=== PATIENT | female | born 1930 | race Caucasian/White ===

== ENCOUNTER 2016-12-12 19:41 | Inpatient (IN) | payer OTHER ==
[~2016-12-12] VITALS: Ht 160 cm; Wt 62.4 kg
[~2016-12-12 19:41] MED LIST: AMOX875T3 PO; LCTX PO; NYSS/ PO; PANT1TAB48 PO; PRN10125 PO
[2016-12-12 19:53] VITALS: Ht 160 cm; Wt 62.4 kg
[2016-12-12 20:18] LABS: BASO % 0.2 %; BASO ABS # 0.03 K/uL (0-0.2); COMPLETE YES; EOS % 0.5 %; HEMATOCRIT 40.2 % (37-47); IG% 0.5 %; LYMPH ABS # 1.34 K/uL (1.2-3.4); MEAN CELL VOLUME 89.9 fL (80-100); MEAN CORPUSCULAR HEMOGLOBIN 31.1 pg (25-34); MEAN CORPUSCULAR HGB CONC 34.6 g/dl (32-36); MEAN PLATELET VOLUME 9.7 fL (7.4-10.4); MONO % 7.4 %; NEUT % 82.4 %; PLATELET COUNT 336 K/uL (130-400); RED BLOOD COUNT 4.47 M/uL (4.2-5.4); WHITE BLOOD COUNT 14.93 K/uL (4.8-10.8)
--- NOTE | 2016-12-12 20:46 | DIAGNOSTIC IMAGING REPORT ---
CHEST ONE VIEW PORTABLE CLINICAL HISTORY: shortness of breath dyspnea COMPARISON STUDY: 04/16/2013 FINDINGS: Moderate cardiomegaly. Calcification mitral annulus. Small parenchymal infiltrate medial right base. Lungs otherwise are clear. IMPRESSION: 1. Moderate cardiomegaly.. 2. Small parenchymal infiltrate medial right base Electronically signed by: Riley Newell M.D. 12/12/2016 8:45 PM Dictated Date/Time: 12/12/2016 8:44 PM
[2016-12-12 20:50] LABS: ALB/GLOB RATIO 0.7 (0.9-2); ALKALINE PHOSPHATASE 114 U/L (45-117); ALT/SGPT 39 U/L (12-78); BLOOD UREA NITROGEN 18 mg/dl (7-18); CALCIUM 8.8 mg/dl (8.5-10.1); CARBON DIOXIDE 28 mmol/L (21-32); CHLORIDE 107 mmol/L (98-107); CREATININE 0.84 mg/dl (0.60-1.20); GLUCOSE 241 mg/dl (70-99); SODIUM 141 mmol/L (136-145)
[2016-12-12 21:15] LABS: PARTIAL THROMBOPLASTIN RATIO 1.3; PROTHROMBIN TIME (PATIENT) 11.2 SECONDS (9.0-12.0)
[2016-12-12 21:16] LABS: POTASSIUM 3.9 mmol/L (3.5-5.1)
[2016-12-12] MEDS ORDERED: PIPERACILLIN/TAZOBACTAM 4.5 GM/100ML D5W IV STA (21:37)
--- NOTE | 2016-12-12 21:43 | EMERGENCY ROOM VISIT NOTE ---
History Report prepared by Hari: Sarika Cruz Under the Supervision of: Dr. Manuel Irizarry M.D. First contact with patient: 20:22 Chief Complaint: SHORTNESS OF BREATH Stated Complaint: SOB/ Nursing Triage Summary: Pt arrives via ALS litter from home for eval of worsening sob over the past couple days. Medic reports pt has had a "cold/cough" for the past couple weeks. Initially prod, now non prod. Malaise. RA sat on EMS arrival was 87%. Pt denies pain on arrival to ED. Pt has +4 edema to left lower extremity, reports this is chronic. +2 edema to right lower extremity. Wound noted to posterior left lower extremity, weeping. History of Present Illness The patient is an 86 year old female who presents to the Emergency Room via ALS with complaints of worsening shortness of breath with onset several days ago. The patient states that she has had a cough and that she has had cold symptoms for several weeks. The patient has a wound to her left leg; the patient is unsure of how long her wound has been present. She denies chest pain, nausea, vomiting, fevers. Source of History: patient, family Onset: several days ago Position: chest Quality: other (shortness of breath) Timing: worsening Associated Symptoms: + cough, No chest pain, No fevers, No nausea, No vomiting Note: The patient has a wound to her left leg. Review of Systems See HPI for pertinent positives & negatives. A total of 10 systems reviewed and were otherwise negative. Past Medical & Surgical Medical Problems: (1) Cellulitis (2) Shortness of breath (3) UTI (urinary tract infection) Old medical records were reviewed. Nurse's notes were reviewed and I agree with. Family History No pertinent family history Social History Smoking Status: Never Smoker Drug Use: none Housing Status: lives with family Occupation Status: retired Current/Historical Medications Scheduled Lisinopril/Hctz (Prinzide 10-12.5MG *), 1 TAB PO QAM Pantoprazole (Protonix), 40 MG PO QAM Allergies Coded Allergies: No Known Allergies (Verified , 12/12/16) Physical Exam Vital Signs Date Time Temp Pulse Resp B/P Pulse Ox O2 Delivery O2 Flow Rate FiO2 12/13/16 02:19 78 18 170/61 93 12/13/16 01:31 75 18 186/57 95 Nasal Cannula 2.0 3/18/17 00:00 73 18 172/86 95 Room Air 12/12/16 23:26 76 22 185/73 91 Nasal Cannula 2.0 12/12/16 22:45 77 22 200/93 94 Room Air 12/12/16 21:47 95 Nasal Cannula 2.0 12/12/16 21:18 83 18 199/89 91 Room Air 12/12/16 21:18 91 Room Air 12/12/16 20:25 79 12/12/16 19:53 93 Room Air 12/12/16 19:53 93 Room Air 12/12/16 19:53 36.5 81 20 203/77 93 Room Air Physical Exam General: Chronically ill appearing older female in no acute distress, wearing baseline oxygen. HEENT: Normal cephalic atraumatic. Pupils are equal round and reactive to light. Extraocular movements are intact. Oropharynx is pink with moist mucous membranes. No swelling of the mouth lips or tongue. Neck: Supple with a midline trachea. No meningeal signs or stiffness, no JVD or bruits. No Stridor. Chest: Lungs have crackles in the bases bilaterally. No wheezes or rhonchi. No increased work of breathing. Heart: regular rate and rhythm. Abdomen: Soft nontender, nondistended without rebound guarding or rigidity. Extremities: No cyanosis clubbing. Edema in the lower extremities, left greater than right, ulcer in the left posterior calf. No calf tenderness or assymetry Spine/Back. Non tender to palpation. No CVA tenderness Skin: Good turgor without rashes. Neurologic exam: Cranial nerves two through 12 are intact. Motor and sensation are intact and symmetrical throughout. Medical Decision & Procedures ER Provider Diagnostic Interpretation: X-ray results as stated below per interpretation by me and the radiologist: CHEST ONE VIEW PORTABLE CLINICAL HISTORY: shortness of breath dyspnea COMPARISON STUDY: 04/16/2013 FINDINGS: Moderate cardiomegaly. Calcification mitral annulus. Small parenchymal infiltrate medial right base. Lungs otherwise are clear. IMPRESSION: 1. Moderate cardiomegaly.. 2. Small parenchymal infiltrate medial right base Electronically signed by: Riley Newell M.D. 12/12/2016 8:45 PM Dictated Date/Time: 12/12/2016 8:44 PM Laboratory Results 12/12/16 19:10 Red Blood Count 4.47, Mean Corpuscular Volume 89.9, Mean Corpuscular Hemoglobin 31.1, Mean Corpuscular Hemoglobin Concent 34.6, Mean Platelet Volume 9.7, Neutrophils (%) (Auto) 82.4, Lymphocytes (%) (Auto) 9.0, Monocytes (%) (Auto) 7.4, Eosinophils (%) (Auto) 0.5, Basophils (%) (Auto) 0.2, Neutrophils # (Auto) 12.31, Lymphocytes # (Auto) 1.34, Monocytes # (Auto) 1.11, Eosinophils # (Auto) 0.07, Basophils # (Auto) 0.03 12/12/16 19:10 12/12/16 20:40 Test 12/12/16 19:10 12/12/16 20:40 12/13/16 01:04 White Blood Count 14.93 K/uL (4.8-10.8) Red Blood Count 4.47 M/uL (4.2-5.4) Hemoglobin 13.9 g/dL (12.0-16.0) Hematocrit 40.2 % (37-47) Mean Corpuscular Volume 89.9 fL (80-100) Mean Corpuscular Hemoglobin 31.1 pg (25-34) Mean Corpuscular Hemoglobin Concent 34.6 g/dl (32-36) Platelet Count 336 K/uL (130-400) Mean Platelet Volume 9.7 fL (7.4-10.4) Neutrophils (%) (Auto) 82.4 % Lymphocytes (%) (Auto) 9.0 % Monocytes (%) (Auto) 7.4 % Eosinophils (%) (Auto) 0.5 % Basophils (%) (Auto) 0.2 % Neutrophils # (Auto) 12.31 K/uL (1.4-6.5) Lymphocytes # (Auto) 1.34 K/uL (1.2-3.4) Monocytes # (Auto) 1.11 K/uL (0.11-0.59) Eosinophils # (Auto) 0.07 K/uL (0-0.5) Basophils # (Auto) 0.03 K/uL (0-0.2) RDW Standard Deviation 47.5 fL (36.4-46.3) RDW Coefficient of Variation 14.5 % (11.5-14.5) Immature Granulocyte % (Auto) 0.5 % Immature Granulocyte # (Auto) 0.07 K/uL (0.00-0.02) Anion Gap 6.0 mmol/L (3-11) Est Creatinine Clear Calc Drug Dose 43.8 ml/min Estimated GFR () 72.4 Estimated GFR (Non- 62.5 BUN/Creatinine Ratio 21.0 (10-20) Calcium Level 8.8 mg/dl (8.5-10.1) Total Bilirubin 0.4 mg/dl (0.2-1) Alanine Aminotransferase (ALT/SGPT) 39 U/L (12-78) Alkaline Phosphatase 114 U/L (45-117) Total Protein 7.8 gm/dl (6.4-8.2) Albumin 3.1 gm/dl (3.4-5.0) Globulin 4.7 gm/dl (2.5-4.0) Albumin/Globulin Ratio 0.7 (0.9-2) Prothrombin Time 11.2 SECONDS (9.0-12.0) Prothromb Time International Ratio 1.0 (0.9-1.1) Activated Partial Thromboplast Time 33.1 SECONDS (21.0-31.0) Partial Thromboplastin Ratio 1.3 Aspartate Amino Transf (AST/SGOT) 24 U/L (15-37) Total Creatine Kinase 63 U/L (26-192) Creatine Kinase MB 6.8 ng/ml (0.5-3.6) Creatine Kinase MB Ratio 10.8 (0-3.0) Troponin I 0.464 ng/ml (0-0.045) Pro-B-Type Natriuretic Peptide 2199 pg/ml (0-1800) Laboratory studies as stated above per my review. Medications Administered Medications (Trade) Dose Ordered Sig/Alfonso Route Start Time Stop Time Status Last Admin Dose Admin Piperacillin Sod/ Tazobactam Sod (Zosyn Iv) 4.5 gm NOW STAT IV 12/12/16 21:37 12/12/16 21:38 DC 12/12/16 22:45 4.5 GM Levofloxacin (Levaquin / D5W) 750 mg NOW ONCE IV 12/12/16 21:45 12/12/16 21:46 DC 12/12/16 23:22 750 MG ECG Indication: SOB/dyspnea Rate (beats per minute): 76 Rhythm: normal sinus Findings: PAC, RBBB, other (left anterior fasicular block ) Comparison ECG Date: 03/25/2013 Change: no significant change ED Course 2133: Past medical records reviewed. The patient was evaluated in room A10, and a complete history and physical examination were performed. 2136: Zosyn 4.5 gm IV 2144: Levaquin 750 mg IV 2144: I discussed the case with Dr. Gardner ([facility]); he will further evaluate the patient. Upon reevaluation, the patient is resting. I discussed the results and treatment plan with the patient. She verbalized agreement of the treatment plan. The patient will be evaluated for further management. Medical Decision Differentials include, but are not limited to; pneumonia, sepsis, cellulitis, acute coronary syndrome, electrolyte or metabolic abnormality. This patient comes in as described above. She was placed in room A 10. She is having cough and shortness of breath. She also has some lower extremity swelling or redness of those and she says is chronic. she looks cellulitic. she also has skin breakdown. Chest x-ray does suggest pneumonia in the base. She does have an elevated white count. EKG does not appear ischemic however troponin is elevated. She was treated with IV Zosyn and IV Levaquin which will give lung and skin coverage blood cultures were obtained. I do think she needs to be admitted for further treatment and evaluation I have consulted Dr. Jacobo saw her in the ER and will admit her for these measures. Consults Time Called: 2139 Consulting Physician: Dr. Gardner ([facility]) Returned Call: 2144 I discussed the case with Dr. Gardner ([facility]); he will further evaluate the patient. Impression Primary Impression: Pneumonia Additional Impressions: Cellulitis Sepsis Elevated troponin Scribe Attestation The scribe's documentation has been prepared under my direction and personally reviewed by me in its entirety. I confirm that the note above accurately reflects all work, treatment, procedures, and medical decision making performed by me. Departure Information Dispostion Being Evaluated By Hospitalist Referrals Michael Almeida M.D. (PCP) Patient Instructions My [facility] Problem Qualifiers
[2016-12-12] MEDS ORDERED: LEVAQUIN 750MG / 150ML D5W IV ONE (21:45)
[2016-12-13] VITALS (9 sets, daily range): BP systolic 129–188; BP diastolic 52–72; PULSE 69–83; TEMP 36.3–36.6; O2SAT 87–96
[2016-12-13] MEDS ORDERED: ACETAMINOPHEN 325 MG TAB PO PRN (01:15)
[2016-12-13] MEDS ORDERED: ALBUTEROL 0.083% NEBU SOLN 3 ML VIAL INH PRN (01:15)
[2016-12-13] MEDS ORDERED: MAGNESIUM HYDROXIDE SUSP 30 ML UDC PO PRN (01:15)
[2016-12-13] MEDS ORDERED: NITROGLYCERIN 0.4 MG SL PER TAB CHARGE SL PRN (01:15)
[2016-12-13] MEDS ORDERED: ALUMINUM/MAGNESIUM/SIMETH (MAALOX MAX) 30 ML UDC PO PRN (01:15)
[2016-12-13] MEDS ORDERED: ONDANSETRON INJ 2 MG/ML 2 ML VIAL IV PRN (01:15)
[2016-12-13] MEDS ORDERED: POLYETHYLENE (MIRALAX) 17 GM PACK PO PRN (01:15)
[2016-12-13] MEDS ORDERED: MoRPHine SULFATE 2 MG/ML CARP IV PRN (01:15)
[2016-12-13 02:03] LABS: CKMB/CK RATIO 10.8 (0-3.0)
--- NOTE | 2016-12-13 02:28 | History and Physical ---
History & Physical Date & Time of Service: Dec 13, 2016 at 02:19 Chief Complaint: SOB/ Primary Care Physician: Michael Almeida M.D. History of Present Illness Source: patient 86 y/o F w/Hx HTN, DM, GERD, chronic LE lymphedema. Pt became progressively SOB and weak over the last 2 days. She describes a productive cough and possibly a fever. EMS was summoned to her house and noted that the pt was hypoxic into the mid 80s. She denies CP, denies N/V, denies diarrhea or dysuria. Labs on arrival were notable for an elevated glucose and an elevated troponin. The pt denies that she is diabetic however per our records she may have been diagnosed in 2012 and has not complied with treatment. She has chronic lymphedema R > L which she has had for several years and states that it is unchanged. She was not however to have a small ulcerated area on the L calf which appears infected. Initial CXR is consistent with acute PNM. Past Medical/Surgical History Medical Problems: (1) Cellulitis Status: Resolved (2) UTI (urinary tract infection) Status: Resolved Family History No pertinent family history Father in WW1 Mother at age 95 Social History Pt states [place] with her sons and is normally active Smoking Status: Never Smoker Drug Use: none Occupational Status: retired Immunizations History of Influenza Vaccine: No History of Tetanus Vaccine?: No History of Pneumococcal: No History of Hepatitis B Vaccine: No Multi-Drug Resistant Organisms History of MDRO: No Allergies Coded Allergies: No Known Allergies (Verified , 12/12/16) Home Medications Scheduled Lisinopril/Hctz (Prinzide 10-12.5MG *), 1 TAB PO QAM Pantoprazole (Protonix), 40 MG PO QAM Review of Systems Constitutional: + fever, No chills, No sweats Eyes: No eye pain, No worsening of vision ENT: No hearing loss, No nasal symptoms, No unusual epistaxis Respiratory: + cough, + dyspnea at rest, + dyspnea on exertion, + shortness of breath, + sputum, No wheezing Cardiovascular: No PND, No chest pain, No orthopnea Abdomen: No nausea, No pain, No vomiting Musculoskeletal: + problem reported (chronic lymphedema), No joint pain, No muscle pain Genitourinary - Female: No dysuria, No hematuria, No urinary frequency, No urinary incontinence, No urinary retention, No urinary urgency Neurologic: + weakness, No memory loss, No paralysis Psychiatric: No depression symptoms Endocrine: + fatigue Hematologic / Lymphatic: No abnormal bleeding/bruising Integumentary: + problem reported (Chronic LE skin changes - was unaware of calf ulcer) Physical Exam Vital Signs Date Time Temp Pulse Resp B/P Pulse Ox O2 Delivery O2 Flow Rate FiO2 12/13/16 01:31 75 18 186/57 95 Nasal Cannula 2.0 12/13/16 00:00 73 18 172/86 95 Room Air 12/12/16 23:26 76 22 185/73 91 Nasal Cannula 2.0 12/12/16 22:45 77 22 200/93 94 Room Air 12/12/16 21:47 95 Nasal Cannula 2.0 12/12/16 21:18 83 18 199/89 91 Room Air 12/12/16 21:18 91 Room Air 12/12/16 20:25 79 12/12/16 19:53 93 Room Air 12/12/16 19:53 93 Room Air 12/12/16 19:53 36.5 81 20 203/77 93 Room Air General Appearance: WD/WN, no apparent distress, + pertinent finding (Pleasant elderly female in no acute distress - AAO x 3) Head: normocephalic, atraumatic Eyes: normal inspection, PERRL, EOMI ENT: normal ENT inspection, hearing grossly normal, TMs normal, pharynx normal Neck: supple, no JVD Respiratory/Chest: chest non-tender, + decreased breath sounds (No clear crackles or wheezing) Cardiovascular: regular rate, rhythm, no gallop, no JVD, no murmur Abdomen/GI: normal bowel sounds, non tender, soft Back: normal inspection, no CVA tenderness Extremities/Musculoskelatal: + pertinent finding (Massive B/L edema and related skin changes R > L) 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, no motor/sensory deficits, alert, normal mood/affect, normal reflexes, oriented x 3 Skin: + pertinent finding (Massive B/L edema and related skin changes R > L) Diagnostics Laboratory Results Results Past 24 Hours Test 12/12/16 19:10 12/12/16 20:40 12/13/16 01:04 Range/Units White Blood Count 14.93 4.8-10.8 K/uL Red Blood Count 4.47 4.2-5.4 M/uL Hemoglobin 13.9 12.0-16.0 g/dL Hematocrit 40.2 37-47 % Mean Corpuscular Volume 89.9 80-100 fL Mean Corpuscular Hemoglobin 31.1 25-34 pg Mean Corpuscular Hemoglobin Concent 34.6 32-36 g/dl Platelet Count 336 130-400 K/uL Mean Platelet Volume 9.7 7.4-10.4 fL Neutrophils (%) (Auto) 82.4 % Lymphocytes (%) (Auto) 9.0 % Monocytes (%) (Auto) 7.4 % Eosinophils (%) (Auto) 0.5 % Basophils (%) (Auto) 0.2 % Neutrophils # (Auto) 12.31 1.4-6.5 K/uL Lymphocytes # (Auto) 1.34 1.2-3.4 K/uL Monocytes # (Auto) 1.11 0.11-0.59 K/uL Eosinophils # (Auto) 0.07 0-0.5 K/uL Basophils # (Auto) 0.03 0-0.2 K/uL RDW Standard Deviation 47.5 36.4-46.3 fL RDW Coefficient of Variation 14.5 11.5-14.5 % Immature Granulocyte % (Auto) 0.5 % Immature Granulocyte # (Auto) 0.07 0.00-0.02 K/uL Sodium Level 141 136-145 mmol/L Potassium Level 3.9 3.5-5.1 mmol/L Chloride Level 107 98-107 mmol/L Carbon Dioxide Level 28 21-32 mmol/L Anion Gap 6.0 3-11 mmol/L Blood Urea Nitrogen 18 7-18 mg/dl Creatinine 0.84 0.60-1.20 mg/dl Est Creatinine Clear Calc Drug Dose 43.8 ml/min Estimated GFR () 72.4 Estimated GFR (Non- 62.5 BUN/Creatinine Ratio 21.0 10-20 Random Glucose 241 70-99 mg/dl Calcium Level 8.8 8.5-10.1 mg/dl Total Bilirubin 0.4 0.2-1 mg/dl Aspartate Amino Transf (AST/SGOT) 24 15-37 U/L Alanine Aminotransferase (ALT/SGPT) 39 12-78 U/L Alkaline Phosphatase 114 45-117 U/L Troponin I 0.583 0.464 0-0.045 ng/ml Total Protein 7.8 6.4-8.2 gm/dl Albumin 3.1 3.4-5.0 gm/dl Globulin 4.7 2.5-4.0 gm/dl Albumin/Globulin Ratio 0.7 0.9-2 Prothrombin Time 11.2 9.0-12.0 SECONDS Prothromb Time International Ratio 1.0 0.9-1.1 Activated Partial Thromboplast Time 33.1 21.0-31.0 SECONDS Partial Thromboplastin Ratio 1.3 Total Creatine Kinase 63 26-192 U/L Creatine Kinase MB 6.8 0.5-3.6 ng/ml Creatine Kinase MB Ratio 10.8 0-3.0 Pro-B-Type Natriuretic Peptide 2199 0-1800 pg/ml Diagnostic Radiology 1. Moderate cardiomegaly. 2. Small parenchymal infiltrate medial right base. EKG SInus - RBB - LAFB - no acute change Impression Assessment and Plan 86 y/o F w/Hx HTN, DM, GERD, chronic LE lymphedema. Pt became progressively SOB and weak over the last 2 days. She describes a productive cough and possibly a fever. EMS was summoned to her house and noted that the pt was hypoxic into the mid 80s. She denies CP, denies N/V, denies diarrhea or dysuria. Labs on arrival were notable for an elevated glucose and an elevated troponin. The pt denies that she is diabetic however per our records she may have been diagnosed in 2012 and has not complied with treatment. She has chronic lymphedema R > L which she has had for several years and states that it is unchanged. She was not however to have a small ulcerated area on the L calf which appears infected. Initial CXR is consistent with acute PNM. 1) Hypoxia - pneumonia - pt placed on Levaquin, 02 protocol, nebs - stable on admission and maintaining sat w/2L NC 2) Lymphedema - area of ulceration - possibly infected L calf - Levaquin as above - culture and adjust antibiotics if needed - wound care consulted - should likely have some home care or outpt care weekly for her lymphedema. LE doppler ordered as she may be prone to DVTs. 3) DM - has not sought treatment although this was likely diagnosed in 2012 - placed on sliding scale - consider D/C with oral meds based on HbA1C results 4) Elevated trop - possibly demand ischemia due to hypoxia - serial troponins, monitor on telemetry, ASA, AM echo to evaluate for wall motion abnormalities. Full code - Heparin prophylaxis Total time for this admit including review of labs, meds, EKG, CXR - discussion with ER attending and pt - 38 min Level of Care Telemetry Resuscitation Status FULL RESUSCITATION VTE Prophylaxis VTE Risk Assessment Done? Y/N: Yes Risk Level: Moderate Given or contraindicated: Warfarin (Coumadin)
[2016-12-13] MEDS ORDERED: GLUCAGON FOR INJ 1 MG VIAL SQ PRN (02:30)
[2016-12-13] MEDS ORDERED: GLUCOSE 10 TABS/TUBE PO PRN (02:30)
[2016-12-13] MEDS ORDERED: GLUCOSE 40% GEL 15 GM TUBE PO PRN (02:30)
[2016-12-13] MEDS ORDERED: DEXTROSE 50% 50 ML SYR IV PRN (02:30)
[2016-12-13] MEDS: ALBUT/IPRATROP 3MG/0.5MG NEB 3 ML VIAL INH SCH ×4 (03:04→19:17)
[2016-12-13] MEDS ORDERED: LEVOFLOXACIN CONSULT ACTIVE PRN (03:15)
[2016-12-13] MEDS ORDERED: INFLUENZA VIRUS QUAD VACCINE 0.5 ML SYR IM. ONE (06:00)
[2016-12-13] MEDS ORDERED: HEPARIN SOD 5000 UNIT/0.5 ML CARP SQ SCH (06:00)
[2016-12-13] MEDS ORDERED: INFLUENZA ADMINISTRATION CHARGE ONE (06:00)
[2016-12-13] MEDS ORDERED: PNEUMOCOCCAL POLYSACCHARIDES 25 MCG/0.5 ML VIAL/SYR IM. ONE (06:00)
[2016-12-13] MEDS ORDERED: PNEUMOCOCCAL ADMINISTRATION CHARGE ONE (06:00)
[2016-12-13 07:09] LABS: HEMATOCRIT 34.4 % (37-47); MEAN CELL VOLUME 87.3 fL (80-100); MEAN CORPUSCULAR HEMOGLOBIN 29.7 pg (25-34); MEAN PLATELET VOLUME 8.9 fL (7.4-10.4); PLATELET COUNT 226 K/uL (130-400); RED BLOOD COUNT 3.94 M/uL (4.2-5.4); WHITE BLOOD COUNT 11.97 K/uL (4.8-10.8)
[2016-12-13] MEDS: INSULIN ASPART 100 UNITS/ML 3 ML PEN SC SCH ×4 (07:38→20:48)
[2016-12-13 07:39] LABS: BUN/CREATININE RATIO 21.2 (10-20); CALCIUM 8.4 mg/dl (8.5-10.1); CREATININE 0.69 mg/dl (0.60-1.20); MAGNESIUM 2.3 mg/dl (1.8-2.4); POTASSIUM 4.2 mmol/L (3.5-5.1)
[2016-12-13] MEDS: ASPIRIN 81 MG ECTAB PO SCH (08:16)
[2016-12-13] MEDS: PANTOprazole SOD 40 MG TAB PO SCH (08:16)
--- NOTE | 2016-12-13 09:37 | DIAGNOSTIC IMAGING REPORT ---
BILATERAL LOWER EXTREMITY VENOUS DOPPLER HISTORY: Pain. Edema. dv COMPARISON STUDY: 2012 FINDINGS: Study is positive for acute deep venous thrombosis involving the right common femoral vein. All remaining venous structures bilaterally are unremarkable. Augmentation characteristics are unremarkable. IMPRESSION: Focal acute deep venous thrombosis right common femoral vein. Otherwise negative study Electronically signed by: Riley Newell M.D. 12/13/2016 9:36 AM Dictated Date/Time: 12/13/2016 9:34 AM
--- NOTE | 2016-12-13 11:30 | ECHOCARDIOGRAM REPORT ---
*NOTICE TO RECEIVING REPUBLICAN AGENCY This information is strictly Confidential and protected under [place] law. [place] law prohibits you from making any further disclosure of this information unless further disclosure is expressly permitted by the written consent of the person to whom it pertains or is authorized by law. A general authorization for the release of medical or other information is not sufficient for this purpose. Hospital accepts no responsibility if the information is made available to any other person, INCLUDING THE PATIENT. Interpretation Summary * Name: SHUBHAM WEINER Study Date: 12/13/2016 07:18 AM BP: 188/69 mmHg * Patient Location: .[facility]\S\N276\S\2 HR: 75 * : 1930 (M/d/yyyy) Gender: Female Height: 63 in * Age: 86 yrs Ethnicity: [place] Weight: 151 lb * Ordering Physician: Ezio Gardner * Performed By: Sarika Jurado * * Reason For Study: ELEVATED TROP * BSA: 1.7 m2 * -- Conclusions -- * There is mild asymmetric left ventricular hypertrophy. * Left ventricular systolic function is normal. * A full diastolic examination was done with clinical findings of Class I diastolic dysfunction. * Mild valvular aortic stenosis. * There is moderate to severe mitral annular calcification. * There is mild mitral regurgitation. * Right ventricular systolic pressure is normal. Procedure Details * A complete two-dimensional transthoracic echocardiogram was performed (2D, M-mode, Doppler and color flow Doppler). Left Ventricle * The left ventricle is normal in size. * There is mild asymmetric left ventricular hypertrophy. * Ejection Fraction = >70 %. * Left ventricular systolic function is normal. * A full diastolic examination was done with clinical findings of Class I diastolic dysfunction. Right Ventricle * The right ventricle is grossly normal size. * The right ventricular systolic function is normal. Atria * The left atrial size is normal. * Right atrial size is normal. Mitral Valve * There is moderate to severe mitral annular calcification. * There is no mitral valve stenosis. * There is mild mitral regurgitation. Tricuspid Valve * There is mild tricuspid regurgitation. * Right ventricular systolic pressure is normal. Aortic Valve * Moderately calcified with diminished opening * Mild valvular aortic stenosis. * There is no significant aortic regurgitation. Great Vessels * The aortic root and proximal ascending aorta are normal sized. Pericardium/Pleural * There is no pericardial effusion. MMode 2D Measurements and Calculations IVSd 2.0 cm IVSs 2.5 cm LVIDd 3.8 cm LVIDs 2.2 cm LVPWd 1.3 cm LVPWs 2.2 cm IVS/LVPW 1.5 FS 41.4 % EDV(Teich) 60.7 ml ESV(Teich) 16.3 ml EF(Teich) 73.1 % EDV(cubed) 53.4 ml ESV(cubed) 10.7 ml EF(cubed) 79.9 % % IVS thick 25.5 % % LVPW thick 62.4 % LV mass(C)d 256.3 grams LV mass(C)dI 149.4 grams/m\S\2 LV mass(C)s 265.5 grams LV mass(C)sI 154.7 grams/m\S\2 SV(Teich) 44.3 ml SI(Teich) 25.8 ml/m\S\2 SV(cubed) 42.7 ml SI(cubed) 24.9 ml/m\S\2 ACS 0.63 cm LA dimension 3.7 cm asc Aorta Diam 2.9 cm LVOT diam 1.5 cm LVOT area 1.7 cm\S\2 LVAd ap4 15.6 cm\S\2 LVLd ap4 6.0 cm EDV(MOD-sp4) 33.6 ml EDV(sp4-el) 34.5 ml LVAs ap4 7.2 cm\S\2 LVLs ap4 5.2 cm ESV(MOD-sp4) 8.8 ml ESV(sp4-el) 8.6 ml EF(MOD-sp4) 73.9 % EF(sp4-el) 75.1 % LVAd ap2 19.1 cm\S\2 LVLd ap2 7.1 cm EDV(MOD-sp2) 41.4 ml EDV(sp2-el) 44.0 ml LVAs ap2 8.7 cm\S\2 LVLs ap2 5.4 cm ESV(MOD-sp2) 11.5 ml ESV(sp2-el) 11.8 ml EF(MOD-sp2) 72.1 % EF(sp2-el) 73.1 % LVLd %diff 15.4 % EDV(MOD-bp) 41.2 ml LVLs %diff 4.2 % ESV(MOD-bp) 10.4 ml EF(MOD-bp) 74.9 % SV(MOD-sp4) 24.8 ml SI(MOD-sp4) 14.5 ml/m\S\2 SV(MOD-sp2) 29.9 ml SI(MOD-sp2) 17.4 ml/m\S\2 SV(MOD-bp) 30.8 ml SI(MOD-bp) 18.0 ml/m\S\2 SV(sp4-el) 25.9 ml SI(sp4-el) 15.1 ml/m\S\2 SV(sp2-el) 32.2 ml SI(sp2-el) 18.8 ml/m\S\2 Doppler Measurements and Calculations MV E max mary 107.8 cm/sec MV A max mary 131.0 cm/sec MV E/A 0.82 MV V2 max 180.1 cm/sec MV max PG 13.0 mmHg MV V2 mean 91.2 cm/sec MV mean PG 3.9 mmHg MV V2 VTI 48.1 cm MV dec time 0.37 sec Ao V2 max 289.9 cm/sec Ao max PG 33.7 mmHg Ao max PG (full) 26.0 mmHg Ao V2 mean 165.8 cm/sec Ao mean PG 13.9 mmHg Ao V2 VTI 62.9 cm CONNOR(V,A) 0.82 cm\S\2 CONNOR(V,D) 0.82 cm\S\2 LV V1 max PG 7.7 mmHg LV V1 max 138.6 cm/sec PA V2 max 126.7 cm/sec PA max PG 6.4 mmHg TR max mary 202.5 cm/sec
--- NOTE | 2016-12-13 13:03 | Progress Note ---
Progress Note Date of Service Dec 13, 2016. Progress Note H&P Reviewed. Chart and studies reviewed. LE dopplers revealed R common femoral vein DVT. With her SOB with non-productive cough for the past 2 weeks, will check CTA of the chest. Will check FOBT (never had colonoscopy and denies black tarry stools or h/o GIB ) and start her on therapeutic lovenox 60 mg SQ Q12h. Maintain her on abx. Keep BP between 140-160, currently off home regimen of lisinopril/hctz. Will reinstitute in the next 24-48 hrs to maintain sbp goal of 120-140.
[2016-12-13] MEDS ORDERED: OPTIRAY 320 IV PRN (13:15)
--- NOTE | 2016-12-13 13:34 | DIAGNOSTIC IMAGING REPORT ---
CHEST CTA for PULMONARY ARTERIES CT DOSE: 310.49 mGy.cm HISTORY: Dyspnea SOB EVAL FOR PE TECHNIQUE: Multiaxial CT images of the chest were performed following the intravenous administration of contrast to evaluate the pulmonary arteries. Maximal intensity projection images were also obtained. COMPARISON STUDY: None. FINDINGS: Large embolus involving the distal aspect of the right main pulmonary artery with extension to the right upper lobe and to a lesser extent right lower lobe pulmonary arterial distributions. No evidence for a saddle embolus. Left pulmonary vasculature enhances uniformly. Bibasilar parenchymal infiltrative changes are present. There are small bilateral pleural effusions. Heart is moderately enlarged. There are findings of secondary evidence for pulmonary arterial hypertension. IMPRESSION: 1. Study is positive for large embolus involving the right upper lobe and to lesser extent right lower lobe pulmonary arterial distributions. 2. Developing pulmonary arterial hypertension. 3. Basilar parenchymal infiltrative change with a trace amount pleural fluid both lung bases.. Electronically signed by: Riley Newell M.D. 12/13/2016 1:32 PM Dictated Date/Time: 12/13/2016 1:27 PM
[2016-12-13] MEDS: ENOXAPARIN 60 MG/0.6 ML SYR SQ SCH ×2 (14:06→22:44)
[2016-12-14] VITALS (11 sets, daily range): BP systolic 131–175; BP diastolic 56–81; PULSE 67–104; TEMP 36.6–36.8; O2SAT 91–96
[2016-12-14] MEDS: ALBUT/IPRATROP 3MG/0.5MG NEB 3 ML VIAL INH SCH ×4 (02:26→19:28)
[2016-12-14 07:27] LABS: BASO % 0.2 %; BASO ABS # 0.02 K/uL (0-0.2); COMPLETE YES; EOS % 0.8 %; HEMATOCRIT 33.3 % (37-47); LYMPH % 18.7 %; LYMPH ABS # 1.57 K/uL (1.2-3.4); MEAN CELL VOLUME 88.6 fL (80-100); MEAN CORPUSCULAR HEMOGLOBIN 29.5 pg (25-34); MEAN CORPUSCULAR HGB CONC 33.3 g/dl (32-36); MEAN PLATELET VOLUME 9.6 fL (7.4-10.4); NEUT % 71.3 %; PLATELET COUNT 233 K/uL (130-400); RED BLOOD COUNT 3.76 M/uL (4.2-5.4); WHITE BLOOD COUNT 8.38 K/uL (4.8-10.8)
[2016-12-14] MEDS: INSULIN ASPART 100 UNITS/ML 3 ML PEN SC SCH ×4 (07:32→20:59)
[2016-12-14 07:54] LABS: CALCIUM 8.3 mg/dl (8.5-10.1); CREATININE 0.87 mg/dl (0.60-1.20); POTASSIUM 4.3 mmol/L (3.5-5.1)
[2016-12-14] MEDS: ASPIRIN 81 MG ECTAB PO SCH (08:33)
[2016-12-14] MEDS: PANTOprazole SOD 40 MG TAB PO SCH (08:33)
--- NOTE | 2016-12-14 09:23 | Progress Note ---
Subjective Date of Service: Dec 14, 2016. Subjective Pt evaluation today including: conversation w/ patient, physical exam, review of studies, review of inpatient medication list Risks/benefits of being on anticoagulation was discussed with patient. She opts for coumadin and is willing to have her INR checked very closely. She understands risks including but not limited to GIB and ICH especially in setting of some ambulatory dysfunction. She reports she walks with a RW but has not fallen for several years now. She is relatively independent at home but she lives with her son in a farm and he helps her during the day. Problem List Medical Problems: (1) Elevated troponin Status: Acute (2) Pneumonia Status: Acute (3) Sepsis Status: Acute Review of Systems All Other Systems: Reviewed and Negative Medications Acetaminophen (Tylenol Tab) 650 mg Q4H PRN PO; Start 12/13/16 at 01:15; Stop 01/12/17 at 01:14 Al Hydrox/Mg Hydrox/Simethicone (Maalox Max Susp) 15 ml Q4H PRN PO; Start 12/13 at 01:15; Stop 01/12/17 at 01:14 Albuterol Sulfate 2.5 mg 2.5 mg Q4H PRN INH; Start 12/13/16 at 01:15; Stop at 01:14 Albuterol/ Ipratropium (Duoneb) 3 ml Q6R INH Last administered on 12/14/16 07: 05; Admin Dose 3 ML; Start 12/13/16 at 03:00; Stop 01/12/17 at 01:14 Aspirin (Ecotrin Tab) 81 mg QAM PO Last administered on 12/14/16 08:33; Admin Dose 81 MG; Start 12/13/16 at 09:00; Stop 01/12/17 at 08:59 Dextrose (Dextrose 50% 50ML Syringe) 25-50ML OF 50% DW IV FOR... UD PRN IV; Start 12/13/16 at 02:30; Stop 01/12/17 at 02:29 Enoxaparin Sodium (Lovenox Inj) 60 mg Q12@1100,2300 SQ Last administered on 12/13 22:44; Admin Dose 60 MG; Start 12/13/16 at 14:00; Stop 01/12/17 at 13:59 Glucagon (Glucagon Inj) 1 mg UD PRN SQ; Start 12/13/16 at 02:30; Stop 01/12/17 at 02:29 Glucose (Glucose 40% Gel) 15-30 GRAMS 15 GRAMS... UD PRN PO; Start 12/13/16 at 02:30; Stop 01/12/17 at 02:29 Glucose (Glucose Chew Tab) 4-8 Tablets 4 Tabl... UD PRN PO; Start 12/13/16 at 02:30; Stop 01/12/17 at 02:29 Insulin Aspart (novoLOG ASPART) SLIDING SCALE G... ACHS SC Last administered on 12/13/16 20:48; Admin Dose 1 UNITS; Start 12/13/16 at 06:30; Stop 01/12/17 at 06:59 Ioversol (Optiray 320) 125 ml UD PRN IV; Start 12/13/16 at 13:15; Stop at 13:14 Levofloxacin (Consult) 1 ea UD PRN N/A; Start 12/13/16 at 03:15; Stop 01/12/17 at 03:14 Levofloxacin/Prmx (Levaquin / D5W/ Premixed D5W) 150 ml @ 100 mls/hr Q48H IV; Start 12/14/16 at 23:00; Stop 12/19/16 at 23:59 Magnesium Hydroxide (Milk Of Magnesia Susp) 30 ml Q12H PRN PO; Start 12/13/16 at 01:15; Stop 01/12/17 at 01:14 Morphine Sulfate (MoRPHine SULFATE INJ) 2 mg Q30M PRN IV; Start 12/13/16 at 01: 15; Stop 12/27/16 at 01:14 Nitroglycerin (Nitrostat Tab) 0.4 mg UD PRN SL; Start 12/13/16 at 01:15; Stop 01/12/17 at 01:14 Ondansetron HCl (Zofran Inj) 4 mg Q6H PRN IV; Start 12/13/16 at 01:15; Stop at 01:14 Pantoprazole Sodium (Protonix Tab) 40 mg QAM PO Last administered on 12/14/16 08:33; Admin Dose 40 MG; Start 12/13/16 at 09:00; Stop 01/12/17 at 08:59 Polyethylene (Miralax Powder Packet) 17 gm DAILY PRN PO; Start 12/13/16 at 01: 15; Stop 01/12/17 at 01:14 Objective Vital Signs Date Time Temp Pulse Resp B/P Pulse Ox O2 Delivery O2 Flow Rate FiO2 12/14/16 07:17 36.8 69 20 134/74 94 2.0 12/14/16 07:05 67 18 95 Nasal Cannula 2.0 12/14/16 04:00 Nasal Cannula 2.0 12/14/16 02:50 36.8 104 20 131/72 95 Nasal Cannula 2.0 12/14/16 02:26 68 18 94 Nasal Cannula 2.0 12/14/16 00:00 36.8 75 18 146/72 93 Nasal Cannula 2.0 12/14/16 00:00 Nasal Cannula 2.0 12/13/16 20:00 Nasal Cannula 2.0 12/13/16 19:26 36.6 74 18 129/56 92 Room Air 12/13/16 19:18 76 16 87 Room Air 12/13/16 16:30 Nasal Cannula 2.0 12/13/16 14:58 36.4 72 16 161/62 92 Room Air 12/13/16 14:38 71 16 95 Nasal Cannula 1.0 12/13/16 12:30 Nasal Cannula 2.0 12/13/16 11:48 36.4 73 16 145/52 96 Nasal Cannula 2.0 Physical Exam Comments: nad, dry cough noted, aox3 eomi, perrl, anicteric s1 s2 rrr, no murmurs appreciated +bibasilar crackles but with good air exchange throughout, no wheezing abd soft nt/nd +BS LE with chronic venous stasis, +erythema Laboratory Results Last 24 Hours Test 12/13/16 11:20 12/13/16 16:18 12/13/16 19:37 12/13/16 19:40 Bedside Glucose 164 mg/dl 114 mg/dl 162 mg/dl Test 12/14/16 06:45 12/14/16 07:28 White Blood Count 8.38 K/uL Red Blood Count 3.76 M/uL Hemoglobin 11.1 g/dL Hematocrit 33.3 % Mean Corpuscular Volume 88.6 fL Mean Corpuscular Hemoglobin 29.5 pg Mean Corpuscular Hemoglobin Concent 33.3 g/dl Platelet Count 233 K/uL Mean Platelet Volume 9.6 fL Neutrophils (%) (Auto) 71.3 % Lymphocytes (%) (Auto) 18.7 % Monocytes (%) (Auto) 8.0 % Eosinophils (%) (Auto) 0.8 % Basophils (%) (Auto) 0.2 % Neutrophils # (Auto) 5.97 K/uL Lymphocytes # (Auto) 1.57 K/uL Monocytes # (Auto) 0.67 K/uL Eosinophils # (Auto) 0.07 K/uL Basophils # (Auto) 0.02 K/uL RDW Standard Deviation 47.4 fL RDW Coefficient of Variation 14.6 % Immature Granulocyte % (Auto) 1.0 % Immature Granulocyte # (Auto) 0.08 K/uL Sodium Level 142 mmol/L Potassium Level 4.3 mmol/L Chloride Level 108 mmol/L Carbon Dioxide Level 27 mmol/L Anion Gap 7.0 mmol/L Blood Urea Nitrogen 17 mg/dl Creatinine 0.87 mg/dl Est Creatinine Clear Calc Drug Dose 42.3 ml/min Estimated GFR () 69.4 Estimated GFR (Non- 59.9 BUN/Creatinine Ratio 19.0 Random Glucose 118 mg/dl Calcium Level 8.3 mg/dl Troponin I 0.348 ng/ml Bedside Glucose 120 mg/dl Assessment and Plan 1. DVT/PE - in setting of decreased mobility due to chronic LE edema - no RV strain on echo - walks with RW, no recent falls - resume lovenox for at least 5 days, start coumadin tonight and have INR check in AM - risk/benefits dicussed re: Xa inhibitors vs coumadin, she opts for coumadin at this time - hold off PT/OT for now until pulmonary status more stable - will eventually need PT/OT evaluation prior to discharge for her ambulatory dysfunction 2. Chronic LE edema with cellulitis - cont abx for 5-7 days depending on how she progresses - wound care consult 3. Ambulatory dysfunction - hold off on PT/OT at this time until respiratory status improves
[2016-12-14] MEDS: ENOXAPARIN 60 MG/0.6 ML SYR SQ SCH ×2 (11:59→23:24)
[2016-12-14] MEDS ORDERED: LISINOPRIL 10 MG TAB PO ONE (15:11)
[2016-12-14] MEDS: WARFARIN SOD 5 MG TAB PO SCH (15:48)
[2016-12-14] MEDS ORDERED: LEVOFLOXACIN / D5W 750 MG in PREMIXED IN D5W 150 ML IV SCH (23:00)
[2016-12-15] VITALS (14 sets, daily range): BP systolic 144–177; BP diastolic 63–78; PULSE 65–78; TEMP 36.4–37; O2SAT 92–98
[2016-12-15] MEDS: ALBUT/IPRATROP 3MG/0.5MG NEB 3 ML VIAL INH SCH ×4 (02:22→20:22)
[2016-12-15 06:36] LABS: BASO % 0.2 %; BASO ABS # 0.02 K/uL (0-0.2); COMPLETE YES; EOS % 0.6 %; HEMATOCRIT 33.8 % (37-47); IG% 1.2 %; LYMPH ABS # 1.32 K/uL (1.2-3.4); MEAN CELL VOLUME 88.5 fL (80-100); MEAN CORPUSCULAR HEMOGLOBIN 29.3 pg (25-34); MEAN CORPUSCULAR HGB CONC 33.1 g/dl (32-36); MEAN PLATELET VOLUME 9.2 fL (7.4-10.4); MONO % 9.8 %; NEUT % 72.2 %; PLATELET COUNT 214 K/uL (130-400); RED BLOOD COUNT 3.82 M/uL (4.2-5.4); WHITE BLOOD COUNT 8.23 K/uL (4.8-10.8)
[2016-12-15 06:43] LABS: INR 1.1 (0.9-1.1); PROTHROMBIN TIME (PATIENT) 11.5 SECONDS (9.0-12.0)
[2016-12-15 07:17] LABS: BUN/CREATININE RATIO 23.9 (10-20); CALCIUM 8.5 mg/dl (8.5-10.1); CREATININE 0.87 mg/dl (0.60-1.20); POTASSIUM 4.5 mmol/L (3.5-5.1)
[2016-12-15] MEDS: INSULIN ASPART 100 UNITS/ML 3 ML PEN SC SCH ×4 (07:51→21:00)
[2016-12-15] MEDS: LISINOPRIL 10 MG TAB PO SCH (07:58)
[2016-12-15] MEDS: PANTOprazole SOD 40 MG TAB PO SCH (07:58)
[2016-12-15] MEDS: ASPIRIN 81 MG ECTAB PO SCH (07:58)
--- NOTE | 2016-12-15 10:38 | Clinical Documentation Query ---
CLINICAL DOCUMENTATION QUERY 86 year old female who presents to the Emergency Room via ALS with complaints of worsening shortness of breath. Pneumonia has been well documented in daily progress notes until the discovery of PE. The patient remains on IV Levofloxacin and nebs. In your clinical opinion is this patient being managed for: ( ) Pneumonia treated with IV Levofloxacin ( ) Pneumonia ruled out Please clarify and document your clinical opinion in the progress notes and discharge summary. Terms such as "probable", "suspected", "likely", "questionable", "possible", or "still to be ruled out" are acceptable. IF IN AGREEMENT, YOU MUST DOCUMENT ABOVE DIAGNOSTIC STATEMENT IN DAILY PROGRESS NOTES AND DISCHARGE SUMMARY. This document is not part of the patient's record. Thank You, Raffaele Manzo, REAGAN [phone]
[2016-12-15] MEDS: ENOXAPARIN 60 MG/0.6 ML SYR SQ SCH ×2 (12:29→22:22)
[2016-12-15] MEDS: WARFARIN SOD 5 MG TAB PO SCH (16:09)
--- NOTE | 2016-12-15 18:25 | Progress Note ---
Subjective Date of Service: Dec 15, 2016. Subjective this pt is alert and oriented, discussed treatment of dVT, pt does not feel she can carry out lovenox at home, needs 5 day overlap. Son at bedside and updated , shooting for for discharge if not new issues Problem List Medical Problems: (1) Elevated troponin Status: Acute (2) Pneumonia Status: Acute (3) Sepsis Status: Acute Review of Systems Constitutional: No chills, No fever, No weakness Respiratory: No cough, No dyspnea on exertion, No shortness of breath Cardiac: + edema, No chest pain Abdomen: No diarrhea, No nausea, No pain, No vomiting Female : No dysuria, No urinary frequency Skin: + color change, + new/changing skin lesions, + rash Objective Vital Signs Date Time Temp Pulse Resp B/P Pulse Ox O2 Delivery O2 Flow Rate FiO2 12/15/16 08:28 36.4 65 17 169/75 98 Nasal Cannula 2.0 12/15/16 07:07 69 18 93 Nasal Cannula 2.0 12/15/16 04:00 36.9 69 18 156/78 92 Nasal Cannula 2.0 12/15/16 04:00 Nasal Cannula 2.0 12/15/16 02:22 69 18 96 Nasal Cannula 2.0 12/15/16 00:00 Nasal Cannula 2.0 12/15/16 00:00 36.7 74 20 155/68 96 Nasal Cannula 2.0 12/14/16 20:00 Nasal Cannula 2.0 12/14/16 20:00 36.6 68 18 175/64 96 2.0 12/14/16 19:28 73 18 96 Nasal Cannula 2.0 12/14/16 16:45 Nasal Cannula 2.0 12/14/16 15:11 36.8 71 18 151/56 94 Nasal Cannula 2.0 12/14/16 14:34 70 18 93 Nasal Cannula 2.0 12/14/16 12:30 Nasal Cannula 2.0 12/14/16 11:45 36.7 68 20 166/81 94 Physical Exam General Appearance: WD/WN, + mild distress, + obese Neck: supple, no JVD Respiratory/Chest: chest non-tender, lungs clear, normal breath sounds Cardiovascular: regular rate, rhythm, no murmur Abdomen: normal bowel sounds, non tender, soft Extremities: + pedal edema, + swelling, + pertinent finding (chronic venous stasis skin changes) Neurologic/Psychiatric: alert, oriented x 3 Laboratory Results Last 24 Hours Test 12/14/16 11:35 12/14/16 16:32 12/14/16 20:12 12/15/16 06:19 Bedside Glucose 148 mg/dl 178 mg/dl 144 mg/dl White Blood Count 8.23 K/uL Red Blood Count 3.82 M/uL Hemoglobin 11.2 g/dL Hematocrit 33.8 % Mean Corpuscular Volume 88.5 fL Mean Corpuscular Hemoglobin 29.3 pg Mean Corpuscular Hemoglobin Concent 33.1 g/dl Platelet Count 214 K/uL Mean Platelet Volume 9.2 fL Neutrophils (%) (Auto) 72.2 % Lymphocytes (%) (Auto) 16.0 % Monocytes (%) (Auto) 9.8 % Eosinophils (%) (Auto) 0.6 % Basophils (%) (Auto) 0.2 % Neutrophils # (Auto) 5.93 K/uL Lymphocytes # (Auto) 1.32 K/uL Monocytes # (Auto) 0.81 K/uL Eosinophils # (Auto) 0.05 K/uL Basophils # (Auto) 0.02 K/uL RDW Standard Deviation 47.3 fL RDW Coefficient of Variation 14.7 % Immature Granulocyte % (Auto) 1.2 % Immature Granulocyte # (Auto) 0.10 K/uL Prothrombin Time 11.5 SECONDS Prothromb Time International Ratio 1.1 Sodium Level 141 mmol/L Potassium Level 4.5 mmol/L Chloride Level 106 mmol/L Carbon Dioxide Level 27 mmol/L Anion Gap 8.0 mmol/L Blood Urea Nitrogen 21 mg/dl Creatinine 0.87 mg/dl Est Creatinine Clear Calc Drug Dose 41.8 ml/min Estimated GFR () 69.4 Estimated GFR (Non- 59.9 BUN/Creatinine Ratio 23.9 Random Glucose 114 mg/dl Calcium Level 8.5 mg/dl Test 12/15/16 07:41 Bedside Glucose 122 mg/dl Assessment and Plan DVT/PE lovenox for at least 5 days, coumadin overlap - risk/benefits dicussed re: Xa inhibitors vs coumadin by Dr Castellon, reportedly pt opts for coumadin at this time Chronic LE edema with cellulitis - cont abx wound care consult HTn slightly up restart lisinoril Urinary incontinence with jeopardy of skin breakdown, best placed Ambulatory dysfunction will require PT/OT
[2016-12-16] VITALS (14 sets, daily range): BP systolic 143–194; BP diastolic 46–82; PULSE 63–109; TEMP 36.6–37.2; O2SAT 92–97
[2016-12-16] MEDS: ALBUT/IPRATROP 3MG/0.5MG NEB 3 ML VIAL INH SCH ×4 (02:17→19:29)
[2016-12-16 07:23] LABS: HEMATOCRIT 32.9 % (37-47); MEAN CELL VOLUME 90.4 fL (80-100); MEAN CORPUSCULAR HEMOGLOBIN 30.2 pg (25-34); MEAN CORPUSCULAR HGB CONC 33.4 g/dl (32-36); MEAN PLATELET VOLUME 9.8 fL (7.4-10.4); PLATELET COUNT 240 K/uL (130-400); RED BLOOD COUNT 3.64 M/uL (4.2-5.4); WHITE BLOOD COUNT 6.64 K/uL (4.8-10.8)
[2016-12-16 07:30] LABS: INR 1.3 (0.9-1.1); PROTHROMBIN TIME (PATIENT) 13.7 SECONDS (9.0-12.0)
[2016-12-16 07:57] LABS: CREATININE 0.71 mg/dl (0.60-1.20)
[2016-12-16] MEDS: INSULIN ASPART 100 UNITS/ML 3 ML PEN SC SCH ×4 (08:06→21:00)
[2016-12-16] MEDS: LISINOPRIL 10 MG TAB PO SCH (08:07)
[2016-12-16] MEDS: ASPIRIN 81 MG ECTAB PO SCH (08:07)
[2016-12-16] MEDS: PANTOprazole SOD 40 MG TAB PO SCH (08:07)
[2016-12-16] MEDS: ENOXAPARIN 60 MG/0.6 ML SYR SQ SCH ×2 (12:19→22:55)
[2016-12-16] MEDS: WARFARIN SOD 5 MG TAB PO SCH (16:04)
[2016-12-16] MEDS ORDERED: LEVOFLOXACIN 750 MG TAB PO SCH (18:00)
--- NOTE | 2016-12-16 19:09 | Progress Note ---
Subjective Date of Service: Dec 16, 2016. Subjective pt has no concerns or complaints, legs are improved Problem List Medical Problems: (1) Elevated troponin Status: Acute (2) Pneumonia Status: Acute (3) Sepsis Status: Acute Review of Systems Constitutional: No chills, No fever Respiratory: No cough, No shortness of breath Cardiac: + edema, No chest pain Abdomen: No diarrhea, No nausea, No pain, No vomiting Musculoskeletal: + joint pain, + muscle pain, + swelling Female : No dysuria, No urinary frequency Objective Vital Signs Date Time Temp Pulse Resp B/P Pulse Ox O2 Delivery O2 Flow Rate FiO2 12/16/16 16:06 170/72 12/16/16 16:00 92 Nasal Cannula 2.0 12/16/16 15:47 36.8 69 16 194/46 92 Nasal Cannula 3.0 12/16/16 14:23 66 18 97 Nasal Cannula 2.0 12/16/16 12:00 Nasal Cannula 2.0 12/16/16 11:38 36.8 65 18 163/75 95 Nasal Cannula 2.0 12/16/16 07:45 Nasal Cannula 2.0 12/16/16 07:30 36.6 66 18 148/82 93 Room Air 12/16/16 07:20 66 18 97 Nasal Cannula 2.0 12/16/16 04:00 Nasal Cannula 2.0 12/16/16 03:32 37.2 77 20 143/58 93 2.0 12/16/16 02:17 65 18 96 Nasal Cannula 2.0 12/16/16 01:00 63 12/16/16 00:13 36.7 109 20 162/73 92 2.0 12/16/16 00:00 Nasal Cannula 2.0 12/15/16 20:26 67 18 95 Nasal Cannula 2.0 12/15/16 20:00 94 Nasal Cannula 2.0 12/15/16 20:00 94 Nasal Cannula 2.0 12/15/16 19:56 37.0 68 16 144/70 95 Physical Exam General Appearance: WD/WN, + mild distress Neck: supple, no JVD Respiratory/Chest: chest non-tender, lungs clear, normal breath sounds Cardiovascular: regular rate, rhythm, no murmur Abdomen: normal bowel sounds, non tender, soft Extremities: + pedal edema, + swelling Laboratory Results Last 24 Hours Test 12/15/16 20:39 12/16/16 06:56 12/16/16 07:36 12/16/16 11:22 Bedside Glucose 151 mg/dl 121 mg/dl 149 mg/dl White Blood Count 6.64 K/uL Red Blood Count 3.64 M/uL Hemoglobin 11.0 g/dL Hematocrit 32.9 % Mean Corpuscular Volume 90.4 fL Mean Corpuscular Hemoglobin 30.2 pg Mean Corpuscular Hemoglobin Concent 33.4 g/dl RDW Standard Deviation 49.1 fL RDW Coefficient of Variation 14.8 % Platelet Count 240 K/uL Mean Platelet Volume 9.8 fL Prothrombin Time 13.7 SECONDS Prothromb Time International Ratio 1.3 Creatinine 0.71 mg/dl Est Creatinine Clear Calc Drug Dose 50.6 ml/min Estimated GFR () 88.8 Estimated GFR (Non- 76.6 Test 12/16/16 15:57 Bedside Glucose 135 mg/dl Assessment and Plan DVT/PE lovenox for at least 5 days, coumadin overlap, pneumonia has been ruled out - risk/benefits dicussed re: Xa inhibitors vs coumadin by Dr Castellon, reportedly pt opts for coumadin at this time Chronic LE edema with cellulitis - cont abx wound care consult, antibiotics are for possible LE cellulitis HTn slightly up restart lisinoril Urinary incontinence with jeopardy of skin breakdown, best placed Ambulatory dysfunction will require PT/OT
[2016-12-16] MEDS: NYSTATIN POWDER 15GM BTL EXT SCH (20:39)
[2016-12-17] VITALS (11 sets, daily range): BP systolic 138–169; BP diastolic 53–77; PULSE 62–72; TEMP 36.5–37.1; O2SAT 90–98
[2016-12-17] MEDS: ALBUT/IPRATROP 3MG/0.5MG NEB 3 ML VIAL INH SCH ×4 (01:59→19:05)
[2016-12-17 07:55] LABS: INR 1.9 (0.9-1.1); PROTHROMBIN TIME (PATIENT) 20.4 SECONDS (9.0-12.0)
[2016-12-17] MEDS: INSULIN ASPART 100 UNITS/ML 3 ML PEN SC SCH ×4 (08:05→20:35)
[2016-12-17] MEDS: PANTOprazole SOD 40 MG TAB PO SCH (08:08)
[2016-12-17] MEDS: NYSTATIN POWDER 15GM BTL EXT SCH ×2 (08:08→20:37)
[2016-12-17] MEDS: ASPIRIN 81 MG ECTAB PO SCH (08:08)
[2016-12-17] MEDS: LISINOPRIL 10 MG TAB PO SCH (08:13)
[2016-12-17] MEDS ORDERED: LISINOPRIL 5 MG TAB PO SCH (09:00)
[2016-12-17] MEDS: ENOXAPARIN 60 MG/0.6 ML SYR SQ SCH ×2 (12:16→22:26)
[2016-12-17] MEDS ORDERED: WARFARIN SOD 3 MG TAB PO SCH (16:00)
--- NOTE | 2016-12-17 18:08 | Progress Note ---
Subjective Date of Service: Dec 17, 2016. Subjective pt doing well no active complaints, inr almost there Problem List Medical Problems: (1) Elevated troponin Status: Acute (2) Pneumonia Status: Acute (3) Sepsis Status: Acute Review of Systems Constitutional: No chills, No fever Respiratory: No cough, No shortness of breath Cardiac: + edema, No chest pain Abdomen: No diarrhea, No nausea, No pain, No vomiting Female : No dysuria, No urinary frequency Psychiatric: No anhedonism, No depression symptoms Objective Vital Signs Date Time Temp Pulse Resp B/P Pulse Ox O2 Delivery O2 Flow Rate FiO2 12/17/16 16:00 Room Air 12/17/16 15:09 36.5 71 18 166/69 93 Room Air 12/17/16 14:46 70 18 92 Room Air 12/17/16 12:00 Room Air 12/17/16 11:22 36.8 68 18 169/75 91 Room Air 12/17/16 09:43 Room Air 12/17/16 07:45 Room Air 12/17/16 07:10 62 18 98 Nasal Cannula 2.0 12/17/16 07:07 36.6 62 20 148/66 91 Nasal Cannula 3.0 12/17/16 04:00 Nasal Cannula 2.0 12/17/16 03:18 36.6 72 16 145/65 96 Nasal Cannula 2.0 12/17/16 01:59 68 18 97 Nasal Cannula 2.0 12/17/16 00:11 37.1 66 20 149/77 97 Nasal Cannula 3.0 12/17/16 00:00 Nasal Cannula 2.0 12/16/16 20:00 92 Nasal Cannula 2.0 12/16/16 20:00 92 Nasal Cannula 2.0 12/16/16 19:57 37.0 70 16 179/73 92 Nasal Cannula 3.0 12/16/16 19:29 66 18 97 Nasal Cannula 2.0 Physical Exam General Appearance: WD/WN, + mild distress Neck: supple, no JVD Respiratory/Chest: chest non-tender, lungs clear, normal breath sounds Cardiovascular: regular rate, rhythm, no murmur Abdomen: non tender, soft Extremities: + pedal edema, + pertinent finding (changes of chronic venous stasis) Neurologic/Psychiatric: alert, oriented x 3 Laboratory Results Last 24 Hours Test 12/16/16 21:00 12/17/16 07:25 12/17/16 07:34 12/17/16 11:37 Bedside Glucose 125 mg/dl 107 mg/dl 114 mg/dl Prothrombin Time 20.4 SECONDS Prothromb Time International Ratio 1.9 Test 12/17/16 16:35 Bedside Glucose 148 mg/dl Assessment and Plan DVT/PE lovenox for at least 5 days, coumadin overlap, pneumonia has been ruled out - risk/benefits discussed re: Xa inhibitors vs Coumadin by Dr Castellon, reportedly pt opts for Coumadin at this time Chronic LE edema with cellulitis - cont abx wound care consult, antibiotics are for possible LE cellulitis pneumonia has been ruled out HTn slightly up restart lisinoril Urinary incontinence with jeopardy of skin breakdown, best placed Ambulatory dysfunction will require PT/OT
[2016-12-18 01:39] VITALS: PULSE 68; O2SAT 92
[2016-12-18] MEDS: ALBUT/IPRATROP 3MG/0.5MG NEB 3 ML VIAL INH SCH ×3 (01:39→14:25)
[2016-12-18 04:02] VITALS: BP 136/70; PULSE 65; TEMP 37.1; O2SAT 90
[2016-12-18 07:25] VITALS: PULSE 61; O2SAT 98
[2016-12-18 07:30] VITALS: BP 155/76; PULSE 76; TEMP 36.8; O2SAT 90
[2016-12-18] MEDS: INSULIN ASPART 100 UNITS/ML 3 ML PEN SC SCH ×2 (08:07→11:00)
[2016-12-18] MEDS: ASPIRIN 81 MG ECTAB PO SCH (08:08)
[2016-12-18] MEDS: PANTOprazole SOD 40 MG TAB PO SCH (08:08)
[2016-12-18] MEDS: LISINOPRIL 10 MG TAB PO SCH (08:08)
[2016-12-18] MEDS: NYSTATIN POWDER 15GM BTL EXT SCH (08:08)
[2016-12-18] MEDS ORDERED: ASPEC81 PO (08:53)
[2016-12-18] MEDS ORDERED: LVQ750 PO (08:53)
[2016-12-18] MEDS ORDERED: CMD3 PO (08:53)
--- NOTE | 2016-12-18 08:54 | Discharge Instructions ---
Discharge Instructions Date of Service Dec 18, 2016. Admission Reason for Admission: Cellulitis, Shortness Of Breath Discharge Discharge Diagnosis / Problem: Deep vein thrombosis Discharge Goals Goal(s): Diagnostic testing, Therapeutic intervention Activity Recommendations Activity Limitations: resume your previous activity . Instructions / Follow-Up Instructions / Follow-Up You will have home health draw your blood thinner level starting 12/20 you will need wound care for your leg wound probably a combination of home health and the wound care clinic if you are able to have transportation Current Hospital Diet Patient's current hospital diet: AHA Diet (Heart Healthy), Diabetes Type 2 Diet Discharge Diet Recommended Diet: Regular Diet, Low Sodium Diet (2gm Na) Pending Studies Studies pending at discharge: no Medical Emergencies . Who to Call and When: Medical Emergencies: If at any time you feel your situation is an emergency, please call 911 immediately. . Non-Emergent Contact Non-Emergency issues call your: Primary Care Provider Call Non-Emergent contact if: temperature is above 101, your pain is unusual for you . . "Provider Documentation" section prepared by Afshin Noel. VTE Core Measure Inpt VTE Proph given/why not?: Warfarin (Coumadin)
[2016-12-18 09:36] LABS: INR 2.1 (0.9-1.1)
[2016-12-18 11:06] VITALS: BP 142/71; PULSE 67; TEMP 36.3; O2SAT 95
[2016-12-18] MEDS: ENOXAPARIN 60 MG/0.6 ML SYR SQ SCH (12:07)
[2016-12-18 14:25] VITALS: PULSE 69; O2SAT 98
--- NOTE | 2016-12-18 17:15 | Discharge Summary ---
Discharge Summary Date of Service Dec 18, 2016. Discharge Summary Admission Date: Dec 13, 2016 at 02:36 Discharge Date: Dec 18, 2016 Discharge Disposition: Home with services Principal Diagnosis: dvt, chronic venous stasis LE, LE decubitus Immunizations: Have You Had Influenza Vaccine: No History of Tetanus Vaccine?: No History of Pneumococcal: No History of Hepatitis B Vaccine: No Consultations: wound care management Medication Reconciliation New Medications: Aspirin (Aspirin EC Low Dose) 81 Mg Ectab 81 MG PO QAM for 365 Days Levofloxacin (Levofloxacin) 750 Mg Tab 750 MG PO Q48H, #3 TAB Warfarin Sod (Coumadin) 3 Mg Tab 3 MG PO DAILY@16, #30 TAB Continued Medications: Lisinopril/Hctz (Prinzide 10-12.5MG *) Tab 1 TAB PO QAM, #1 Pantoprazole (Protonix) 40 Mg Tab 40 MG PO QAM, #14 Discharge Exam Review of Systems: Constitutional: No chills, No fever Respiratory: No cough, No sputum Cardiovascular: + edema, No chest pain Abdomen: No diarrhea, No nausea, No pain, No vomiting Genitourinary - Female: + urinary frequency, + urinary incontinence, No dysuria Psychiatric: No anhedonism, No depression symptoms Physical Exam: General Appearance: WD/WN, + mild distress Neck: supple, no JVD Respiratory/Chest: chest non-tender, lungs clear, normal breath sounds Cardiovascular: regular rate, rhythm, no murmur Abdomen / GI: normal bowel sounds, non tender, soft Extremities: + pedal edema, + swelling, + pertinent finding (changes of venous stasis, ) Hospital Course DVT/PE lovenox tranasition to coumadin with overlap, pneumonia has been ruled out - risk/benefits discussed re: Xa inhibitors vs Coumadin by Dr Castellon, reportedly pt opts for Coumadin at this time Chronic LE edema with cellulitis, decubitus ulcer left posterior leg and right buttock poa, wound care managing, continue Levaquin and wound care consult as outpt, I personally contacted Dr Almeida to inform of new start coumadin with INR thursday HTn lisinoril Urinary incontinence with jeopardy of skin breakdown, best while here good hygene at home Total Time Spent: Greater than 30 minutes This includes examination of the patient, discharge planning, medication reconciliation, and communication with other providers. Discharge Instructions Please refer to the electronic Patient Visit Report (Discharge Instructions) for additional information. Additional Copies To Michael Almeida M.D.
[2016-12-18 17:30] LABS: ANTITHROMBINIII ACTIVITY** 94 % activity (80-120); B2 GLYCOPROTEIN IGA <9 SAU (<=20); B2 GLYCOPROTEIN IGG <9 SGU (<=20); B2 GLYCOPROTEIN IGM <9 SMU (<=20); LUPUS ANTICOAGULANT** TC36573X Positive (Negative); PROTEIN C ACTIVITY** TC 1777X 90 % (70-180); PROTEIN S ACT(FUNCT)**1779X 88 % (60-140)
== END 2016-12-18 14:38 | disposition home health service (06) | DRG 299 ==
LOC: ENRESERVTM → ENRESERVDT → EDBD 19:41 → C.EDA 19:42 → C.MED 12-13 02:36
PROVIDERS: ADMIT Internal Medicine; ATTEND Internal Medicine
DX: I82.401 Acute embolism and thrombosis of unspecified deep veins of right lower extremity (principal); J18.9 Pneumonia, unspecified organism; I26.99 Other pulmonary embolism without acute cor pulmonale; L03.119 Cellulitis of unspecified part of limb; I24.8 Other forms of acute ischemic heart disease; I87.8 Other specified disorders of veins; E11.65 Type 2 diabetes mellitus with hyperglycemia; I10 Essential (primary) hypertension; R32 Unspecified urinary incontinence; K21.9 Gastro-esophageal reflux disease without esophagitis; I89.0 Lymphedema, not elsewhere classified

== ENCOUNTER → 2017-01-28 | Outpatient (CLI) | payer OTHER ==
[~2017-01-28] MED LIST changes: -AMOX875T3 PO; +ASPEC81 PO; +CMD3 PO; -LCTX PO; +LISI-725 PO; +LVQ750 PO; -NYSS/ PO
[2017-01-28 17:39] LABS: BASO % 0.2 %; BASO ABS # 0.01 K/uL (0-0.2); COMPLETE YES; EOS % 0.4 %; HEMATOCRIT 44.4 % (37-47); IG% 0.2 %; LYMPH % 17.5 %; LYMPH ABS # 0.98 K/uL (1.2-3.4); MEAN CELL VOLUME 91.5 fL (80-100); MEAN CORPUSCULAR HEMOGLOBIN 29.9 pg (25-34); MEAN CORPUSCULAR HGB CONC 32.7 g/dl (32-36); MEAN PLATELET VOLUME 10.3 fL (7.4-10.4); MONO % 5.7 %; PLATELET COUNT 253 K/uL (130-400); RED BLOOD COUNT 4.85 M/uL (4.2-5.4); WHITE BLOOD COUNT 5.59 K/uL (4.8-10.8)
[2017-01-29 06:42] LABS: ESTIMATED AVERAGE GLUCOSE 137 mg/dl; HA1C FLAG Normal (Normal)
== END | disposition home or self-care (01) ==
LOC: C.LABBFT 13:40
PROVIDERS: ATTEND Internal Medicine
DX: I82.409 Acute embolism and thrombosis of unspecified deep veins of unspecified lower extremity (principal); R73.01 Impaired fasting glucose; I26.99 Other pulmonary embolism without acute cor pulmonale

== ENCOUNTER → 2017-06-02 | Outpatient (CLI) | payer OTHER ==
[~2017-06-02] MED LIST changes: -LISI-725 PO
[2017-06-02 17:56] LABS: BASO % 0.2 %; BASO ABS # 0.01 K/uL (0-0.2); COMPLETE YES; EOS % 0.2 %; HEMATOCRIT 44.3 % (37-47); IG% 0.2 %; LYMPH % 21.8 %; LYMPH ABS # 1.11 K/uL (1.2-3.4); MEAN CELL VOLUME 88.4 fL (80-100); MEAN CORPUSCULAR HEMOGLOBIN 30.5 pg (25-34); MEAN CORPUSCULAR HGB CONC 34.5 g/dl (32-36); MEAN PLATELET VOLUME 10.1 fL (7.4-10.4); MONO % 4.5 %; NEUT % 73.1 %; PLATELET COUNT 185 K/uL (130-400); RED BLOOD COUNT 5.01 M/uL (4.2-5.4)
[2017-06-02 18:05] LABS: INR 2.1 (0.9-1.1); PROTHROMBIN TIME (PATIENT) 23.5 SECONDS (9.0-12.0)
[2017-06-02 18:18] LABS: ALT/SGPT 33 U/L (12-78); AST/SGOT 32 U/L (15-37); BLOOD UREA NITROGEN 25 mg/dl (7-18); BUN/CREATININE RATIO 33.6 (10-20); CALCIUM 9.9 mg/dl (8.5-10.1); CARBON DIOXIDE 30 mmol/L (21-32); CHLORIDE 107 mmol/L (98-107); CREATININE 0.74 mg/dl (0.60-1.20); GLUCOSE 111 mg/dl (70-99); POTASSIUM 4.1 mmol/L (3.5-5.1); SODIUM 141 mmol/L (136-145)
[2017-06-02 18:20] LABS: ALB/GLOB RATIO 0.9 (0.9-2); ALKALINE PHOSPHATASE 103 U/L (45-117); CHOLESTEROL 211 mg/dl (0-200); CHOLESTEROL/HDL RATIO 2.1; HDL CHOLESTEROL 99 mg/dl; LDL CHOLESTEROL CALCULATED 89 mg/dl; TRIGLYCERIDES 117 mg/dl (0-150); VERY LOW DENSITY LIPOPROT CALC 23 mg/dl
[2017-06-03 05:44] LABS: ESTIMATED AVERAGE GLUCOSE 117 mg/dl; HA1C FLAG Normal (Normal)
== END | disposition home or self-care (01) ==
LOC: C.LABBFT 13:50
PROVIDERS: ATTEND Internal Medicine
DX: R73.01 Impaired fasting glucose (principal); Z79.01 Long term (current) use of anticoagulants

== ENCOUNTER 2017-09-03 19:21 | Inpatient (IN) | payer OTHER ==
[~2017-09-03] VITALS: Ht 157.5 cm; Wt 63.0 kg
[~2017-09-03 19:21] MED LIST changes: +PANT1TAB3 PO; -PANT1TAB48 PO
[2017-09-03] MEDS ORDERED: LISI-725 PO (19:50)
--- NOTE | 2017-09-03 20:28 | DIAGNOSTIC IMAGING REPORT ---
CHEST ONE VIEW PORTABLE CLINICAL HISTORY: Shortness of breath. COMPARISON STUDY: Chest radiograph December 12, [address] December 13, 2016. FINDINGS: The patient is rotated. Moderate cardiomegaly is unchanged. Extensive mitral annular calcification is noted. There is no consolidation to suggest pneumonia. There is no evidence for pulmonary edema. Lobular density projecting over the mid to lower right hemithorax reflects overlying soft tissues. IMPRESSION: No acute cardiopulmonary findings. No change in appearance of the chest. Electronically signed by: Julien Winkler M.D. 09/03/2017 8:27 PM Dictated Date/Time: 09/03/2017 8:25 PM
[2017-09-03 20:40] LABS: BASO % 0.1 %; BASO ABS # 0.01 K/uL (0-0.2); COMPLETE YES; EOS % 0.4 %; HEMATOCRIT 38.7 % (37-47); IG% 0.5 %; LYMPH % 14.4 %; LYMPH ABS # 1.22 K/uL (1.2-3.4); MEAN CELL VOLUME 91.3 fL (80-100); MEAN CORPUSCULAR HEMOGLOBIN 30.7 pg (25-34); MEAN CORPUSCULAR HGB CONC 33.6 g/dl (32-36); MEAN PLATELET VOLUME 10.1 fL (7.4-10.4); MONO % 4.6 %; PLATELET COUNT 203 K/uL (130-400); RED BLOOD COUNT 4.24 M/uL (4.2-5.4); WHITE BLOOD COUNT 8.48 K/uL (4.8-10.8)
[2017-09-03] MEDS ORDERED: OPTIRAY 320 IV PRN (20:45)
[2017-09-03 20:54] LABS: PARTIAL THROMBOPLASTIN RATIO 1.3; PROTHROMBIN TIME (PATIENT) 10.2 SECONDS (9.0-12.0)
--- NOTE | 2017-09-03 21:07 | EMERGENCY ROOM VISIT NOTE ---
History First contact with patient: 19:33 Chief Complaint: ILLNESS Stated Complaint: COLD History of Present Illness The patient is a 86 year old female who presents to the Emergency Room with complaints of cough. The cough is non productive and she denies any hemoptysis. She reports having similar symptoms when diagnosed with a PE in November this year. She was treated with warfarin however she took herself off the warfarin 2 months prior as she was feeling well and didn't feel like she needed it. She denies any fevers, chills, shortness of breath, chest pain, palpitations, orthopnea or PND. She has very large left leg swelling for decades but does no know a specific diagnosis for this. Her right calf is not any more swollen than usual and no pain however she had no symptoms when diagnosed with a right femoral DVT at the same time in November. She is unable to get up a flight of stairs due to her chronic left leg swelling but denies any shortness of breath that stops her walking. Review of Systems All other systems reviewed and otherwise negative Past Medical/Surgical History Medical Problems: (1) Cellulitis (2) Deep vein blood clot of left lower extremity (3) Hypertension (4) Pulmonary embolism (5) Shortness of breath (6) UTI (urinary tract infection) Family History No pertinent family history Social History Smoking Status: Never Smoker Smokeless Tobacco Use: No Alcohol Use: none Drug Use: none Housing Status: lives with family Occupation Status: retired Current/Historical Medications Scheduled Lisinopril (Zestril), 20 MG PO DAILY Physical Exam Vital Signs Date Time Temp Pulse Resp B/P (MAP) Pulse Ox O2 Delivery O2 Flow Rate FiO2 09/03/17 22:25 61 26 195/85 96 Room Air 09/03/17 21:18 62 20 195/70 95 Room Air 09/03/17 19:24 109 18 199/80 97 Room Air Physical Exam General Appearance: WD/WN, + mild distress (coughing) Head: normocephalic, atraumatic Eyes: normal inspection, PERRL, EOMI ENT: pharynx normal (moist mucus membranes) Neck: supple, no adenopathy, no JVD, trachea midline Respiratory/Chest: no respiratory distress, no accessory muscle use, + crackles (bibasal coarse crackles, no wheezing) Cardiovascular: regular rate, rhythm, normal peripheral pulses, + systolic murmur (throughout, loudest in apex, holosystolic 4/6) Abdomen / GI: normal bowel sounds, non tender, soft Back: no CVA tenderness Extremities: no calf tenderness, normal capillary refill, + pedal edema ( left +++ to hip > right + to knee ), + pertinent finding (stasis dermatitis changes b/l, without overt cellulitic changes, peeling skin) 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 COMPARISON STUDY: Chest radiograph December 12, [address] December 13, 2016. FINDINGS: The patient is rotated. Moderate cardiomegaly is unchanged. Extensive mitral annular calcification is noted. There is no consolidation to suggest pneumonia. There is no evidence for pulmonary edema. Lobular density projecting over the mid to lower right hemithorax reflects overlying soft tissues. IMPRESSION: No acute cardiopulmonary findings. No change in appearance of the chest. Electronically signed by: Julien Winkler M.D. 09/03/2017 8:27 PM Dictated Date/Time: 09/03/2017 8:25 PM BILATERAL LOWER EXTREMITY VENOUS DOPPLER CLINICAL HISTORY: Bilateral leg swelling. History of deep venous thrombus. COMPARISON STUDY: Bilateral lower extremity venous Doppler December 13, 2016. TECHNIQUE: Sonography of the deep venous system of the bilateral lower extremities was performed. Compression and augmentation were evaluated. FINDINGS: This exam was compromised by suboptimal penetration with lower extremity edema. The bilateral common femoral, superficial femoral and popliteal veins were compressible. Augmentation was normal. Flow was shown within the deep calf vessels. IMPRESSION: Study compromised by suboptimal penetration but no evidence of deep venous thrombus within the bilateral lower extremities. Electronically signed by: Julien Winkler M.D. 09/03/2017 10:00 PM Dictated Date/Time: 09/03/2017 9:[address] ANGIOGRAPHY OF THE CHEST, PULMONARY EMBOLUS PROTOCOL CLINICAL HISTORY: Shortness of breath. History of pulmonary embolus. COMPARISON STUDY: Chest CT December 13, 2016 and chest radiograph September 03, 2017. TECHNIQUE: Following IV administration of 81 mL of Optiray-320, helical axial images of the chest were obtained utilizing the pulmonary embolus protocol. Maximal intensity projections and sagittal and coronal reformats were viewed on an independent 3D workstation. IV contrast was administered without complication. A dose lowering technique was utilized adhering to the principles of ALARA. CT DOSE: 280.36 mGy.cm FINDINGS: No pulmonary emboli are identified although the segmental and subsegmental pulmonary arteries are suboptimally assessed due to respiratory motion. The pulmonary emboli shown on CT of December 13, 2016 have resolved. The heart is moderately enlarged. There is extensive mitral annular calcification. The central pulmonary arteries are mildly dilated. No pneumothorax is present. There are trace bilateral pleural effusions. Bilateral lower lobe airspace opacities are noted, greater on the left. There is diffuse bronchial wall thickening with secretions within the trachea, mainstem bronchi and lower lobe bronchi. Gallstones are noted within visualized portions of the gallbladder. No enlarged axillary, mediastinal or hilar lymph nodes are present. IMPRESSION: 1. No central or lobar pulmonary emboli. Segmental and subsegmental pulmonary arteries within the lower lobes suboptimally assessed due to respiratory motion. 2. Bilateral lower lobe airspace opacities which could reflect pneumonia or atelectasis. Lower lobe bronchial wall thickening with secretions within the airways. The findings raise the possibility of aspiration. 3. Trace bilateral pleural effusions. 4. Moderate cardiomegaly. 5. Mild dilatation of the central pulmonary arteries which suggests pulmonary arterial hypertension. Electronically signed by: Julien Winkler M.D. 09/03/2017 9:35 PM Dictated Date/Time: 09/03/2017 9:21 PM Laboratory Results 09/03/17 20:20 Red Blood Count 4.24, Mean Corpuscular Volume 91.3, Mean Corpuscular Hemoglobin 30.7, Mean Corpuscular Hemoglobin Concent 33.6, Mean Platelet Volume 10.1, Neutrophils (%) (Auto) 80.0, Lymphocytes (%) (Auto) 14.4, Monocytes (%) (Auto) 4.6, Eosinophils (%) (Auto) 0.4, Basophils (%) (Auto) 0.1, Neutrophils # (Auto) 6.79, Lymphocytes # (Auto) 1.22, Monocytes # (Auto) 0.39, Eosinophils # (Auto) 0.03, Basophils # (Auto) 0.01 09/03/17 20:20 Test 09/03/17 20:20 White Blood Count 8.48 K/uL (4.8-10.8) Red Blood Count 4.24 M/uL (4.2-5.4) Hemoglobin 13.0 g/dL (12.0-16.0) Hematocrit 38.7 % (37-47) Mean Corpuscular Volume 91.3 fL (80-100) Mean Corpuscular Hemoglobin 30.7 pg (25-34) Mean Corpuscular Hemoglobin Concent 33.6 g/dl (32-36) Platelet Count 203 K/uL (130-400) Mean Platelet Volume 10.1 fL (7.4-10.4) Neutrophils (%) (Auto) 80.0 % Lymphocytes (%) (Auto) 14.4 % Monocytes (%) (Auto) 4.6 % Eosinophils (%) (Auto) 0.4 % Basophils (%) (Auto) 0.1 % Neutrophils # (Auto) 6.79 K/uL (1.4-6.5) Lymphocytes # (Auto) 1.22 K/uL (1.2-3.4) Monocytes # (Auto) 0.39 K/uL (0.11-0.59) Eosinophils # (Auto) 0.03 K/uL (0-0.5) Basophils # (Auto) 0.01 K/uL (0-0.2) RDW Standard Deviation 56.5 fL (36.4-46.3) RDW Coefficient of Variation 17.0 % (11.5-14.5) Immature Granulocyte % (Auto) 0.5 % Immature Granulocyte # (Auto) 0.04 K/uL (0.00-0.02) Prothrombin Time 10.2 SECONDS (9.0-12.0) Prothromb Time International Ratio 1.0 (0.9-1.1) Activated Partial Thromboplast Time 33.4 SECONDS (21.0-31.0) Partial Thromboplastin Ratio 1.3 Anion Gap 7.0 mmol/L (3-11) Est Creatinine Clear Calc Drug Dose 41.3 ml/min Estimated GFR () 81.7 Estimated GFR (Non- 70.5 BUN/Creatinine Ratio 30.5 (10-20) Calcium Level 9.4 mg/dl (8.5-10.1) Total Bilirubin 0.4 mg/dl (0.2-1) Direct Bilirubin mg/dl (0-0.2) Aspartate Amino Transf (AST/SGOT) 31 U/L (15-37) Alanine Aminotransferase (ALT/SGPT) 31 U/L (12-78) Alkaline Phosphatase 120 U/L (45-117) Troponin I 0.098 ng/ml (0-0.045) Total Protein 7.6 gm/dl (6.4-8.2) Albumin 3.3 gm/dl (3.4-5.0) Chemistry Specimen Hemolysis Medications Administered Medications (Trade) Dose Ordered Sig/Alfonso Route Start Time Stop Time Status Last Admin Dose Admin Ampicillin Sodium/ Sulbactam Sodium 3000 mg/Sodium Chloride 108 ml @ 200 mls/hr NOW STAT IV 09/03/17 22:01 09/03/17 22:33 DC 09/03/17 22:24 200 MLS/HR Azithromycin 500 mg/Dextrose 255 ml @ 125 mls/hr ONE STAT IV 09/03/17 22:01 09/04/17 00:03 09/03/17 22:24 125 MLS/HR ECG Indication: SOB/dyspnea Rate (beats per minute): 62 Rhythm: normal sinus Findings: RBBB, other (right axis, bifascicular block) Change: no significant change (12 December 2016) ED Course 19:44 Complete history and physical was performed by myself 19:50 Patient was discussed with Dr Ariza 20:25 Patient was reassessed, no change in cough or shortness of breath, HR now in 70's. Awaiting istat Cr for CT. 22:09 Patient referred to [facility] (Dr Gardner) due to pneumonia, suspected aspirations with elevated troponin and Hx of PE. Medical Decision Prior records/ancillary studies reviewed. Triage Nursing notes reviewed. Additional history obtained from the family. The patient's history was concerning for respiratory difficulties and cough with Hx of unprovoked large PE and non compliance with warfarin. Differential diagnosis: Etiologies such as infections, reactive airway disease, pneumonia, pneumothorax , COPD, CHF, cardiac ischemia, pulmonary embolism, musculoskeletal, gastrointestinal, as well as others were entertained. Physical examination: As above. Bibasal crackles bilaterally, no wheezing ER treatment provided: Unasyn 3000mg IV Azithromycin 500 mg IV Diagnostic interpretation by me: The electrocardiogram was negative for acute ischemic or pathologic change. RBBB is not new. The labs revealed normal WBC, BUN minimally elevated @ 23 Imaging studies: Chest x-ray as above. This appears to be consistent with pneumonia - community vs. aspirations ( although patient denies choking). CURB 65 - 2 with prolonged history of being unwell (2 weeks), pulmonary artery hypertension, elevated troponin and history of PE therefore I believe this patient should be evaluated for admission. Consultation: A consultation was placed with the [facility] hospitalist (Dr Gardner). The case was discussed and diagnostics were reviewed. The patient was evaluated in the ER for further treatment. The patient and her son were informed about the findings as listed above. All questions were answered and they were pleased with the treatment. Medication Reconcilliation Current Medication List: was personally reviewed by nj Blood Pressure Screening Patient's blood pressure: Elevated blood pressure referred to hospitalist Consults Time Called: 10:09 Consulting Physician: Dr Gardner ([facility]) Impression Primary Impression: Pneumonia Departure Information Dispostion Being Evaluated By Hospitalist Condition FAIR Referrals Michael Almeida M.D. (PCP) Patient Instructions My [facility] Resident Tracking Resident Involvement: Resident Care Provided Care Provided: Adult ED Problem Qualifiers Primary Impression: Pneumonia Pneumonia type: aspiration pneumonia Aspiration pneumonia type: unspecified Laterality: bilateral Lung location: lower lobe of lung Qualified Codes: J69.0 - Pneumonitis due to inhalation of food and vomit
[2017-09-03 21:20] LABS: ALKALINE PHOSPHATASE 120 U/L (45-117); ALT/SGPT 31 U/L (12-78); AST/SGOT 31 U/L (15-37); BLOOD UREA NITROGEN 23 mg/dl (7-18); BUN/CREATININE RATIO 30.5 (10-20); CALCIUM 9.4 mg/dl (8.5-10.1); CARBON DIOXIDE 28 mmol/L (21-32); CHLORIDE 106 mmol/L (98-107); CREATININE 0.76 mg/dl (0.60-1.20); GLUCOSE 130 mg/dl (70-99); POTASSIUM 4.2 mmol/L (3.5-5.1); SODIUM 141 mmol/L (136-145)
--- NOTE | 2017-09-03 21:36 | DIAGNOSTIC IMAGING REPORT ---
CT ANGIOGRAPHY OF THE CHEST, PULMONARY EMBOLUS PROTOCOL CLINICAL HISTORY: Shortness of breath. History of pulmonary embolus. COMPARISON STUDY: Chest CT December 13, 2016 and chest radiograph September 03, 2017. TECHNIQUE: Following IV administration of 81 mL of Optiray-320, helical axial images of the chest were obtained utilizing the pulmonary embolus protocol. Maximal intensity projections and sagittal and coronal reformats were viewed on an independent 3D workstation. IV contrast was administered without complication. A dose lowering technique was utilized adhering to the principles of ALARA. CT DOSE: 280.36 mGy.cm FINDINGS: No pulmonary emboli are identified although the segmental and subsegmental pulmonary arteries are suboptimally assessed due to respiratory motion. The pulmonary emboli shown on CT of December 13, 2016 have resolved. The heart is moderately enlarged. There is extensive mitral annular calcification. The central pulmonary arteries are mildly dilated. No pneumothorax is present. There are trace bilateral pleural effusions. Bilateral lower lobe airspace opacities are noted, greater on the left. There is diffuse bronchial wall thickening with secretions within the trachea, mainstem bronchi and lower lobe bronchi. Gallstones are noted within visualized portions of the gallbladder. No enlarged axillary, mediastinal or hilar lymph nodes are present. IMPRESSION: 1. No central or lobar pulmonary emboli. Segmental and subsegmental pulmonary arteries within the lower lobes suboptimally assessed due to respiratory motion. 2. Bilateral lower lobe airspace opacities which could reflect pneumonia or atelectasis. Lower lobe bronchial wall thickening with secretions within the airways. The findings raise the possibility of aspiration. 3. Trace bilateral pleural effusions. 4. Moderate cardiomegaly. 5. Mild dilatation of the central pulmonary arteries which suggests pulmonary arterial hypertension. Electronically signed by: Julien Winkler M.D. 09/03/2017 9:35 PM Dictated Date/Time: 09/03/2017 9:21 PM
[2017-09-03] MEDS ORDERED: AZITHROMYCIN IV 500 MG in DEXTROSE 5% 250ML 250 ML IV STA (22:01)
[2017-09-03] MEDS ORDERED: AMPICILLIN/SULBACTAM SOD INJ 3,000 MG in SODIUM CHLORIDE 0.9% 100ML 100 ML IV STA (22:01)
--- NOTE | 2017-09-03 22:02 | DIAGNOSTIC IMAGING REPORT ---
BILATERAL LOWER EXTREMITY VENOUS DOPPLER CLINICAL HISTORY: Bilateral leg swelling. History of deep venous thrombus. COMPARISON STUDY: Bilateral lower extremity venous Doppler December 13, 2016. TECHNIQUE: Sonography of the deep venous system of the bilateral lower extremities was performed. Compression and augmentation were evaluated. FINDINGS: This exam was compromised by suboptimal penetration with lower extremity edema. The bilateral common femoral, superficial femoral and popliteal veins were compressible. Augmentation was normal. Flow was shown within the deep calf vessels. IMPRESSION: Study compromised by suboptimal penetration but no evidence of deep venous thrombus within the bilateral lower extremities. Electronically signed by: Julien Winkler M.D. 09/03/2017 10:00 PM Dictated Date/Time: 09/03/2017 9:59 PM
--- NOTE | 2017-09-03 22:17 | EMERGENCY ROOM VISIT NOTE ---
ED Visit Note First contact with patient: 19:32 Pt seen and evaluated with the resident. Pt ill appearing and found to have pneumonia and elevated troponin. EKG not consistent with stemi, likely secondary to infection or demand given advanced age. Other labs reassuring, VS stable. I do not suspect bacteremia/sepsis. No evidence of DVT/PE despite pt removing herself from anticoagulation without discussion with her PCP. Discussed with pt risk of recurrent DVT/PE. Pt and family aware of all results and were agreeable with plan.
[2017-09-03] MEDS ORDERED: SODIUM CHLORIDE 0.9% 500ML 500 ML IV STA (22:28)
[2017-09-03] MEDS ORDERED: ACETAMINOPHEN 325 MG TAB PO PRN (23:15)
[2017-09-03] MEDS ORDERED: MAGNESIUM HYDROXIDE SUSP 30 ML UDC PO PRN (23:15)
[2017-09-03] MEDS ORDERED: ONDANSETRON INJ 2 MG/ML 2 ML VIAL IV PRN (23:15)
[2017-09-03] MEDS ORDERED: POLYETHYLENE (MIRALAX) 17 GM PACK PO PRN (23:15)
[2017-09-03] MEDS ORDERED: ALUMINUM/MAGNESIUM/SIMETH (MAALOX MAX) 30 ML UDC PO PRN (23:15)
--- NOTE | 2017-09-03 23:17 | History and Physical ---
History & Physical Date & Time of Service: Sep 03, 2017 at 23:09 Chief Complaint: COLD Primary Care Physician: Michael Almeida M.D. History of Present Illness Source: patient, family 86 y/o F w/Hx HTN, DM, chronic LE lymphedema with chronic LE cellulitis, pulmonary hypertension, admitted with PNM and PE 12/12. Pt became progressively SOB and weak over the last 2-3 days. She has a productive cough and may have had fevers at home as well. She denies CP, N/V/D, dysuria. She does not appear to be a reliable historian. A CTA was obtained due to her history. This was negative for PE but did show a B/L lower lobe PNM. Aspiration is suspected based on imaging. She denies choking when eating or a history of dysphagia or aspiration. Initial labs reveal an elevated troponin which appears to be chronic. Past Medical/Surgical History 1) PE 12/12 2) Pneumonia 12/12, 09/13 3) HTB 4) DM - untreated 5) Chronic lower extremity lymphedema and cellulitis. 6) GERD Family History No pertinent family history Social History Smoking Status: Never Smoker Smokeless Tobacco Use: No Drug Use: none Occupational Status: retired Immunizations History of Influenza Vaccine: No History of Tetanus Vaccine?: No History of Pneumococcal: No History of Hepatitis B Vaccine: No Multi-Drug Resistant Organisms History of MDRO: No Allergies Coded Allergies: No Known Allergies (Verified , 12/12/16) Home Medications Scheduled Lisinopril (Zestril), 20 MG PO DAILY Review of Systems Constitutional: + fever, No chills, No sweats Eyes: No worsening of vision ENT: No hearing loss, No nasal symptoms Respiratory: No cough, No wheezing Cardiovascular: No chest pain, No orthopnea, No PND Abdomen: No pain, No vomiting Musculoskeletal: No joint pain Genitourinary - Female: No dysuria, No hematuria Neurologic: No memory loss, No weakness Psychiatric: No depression symptoms Endocrine: No fatigue Hematologic / Lymphatic: No abnormal bleeding/bruising Integumentary: No rash Allergic / Immunologic: No environmental allergies Physical Exam Vital Signs Date Time Temp Pulse Resp B/P (MAP) Pulse Ox O2 Delivery O2 Flow Rate FiO2 09/03/17 22:25 61 26 195/85 96 Room Air 09/03/17 21:18 62 20 195/70 95 Room Air 09/03/17 19:24 109 18 199/80 97 Room Air General Appearance: WD/WN Head: normocephalic Eyes: normal inspection ENT: normal ENT inspection, pharynx normal Neck: supple, no JVD Respiratory/Chest: chest non-tender, + pertinent finding (Limited air entry into the L lower lobe) Cardiovascular: regular rate, rhythm, no edema, no gallop Abdomen/GI: normal bowel sounds, non tender, soft Back: normal inspection Extremities/Musculoskelatal: normal inspection, no calf tenderness, normal capillary refill 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, no motor/sensory deficits, alert, oriented x 3 Skin: + pertinent finding (Both extremities are edematous, erythematous and scaling is present - there is no warmth or tenderness) Diagnostics Laboratory Results Results Past 24 Hours Test 09/03/17 20:20 Range/Units White Blood Count 8.48 4.8-10.8 K/uL Red Blood Count 4.24 4.2-5.4 M/uL Hemoglobin 13.0 12.0-16.0 g/dL Hematocrit 38.7 37-47 % Mean Corpuscular Volume 91.3 80-100 fL Mean Corpuscular Hemoglobin 30.7 25-34 pg Mean Corpuscular Hemoglobin Concent 33.6 32-36 g/dl Platelet Count 203 130-400 K/uL Mean Platelet Volume 10.1 7.4-10.4 fL Neutrophils (%) (Auto) 80.0 % Lymphocytes (%) (Auto) 14.4 % Monocytes (%) (Auto) 4.6 % Eosinophils (%) (Auto) 0.4 % Basophils (%) (Auto) 0.1 % Neutrophils # (Auto) 6.79 1.4-6.5 K/uL Lymphocytes # (Auto) 1.22 1.2-3.4 K/uL Monocytes # (Auto) 0.39 0.11-0.59 K/uL Eosinophils # (Auto) 0.03 0-0.5 K/uL Basophils # (Auto) 0.01 0-0.2 K/uL RDW Standard Deviation 56.5 36.4-46.3 fL RDW Coefficient of Variation 17.0 11.5-14.5 % Immature Granulocyte % (Auto) 0.5 % Immature Granulocyte # (Auto) 0.04 0.00-0.02 K/uL Prothrombin Time 10.2 9.0-12.0 SECONDS Prothromb Time International Ratio 1.0 0.9-1.1 Activated Partial Thromboplast Time 33.4 21.0-31.0 SECONDS Partial Thromboplastin Ratio 1.3 Sodium Level 141 136-145 mmol/L Potassium Level 4.2 3.5-5.1 mmol/L Chloride Level 106 98-107 mmol/L Carbon Dioxide Level 28 21-32 mmol/L Anion Gap 7.0 3-11 mmol/L Blood Urea Nitrogen 23 7-18 mg/dl Creatinine 0.76 0.60-1.20 mg/dl Est Creatinine Clear Calc Drug Dose 41.3 ml/min Estimated GFR () 81.7 Estimated GFR (Non- 70.5 BUN/Creatinine Ratio 30.5 10-20 Random Glucose 130 70-99 mg/dl Calcium Level 9.4 8.5-10.1 mg/dl Total Bilirubin 0.4 0.2-1 mg/dl Direct Bilirubin 0-0.2 mg/dl Aspartate Amino Transf (AST/SGOT) 31 15-37 U/L Alanine Aminotransferase (ALT/SGPT) 31 12-78 U/L Alkaline Phosphatase 120 45-117 U/L Troponin I 0.098 0-0.045 ng/ml Total Protein 7.6 6.4-8.2 gm/dl Albumin 3.3 3.4-5.0 gm/dl Chemistry Specimen Hemolysis Diagnostic Radiology CTA: 1. No central or lobar pulmonary emboli. Segmental and subsegmental pulmonary arteries within the lower lobes suboptimally assessed due to respiratory motion. 2. Bilateral lower lobe airspace opacities which could reflect pneumonia or atelectasis. Lower lobe bronchial wall thickening with secretions within the airways. The findings raise the possibility of aspiration. 3. Trace bilateral pleural effusions. 4. Moderate cardiomegaly. 5. Mild dilatation of the central pulmonary arteries which suggests pulmonary arterial hypertension. Impression Assessment and Plan 86 y/o F w/Hx HTN, DM, chronic LE lymphedema with chronic LE cellulitis, pulmonary hypertension, admitted with PNM and PE 12/12. Pt became progressively SOB and weak over the last 2-3 days. She has a productive cough and may have had fevers at home as well. She denies CP, N/V/D, dysuria. She does not appear to be a reliable historian. A CTA was obtained due to her history. This was negative for PE but did show a B/L lower lobe PNM. Aspiration is suspected based on imaging. She denies choking when eating or a history of dysphagia or aspiration. Initial labs reveal an elevated troponin which appears to be chronic. 1) Hypoxia - pneumonia - suspected aspiration - we will obtain a swallow eval - she is placed on Unasyn and Zithro, nebs, 02 protocol. Cultures are pending. 2) Lymphedema - chronic - the pt is generally unkempt and may benefit from home nursing or visits to a wound or lymphedema clinic - she is high risk for infection. 3) DM - has not sought treatment although this was likely diagnosed in 2012 - she had a marginally elevated 1C during her previous admission - she has not sought treatment and may benefit generally from Metformin going forward. 4) Elevated trop - This appears to be chronic - was initially apparent during her PE episode -12/12 - We will repeat a trop AM. 5) Histroy of PE - she is placed o appropriate anticoagulation - she is high risk. 6) HTN - cont Lisinopril. Full code - Heparin prophylaxis Total time for this admit including review of labs, meds, EKG, CXR - discussion with ER attending and pt - 38 min Level of Care Med/Surg Resuscitation Status FULL RESUSCITATION VTE Prophylaxis VTE Risk Assessment Done? Y/N: Yes Risk Level: High Given or contraindicated: Unfractionated heparin SQ
[2017-09-03] MEDS ORDERED: ALBUTEROL 0.083% NEBU SOLN 3 ML VIAL INH PRN (23:30)
[2017-09-04] VITALS (10 sets, daily range): BP systolic 124–190; BP diastolic 50–74; PULSE 61–95; TEMP 34.8–36.8; O2SAT 93–96; Ht 157.5 cm; Wt 63.0 kg
[2017-09-04] MEDS ORDERED: SODIUM CHLORIDE 0.9% 1000ML 1,000 ML IV ONE
[2017-09-04] MEDS: ALBUT/IPRATROP 3MG/0.5MG NEB 3 ML VIAL INH SCH ×4 (01:19→19:04)
[2017-09-04] MEDS ORDERED: NURSING DECISION MEDICATION ORDER SCH (01:45)
[2017-09-04] MEDS: AMPICILLIN/SULBACTAM SOD INJ 3,000 MG in SODIUM CHLORIDE 0.9% 100ML 100 ML IV SCH ×4 (06:15→23:32)
[2017-09-04] MEDS: MICONAZOLE NITRATE POWDER 43 GM EXT PRN (06:15)
[2017-09-04] MEDS: HEPARIN SOD 5000 UNIT/0.5 ML CARP SQ SCH ×3 (06:23→20:40)
[2017-09-04] MEDS: LISINOPRIL 20 MG TAB PO SCH (08:53)
--- NOTE | 2017-09-04 09:04 | Hospitalist Progress Note ---
Hospitalist Progress Note Date of Service Sep 04, 2017. (Christy Maravilla PA-C) Subjective Pt evaluation today including: conversation w/ patient, physical exam, chart review, lab review, review of studies Pain: None PO Intake: Good Voiding: no voiding problems The patient was seen and examined this morning. Pt reports doing well today compared to earlier. She has a weak cough which is nonproductive. She denies any fever, chills, sweats. Pt denies any issues with aspiration or difficulty swallowing/choking on food in the past. Pt notes her bowels have not moved in the past 3 days, but this is typical for her, she uses a stool softener at home. She currently lives at home with her two sons. A third son is also there partially. ROS: 6 point ROS reviewed and negative. (Christy Maravilla PA-C) Objective Vital Signs Date Time Temp Pulse Resp B/P (MAP) Pulse Ox O2 Delivery O2 Flow Rate FiO2 09/04/17 07:14 67 16 95 Room Air 09/04/17 07:08 36.4 62 18 180/71 (107) 93 Room Air 09/04/17 06:21 34.8 09/04/17 04:42 178/51 (93) 09/04/17 01:28 190/74 (112) 186/73 (110) 172/73 (106) 09/04/17 01:20 68 16 96 Room Air 09/04/17 00:30 61 22 179/63 96 Room Air 09/03/17 23:48 59 17 187/67 94 09/03/17 23:06 59 09/03/17 22:25 61 26 195/85 96 Room Air 09/03/17 21:18 62 20 195/70 95 Room Air 09/03/17 19:24 109 18 199/80 97 Room Air (Christy Maravilla PA-C) Physical Exam General Appearance: WD/WN, no apparent distress Eyes: PERRL, EOMI ENT: hearing grossly normal, pharynx normal Neck: supple, no JVD Respiratory/Chest: + pertinent finding (On RA, Coarse breath sounds in the RML and R base. Good breath sounds throughout on the left. No wheeze, rales or rhonchi. + weak cough, no production) Cardiovascular: regular rate, rhythm, + systolic murmur (mild) Abdomen: non tender, soft, + pertinent finding (hypoactive bowel sounds) Extremities: non-tender, no calf tenderness, + pertinent finding (Chronic venous stasis changes of BLE, + dark erythema and scaling of skin over BLE. + 3 nonpitting edema. Sensation to light touch intact) Neurologic/Psychiatric: alert, normal mood/affect, oriented x 3 Skin: normal color, warm/dry (Christy Maravilla, JOB) Laboratory Results Last 24 Hours Test 09/03/17 20:20 09/04/17 07:35 White Blood Count 8.48 K/uL Red Blood Count 4.24 M/uL Hemoglobin 13.0 g/dL Hematocrit 38.7 % Mean Corpuscular Volume 91.3 fL Mean Corpuscular Hemoglobin 30.7 pg Mean Corpuscular Hemoglobin Concent 33.6 g/dl Platelet Count 203 K/uL Mean Platelet Volume 10.1 fL Neutrophils (%) (Auto) 80.0 % Lymphocytes (%) (Auto) 14.4 % Monocytes (%) (Auto) 4.6 % Eosinophils (%) (Auto) 0.4 % Basophils (%) (Auto) 0.1 % Neutrophils # (Auto) 6.79 K/uL Lymphocytes # (Auto) 1.22 K/uL Monocytes # (Auto) 0.39 K/uL Eosinophils # (Auto) 0.03 K/uL Basophils # (Auto) 0.01 K/uL RDW Standard Deviation 56.5 fL RDW Coefficient of Variation 17.0 % Immature Granulocyte % (Auto) 0.5 % Immature Granulocyte # (Auto) 0.04 K/uL Prothrombin Time 10.2 SECONDS Prothromb Time International Ratio 1.0 Activated Partial Thromboplast Time 33.4 SECONDS Partial Thromboplastin Ratio 1.3 Sodium Level 141 mmol/L Potassium Level 4.2 mmol/L Chloride Level 106 mmol/L Carbon Dioxide Level 28 mmol/L Anion Gap 7.0 mmol/L Blood Urea Nitrogen 23 mg/dl Creatinine 0.76 mg/dl Est Creatinine Clear Calc Drug Dose 41.3 ml/min Estimated GFR () 81.7 Estimated GFR (Non- 70.5 BUN/Creatinine Ratio 30.5 Random Glucose 130 mg/dl Calcium Level 9.4 mg/dl Total Bilirubin 0.4 mg/dl Direct Bilirubin mg/dl Aspartate Amino Transf (AST/SGOT) 31 U/L Alanine Aminotransferase (ALT/SGPT) 31 U/L Alkaline Phosphatase 120 U/L Troponin I 0.098 ng/ml 0.127 ng/ml Total Protein 7.6 gm/dl Albumin 3.3 gm/dl Chemistry Specimen Hemolysis (Christy Maravilla PA-C) Assessment and Plan 86 y/o F w/Hx HTN, DM, chronic LE lymphedema with chronic LE cellulitis, pulmonary hypertension, admitted with PNM and PE 12/12. Pt became progressively SOB and weak over the last 2-3 days. She has a productive cough and may have had fevers at home as well. She denies CP, N/V/D, dysuria. She does not appear to be a reliable historian. A CTA was obtained due to her history. This was negative for PE but did show a B/L lower lobe PNM. Aspiration is suspected based on imaging. She denies choking when eating or a history of dysphagia or aspiration. Initial labs reveal an elevated troponin which appears to be chronic. Acute Respiratory failure secondary to pneumonia - suspected aspiration - worsened breath sounds in the RML and RLL - Speech therapy consulted: swallow eval - Cont Unasyn and Zithro - started 09/03 - nito, 02 protocol, pulmonary toilet - Sputum culture if expectorating - No BCx to follow Lymphedema - chronic - the pt is generally unkempt and may benefit from home nursing or visits to a wound or lymphedema clinic - she is high risk for infection. - has darkened erythema and scaling over BLE, not warm to touch - monitor DM - has not sought treatment although this was likely diagnosed in 2012 - she had a marginally elevated 1C during her previous admission - she has not sought treatment and may benefit generally from Metformin going forward. Elevated trop - This appears to be chronic - was initially apparent during her PE episode - - repeat Trop from this morning is still much lower than chronic trop level. Denies any type of chest pain. BP elevated as well. Hx of PE - she is placed on appropriate anticoagulation - she is high risk HTN - cont Lisinopril. - BP elevated in the 170s today, monitor Constipation - Last BM 3 days ago, Added stool softeners daily, continue miralax daily prn DVT ppx: Heparin subq CODE STATUS: FULL Disposition: From home, 2 sons live with her, PT/OT on board, likely will need home health services or short rehab stay (Christy Maravilla, JOB) PA Physician Supervision Note: I interviewed and examined the patient. Discussed with Christy Maravilla PAC and agree with findings and plan as documented in the note. Any exceptions or clarifications are listed here: None Patient admitted with concern for pneumonia but also with chronic venous stasis changes and erythema to her lower extremity also concern for lower extremity cellulitis she is placed on Unasyn and azithromycin. The patient has a nonproductive cough during my exam she however is stating she feels somewhat better Patient was hypothermic but now is normal which are vitals remain stable white count is not elevated Lung exam is with coarse breath sounds bilaterally worsen the left lower extremities are swollen as sounds to be her chronic state but more red than she remembers Bilateral pneumonia as read on x-ray and lower extremity erythema consistent with cellulitis will maintain antibiotic therapy and continue to evolve and amend medications to facilitate discharge however she may need PT OT evaluation to determine the best disposition Documented By: Afshin Noel (Afshin oNel M.D.)
[2017-09-04 09:21] LABS: ISTAT CREATININE 0.7 mg/dl (0.6-1.3); ISTAT HEMOGLOBIN 13.3 g/dl (12.0-16.0); ISTAT IONIZED CALCIUM 1.17 mmol/l (1.12-1.32)
[2017-09-04] MEDS ORDERED: BISACODYL 5 MG TABEC PO ONE ×2 (15:45→20:15)
[2017-09-04] MEDS: AZITHROMYCIN IV 500 MG in DEXTROSE 5% 250ML 250 ML IV SCH (20:38)
[2017-09-04] MEDS: EUCERIN CR 120 GM JAR EXT SCH (22:13)
[2017-09-05] VITALS (8 sets, daily range): BP systolic 100–128; BP diastolic 49–79; PULSE 73–80; TEMP 36.7–37.2; O2SAT 80–97
[2017-09-05] MEDS: ALBUT/IPRATROP 3MG/0.5MG NEB 3 ML VIAL INH SCH ×4 (02:14→19:25)
[2017-09-05] MEDS: HEPARIN SOD 5000 UNIT/0.5 ML CARP SQ SCH ×3 (06:00→20:15)
[2017-09-05] MEDS: AMPICILLIN/SULBACTAM SOD INJ 3,000 MG in SODIUM CHLORIDE 0.9% 100ML 100 ML IV SCH ×4 (06:01→23:39)
[2017-09-05] MEDS: LISINOPRIL 20 MG TAB PO SCH (09:03)
[2017-09-05] MEDS: EUCERIN CR 120 GM JAR EXT SCH ×2 (09:03→20:10)
--- NOTE | 2017-09-05 12:23 | Progress Note ---
Subjective Date of Service: Sep 05, 2017. Subjective pt has very little expression, states she thinks she is feeling better Problem List Medical Problems: (1) Elevated troponin Status: Acute (2) Pneumonia Status: Acute (3) Pneumonia Status: Acute (4) Sepsis Status: Acute Review of Systems Constitutional: + weakness, No fever, No chills Respiratory: + cough, + shortness of breath, + dyspnea on exertion, No sputum Cardiac: + edema, No chest pain Abdomen: No pain, No nausea, No vomiting, No diarrhea Neurologic: + memory loss, + weakness Skin: + rash, + new/changing skin lesions Objective Vital Signs Date Time Temp Pulse Resp B/P (MAP) Pulse Ox O2 Delivery O2 Flow Rate FiO2 09/05/17 08:15 Room Air 09/05/17 07:25 78 17 80 Room Air 09/05/17 07:24 37.2 76 18 100/59 (73) 90 Room Air 09/05/17 02:14 74 17 92 Room Air 09/05/17 01:37 91 Room Air 09/05/17 00:06 37.1 78 20 105/49 (67) 91 Room Air 09/04/17 19:04 69 17 96 Room Air 09/04/17 16:30 Room Air 09/04/17 15:17 36.8 95 20 124/50 (74) 93 Room Air 09/04/17 13:57 86 17 96 Room Air Physical Exam General Appearance: + mild distress, + thin Eyes: normal inspection, sclerae normal Respiratory/Chest: chest non-tender, no respiratory distress, + decreased breath sounds Cardiovascular: regular rate, rhythm, + systolic murmur Abdomen: normal bowel sounds, non tender, soft Extremities: + pedal edema, + pertinent finding (changes of chronic venous stasis) Neurologic/Psychiatric: alert, oriented x 3 Assessment and Plan 86 y/o F presented with progressive SOB and weakness 2-3 days [employer]. She had a productive cough and fevers at home CXR/CTA concerning for pneumonia concern for aspiration Initial labs reveal an elevated troponin which appears to be chronic. Acute Respiratory failure secondary to pneumonia suspect aspiration - Unasyn and Zithro - started 09/03 - Speech therapy consulted: mohan beauchamp, 02 protocol, pulmonary toilet Lymphedema chronic venous stasis changes, redness has improved since admission may benefit from home nursing or a wound clinic DM ? offers little insight, was recorded in previous admission A1C in the summer was <6, will follow with ssi and BSG but may not need if diet controlled Elevated trop chronic - was initially apparent during her PE episode -12/12 no clinical signs of ACS - Hx of PE on heparin sc for prevetnion HTN controlled Lisinopril.but at times was low, will reduce Constipation stool softeners daily, miralax daily & prn CODE STATUS: FULL Disposition: From home, 2 sons live with her, PT/OT on board, likely will need home health services or short rehab stay
[2017-09-05] MEDS ORDERED: DEXTROSE 50% 50 ML SYR IV PRN (13:15)
[2017-09-05] MEDS ORDERED: GLUCOSE 10 TABS/TUBE PO PRN (13:15)
[2017-09-05] MEDS ORDERED: GLUCOSE 40% GEL 15 GM TUBE PO PRN (13:15)
[2017-09-05] MEDS ORDERED: GLUCAGON FOR INJ 1 MG VIAL SQ PRN (13:15)
[2017-09-05] MEDS: INSULIN ASPART 100 UNITS/ML 3 ML PEN SC SCH ×2 (17:55→20:14)
[2017-09-05] MEDS: AZITHROMYCIN IV 500 MG in DEXTROSE 5% 250ML 250 ML IV SCH (20:06)
[2017-09-06] VITALS (9 sets, daily range): BP systolic 104–171; BP diastolic 52–85; PULSE 64–89; TEMP 36.3–36.9; O2SAT 90–98
[2017-09-06] MEDS: ALBUT/IPRATROP 3MG/0.5MG NEB 3 ML VIAL INH SCH ×4 (02:08→20:30)
[2017-09-06] MEDS: AMPICILLIN/SULBACTAM SOD INJ 3,000 MG in SODIUM CHLORIDE 0.9% 100ML 100 ML IV SCH ×4 (06:04→23:48)
[2017-09-06] MEDS: HEPARIN SOD 5000 UNIT/0.5 ML CARP SQ SCH ×3 (06:15→21:39)
[2017-09-06] MEDS: LISINOPRIL 5 MG TAB PO SCH (08:04)
[2017-09-06] MEDS: INSULIN ASPART 100 UNITS/ML 3 ML PEN SC SCH ×4 (08:04→21:38)
[2017-09-06] MEDS: EUCERIN CR 120 GM JAR EXT SCH ×2 (08:04→20:37)
[2017-09-06] MEDS: GUAIFENESIN 600 MG TABCR PO SCH ×2 (13:16→20:38)
--- NOTE | 2017-09-06 15:14 | Progress Note ---
Subjective Date of Service: Sep 06, 2017. Subjective Pt evaluation today including: conversation w/ patient, physical exam, chart review, lab review, review of studies (CT chest, venous duplex, etc), review of inpatient medication list Pain: denies PO Intake: fair Voiding: incontinence still with cough, largely nonproductive, and ongoing O2 requirement no dysphagia witnessed by staff Problem List Medical Problems: (1) Elevated troponin Status: Acute (2) Pneumonia Status: Acute (3) Pneumonia Status: Acute (4) Sepsis Status: Acute Review of Systems Constitutional: No fever Respiratory: + cough, No dyspnea at rest Cardiac: No chest pain Abdomen: No pain Objective Vital Signs Date Time Temp Pulse Resp B/P (MAP) Pulse Ox O2 Delivery O2 Flow Rate FiO2 09/06/17 07:37 36.7 89 20 171/83 (112) 96 Room Air 09/06/17 02:09 77 16 93 Nasal Cannula 3.0 09/06/17 00:43 36.9 85 20 121/52 (75) 93 Nasal Cannula 3.0 09/06/17 00:00 92 Nasal Cannula 3.0 09/05/17 19:25 77 14 92 Nasal Cannula 3.0 09/05/17 17:03 Nasal Cannula 3.0 09/05/17 16:08 36.7 80 16 128/79 (95) 97 Nasal Cannula 3.0 09/05/17 13:51 73 14 92 Nasal Cannula 3.0 Physical Exam General Appearance: no apparent distress, + pertinent finding (coughing) ENT: pharynx normal Neck: no JVD Respiratory/Chest: no respiratory distress, no accessory muscle use, + rales ( bases - mild) Cardiovascular: regular rate, rhythm, no gallop Abdomen: normal bowel sounds, non tender, soft, no organomegaly Extremities: + pedal edema (lymphedema - left leg is much larger than right leg - but both legs do have lymphedema with chronic stasis changes) Neurologic/Psychiatric: alert Skin: + pertinent finding (venous stasis changes b/l shins with superimposed cellulitis both shins (mild) ) Laboratory Results Last 24 Hours Test 09/05/17 16:31 09/05/17 20:07 09/06/17 08:01 Bedside Glucose 161 mg/dl 191 mg/dl 102 mg/dl Assessment and Plan 86yo female - 1. pneumonia, b/l, suspected to be aspiration in etiology - cont unasyn and zithromax (latter for atypicals). incentive spirometry. mucinex BID. nebs. cleared by speech, fortunately, for normal diet. 2. b/l LE cellulitis - improving with unasyn. 3. chronic lymphedema 4. HTN - labile, but most readings acceptable. 5. pulmonary HTN - noted. 6. T2DM - controlled. 7. CKD stage 3 - repeat BMP in am for stability. 8. +troponin - likely myocardial demand ischemia in setting of #1 above. 9. DVT proph - heparin TID. PT, OT evals to assess readiness for home when medically stable Continued [facility] stay due to: multiple IV medications needed Discharge planning: uncertain
[2017-09-06] MEDS: AZITHROMYCIN 250 MG TAB PO SCH (20:38)
[2017-09-07] VITALS (10 sets, daily range): BP systolic 123–166; BP diastolic 52–76; PULSE 64–83; TEMP 36.5–36.7; O2SAT 90–96
[2017-09-07] MEDS: ALBUT/IPRATROP 3MG/0.5MG NEB 3 ML VIAL INH SCH ×4 (01:34→18:58)
[2017-09-07] MEDS: AMPICILLIN/SULBACTAM SOD INJ 3,000 MG in SODIUM CHLORIDE 0.9% 100ML 100 ML IV SCH ×2 (05:59→13:12)
[2017-09-07] MEDS: HEPARIN SOD 5000 UNIT/0.5 ML CARP SQ SCH ×3 (06:17→21:05)
[2017-09-07 07:36] LABS: HEMATOCRIT 31.8 % (37-47); MEAN CELL VOLUME 91.1 fL (80-100); MEAN CORPUSCULAR HEMOGLOBIN 29.8 pg (25-34); MEAN CORPUSCULAR HGB CONC 32.7 g/dl (32-36); PLATELET COUNT 109 K/uL (130-400); RED BLOOD COUNT 3.49 M/uL (4.2-5.4); WHITE BLOOD COUNT 8.57 K/uL (4.8-10.8)
[2017-09-07 08:05] LABS: CALCIUM 8.3 mg/dl (8.5-10.1); CREATININE 0.84 mg/dl (0.60-1.20); POTASSIUM 3.6 mmol/L (3.5-5.1)
[2017-09-07] MEDS: INSULIN ASPART 100 UNITS/ML 3 ML PEN SC SCH ×4 (08:38→21:06)
[2017-09-07] MEDS: GUAIFENESIN 600 MG TABCR PO SCH ×2 (08:45→20:46)
[2017-09-07] MEDS: EUCERIN CR 120 GM JAR EXT SCH ×2 (08:45→20:46)
[2017-09-07] MEDS: AZITHROMYCIN 250 MG TAB PO SCH (08:46)
[2017-09-07] MEDS: LISINOPRIL 5 MG TAB PO SCH (08:46)
[2017-09-07] MEDS: NYSTATIN POWDER 15GM BTL EXT SCH ×3 (10:09→20:46)
[2017-09-07] MEDS: TRIAMCINOLONE ACET 0.1% CR 80 GM TUBE EXT SCH ×3 (10:09→20:46)
[2017-09-07 10:20] LABS: BASO % 0.1 %; BASO ABS # 0.01 K/uL (0-0.2); COMPLETE YES; EOS % 2.3 %; IG% 1.2 %; LYMPH % 5.8 %; LYMPH ABS # 0.48 K/uL (1.2-3.4); NEUT % 81.6 %
--- NOTE | 2017-09-07 11:57 | Hospitalist Progress Note ---
Hospitalist Progress Note Date of Service Sep 07, 2017. (Prabha Aceves ., JOB) Subjective Pt evaluation today including: conversation w/ patient, physical exam, chart review, lab review, review of inpatient medication list Pain: None PO Intake: Tolerating PO diet Voiding: no voiding problems Patient reports feeling okay. She denies any shortness of breath currently or wheezing. She does report a wet cough that has so far been non-productive. She denies feeling particularly weak or fatigued. The patient denies fevers, chills, sweats, chest pain, palpitations, claudication, wheezing, shortness of breath, nausea, vomiting, abdominal pain, dysuria, hematuria, urinary retention , paralysis, weakness, numbness and tingling. Additional Comments: See HPI for pertinent positives and negatives. All other systems reviewed and negative. (Prabha Aceves ., BONIFACIOC) Objective Vital Signs Date Time Temp Pulse Resp B/P (MAP) Pulse Ox O2 Delivery O2 Flow Rate FiO2 09/07/17 07:54 69 16 93 Nasal Cannula 2.0 09/07/17 07:29 36.6 70 18 141/76 (97) 96 Nasal Cannula 2.0 09/07/17 01:37 72 16 96 Nasal Cannula 2.0 09/07/17 00:07 36.6 64 20 123/67 (85) 96 Nasal Cannula 2.0 09/06/17 23:50 Nasal Cannula 2.0 09/06/17 20:31 67 16 98 Nasal Cannula 3.0 09/06/17 16:00 Nasal Cannula 3.0 09/06/17 15:41 36.3 69 18 139/85 (103) 96 Nasal Cannula 2.5 09/06/17 14:33 64 16 93 Nasal Cannula 3.0 09/06/17 11:57 76 94 (Prabha Aceves .BONIFACIOC) Physical Exam Notes: General appearance: Well-developed, well-nourished, no apparent distress Head: Normocephalic, atraumatic Eyes: Normal inspection, PERRL, EOMI ENT: Normal ENT inspection, hearing grossly normal, pharynx normal Neck: Supple, no JVD, trachea midline Respiratory/Chest: +Decreased breath sounds. Mild wheezing. On 2L NC. No respiratory distress Cardiovascular: +Systolic murmur. Regular rate & rhythm, no gallop Abdomen/GI: Normal bowel sounds, non-tender, soft Extremities/Musculoskeletal: +Bilateral lymphedema, L>R. Non-pitting edema L> R. No calf tenderness Neurological/Psych: Alert, normal mood/affect, oriented x 3 Skin: Normal color, warm/dry, no rash (Prabha Aceves .JOB) Laboratory Results Last 24 Hours Test 09/06/17 16:22 09/06/17 20:03 09/07/17 07:06 09/07/17 07:21 Bedside Glucose 191 mg/dl 171 mg/dl White Blood Count 8.57 K/uL Red Blood Count 3.49 M/uL Hemoglobin 10.4 g/dL Hematocrit 31.8 % Mean Corpuscular Volume 91.1 fL Mean Corpuscular Hemoglobin 29.8 pg Mean Corpuscular Hemoglobin Concent 32.7 g/dl Platelet Count 109 K/uL Mean Platelet Volume 10.0 fL Neutrophils (%) (Auto) 81.6 % Lymphocytes (%) (Auto) 5.8 % Monocytes (%) (Auto) 9.0 % Eosinophils (%) (Auto) 2.3 % Basophils (%) (Auto) 0.1 % Neutrophils # (Auto) 6.81 K/uL Lymphocytes # (Auto) 0.48 K/uL Monocytes # (Auto) 0.75 K/uL Eosinophils # (Auto) 0.19 K/uL Basophils # (Auto) 0.01 K/uL RDW Standard Deviation 58.4 fL RDW Coefficient of Variation 17.5 % Immature Granulocyte % (Auto) 1.2 % Immature Granulocyte # (Auto) 0.10 K/uL Nucleated RBC Absolute Count (auto) 0.00 K/uL Nucleated Red Blood Cells % 0.0 % Sodium Level 141 mmol/L Potassium Level 3.6 mmol/L Chloride Level 107 mmol/L Carbon Dioxide Level 26 mmol/L Anion Gap 8.0 mmol/L Blood Urea Nitrogen 19 mg/dl Creatinine 0.84 mg/dl Est Creatinine Clear Calc Drug Dose 37.3 ml/min Estimated GFR () 72.4 Estimated GFR (Non- 62.5 BUN/Creatinine Ratio 23.0 Random Glucose 90 mg/dl Calcium Level 8.3 mg/dl Magnesium Level 2.0 mg/dl Test 09/07/17 07:45 Bedside Glucose 97 mg/dl (Aceves, Prabha ., PA-C) Assessment and Plan 86 y/o female with a history of HTN, DM II, chronic bilateral LE lymphedema with chronic LE cellulitis, pulmonary hypertension, and h/o PE November 2016 who presents with progressive SOB and weakness. Chest CTA negative for PE but shows bilateral lower lobe pneumonia suspicious for aspiration. Acute hypoxic respiratory failure secondary to pneumonia--stable - Pt had been stable on room air, then sats dropped to 80% and placed on 3L. Now weaned to 2L. O2 by protocol, continue to wean as tolerated. Pt does not wear oxygen at home - Suspected aspiration, speech therapy consulted: cleared for normal diet with aspiration precautions - Cont Unasyn and Zithro - started 12/, day #5 - DuoNebs QIDR - Sputum culture if expectorating - Mucinex 1200 mg PO BID added - Start flutter valve, incentive spirometry - Repeat CXR pending HTN--stable - Lisinopril dose decreased from 20 to 5 mg PO qd DM II--last HgbA1c checked was 5.7 -Not sought tx in the past, diet controlled -Insulin sliding scale -Check BSGs q ac and qhs Chronic lymphedema--stable -May benefit from lymphedema clinic or wound care. Pt denies every seeing either service Elevated trop, chronic--stable - Chronically elevated since PE in November 2016 - Recent trops much lower than in November, stable H/o PE November 2016 - Had been on Coumadin 3 mg PO qd per outpt records, unclear if still taking DVT prophylaxis -Heparin 5000 units SC q8h Code Status -Level I, FULL RESUSCITATION STATUS Dispo -From home, living with 2 sons. 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 Did discuss benefits of rehab vs danger of going home with pt today. She states she tried rehab twice in the past and didn't feel it did much for her. She is willing to consider home PT services. (Prabha Aceves ., PA-C) Attending Attestation: Pt seen/examined, chart reviewed, care plan d/w AUSTIN Aceves. I agree w/ the ash components of her documentation. Pt eating breakfast during my visit. She reports "feeling ok" and sleeping alright last pm. Denies any worsening of cough or congestion. VSS no fever gen - NAD, eating breakfast neck - no JVD skin - erythematous rash on left posterior shoulder, under breasts b/l ( chaperoned by staff while examining this region), groin, and medial aspect of both knee regions; stasis dermatitis +/- b/l cellulitis of both shins; she also has new petechial like rash on dorsum of both feet heart - RRR lungs - minimal scattered rales b/l abd - soft ext - 1+ edema b/l legs, worse on left CBC - platelets low 100s BMP wnl A/P: 1. b/l pneumonia - either aspiration vs community-aquired - day #5 of abx. 2. candidal rash - groin, under breasts - nystatin TID. 3. rash, left posterior shoulder - contact dermatitis - triamcinolone cream TID. 4. worsening rash, b/l legs and feet - unclear etiology; unsure if this is just part of her stasis dermatitis or due to cellulitis. Differential today does not show eosinophilia making drug allergy unlikely. follow for now. 5. thrombocytopenia - cbc in AM. It would be unusual for HIT to begin this early in her hospital course but not impossible. If any further drop tomorrow then d/c heparin and send HIT antibody. Pt would really benefit from rehab. Jerad Jacobson MD (Jerad Jacobson MD)
--- NOTE | 2017-09-07 15:17 | DIAGNOSTIC IMAGING REPORT ---
CHEST 2 VIEWS ROUTINE CLINICAL HISTORY: dyspnea, bilateral pneumonia COMPARISON STUDY: 09/03/2017 FINDINGS: The heart is enlarged. There are bibasilar pulmonary airspace opacities with bilateral pleural effusions. There is mild central vascular prominence without evidence of overt failure. There is dense calcification of mitral valve annulus.[ IMPRESSION: 1. Cardiomegaly, bilateral pleural effusions, and associated bibasilar airspace opacities. Electronically signed by: Chris Espinoza M.D. 09/07/2017 3:15 PM Dictated Date/Time: 09/07/2017 3:14 PM
[2017-09-07] MEDS: AMOXICILLIN/CLAVULANATE TAB 875 MG TAB PO SCH (17:50)
[2017-09-08 02:21] VITALS: PULSE 68; O2SAT 88
[2017-09-08] MEDS: ALBUT/IPRATROP 3MG/0.5MG NEB 3 ML VIAL INH SCH ×4 (02:21→18:45)
[2017-09-08] MEDS: HEPARIN SOD 5000 UNIT/0.5 ML CARP SQ SCH ×3 (06:15→21:46)
[2017-09-08 06:27] LABS: BASO % 0.1 %; BASO ABS # 0.01 K/uL (0-0.2); COMPLETE YES; EOS % 2.9 %; HEMATOCRIT 33.6 % (37-47); IG% 1.7 %; LYMPH % 6.8 %; LYMPH ABS # 0.49 K/uL (1.2-3.4); MEAN CELL VOLUME 91.3 fL (80-100); MEAN CORPUSCULAR HEMOGLOBIN 30.2 pg (25-34); MEAN PLATELET VOLUME 10.3 fL (7.4-10.4); MONO % 5.6 %; NEUT % 82.9 %; PLATELET COUNT 135 K/uL (130-400); RED BLOOD COUNT 3.68 M/uL (4.2-5.4)
[2017-09-08 06:46] LABS: BUN/CREATININE RATIO 28.3 (10-20); CALCIUM 8.4 mg/dl (8.5-10.1); CREATININE 0.81 mg/dl (0.60-1.20); POTASSIUM 3.6 mmol/L (3.5-5.1)
[2017-09-08 07:12] VITALS: PULSE 73; O2SAT 93
[2017-09-08 07:26] VITALS: BP 144/67; PULSE 74; TEMP 36.7; O2SAT 93
[2017-09-08] MEDS: AMOXICILLIN/CLAVULANATE TAB 875 MG TAB PO SCH (08:00)
[2017-09-08] MEDS: GUAIFENESIN 600 MG TABCR PO SCH ×2 (08:32→19:58)
[2017-09-08] MEDS: LISINOPRIL 5 MG TAB PO SCH (08:32)
[2017-09-08] MEDS: AZITHROMYCIN 250 MG TAB PO SCH (08:33)
[2017-09-08] MEDS: EUCERIN CR 120 GM JAR EXT SCH ×2 (08:34→19:56)
[2017-09-08] MEDS: NYSTATIN POWDER 15GM BTL EXT SCH ×3 (08:35→19:57)
[2017-09-08] MEDS: INSULIN ASPART 100 UNITS/ML 3 ML PEN SC SCH ×4 (08:35→21:42)
[2017-09-08] MEDS: TRIAMCINOLONE ACET 0.1% CR 80 GM TUBE EXT SCH ×3 (08:35→21:02)
[2017-09-08 14:24] VITALS: PULSE 81; O2SAT 97
--- NOTE | 2017-09-08 14:45 | Hospitalist Progress Note ---
Hospitalist Progress Note Date of Service Sep 08, 2017. (Prabha Aceves ., BONIFACIOC) Subjective Pt evaluation today including: conversation w/ patient, physical exam, chart review, lab review, review of inpatient medication list Pain: None PO Intake: Tolerating PO diet Voiding: no voiding problems The patient reports feeling well. She still reports a wet but non-productive cough. She denies any wheezing or SOB. Per nursing, the patient has developed a diffuse, erythematous rash. The patient states that this does not bother her and denies any pruritus. The patient denies fevers, chills, sweats, chest pain , palpitations, claudication, wheezing, shortness of breath, nausea, vomiting, abdominal pain, dysuria, hematuria, urinary retention, paralysis, weakness, numbness and tingling. Additional Comments: See HPI for pertinent positives and negatives. All other systems reviewed and negative. (Prabha Aceves ., PA-C) Objective Vital Signs Date Time Temp Pulse Resp B/P (MAP) Pulse Ox O2 Delivery O2 Flow Rate FiO2 09/08/17 14:24 81 16 97 Nasal Cannula 3.0 09/08/17 07:41 Nasal Cannula 1.0 09/08/17 07:26 36.7 74 20 144/67 (92) 93 Nasal Cannula 3.0 09/08/17 07:12 73 16 93 Nasal Cannula 3.0 09/08/17 02:21 68 16 88 Nasal Cannula 1.0 09/08/17 00:10 Nasal Cannula 1.0 09/07/17 22:58 36.5 80 20 166/71 (102) 91 Nasal Cannula 1.0 09/07/17 18:58 80 16 90 Nasal Cannula 1.0 09/07/17 16:00 93 Room Air 1.0 09/07/17 15:21 36.6 83 18 150/52 (84) 93 Room Air (Prabha Aceves, AUSTIN-C) Physical Exam Notes: General appearance: Well-developed, well-nourished, no apparent distress Head: Normocephalic, atraumatic Eyes: Normal inspection, PERRL, EOMI ENT: Normal ENT inspection, hearing grossly normal, pharynx normal Neck: Supple, no JVD, trachea midline Respiratory/Chest: +Decreased breath sounds. Wheezing. On 3L NC. No respiratory distress Cardiovascular: +Systolic murmur. Regular rate & rhythm, no gallop Abdomen/GI: Normal bowel sounds, non-tender, soft Extremities/Musculoskeletal: +Bilateral lymphedema, L>R. 1+ pitting edema in feet, non-pitting edema L>R in lower extremities. No calf tenderness Neurological/Psych: Alert, normal mood/affect, oriented x 3 Skin: +Diffuse erythematous rash over chest, shoulders, abdomen, groin and inner thighs. Normal color, warm/dry (Prabha Aceves, PA-C) Laboratory Results Last 24 Hours Test 09/07/17 16:21 09/07/17 20:22 09/08/17 05:43 09/08/17 08:02 Bedside Glucose 155 mg/dl 193 mg/dl 103 mg/dl White Blood Count 7.20 K/uL Red Blood Count 3.68 M/uL Hemoglobin 11.1 g/dL Hematocrit 33.6 % Mean Corpuscular Volume 91.3 fL Mean Corpuscular Hemoglobin 30.2 pg Mean Corpuscular Hemoglobin Concent 33.0 g/dl Platelet Count 135 K/uL Mean Platelet Volume 10.3 fL Neutrophils (%) (Auto) 82.9 % Lymphocytes (%) (Auto) 6.8 % Monocytes (%) (Auto) 5.6 % Eosinophils (%) (Auto) 2.9 % Basophils (%) (Auto) 0.1 % Neutrophils # (Auto) 5.97 K/uL Lymphocytes # (Auto) 0.49 K/uL Monocytes # (Auto) 0.40 K/uL Eosinophils # (Auto) 0.21 K/uL Basophils # (Auto) 0.01 K/uL RDW Standard Deviation 58.0 fL RDW Coefficient of Variation 17.3 % Immature Granulocyte % (Auto) 1.7 % Immature Granulocyte # (Auto) 0.12 K/uL Sodium Level 140 mmol/L Potassium Level 3.6 mmol/L Chloride Level 108 mmol/L Carbon Dioxide Level 24 mmol/L Anion Gap 8.0 mmol/L Blood Urea Nitrogen 23 mg/dl Creatinine 0.81 mg/dl Est Creatinine Clear Calc Drug Dose 38.7 ml/min Estimated GFR () 75.7 Estimated GFR (Non- 65.3 BUN/Creatinine Ratio 28.3 Random Glucose 101 mg/dl Calcium Level 8.4 mg/dl Test 09/08/17 11:20 Bedside Glucose 142 mg/dl (Prabha Aceves ., BONIFACIOC) Diagnostic Results Reviewed the following studies and agree with interpretation as follows: CHEST 2 VIEWS ROUTINE CLINICAL HISTORY: dyspnea, bilateral pneumonia COMPARISON STUDY: 09/03/2017 FINDINGS: The heart is enlarged. There are bibasilar pulmonary airspace opacities with bilateral pleural effusions. There is mild central vascular prominence without evidence of overt failure. There is dense calcification of mitral valve annulus.[ IMPRESSION: 1. Cardiomegaly, bilateral pleural effusions, and associated bibasilar airspace opacities. (Prabha Aceves ., PA-C) Assessment and Plan 86 y/o female with a history of HTN, DM II, chronic bilateral LE lymphedema with chronic LE cellulitis, pulmonary hypertension, and h/o PE November 2016 who presents with progressive SOB and weakness. Chest CTA negative for PE but shows bilateral lower lobe pneumonia suspicious for aspiration. Acute hypoxic respiratory failure secondary to pneumonia--stable - Pt had been stable on room air, then sats dropped to 80% and placed on 3L. Back on 3L. O2 by protocol, continue to wean as tolerated. Pt does not wear oxygen at home - Suspected aspiration, speech therapy consulted: cleared for normal diet with aspiration precautions - D/C Unasyn and azithromycin. Pt had been switched to PO Augmentin but appears to have drug exanthem - D/C Augmentin - Start clindamycin 450 mg PO TID. Day #6 of abx - Prednisone 40 mg PO qd - DuoNebs QIDR - Sputum culture if expectorating - Mucinex 1200 mg PO BID added - Start flutter valve, incentive spirometry - Repeat CXR 09/07 shows bilateral pleural effusions and associated bibasilar airspace opacities HTN--stable - Lisinopril dose decreased from 20 to 5 mg PO qd DM II--last HgbA1c checked was 5.7 -Not sought tx in the past, diet controlled -Insulin sliding scale -Check BSGs q ac and qhs Chronic lymphedema--stable -May benefit from lymphedema clinic or wound care. Pt denies every seeing either service Elevated trop, chronic--stable - Chronically elevated since PE in November 2016 - Recent trops much lower than in November, H/o PE November 2016 - Had been on Coumadin 3 mg PO qd per outpt records, unclear if still taking DVT prophylaxis -Heparin 5000 units SC q8h Code Status -Level I, FULL RESUSCITATION STATUS Dispo -From home, living with 2 sons. 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 Did discuss benefits of rehab vs danger of going home with pt today. She states she tried rehab twice in the past and didn't feel it did much for her. She is willing to consider home PT services. (Prabha Aceves ., PA-C) Attending Attestation: Pt seen/examined, chart reviewed, care plan d/w PA Prabha Aceves. I agree w/ the ash components of her documentation. Pt doing "ok" Staff have noted that rash on shoulders yesterday has spread to entire back, upper chest, arms, legs, etc. Denies pruritis. Cough still present - no major change from previous VSS no fever gen - NAD neck - no JVD skin - erythematous macularpapular rash on entire back, upper chest, portion of torso, arms, upper legs, dorsum of feet; b/l stasis dermatitis on shins - no change heart - RRR lungs - minimal scattered rales b/l, decreased BS bases abd - soft ext - 1+ edema b/l legs, worse on left A/P: 1. b/l pneumonia - either aspiration vs community-aquired - day #6 of abx. In light of suspected drug rxn d/c both antibiotics and change to clindamycin. 2. candidal rash - groin, under breasts - nystatin TID. 3. drug reaction - unclear if due to zithromax or augmentin/unasyn as the rash started yesterday (while on both antibiotics). Will place augmentin/zithromax on drug allergy list. Agree with steroids for reaction. Agree with change to clindamycin for #1. 4. thrombocytopenia - improving. Follow. needs rehab - patient finally agreeable to SNF placement for such tried to call son at phone # listed in chart - no success (09/08/17) Jerad Jacobson MD (Jerad Jacobson MD)
[2017-09-08 15:27] VITALS: BP 160/80; PULSE 70; TEMP 36.2; O2SAT 95
[2017-09-08] MEDS: LACTOBACILLUS ACIDOPHILUS (FLORANEX) TAB PO SCH (17:42)
[2017-09-08 18:45] VITALS: PULSE 68; O2SAT 95
[2017-09-08] MEDS: CLINDAMYCIN HCL 150 MG CAP PO SCH (19:58)
[2017-09-09] VITALS (9 sets, daily range): BP systolic 138–175; BP diastolic 56–66; PULSE 62–88; TEMP 36.3–36.4; O2SAT 88–100
[2017-09-09] MEDS: ALBUT/IPRATROP 3MG/0.5MG NEB 3 ML VIAL INH SCH ×4 (01:51→19:34)
[2017-09-09] MEDS: HEPARIN SOD 5000 UNIT/0.5 ML CARP SQ SCH ×3 (05:52→20:33)
[2017-09-09] MEDS: MICONAZOLE NITRATE POWDER 43 GM EXT PRN ×2 (05:54→20:30)
[2017-09-09 07:30] LABS: HEMATOCRIT 32.4 % (37-47); MEAN CELL VOLUME 92.8 fL (80-100); MEAN CORPUSCULAR HEMOGLOBIN 30.9 pg (25-34); MEAN CORPUSCULAR HGB CONC 33.3 g/dl (32-36); MEAN PLATELET VOLUME 10.7 fL (7.4-10.4); PLATELET COUNT 168 K/uL (130-400); RED BLOOD COUNT 3.49 M/uL (4.2-5.4); WHITE BLOOD COUNT 6.22 K/uL (4.8-10.8)
[2017-09-09 08:01] LABS: BUN/CREATININE RATIO 28.7 (10-20); CALCIUM 8.2 mg/dl (8.5-10.1); CREATININE 0.75 mg/dl (0.60-1.20); POTASSIUM 3.6 mmol/L (3.5-5.1)
[2017-09-09] MEDS: INSULIN ASPART 100 UNITS/ML 3 ML PEN SC SCH ×4 (08:27→20:32)
[2017-09-09] MEDS: GUAIFENESIN 600 MG TABCR PO SCH ×2 (08:30→20:30)
[2017-09-09] MEDS: LACTOBACILLUS ACIDOPHILUS (FLORANEX) TAB PO SCH ×3 (08:30→17:03)
[2017-09-09] MEDS: CLINDAMYCIN HCL 150 MG CAP PO SCH ×3 (08:30→20:30)
[2017-09-09] MEDS: LISINOPRIL 5 MG TAB PO SCH (08:30)
[2017-09-09] MEDS: TRIAMCINOLONE ACET 0.1% CR 80 GM TUBE EXT SCH ×3 (08:31→20:30)
[2017-09-09] MEDS: EUCERIN CR 120 GM JAR EXT SCH ×2 (08:31→20:30)
[2017-09-09] MEDS: NYSTATIN POWDER 15GM BTL EXT SCH ×3 (08:31→20:30)
--- NOTE | 2017-09-09 14:43 | Hospitalist Progress Note ---
Hospitalist Progress Note Date of Service Sep 09, 2017. (Prabha Aceves ., JOB) Subjective Pt evaluation today including: conversation w/ patient, conversation w/ family (son at bedside), physical exam, chart review, lab review, review of inpatient medication list Pain: None PO Intake: Tolerating PO diet Voiding: no voiding problems The patient reports feeling well. She denies any shortness of breath. She states she has not been coughing much today and denies any wheezing. The patient denies fevers, chills, sweats, chest pain, palpitations, claudication, cough, wheezing, shortness of breath, nausea, vomiting, abdominal pain, dysuria , hematuria, urinary retention, paralysis, weakness, numbness and tingling. Additional Comments: See HPI for pertinent positives and negatives. All other systems reviewed and negative. (Prabha Aceves ., BONIFACIOC) Objective Vital Signs Date Time Temp Pulse Resp B/P (MAP) Pulse Ox O2 Delivery O2 Flow Rate FiO2 09/09/17 14:22 88 16 92 Nasal Cannula 3.0 09/09/17 07:50 Nasal Cannula 2.0 09/09/17 07:33 36.3 64 20 145/56 (85) 92 Nasal Cannula 3.0 09/09/17 07:28 66 16 88 Nasal Cannula 2.0 09/09/17 01:52 62 16 100 Nasal Cannula 3.0 09/09/17 00:32 36.4 63 20 138/66 (90) 100 Nasal Cannula 3.0 09/09/17 00:00 Room Air 3.0 09/08/17 18:45 68 16 95 Nasal Cannula 3.0 09/08/17 15:44 Nasal Cannula 3.0 09/08/17 15:27 36.2 70 20 160/80 (106) 95 Nasal Cannula 3.0 (Prabha Aceves ., AUSTIN-C) Physical Exam Notes: General appearance: Well-developed, well-nourished, no apparent distress Head: Normocephalic, atraumatic Eyes: Normal inspection, PERRL, EOMI ENT: Normal ENT inspection, hearing grossly normal, pharynx normal Neck: Supple, no JVD, trachea midline Respiratory/Chest: +Decreased breath sounds. On 3L NC. No respiratory distress Cardiovascular: +Systolic murmur. Regular rate & rhythm, no gallop Abdomen/GI: Normal bowel sounds, non-tender, soft Extremities/Musculoskeletal: +Bilateral lymphedema, L>R. 1+ pitting edema in feet, non-pitting edema L>R in lower extremities. No calf tenderness Neurological/Psych: Alert, normal mood/affect, oriented x 3 Skin: +Diffuse erythematous rash greatly improved. Normal color, warm/dry (Prabha Aceves ., PA-C) Laboratory Results Last 24 Hours Test 09/08/17 16:18 09/08/17 20:10 09/09/17 06:50 09/09/17 07:40 Bedside Glucose 170 mg/dl 113 mg/dl 82 mg/dl White Blood Count 6.22 K/uL Red Blood Count 3.49 M/uL Hemoglobin 10.8 g/dL Hematocrit 32.4 % Mean Corpuscular Volume 92.8 fL Mean Corpuscular Hemoglobin 30.9 pg Mean Corpuscular Hemoglobin Concent 33.3 g/dl RDW Standard Deviation 59.1 fL RDW Coefficient of Variation 17.6 % Platelet Count 168 K/uL Mean Platelet Volume 10.7 fL Sodium Level 141 mmol/L Potassium Level 3.6 mmol/L Chloride Level 109 mmol/L Carbon Dioxide Level 23 mmol/L Anion Gap 9.0 mmol/L Blood Urea Nitrogen 21 mg/dl Creatinine 0.75 mg/dl Est Creatinine Clear Calc Drug Dose 41.8 ml/min Estimated GFR () 83.1 Estimated GFR (Non- 71.7 BUN/Creatinine Ratio 28.7 Random Glucose 86 mg/dl Calcium Level 8.2 mg/dl Test 09/09/17 11:53 Bedside Glucose 154 mg/dl (Prabha Aceves ., PA-C) Assessment and Plan 86 y/o female with a history of HTN, DM II, chronic bilateral LE lymphedema with chronic LE cellulitis, pulmonary hypertension, and h/o PE November 2016 who presents with progressive SOB and weakness. Chest CTA negative for PE but shows bilateral lower lobe pneumonia suspicious for aspiration. Acute hypoxic respiratory failure secondary to pneumonia--stable - Pt had been stable on room air, then sats dropped to 80% and placed on 3L. Still on 3L. O2 by protocol, continue to wean as tolerated. Pt does not wear oxygen at home - Suspected aspiration, speech therapy consulted: cleared for normal diet with aspiration precautions - D/C Unasyn and azithromycin. Pt had been switched to PO Augmentin but appears to have drug exanthem - D/C Augmentin - Continue clindamycin 450 mg PO TID. Day #7 of abx - Prednisone 40 mg PO qd. Day #1 - DuoNebs QIDR - Sputum culture if expectorating - Mucinex 1200 mg PO BID added - Start flutter valve, incentive spirometry - Repeat CXR 09/07 shows bilateral pleural effusions and associated bibasilar airspace opacities Fluid overload--may be contributing to hypoxia -Pt positive over 9L fluid since admission, although denies any SOB -Lasix 20 mg IV x 1, continue to monitor HTN--stable - Lisinopril dose decreased from 20 to 5 mg PO qd DM II--last HgbA1c checked was 5.7 -Not sought tx in the past, diet controlled -Insulin sliding scale -Check BSGs q ac and qhs Chronic lymphedema--stable -May benefit from lymphedema clinic or wound care. Pt denies every seeing either service -Wound care nurse consulted. Will try to coordinate outpt wound care follow up if able to address lymphedema Elevated trop, chronic--stable - Chronically elevated since PE in November 2016 - Recent trops much lower than in November, stable H/o PE November 2016 - Had been on Coumadin 3 mg PO qd per outpt records, completed 6 month course DVT prophylaxis -Heparin 5000 units SC q8h Code Status -Level I, FULL RESUSCITATION STATUS Dispo -From home, living with 2 sons. 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 Insurance auth pending (Prabha Aceves ., PACarolineC) Attending Attestation: Pt seen/examined, chart reviewed, care plan d/w AUSTIN Aceves. I agree w/ the ash components of her documentation. Pt feeling "pretty good" today. Cough remains but seems better. Staff report she is quite weak and cannot even sit at side of bed independently. VSS no fever significant +fluid balance since admission gen - NAD neck - no obvious JVD skin - erythematous macularpapular rash markedly improved (back, torso, extremities, dorsum of feet) heart - RRR, 2/5 BRYAN LSB lungs - course BS b/l, decreased BS bases, scattered rales, no wheeze abd - soft ext - 1+ edema b/l legs, worse on left; venous stasis changes b/l shins unchanged A/P: 1. b/l pneumonia - either aspiration vs community-aquired - day #7 of abx. In light of suspected drug rxn augmentin/zithromax changed to clindamycin. 2. candidal rash - groin, under breasts - nystatin TID. 3. drug reaction - unclear if due to zithromax or augmentin/unasyn Either way rash is markedly improved today cont prednisone - hopefully steroids will even help her pulmonary status 4. thrombocytopenia - improving. 5. ?acute diastolic CHF - ongoing O2 requirement, crackles on exam, positive fluid balance, etc - lasix 20mg IV x 1 needs rehab - patient finally agreeable to SNF placement for such tried to call son at phone # listed in chart - no success (09/08/17 and 09/09/17 ) slowly progressing Jerad Jacobson MD (Jerad Jacobson MD)
[2017-09-09] MEDS ORDERED: FUROSEMIDE INJ 20 MG in SYRINGE 0 ML IV ONE (14:45)
[2017-09-10 02:10] VITALS: PULSE 60; O2SAT 92
[2017-09-10] MEDS: ALBUT/IPRATROP 3MG/0.5MG NEB 3 ML VIAL INH SCH ×4 (02:10→19:45)
[2017-09-10] MEDS: HEPARIN SOD 5000 UNIT/0.5 ML CARP SQ SCH ×3 (06:32→21:40)
[2017-09-10 07:08] VITALS: PULSE 56; O2SAT 96
[2017-09-10 07:13] LABS: CALCIUM 8.2 mg/dl (8.5-10.1); CREATININE 0.83 mg/dl (0.60-1.20); MAGNESIUM 2.5 mg/dl (1.8-2.4); POTASSIUM 3.7 mmol/L (3.5-5.1)
[2017-09-10 07:30] VITALS: BP 140/50; PULSE 64; TEMP 36.3; O2SAT 98
[2017-09-10] MEDS: EUCERIN CR 120 GM JAR EXT SCH ×2 (08:38→19:53)
[2017-09-10] MEDS: TRIAMCINOLONE ACET 0.1% CR 80 GM TUBE EXT SCH ×3 (08:39→19:52)
[2017-09-10] MEDS: GUAIFENESIN 600 MG TABCR PO SCH ×2 (08:39→19:53)
[2017-09-10] MEDS: NYSTATIN POWDER 15GM BTL EXT SCH ×3 (08:39→19:52)
[2017-09-10] MEDS: CLINDAMYCIN HCL 150 MG CAP PO SCH (08:40)
[2017-09-10] MEDS: LACTOBACILLUS ACIDOPHILUS (FLORANEX) TAB PO SCH ×3 (08:40→17:28)
[2017-09-10] MEDS: LISINOPRIL 5 MG TAB PO SCH (08:41)
[2017-09-10] MEDS: INSULIN ASPART 100 UNITS/ML 3 ML PEN SC SCH ×4 (08:42→21:39)
--- NOTE | 2017-09-10 13:10 | DIAGNOSTIC IMAGING REPORT ---
TWO VIEW CHEST CLINICAL HISTORY: Diminished breath sounds. Hypoxia. FINDINGS: AP and lateral chest radiographs are compared to study dated 09/07/2017 and correlated with chest CT dated 09/03/2017. The AP view is degraded by patient rotation and by the patient's head obscuring the apices. The heart is markedly enlarged and there is atherosclerotic calcification of the thoracic aorta. The mitral annulus is densely calcified. There is pulmonary vascular congestion and mild interstitial edema there are bilateral pleural effusions, left larger than right with associated consolidation. The skeletal structures are osteopenic. The degenerative changes noted throughout the thoracic spine. Compression deformities are noted. IMPRESSION: 1. Cardiomegaly with evidence of congestive failure and interstitial edema. 2. Layering pleural effusions, left larger than right with associated consolidation. This likely represents atelectasis. Correlate clinically for evidence of superimposed pneumonia. Electronically signed by: Juanpablo Rivas M.D. 09/10/2017 1:09 PM Dictated Date/Time: 09/10/2017 1:07 PM
[2017-09-10] MEDS ORDERED: FUROSEMIDE INJ 20 MG in SYRINGE 0 ML IV ONE (13:45)
--- NOTE | 2017-09-10 13:56 | Hospitalist Progress Note ---
Hospitalist Progress Note Date of Service Sep 10, 2017. (Prabha Aceves ., BONIFACIOC) Subjective Pt evaluation today including: conversation w/ patient, physical exam, chart review, lab review, review of studies, review of inpatient medication list Pain: None PO Intake: Tolerating PO diet Voiding: incontinence (per nursing) The patient reports feeling well. She still complains of a wet but non- productive cough but otherwise denies complaints. She was able to have a bowel movement this morning. The patient denies fevers, chills, sweats, chest pain, palpitations, claudication, wheezing, shortness of breath, nausea, vomiting, abdominal pain, dysuria, hematuria, urinary retention, paralysis, weakness, numbness and tingling. Additional Comments: See HPI for pertinent positives and negatives. All other systems reviewed and negative. (Prabha Aceves ., AUSTIN-C) Objective Vital Signs Date Time Temp Pulse Resp B/P (MAP) Pulse Ox O2 Delivery O2 Flow Rate FiO2 09/10/17 08:00 Nasal Cannula 2.0 09/10/17 07:30 36.3 64 16 140/50 (80) 98 Nasal Cannula 2.0 09/10/17 07:08 56 16 96 Nasal Cannula 2.0 09/10/17 02:10 60 16 92 Nasal Cannula 2.0 09/10/17 00:39 Nasal Cannula 2.0 09/09/17 23:40 36.4 68 20 142/61 (88) 96 Nasal Cannula 2.0 09/09/17 21:50 Nasal Cannula 2.0 09/09/17 19:34 81 16 93 Nasal Cannula 3.0 09/09/17 16:00 91 Nasal Cannula 2.0 09/09/17 15:09 36.4 75 20 175/66 (102) 91 Nasal Cannula 3.0 09/09/17 14:22 88 16 92 Nasal Cannula 3.0 (Prabha Aceves, BONIFACIOC) Physical Exam Notes: General appearance: Well-developed, well-nourished, no apparent distress Head: Normocephalic, atraumatic Eyes: Normal inspection, PERRL, EOMI ENT: Normal ENT inspection, hearing grossly normal, pharynx normal Neck: Supple, no JVD, trachea midline Respiratory/Chest: +Decreased breath sounds. On 2L NC. No respiratory distress Cardiovascular: +Systolic murmur. Regular rate & rhythm, no gallop Abdomen/GI: Normal bowel sounds, non-tender, soft Extremities/Musculoskeletal: +Bilateral lymphedema, L>R. 1+ pitting edema in feet, non-pitting edema L>R in lower extremities. No calf tenderness Neurological/Psych: Alert, normal mood/affect, oriented x 3 Skin: +Diffuse erythematous rash greatly improved. Normal color, warm/dry (Prabha Aceves ., AUSTIN-C) Laboratory Results Last 24 Hours Test 09/09/17 17:02 09/09/17 20:05 09/10/17 06:16 Bedside Glucose 198 mg/dl 185 mg/dl Sodium Level 141 mmol/L Potassium Level 3.7 mmol/L Chloride Level 109 mmol/L Carbon Dioxide Level 27 mmol/L Anion Gap 5.0 mmol/L Blood Urea Nitrogen 31 mg/dl Creatinine 0.83 mg/dl Est Creatinine Clear Calc Drug Dose 37.8 ml/min Estimated GFR () 73.5 Estimated GFR (Non- 63.4 BUN/Creatinine Ratio 37.0 Random Glucose 110 mg/dl Calcium Level 8.2 mg/dl Magnesium Level 2.5 mg/dl (Prabha Aceves ., PA-C) Diagnostic Results Reviewed the following studies and agree with interpretation as follows: TWO VIEW CHEST CLINICAL HISTORY: Diminished breath sounds. Hypoxia. FINDINGS: AP and lateral chest radiographs are compared to study dated 09/07/2017 and correlated with chest CT dated 09/03/2017. The AP view is degraded by patient rotation and by the patient's head obscuring the apices. The heart is markedly enlarged and there is atherosclerotic calcification of the thoracic aorta. The mitral annulus is densely calcified. There is pulmonary vascular congestion and mild interstitial edema there are bilateral pleural effusions, left larger than right with associated consolidation. The skeletal structures are osteopenic. The degenerative changes noted throughout the thoracic spine. Compression deformities are noted. IMPRESSION: 1. Cardiomegaly with evidence of congestive failure and interstitial edema. 2. Layering pleural effusions, left larger than right with associated consolidation. This likely represents atelectasis. Correlate clinically for evidence of superimposed pneumonia. (Prabha Aceves ., AUSTIN-C) Assessment and Plan 86 y/o female with a history of HTN, DM II, chronic bilateral LE lymphedema with chronic LE cellulitis, pulmonary hypertension, and h/o PE November 2016 who presents with progressive SOB and weakness. Chest CTA negative for PE but shows bilateral lower lobe pneumonia suspicious for aspiration. Acute hypoxic respiratory failure secondary to pneumonia--improving - Pt had been stable on room air, then sats dropped to 80% and placed on 3L. Weaned down to 2L. O2 by protocol, continue to wean as tolerated. Pt does not wear oxygen at home - Suspected aspiration, speech therapy consulted: cleared for normal diet with aspiration precautions - D/C Unasyn and azithromycin. Pt had been switched to PO Augmentin but appears to have drug exanthem - D/C Augmentin - D/C clindamycin. Full 7 day abx course completed. - Continue Prednisone 40 mg PO qd. Day #2 - DuoNebs QIDR - Sputum culture if expectorating - Mucinex 1200 mg PO BID added - Start flutter valve, incentive spirometry - Repeat CXR 09/07 shows bilateral pleural effusions and associated bibasilar airspace opacities - Repeat CXR 09/10 shows congestive failure and interstitial edema. Layering pleural effusions, left larger than right with associated consolidation likely representing atelectasis. Acute on chronic diastolic dysfunction--pt with grade 1 diastolic dysfunction on echo November 2016 -Lasix 20 mg IV x 1 -Daily weights -I's & O's. Pt incontinent per nursing so unable to measure outputs HTN--stable - Lisinopril dose decreased from 20 to 5 mg PO qd DM II--last HgbA1c checked was 5.7 -Not sought tx in the past, diet controlled -Insulin sliding scale -Check BSGs q ac and qhs Chronic lymphedema--stable -May benefit from lymphedema clinic or wound care. Pt denies every seeing either service -Wound care nurse consulted. Will try to coordinate outpt wound care follow up if able to address lymphedema Elevated trop, chronic--stable - Chronically elevated since PE in November 2016 - Recent trops much lower than in November, H/o PE November 2016 - Had been on Coumadin 3 mg PO qd per outpt records, completed 6 month course DVT prophylaxis -Heparin 5000 units SC q8h Code Status -Level I, FULL RESUSCITATION STATUS Dispo -From home, living with 2 sons. 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 [facility] able to take pt when medically stable. Due to acute congestive failure, not yet currently stable for discharge (Prabha Aceves ., PA-C) Attending Attestation: Pt seen/examined, chart reviewed, care plan d/w AUSTIN Aceves. I agree w/ the ash components of her documentation. Pt w/o complaints today. +multiple bowel movements. Still with cough - no better, no worse. Still requiring O2. VSS no fever weight?? gen - NAD neck - no obvious JVD but difficult to assess for such skin - erythematous macularpapular rash resolved on back; faintly seen on torso/ abdominal wall; resolved on upper legs and dorsum of feet heart - RRR, 2/6 BRYAN LSB lungs - course BS b/l, decreased BS bases, no wheeze abd - soft ext - 1-2+ edema b/l legs - a little better today; venous stasis changes b/l shins unchanged A/P: 1. b/l pneumonia - either aspiration vs community-aquired - day #7 of abx. To stop abx today. Due to persistent O2 requirement cxr obtained today - shows CHF findings and LLL pneumonia. 2. candidal rash - groin, under breasts - nystatin TID. 3. drug reaction - unclear if it was due to zithromax or augmentin/unasyn Either way rash is markedly improved on prednisone cont prednisone (this may help pulmonary status as well) can likely begin weaning tomorrow 4. thrombocytopenia - improving. 5. acute diastolic CHF - s/p lasix yesterday & will give additional dose today BMP in am daily weights wean O2 as tolerated 6. CKD stage 3 - stable 7. pre-DM / DM - add lantus 5 units HS; novolog w/ meals; FSBS high due to steroid use no discharge to SNF today due to #5 tried to call son at phone # listed in chart - no success (09/08/17 and 09/09/17 ) Jerad Jacobson MD (Jerad Jacobson MD)
[2017-09-10 15:10] VITALS: PULSE 62; O2SAT 93
[2017-09-10 15:48] VITALS: BP 179/72; PULSE 74; TEMP 36.3; O2SAT 94
[2017-09-10 19:38] VITALS: PULSE 65; O2SAT 95
[2017-09-10] MEDS ORDERED: INSULIN GLARGINE SOLOSTAR 100 UNITS/ML 3 ML PEN SC SCH (22:00)
[2017-09-11] VITALS (7 sets, daily range): BP systolic 154–165; BP diastolic 64–67; PULSE 62–74; TEMP 36.4–36.5; O2SAT 90–96
[2017-09-11] MEDS: ALBUT/IPRATROP 3MG/0.5MG NEB 3 ML VIAL INH SCH ×2 (02:09→07:30)
[2017-09-11] MEDS: HEPARIN SOD 5000 UNIT/0.5 ML CARP SQ SCH (05:46)
[2017-09-11] MEDS: INSULIN ASPART 100 UNITS/ML 3 ML PEN SC SCH ×2 (06:30→11:00)
[2017-09-11 07:52] LABS: BUN/CREATININE RATIO 45.3 (10-20); CALCIUM 8.4 mg/dl (8.5-10.1); CREATININE 0.84 mg/dl (0.60-1.20); POTASSIUM 3.6 mmol/L (3.5-5.1)
[2017-09-11] MEDS: EUCERIN CR 120 GM JAR EXT SCH (08:09)
[2017-09-11] MEDS: TRIAMCINOLONE ACET 0.1% CR 80 GM TUBE EXT SCH (08:09)
[2017-09-11] MEDS: NYSTATIN POWDER 15GM BTL EXT SCH (08:09)
[2017-09-11] MEDS: GUAIFENESIN 600 MG TABCR PO SCH (08:10)
[2017-09-11] MEDS: LACTOBACILLUS ACIDOPHILUS (FLORANEX) TAB PO SCH ×2 (08:10→12:41)
[2017-09-11] MEDS: LISINOPRIL 5 MG TAB PO SCH (08:11)
[2017-09-11] MEDS ORDERED: ECRCR EXT (13:12)
[2017-09-11] MEDS ORDERED: INSDGIPEN SC (13:12)
[2017-09-11] MEDS ORDERED: LSX20 PO (13:12)
[2017-09-11] MEDS ORDERED: LSN5 PO (13:12)
[2017-09-11] MEDS ORDERED: NYSP EXT (13:12)
[2017-09-11] MEDS ORDERED: TRMCR180 EXT (13:12)
[2017-09-11] MEDS ORDERED: PRD20 PO (13:12)
[2017-09-11] MEDS ORDERED: GFNSR600 PO (13:12)
--- NOTE | 2017-09-11 13:31 | Discharge Instructions ---
Discharge Instructions Date of Service Sep 11, 2017. Admission Reason for Admission: Pneumonia Discharge Discharge Diagnosis / Problem: Pneumonia Discharge Goals Goal(s): Decrease discomfort, Improve function, Diagnostic testing, Therapeutic intervention Activity Recommendations Activity Level: Assistance Required Therapies: Physical Therapy, Occupational Therapy . Additional Information Patient informed of condition: Yes Advance Directives: No DNR: No Level of Care: Skilled Communicable Disease: No Prognosis: Stable Oxygen at (LPM): 2-3L, O2 by protocol Figueroa Catheter: No Instructions / Follow-Up Instructions / Follow-Up The patient was admitted to the hospital after presenting with progressive shortness of breath and weakness. The patient was found to have pneumonia and this was suspected to be secondary to aspiration. The patient was evaluated by speech therapy who did not observe any overt aspiration, so the patient was cleared for a regular diet with aspiration precautions. The patient completed a full 7 day course of antibiotics. She did appear to develop a drug exanthem but it is unclear if this is due to azithromycin or penicillins (patient was on Unasyn, then Augmentin). Both have been added to allergy list. Exanthem greatly approved after drug withdrawal and oral steroids. The patient is now stable enough for discharge to [facility]. Medications: *Start Lasix 20 mg PO qd. Pt found to be in congestive failure. Will schedule Lasix daily for now. Recheck renal function on Thursday, 09/14 and re-evaluate need for diuresis then. *Mucinex 1200 mg PO BID x 7 more days. *Lantus 5 units SC hs. Pt will also likely need sliding scale of Novolog for meal time coverage. *Prednisone 20 mg PO qd x 3 days, then stop. *Triamcinolone cream to rash on chest, shoulders, back TID x 7 days. *Lisinopril decreased to 5 mg PO qd. *Nystatin to inguinal folds, inner thighs, under breasts TID x 14 days or until candidal rash resolution. *Eucerin cream to lower legs BID. Follow up: *Follow up with primary care provider within 1 week. *Should follow up with pulmonology or establish care within 1-2 weeks regarding ongoing hypoxia. *Recheck renal function with BMP on 09/14 to assess for SIS on Lasix. Reassess need for further diuresis at that time. *Establish care with wound care clinic for lymphedema in bilateral legs and wound on sacrum. Please seek medical attention if the patient experiences fevers, chills, sweats , dizziness/lightheadedness, loss of consciousness, chest pain, shortness of breath, nausea, vomiting, numbness or tingling. Current Hospital Diet Patient's current hospital diet: Diabetes Type 2 Diet Discharge Diet Recommended Diet: Diabetes Type 2 Diet Pending Studies Studies pending at discharge: no Physician Orders On Transfer Special Precautions: Fall precautions, aspiration precautions Vital Signs: Routine Weigh: Daily weights, assess for fluid retention/weight gain Additional Orders: Barrier cream to sacral wound Wean oxygen as tolerated Medical Emergencies . Who to Call and When: Medical Emergencies: If at any time you feel your situation is an emergency, please call 911 immediately. . Non-Emergent Contact Non-Emergency issues call your: Primary Care Provider, Grocery Store Clerk, Specialist (Wound care) Call Non-Emergent contact if: you have a fever, wound has increased drainage, wound has increased redness, wound has increased pain, you have any medication questions . . "Provider Documentation" section prepared by Prabha Aceves. . Core Measure Problem Core Measures: None
--- NOTE | 2017-09-11 13:50 | Discharge Summary ---
Discharge Summary Date of Service Sep 11, 2017. Discharge Summary Admission Date: Sep 03, 2017 at 23:07 Discharge Date: Sep 11, 2017 Discharge Disposition: [facility] facility ([facility]) Principal Diagnosis: Pneumonia, acute respiratory failure Problems/Secondary Diagnoses: HTN, DM II, chronic bilateral LE lymphedema with chronic LE cellulitis, pulmonary hypertension, h/o PE November 2016 Immunizations: Have You Had Influenza Vaccine: No History of Tetanus Vaccine?: No History of Pneumococcal: No History of Hepatitis B Vaccine: No Procedures: CT ANGIOGRAPHY OF THE CHEST, PULMONARY EMBOLUS PROTOCOL CLINICAL HISTORY: Shortness of breath. History of pulmonary embolus. COMPARISON STUDY: Chest CT December 13, 2016 and chest radiograph September 03, 2017. TECHNIQUE: Following IV administration of 81 mL of Optiray-320, helical axial images of the chest were obtained utilizing the pulmonary embolus protocol. Maximal intensity projections and sagittal and coronal reformats were viewed on an independent 3D workstation. IV contrast was administered without complication. A dose lowering technique was utilized adhering to the principles of ALARA. CT DOSE: 280.36 mGy.cm FINDINGS: No pulmonary emboli are identified although the segmental and subsegmental pulmonary arteries are suboptimally assessed due to respiratory motion. The pulmonary emboli shown on CT of December 13, 2016 have resolved. The heart is moderately enlarged. There is extensive mitral annular calcification. The central pulmonary arteries are mildly dilated. No pneumothorax is present. There are trace bilateral pleural effusions. Bilateral lower lobe airspace opacities are noted, greater on the left. There is diffuse bronchial wall thickening with secretions within the trachea, mainstem bronchi and lower lobe bronchi. Gallstones are noted within visualized portions of the gallbladder. No enlarged axillary, mediastinal or hilar lymph nodes are present. IMPRESSION: 1. No central or lobar pulmonary emboli. Segmental and subsegmental pulmonary arteries within the lower lobes suboptimally assessed due to respiratory motion. 2. Bilateral lower lobe airspace opacities which could reflect pneumonia or atelectasis. Lower lobe bronchial wall thickening with secretions within the airways. The findings raise the possibility of aspiration. 3. Trace bilateral pleural effusions. 4. Moderate cardiomegaly. 5. Mild dilatation of the central pulmonary arteries which suggests pulmonary arterial hypertension. CHEST 2 VIEWS ROUTINE CLINICAL HISTORY: dyspnea, bilateral pneumonia COMPARISON STUDY: 09/03/2017 FINDINGS: The heart is enlarged. There are bibasilar pulmonary airspace opacities with bilateral pleural effusions. There is mild central vascular prominence without evidence of overt failure. There is dense calcification of mitral valve annulus.[ IMPRESSION: 1. Cardiomegaly, bilateral pleural effusions, and associated bibasilar airspace opacities. TWO VIEW CHEST CLINICAL HISTORY: Diminished breath sounds. Hypoxia. FINDINGS: AP and lateral chest radiographs are compared to study dated 09/07/2017 and correlated with chest CT dated 09/03/2017. The AP view is degraded by patient rotation and by the patient's head obscuring the apices. The heart is markedly enlarged and there is atherosclerotic calcification of the thoracic aorta. The mitral annulus is densely calcified. There is pulmonary vascular congestion and mild interstitial edema there are bilateral pleural effusions, left larger than right with associated consolidation. The skeletal structures are osteopenic. The degenerative changes noted throughout the thoracic spine. Compression deformities are noted. IMPRESSION: 1. Cardiomegaly with evidence of congestive failure and interstitial edema. 2. Layering pleural effusions, left larger than right with associated consolidation. This likely represents atelectasis. Correlate clinically for evidence of superimposed pneumonia. Medication Reconciliation New Medications: Furosemide (Furosemide) 20 Mg Tab 20 MG PO DAILY for 30 Days, #30 TAB Eucerin (Hydrocerin) 360 Appln/120 Gm Cr 1 APPLN EXT BID for 30 Days, #60 APPLN Guaifenesin Ext Rel (Mucinex Ext Rel) 600 Mg Tabcr 1200 MG PO Q12 for 7 Days, #28 TAB Insulin Glargine (Lantus Solostar) 100 Unit/Ml Inj 5 UNITS SC HS for 30 Days, #30 DOSE Lisinopril (Lisinopril) 5 Mg Tab 5 MG PO DAILY for 30 Days, #30 TAB Nystatin (Nystop) 45 Appln/15 Gm Powd 1 APPLN EXT TID for 14 Days, #42 APPLN Apply to inguinal folds, inner thighs, under breasts three times a day. Prednisone (Prednisone) 20 Mg Tab 20 MG PO DAILY for 3 Days, #3 TAB Triamcinolone Acet (Aristocort 0.1%) 240 Appln/80 Gm Cr 1 APPLN EXT TID for 7 Days, #21 APPLN Apply to rash on chest, shoulders, and upper back Discontinued Medications: Lisinopril (Zestril) 20 Mg Tab 20 MG PO DAILY, TAB Discharge Exam The patient reports feeling well. Her wet, non-productive cough persists. She denies any shortness of breath. The patient denies fevers, chills, sweats, chest pain, palpitations, claudication, cough, wheezing, shortness of breath, nausea, vomiting, abdominal pain, dysuria, hematuria, urinary retention, paralysis, weakness, numbness and tingling. Constitutional: No fever, No chills, No sweats Eyes: No worsening of vision, No eye pain, No diplopia ENT: No hearing loss, No nasal symptoms, No trouble swallowing Respiratory: +Cough. No wheezing, No shortness of breath Cardiovascular: No chest pain, No claudication, No palpitations Abdomen: No pain, No nausea, No vomiting Musculoskeletal: No joint pain, No muscle pain, No swelling Genitourinary - Female: +Incontinence. No dysuria, No urinary retention, No hematuria Neurologic: No paralysis, No weakness, No numbness/tingling Integumentary: No rash, No itch, No color change General appearance: Well-developed, well-nourished, no apparent distress Head: Normocephalic, atraumatic Eyes: Normal inspection, PERRL, EOMI ENT: Normal ENT inspection, hearing grossly normal, pharynx normal Neck: Supple, no JVD, trachea midline Respiratory/Chest: +Decreased breath sounds. On 2L NC. No respiratory distress Cardiovascular: +Systolic murmur. Regular rate & rhythm, no gallop Abdomen/GI: Normal bowel sounds, non-tender, soft Extremities/Musculoskeletal: +Bilateral lymphedema, L>R. 1+ pitting edema in feet, non-pitting edema L>R in lower extremities. No calf tenderness Neurological/Psych: Alert, normal mood/affect, oriented x 3 Skin: +Diffuse erythematous rash over chest, upper back, shoulders and abdomen resolving. Candidal rash inguinal folds, inner thighs, under breasts. Normal color, warm/dry Hospital Course 86 y/o female with a history of HTN, DM II, chronic bilateral LE lymphedema with chronic LE cellulitis, pulmonary hypertension, and h/o PE November 2016 who presents with progressive SOB and weakness. Chest CTA negative for PE but shows bilateral lower lobe pneumonia suspicious for aspiration. Acute hypoxic respiratory failure secondary to pneumonia--improving - Pt had been stable on room air, then sats dropped to 80% and placed on 3L. Weaned down to 2L. O2 by protocol, continue to wean as tolerated. Pt does not wear oxygen at home - Suspected aspiration, speech therapy consulted: cleared for normal diet with aspiration precautions - D/C Unasyn and azithromycin. Pt had been switched to PO Augmentin but appears to have drug exanthem. Augmentin d/c'd, added to allergy list - D/C clindamycin. Full 7 day abx course completed. - Continue Prednisone 40 mg PO qd. Day #3 while inpt. D/c with Prednisone 20 mg PO x 3 days, then stop - DuoNebs QIDR, can stop on discharge, no longer wheezy - Sputum culture normal mg - Mucinex 1200 mg PO BID - Start flutter valve, incentive spirometry - Repeat CXR 09/07 shows bilateral pleural effusions and associated bibasilar airspace opacities - Repeat CXR 09/10 shows congestive failure and interstitial edema. Layering pleural effusions, left larger than right with associated consolidation likely representing atelectasis. Acute on chronic diastolic dysfunction--pt with grade 1 diastolic dysfunction on echo November 2016. Pt denies any SOB, does not sound particularly wet -Lasix 20 mg IV x 1 on 09/09 and 09/10 -Daily weights, recommend continuing this -I's & O's. Pt incontinent per nursing so unable to measure outputs. Pt reports increased urinary output but difficult to assess -D/C with Lasix 20 mg PO qd. Recheck renal function on 09/14. Can assess further need for diuresis at that point HTN--stable - Lisinopril dose decreased from 20 to 5 mg PO qd DM II--last HgbA1c checked was 5.7 -Not sought tx in the past, diet controlled -Lantus 5 units SC hs -Insulin sliding scale -Check BSGs q ac and qhs Chronic lymphedema--stable -May benefit from lymphedema clinic or wound care. Pt denies every seeing either service -Wound care nurse consulted. Will try to coordinate outpt wound care follow up if able to address lymphedema Elevated trop, chronic--stable - Chronically elevated since PE in November 2016 - Recent trops much lower than in November, H/o PE November 2016 - Had been on Coumadin 3 mg PO qd per outpt records, completed 6 month course DVT prophylaxis -Heparin 5000 units SC q8h Code Status -Level I, FULL RESUSCITATION STATUS Dispo -From home, living with 2 sons. 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 Discussed with Prabha Aceves PAC and agree with findings and plan as documented in the note. Any exceptions or clarifications are listed here: None Patient admitted with hypoxic respiratory failure felt to be multifactorial from pneumonia and acute on chronic diastolic heart failure. The pneumonia was felt to be possibly aspiration her heart failure did require some intermittent intravenous Lasix dosing. Her current every day dose of Lasix is not yet set but will be 20 mg recommended discharge [facility]. The patient also will be on a steroid for 3 additional days due to concern for a drug reaction possibly sulfa or penicillin Vital signs are stable with exception of hypoxia requiring oxygen augmentation Cardiac exam appears to be regular lungs are with coarse breath sounds felt to be tubular breath sounds from upper airway congestion subsequently will recommend continued surveillance for aspiration Plan will be [facility] for [facility] decision on daily Lasix with laboratory monitoring and current surveillance of aspiration risk Documented By: Afshin Noel Total Time Spent: Greater than 30 minutes This includes examination of the patient, discharge planning, medication reconciliation, and communication with other providers. Discharge Instructions Please refer to the electronic Patient Visit Report (Discharge Instructions) for additional information. Follow-Up PCP Pulmonology Wound care Additional Copies To [facility] Alvarado; Michael Almeida M.D.
== END 2017-09-11 14:28 | DRG 177 ==
LOC: C.EDB 19:22 → C.MS4W 23:07 → ENRESERV 23:16
PROVIDERS: ADMIT Internal Medicine; ATTEND Internal Medicine
DX: J69.0 Pneumonitis due to inhalation of food and vomit (principal); J96.01 Acute respiratory failure with hypoxia; I50.33 Acute on chronic diastolic (congestive) heart failure; I24.8 Other forms of acute ischemic heart disease; L03.115 Cellulitis of right lower limb; L03.116 Cellulitis of left lower limb; I13.0 Hypertensive heart and chronic kidney disease with heart failure and stage 1 through stage 4 chronic kidney disease, or unspecified chronic kidney disease; B37.2 Candidiasis of skin and nail; T36.95XA Adverse effect of unspecified systemic antibiotic, initial encounter; K59.00 Constipation, unspecified; I89.0 Lymphedema, not elsewhere classified; I87.8 Other specified disorders of veins; N18.3 Chronic kidney disease, stage 3 (moderate); E11.9 Type 2 diabetes mellitus without complications; I27.20 Pulmonary hypertension, unspecified; Z51.81 Encounter for therapeutic drug level monitoring; Z79.899 Other long term (current) drug therapy; Z86.711 Personal history of pulmonary embolism; Z86.718 Personal history of other venous thrombosis and embolism; Z87.01 Personal history of pneumonia (recurrent)

== ENCOUNTER 2017-09-13 18:46 | Emergency (ER) | payer OTHER ==
[~2017-09-13] VITALS: Ht 157.5 cm; Wt 61.0 kg
[~2017-09-13 18:46] MED LIST changes: -ASPEC81 PO; -CMD3 PO; +ECRCR EXT; +GFNSR600 PO; +INSDGIPEN SC; +LSN5 PO; +LSX20 PO; -LVQ750 PO; +NYSP EXT; -PANT1TAB3 PO; +PRD20 PO; -PRN10125 PO; +TRMCR180 EXT
[2017-09-13 18:58] VITALS: TEMP 36.7; Ht 157.5 cm; Wt 61.0 kg
--- NOTE | 2017-09-13 19:08 | EMERGENCY ROOM VISIT NOTE ---
History Report prepared by Hari: Daniel Raya Under the Supervision of: Dr. Juanpablo Finley M.D. 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 She was recently hospitalized for pneumonia. She has been taking her blood pressure medication as prescribed. The patient was on 20 mg Lisinopril when she was admitted to the hospital, though her dosage was decreased to 5 mg upon discharge. Upon discharge the patient was admitted to [facility]. She notes that she was discharged two days ago, though her blood pressure has been increasing at night and decreasing in the morning. She also notes a non- productive cough, left upper extremity swelling, and baseline bilateral leg swelling. She denies any fevers, chills, headaches, or chest pain. She denies using at home oxygen. She normally ambulates with a walker. 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 She notes left upper extremity swelling and baseline bilateral leg swelling. Review of Systems See HPI for pertinent positives & negatives. A total of 10 systems reviewed and were otherwise negative. Past Medical & Surgical Medical Problems: (1) Cellulitis (2) Deep vein blood clot of left lower extremity (3) Hypertension (4) Pulmonary embolism (5) Shortness of breath (6) UTI (urinary tract infection) Family History No pertinent family history Social History Smoking Status: Never Smoker Alcohol Use: none Drug Use: none Marital Status: single Housing Status: lives with family, other ([facility]) Occupation Status: retired Current/Historical Medications Scheduled Eucerin (Hydrocerin), 1 APPLN EXT BID Furosemide (Furosemide), 20 MG PO DAILY Guaifenesin Ext Rel (Mucinex Ext Rel), 1,200 MG PO Q12 Insulin Glargine (Lantus Solostar), 5 UNITS SC HS Lisinopril (Lisinopril), 5 MG PO DAILY Nystatin (Nystop), 1 APPLN EXT TID Prednisone (Prednisone), 20 MG PO DAILY Triamcinolone Acet (Aristocort 0.1%), 1 APPLN EXT TID Allergies Coded Allergies: Amoxicillin (Verified Allergy, Mild, rash-on both Zithromax and Augmentin , 09/08/17) Azithromycin (Verified Allergy, Mild, rash- on both Augmentin and Zithromax, 09/08/17) Clavulanic Acid (Verified Allergy, Mild, rash-on both Zithromax and Augmentin, 09/08/17) Physical Exam Vital Signs Date Time Temp Pulse Resp B/P (MAP) Pulse Ox O2 Delivery O2 Flow Rate FiO2 09/13/17 18:58 36.7 65 20 188/74 93 Room Air Physical Exam GENERAL: Patient is in no acute distress. HEENT: No acute trauma, normocephalic atraumatic, mucous membranes moist, no nasal congestion, no scleral icterus. NECK: No stridor, no adenopathy, no meningismus, trachea is midline. LUNGS: Clear to auscultation bilaterally when listening anteriorly, no wheeze, no rhonchi, breath sounds equal. HEART: There is a 4/6 systolic murmur with a regular, rate, and rhythm. ABDOMEN: Soft, nontender, bowel sounds positive, no hernias, no peritonitis. EXTREMITIES: Left more than right lower extremity edema. Bilateral LE erythema and warmth, worse on the right. Edema and erythema to LUE from elbow to hand. NEUROLOGIC: Oriented x 3, no acute motor or sensory deficits, no focal weakness. SKIN: No rash, no jaundice, no diaphoresis. Medical Decision & Procedures ER Provider Diagnostic Interpretation: Radiology results as stated below per my review and radiologist interpretation: CHEST ONE VIEW PORTABLE CLINICAL HISTORY: 86 years-old Female presenting with EVALUATE ALTERED MENTAL STATUS/WEAKNESS. TECHNIQUE: Portable upright AP view of the chest was obtained. COMPARISON: 09/10/2017. FINDINGS: Atherosclerosis of aortic arch. Mitral annular calcification. Cardiac silhouette enlarged, unchanged. Decreased perihilar opacities. Persistent obscuration of the left hemidiaphragm. Increased small right pleural effusion. No pneumothorax. Degenerative changes of the thoracic spine. Osteopenia may be present. Upper abdomen normal. IMPRESSION: 1. Cardiomegaly with decreasing pulmonary edema. Persistent small bilateral pleural effusions. Electronically signed by: Bj Carter M.D. 09/13/2017 7:20 PM Dictated Date/Time: 09/13/2017 7:18 PM Laboratory Results Test 09/13/17 18:53 09/13/17 19:40 Laboratory results reviewed by me. ECG Indication: other (high blood pressure) Rate (beats per minute): 57 Rhythm: sinus bradycardia Findings: RBBB, no acute ischemic change, no ectopy, other (LVH) Change: T wave inversion in inferior leads is now noted when compared to 09/03/2017 but the T-wave inversions are similar in appearance when looking back at some older EKGs. ED Course 1847: The patient was evaluated in room B6. A complete history and physical exam was performed. 1933: I reassessed the patient at this time. She is feeling better and resting comfortably, though her blood pressure has not improved. 2005: This patient has been signed off to Dr. Portillo at the change of shift. Medical Decision The patient is a 86 year old female who presents to the ED with complaints of intermittent high blood pressure. Differential diagnoses considered include hypertension, infection, renal failure, electrolyte imbalance, cellulitis, and UTI. The patient presents to the ER with a higher blood pressure. She has had some hypertension in the evenings for the last few days since leaving the hospital. On exam, she has some left arm swelling and redness as well as some redness and swelling of both lower extremities. She states that her legs look the same as they always do, her family confirms this. She states the left arm has been swollen really since she left the hospital. The patient has not had fever or chills. She believes her breathing is improved. She states that she has always taken medications for high blood pressure. She denies any chest pain or dyspnea. She has no numbness or tingling in one arm or one leg. EKG shows a sinus bradycardia with a right bundle-branch block and LVH. This EKG looks very similar to some previous EKGs. Chest x-ray shows some mild fluid overload but in general, the x-ray is improved from when she was just in the hospital. At this point, the care is being assumed by Dr. Portillo. He has assumed care at the change of shift. All laboratory test results are still pending. Of note, on reviewing the records, the patient's blood pressure medication was reduced upon hospital discharge--her lisinopril. This may be the reason for the high blood pressure today. The patient has a moderately elevated BP here in the ED, emergent IV intervention for the blood pressure reading was not felt needed. Medication Reconcilliation Current Medication List: was personally reviewed by me Blood Pressure Screening Patient's blood pressure: Elevated blood pressure Blood pressure disposition: Referred to PCP Impression Primary Impression: Hypertension Scribe Attestation The scribe's documentation has been prepared under my direction and personally reviewed by me in its entirety. I confirm that the note above accurately reflects all work, treatment, procedures, and medical decision making performed by me. Departure Information Dispostion Still a Patient (This patient has been signed off to Dr. Portillo at the change of shift.) Referrals Michael Almeida M.D. (PCP)
--- NOTE | 2017-09-13 19:21 | DIAGNOSTIC IMAGING REPORT ---
CHEST ONE VIEW PORTABLE CLINICAL HISTORY: 86 years-old Female presenting with EVALUATE ALTERED MENTAL STATUS/WEAKNESS. TECHNIQUE: Portable upright AP view of the chest was obtained. COMPARISON: 09/10/2017. FINDINGS: Atherosclerosis of aortic arch. Mitral annular calcification. Cardiac silhouette enlarged, unchanged. Decreased perihilar opacities. Persistent obscuration of the left hemidiaphragm. Increased small right pleural effusion. No pneumothorax. Degenerative changes of the thoracic spine. Osteopenia may be present. Upper abdomen normal. IMPRESSION: 1. Cardiomegaly with decreasing pulmonary edema. Persistent small bilateral pleural effusions. Electronically signed by: Bj Carter M.D. 09/13/2017 7:20 PM Dictated Date/Time: 09/13/2017 7:18 PM
[2017-09-13 20:09] LABS: HEMATOCRIT 34.4 % (37-47); MEAN CELL VOLUME 92.7 fL (80-100); MEAN CORPUSCULAR HEMOGLOBIN 30.2 pg (25-34); MEAN CORPUSCULAR HGB CONC 32.6 g/dl (32-36); MEAN PLATELET VOLUME 10.1 fL (7.4-10.4); PLATELET COUNT 325 K/uL (130-400); RED BLOOD COUNT 3.71 M/uL (4.2-5.4); WHITE BLOOD COUNT 10.51 K/uL (4.8-10.8)
[2017-09-13] MEDS ORDERED: INSU100I SQ (20:30)
[2017-09-13] MEDS ORDERED: SODIENE PR (20:30)
[2017-09-13] MEDS ORDERED: ACET-1311 PO (20:30)
[2017-09-13] MEDS ORDERED: CTP/1 PO (20:30)
[2017-09-13] MEDS ORDERED: MOMLX PO (20:30)
[2017-09-13] MEDS ORDERED: LISI-725 PO (20:30)
[2017-09-13] MEDS ORDERED: BISA10SU3 PR (20:30)
[2017-09-13 20:32] LABS: BASO % 0.2 %; BASO ABS # 0.02 K/uL (0-0.2); COMPLETE YES; EOS % 0.1 %; IG% 7.1 %; LYMPH % 16.3 %; LYMPH ABS # 1.71 K/uL (1.2-3.4); MONO % 7.1 %; NEUT % 69.2 %
[2017-09-13] MEDS ORDERED: FURO-85 PO (20:32)
[2017-09-13 20:48] LABS: URINE APPEARANCE CLEAR (CLEAR); URINE BILIRUBIN NEG (NEG); URINE COLOR YELLOW; URINE NITRITE NEG (NEG); URINE PH 5.5 (4.5-7.5); URINE SPECIFIC GRAVITY 1.015 (1.000-1.030); UROBILINOGEN NEG (NEG); ZZURINE CULT IF INDIC CATH NO
[2017-09-13 20:51] LABS: ALB/GLOB RATIO 0.6 (0.9-2); ALKALINE PHOSPHATASE 148 U/L (45-117); ALT/SGPT 156 U/L (12-78); BLOOD UREA NITROGEN 31 mg/dl (7-18); BUN/CREATININE RATIO 40.1 (10-20); CALCIUM 8.2 mg/dl (8.5-10.1); CARBON DIOXIDE 28 mmol/L (21-32); CHLORIDE 107 mmol/L (98-107); CREATININE 0.78 mg/dl (0.60-1.20); GLUCOSE 136 mg/dl (70-99); SODIUM 139 mmol/L (136-145); THYROID STIMULATING HORMONE 0.932 uIu/ml (0.300-4.500)
[2017-09-13] MEDS ORDERED: LISINOPRIL 40 MG TAB PO STA (20:57)
[2017-09-13] MEDS ORDERED: LSN40 PO (21:15)
--- NOTE | 2017-09-13 21:34 | EMERGENCY ROOM VISIT NOTE ---
ED Visit Note First contact with patient: 20:55 Received patient in signout at change of shift. Patient is awaiting laboratory work. I will note that the patient has an elevation in her troponin however I went and discussed this with her and reviewing her laboratory work the patient' s troponin is always elevated. In retrospect this is actually the lowest her troponin has been and I suspect it is still falling from when she was recently admitted. Regardless the patient is denying any chest pain or shortness of breath. I did discuss the elevation in troponin with her however she wishes to be discharged back to her care home. She will return if she develops chest pain or shortness of breath. I feel is reasonable to place the patient back on 40 mg of lisinopril as this was her original antihypertensive medication. Patient and family were in agreement with the treatment plan. Problem List Medical Problems: (1) Cellulitis Status: Resolved (2) Hypertension Status: Chronic (3) Pulmonary embolism Status: Resolved (4) UTI (urinary tract infection) Status: Resolved Current/Historical Medications Scheduled Furosemide (Lasix), 20 MG PO DAILY Guaifenesin Ext Rel (Mucinex Ext Rel), 1,200 MG PO Q12 Insulin Glargine (Lantus Solostar), 5 UNITS SC HS Insulin Lispro (Human) (Humalog), UNITS SQ ACHS Lisinopril (Zestril), 20 MG PO BID Lisinopril (Lisinopril), 1 TAB PO DAILY Prednisone (Prednisone), 20 MG PO DAILY Scheduled PRN Acetaminophen (Tylenol), 650 MG PO Q6 PRN for Pain or Fever Bisacodyl (Dulcolax), 1 SUPP LA DAILY PRN for Constipation Clonidine Hcl (Catapres), 0.1 MG PO DAILY PRN for Magnesium Hydroxide (Milk of Magnesia), 30 ML PO DAILY PRN for Constipation Sodium Phosphate/Biphosphate (Fleet Enema), 1 EA LA DAILY PRN for Constipation Allergies Coded Allergies: Amoxicillin (Verified Allergy, Mild, rash-on both Zithromax and Augmentin , 09/13/17) Azithromycin (Verified Allergy, Mild, rash- on both Augmentin and Zithromax, 09/13/17) Clavulanic Acid (Verified Allergy, Mild, rash-on both Zithromax and Augmentin, 09/13/17) Vital Signs Date Time Temp Pulse Resp B/P (MAP) Pulse Ox O2 Delivery O2 Flow Rate FiO2 09/13/17 20:53 55 09/13/17 20:34 53 18 206/67 97 2.0 09/13/17 18:58 36.7 65 20 188/74 93 Room Air Laboratory Results 09/13/17 19:40 Red Blood Count 3.71, Mean Corpuscular Volume 92.7, Mean Corpuscular Hemoglobin 30.2, Mean Corpuscular Hemoglobin Concent 32.6, Mean Platelet Volume 10.1, Neutrophils (%) (Auto) 69.2, Lymphocytes (%) (Auto) 16.3, Monocytes (%) (Auto) 7.1, Eosinophils (%) (Auto) 0.1, Basophils (%) (Auto) 0.2, Neutrophils # (Auto) 7.27, Lymphocytes # (Auto) 1.71, Monocytes # (Auto) 0.75, Eosinophils # (Auto) 0.01, Basophils # (Auto) 0.02 09/13/17 19:40 Test 09/13/17 19:40 09/13/17 20:30 White Blood Count 10.51 K/uL (4.8-10.8) Red Blood Count 3.71 M/uL (4.2-5.4) Hemoglobin 11.2 g/dL (12.0-16.0) Hematocrit 34.4 % (37-47) Mean Corpuscular Volume 92.7 fL (80-100) Mean Corpuscular Hemoglobin 30.2 pg (25-34) Mean Corpuscular Hemoglobin Concent 32.6 g/dl (32-36) Platelet Count 325 K/uL (130-400) Mean Platelet Volume 10.1 fL (7.4-10.4) Neutrophils (%) (Auto) 69.2 % Lymphocytes (%) (Auto) 16.3 % Monocytes (%) (Auto) 7.1 % Eosinophils (%) (Auto) 0.1 % Basophils (%) (Auto) 0.2 % Neutrophils # (Auto) 7.27 K/uL (1.4-6.5) Lymphocytes # (Auto) 1.71 K/uL (1.2-3.4) Monocytes # (Auto) 0.75 K/uL (0.11-0.59) Eosinophils # (Auto) 0.01 K/uL (0-0.5) Basophils # (Auto) 0.02 K/uL (0-0.2) RDW Standard Deviation 56.3 fL (36.4-46.3) RDW Coefficient of Variation 16.8 % (11.5-14.5) Immature Granulocyte % (Auto) 7.1 % Immature Granulocyte # (Auto) 0.75 K/uL (0.00-0.02) Nucleated RBC Absolute Count (auto) 0.04 K/uL (0-0) Nucleated Red Blood Cells % 0.3 % Red Blood Cell Morphology Unremarkable Anion Gap 4.0 mmol/L (3-11) Est Creatinine Clear Calc Drug Dose 43.7 ml/min Estimated GFR () 79.2 Estimated GFR (Non- 68.4 BUN/Creatinine Ratio 40.1 (10-20) Calcium Level 8.2 mg/dl (8.5-10.1) Total Bilirubin 0.5 mg/dl (0.2-1) Aspartate Amino Transf (AST/SGOT) U/L (15-37) Alanine Aminotransferase (ALT/SGPT) 156 U/L (12-78) Alkaline Phosphatase 148 U/L (45-117) Total Creatine Kinase U/L (26-192) Troponin I 0.088 ng/ml (0-0.045) Total Protein 6.4 gm/dl (6.4-8.2) Albumin 2.5 gm/dl (3.4-5.0) Globulin 3.9 gm/dl (2.5-4.0) Albumin/Globulin Ratio 0.6 (0.9-2) Thyroid Stimulating Hormone (TSH) 0.932 uIu/ml (0.300-4.500) Medications Administered Medications (Trade) Dose Ordered Sig/Alfonso Route Start Time Stop Time Status Last Admin Dose Admin Lisinopril (Zestril Tab) 40 mg NOW STAT PO 09/13/17 20:57 09/13/17 20:58 DC 09/13/17 21:10 40 MG Departure Information Impression Primary Impression: Hypertension Dispostion Home / Self-Care Condition GOOD Prescriptions Lisinopril (Lisinopril) 40 Mg Tab 1 TAB PO DAILY for 30 Days, #30 TAB Prov: Patrick Portillo MD 09/13/17 Referrals Michael Almeida M.D. (PCP) Forms WORK / SCHOOL INSTRUCTIONS, HOME CARE DOCUMENTATION FORM, IMPORTANT VISIT INFORMATION Patient Instructions Hypertension Control, Hypertension Dc, My [facility] Additional Instructions Increase Lisinopril to 40 mg daily Need follow up with DR Almeida's office You have been examined and treated today on an emergency basis only. This is not a substitute for, or an effort to provide, complete comprehensive medical care. It is impossible to recognize and treat all injuries or illnesses in a single emergency department visit. It is therefore important that you follow up closely with Dr Amleida. Call as soon as possible for an appointment. Thank you for your time and consideration. I look forward to speaking with you again soon. Please don't hesitate to call us if you have any questions.
[2017-09-13 21:49] LABS: MANUAL MICROSCOPIC REQUIRED? NO; REVIEW REQ? NO
[2017-09-13 22:43] VITALS: BP 179/70; PULSE 67; O2SAT 97
== END 2017-09-13 22:44 | disposition home or self-care (01) ==
LOC: EDBD 18:46 → C.EDB 18:47
DX: I10 Essential (primary) hypertension (principal)

== ENCOUNTER → 2017-09-22 | Outpatient (CLI) | payer OTHER ==
[~2017-09-22] MED LIST changes: +ACET-1311 PO; +BISA10SU3 PR; +CTP/1 PO; -ECRCR EXT; +FURO-85 PO; +INSU100I SQ; +LISI-725 PO; +LSN40 PO; -LSN5 PO; -LSX20 PO; +MOMLX PO; -NYSP EXT; +SODIENE PR; -TRMCR180 EXT
[2017-09-22 10:04] LABS: BASO % 0.5 %; BASO ABS # 0.04 K/uL (0-0.2); COMPLETE YES; EOS % 0.5 %; HEMATOCRIT 34.9 % (37-47); IG% 0.5 %; LYMPH % 23.5 %; LYMPH ABS # 1.85 K/uL (1.2-3.4); MEAN CELL VOLUME 96.9 fL (80-100); MEAN CORPUSCULAR HEMOGLOBIN 30.3 pg (25-34); MEAN CORPUSCULAR HGB CONC 31.2 g/dl (32-36); MEAN PLATELET VOLUME 11.4 fL (7.4-10.4); MONO % 10.2 %; NEUT % 64.8 %; PLATELET COUNT 297 K/uL (130-400); WHITE BLOOD COUNT 7.87 K/uL (4.8-10.8)
[2017-09-22 10:22] LABS: ALT/SGPT 36 U/L (12-78); AST/SGOT 24 U/L (15-37); BLOOD UREA NITROGEN 34 mg/dl (7-18); BUN/CREATININE RATIO 41.4 (10-20); CALCIUM 8.7 mg/dl (8.5-10.1); CARBON DIOXIDE 33 mmol/L (21-32); CHLORIDE 104 mmol/L (98-107); CREATININE 0.81 mg/dl (0.60-1.20); GLUCOSE 83 mg/dl (70-99); POTASSIUM 3.9 mmol/L (3.5-5.1); SODIUM 139 mmol/L (136-145)
[2017-09-22 10:24] LABS: ALB/GLOB RATIO 0.6 (0.9-2); ALKALINE PHOSPHATASE 112 U/L (45-117)
== END ==
LOC: C.LABCC 09:22
PROVIDERS: ATTEND Internal Medicine
DX: D64.9 Anemia, unspecified (principal); I10 Essential (primary) hypertension

== ENCOUNTER → 2017-09-25 | Outpatient (CLI) | payer OTHER ==
[~2017-09-25] MED LIST changes: +ASPI1TAB48 PO; +HYD10 PO; +IPRA-64 INH; +LISI40TA3 PO; +LORA-741 PO; -LSN40 PO; +MORP20SO PO; +NEBMAC; +ONDA8TAB62 SL; +OXGN; +RIVA1TAB4 PO; +SCOP1.5D2 TD; +XRL15 PO
== END ==
LOC: C.LABCC 16:50
PROVIDERS: ATTEND Internal Medicine
DX: R19.7 Diarrhea, unspecified (principal)

== ENCOUNTER → 2017-09-30 | Outpatient (CLI) | payer OTHER ==
[2017-09-30 09:34] LABS: HEMATOCRIT 32.8 % (37-47); HEMOGLOBIN 10.5 g/dL (12.0-16.0); MEAN CELL VOLUME 95.9 fL (80-100); MEAN CORPUSCULAR HEMOGLOBIN 30.7 pg (25-34); MEAN PLATELET VOLUME 10.5 fL (7.4-10.4); PLATELET COUNT 203 K/uL (130-400); RED CELL DISTRIBUTION WIDTH CV 15.2 % (11.5-14.5); RED CELL DISTRIBUTION WIDTH SD 53.2 fL (36.4-46.3); WHITE BLOOD COUNT 10.38 K/uL (4.8-10.8)
== END ==
LOC: C.LABCC 09:17
PROVIDERS: ATTEND Internal Medicine
DX: D64.9 Anemia, unspecified (principal)

== ENCOUNTER → 2017-10-09 | Outpatient (CLI) | payer OTHER ==
[~2017-10-09] MED LIST changes: -ASPI1TAB48 PO; -HYD10 PO; -IPRA-64 INH; -LISI40TA3 PO; -LORA-741 PO; +LSN40 PO; -MORP20SO PO; -NEBMAC; -ONDA8TAB62 SL; -OXGN; -RIVA1TAB4 PO; -SCOP1.5D2 TD; -XRL15 PO
[2017-10-09 09:31] LABS: HEMATOCRIT 36.3 % (37-47); HEMOGLOBIN 11.8 g/dL (12.0-16.0); MEAN CELL VOLUME 94.8 fL (80-100); MEAN CORPUSCULAR HEMOGLOBIN 30.8 pg (25-34); MEAN CORPUSCULAR HGB CONC 32.5 g/dl (32-36); MEAN PLATELET VOLUME 10.2 fL (7.4-10.4); PLATELET COUNT 254 K/uL (130-400); RED CELL DISTRIBUTION WIDTH CV 15.2 % (11.5-14.5); RED CELL DISTRIBUTION WIDTH SD 52.6 fL (36.4-46.3); WHITE BLOOD COUNT 8.65 K/uL (4.8-10.8)
== END ==
LOC: C.LABCC 08:43
PROVIDERS: ATTEND Internal Medicine
DX: D64.9 Anemia, unspecified (principal)

== ENCOUNTER 2017-11-17 02:10 | Inpatient (IN) | payer OTHER ==
[~2017-11-17] VITALS: Ht 152.4 cm; Wt 57.6 kg
[2017-11-17] VITALS (9 sets, daily range): BP systolic 101–147; BP diastolic 50–81; PULSE 63–81; TEMP 33.6–37.8; O2SAT 90–96; Ht 152.4 cm; Wt 57.6 kg
--- NOTE | 2017-11-17 02:20 | EMERGENCY ROOM VISIT NOTE ---
History Report prepared by Hari: Sergey Miner Under the Supervision of: Dr. Vic Todd M.D. First contact with patient: 02:13 Chief Complaint: UNRESPONSIVE Stated Complaint: UNRESPONSIVE History of Present Illness The patient is an 87 year old female who presents to the Emergency Room with complaints of an episode of unresponsiveness occurring tonight. Per EMS, the patient's blood sugar was very low at 60 today. She notes that the patient was given sugar in order to increase her blood sugar levels. She reports that the patient's blood sugar was 216 an hour before EMS was called. She states that EMS was called because the patient was unresponsive. HPI limited secondary to dementia. Source of History: EMS History Limited By: dementia Onset: tonight Position: other (global) Quality: other (unresponsive) Timing: other (an episode) Note: Per EMS, the patient had a low blood sugar. Review of Systems ROS limited secondary to dementia. Past Medical & Surgical Medical Problems: (1) Cellulitis (2) Deep vein blood clot of left lower extremity (3) Hypertension (4) Pulmonary embolism (5) Shortness of breath (6) UTI (urinary tract infection) Family History No pertinent family history Social History Smoking Status: Never Smoker Alcohol Use: none Drug Use: none Marital Status: single Housing Status: lives with family Occupation Status: retired Current/Historical Medications Scheduled Aspirin (Aspirin Low Dose), 81 MG PO DAILY Furosemide (Lasix), 20 MG PO DAILY Insulin Glargine (Lantus Solostar), 5 UNITS SC HS Insulin Lispro (Human) (Humalog), UNITS SQ ACHS Lisinopril (Zestril), 20 MG PO BID Lisinopril (Lisinopril), 1 TAB PO DAILY Prednisone (Prednisone), 20 MG PO DAILY Scheduled PRN Acetaminophen (Tylenol), 650 MG PO Q6 PRN for Pain or Fever Bisacodyl (Dulcolax), 1 SUPP DE DAILY PRN for Constipation Clonidine Hcl (Catapres), 0.1 MG PO DAILY PRN for Magnesium Hydroxide (Milk of Magnesia), 30 ML PO DAILY PRN for Constipation Sodium Phosphate/Biphosphate (Fleet Enema), 1 EA DE DAILY PRN for Constipation Allergies Coded Allergies: Amoxicillin (Verified Allergy, Mild, rash-on both Zithromax and Augmentin , 09/13/17) Azithromycin (Verified Allergy, Mild, rash- on both Augmentin and Zithromax, 09/13/17) Clavulanic Acid (Verified Allergy, Mild, rash-on both Zithromax and Augmentin, 09/13/17) Physical Exam Vital Signs Date Time Temp Pulse Resp B/P (MAP) Pulse Ox O2 Delivery O2 Flow Rate FiO2 11/17/17 04:31 150/63 11/17/17 04:30 60 18 95 11/17/17 04:16 149/67 11/17/17 04:15 59 17 95 11/17/17 04:00 55 15 96 11/17/17 03:46 154/75 11/17/17 03:45 56 18 92 11/17/17 03:31 180/78 11/17/17 03:31 180/78 11/17/17 03:30 25 11/17/17 03:30 25 11/17/17 03:27 162/128 11/17/17 03:15 57 17 97 11/17/17 03:00 56 21 170/95 97 Room Air 11/17/17 02:29 32.2 64 22 212/86 98 Room Air 11/17/17 02:24 61 Physical Exam GENERAL: Patient is unwell appearing and in no acute distress, elderly, confused , yelling, difficult to redirect, malodorous, and unkempt. HEENT: No acute trauma, normocephalic atraumatic, mucous membranes moist, no nasal congestion, no scleral icterus. NECK: No stridor, no adenopathy, no meningismus, trachea is midline. LUNGS: No dyspnea. Clear to auscultation and equal bilaterally. No wheeze, no rhonchi. HEART: Regular rate and rhythm. No murmurs, rubs, gallops appreciated. ABDOMEN: Soft, nontender, bowel sounds positive, no masses appreciated, no peritonitis. : Soiled urine filled underwear. BACK: No midline tenderness, no CVA tenderness EXTREMITIES: Normal motion all extremities, no cyanosis. Large swelling of entire left leg, mild modeling of all four extremities, entire left lower leg excluding foot is erythematous and warm to touch, mild erythema of the right lower leg excluding foot, weak pulses in the bilateral feet. NEUROLOGIC: No acute motor or sensory deficits, no focal weakness, cranial nerves grossly intact, patient is delirious/demented, yelling "kill me kill me. " SKIN: No jaundice, no diaphoresis, sarah/erythema under weak breast, dry flaky skin. Medical Decision & Procedures ER Provider Diagnostic Interpretation: X ray results are stated below per my interpretation: Chest: 1 view: No infiltrate, no effusion, normal cardiac border. Radiology results and stated below per my review and radiologist interpretation: CT HEAD: No intracranial hemorrhage, mass effect or CT evidence of acute infarct. Ventricles are within limits and midline. Chronic and involutional changes. Soft tissue partial opacification of the nasal airway with lobular components many represent mass or polyposis with moderate appearing paranasal sinusitis. Partial fluid opacification right middle ear. Radiologist: Jonas Gramajo M.D. Laboratory Results 11/17/17 02:42 Red Blood Count 4.18, Mean Corpuscular Volume 90.4, Mean Corpuscular Hemoglobin 29.9, Mean Corpuscular Hemoglobin Concent 33.1, Mean Platelet Volume 9.5, Neutrophils (%) (Auto) 78.5, Lymphocytes (%) (Auto) 17.4, Monocytes (%) (Auto) 3.3, Eosinophils (%) (Auto) 0.1, Basophils (%) (Auto) 0.1, Neutrophils # (Auto) 5.39, Lymphocytes # (Auto) 1.20, Monocytes # (Auto) 0.23, Eosinophils # (Auto) 0.01, Basophils # (Auto) 0.01 11/17/17 02:42 Test 11/17/17 02:25 11/17/17 02:30 11/17/17 02:42 Urine Color YELLOW Urine Appearance CLOUDY (CLEAR) Urine pH 5.0 (4.5-7.5) Urine Specific [place] 1.013 (1.000-1.030) Urine Protein NEG (NEG) Urine Glucose (UA) NEG (NEG) Urine Ketones NEG (NEG) Urine Occult Blood 1+ (NEG) Urine Nitrite POS (NEG) Urine Bilirubin NEG (NEG) Urine Urobilinogen NEG (NEG) Urine Leukocyte Esterase LARGE (NEG) Urine WBC (Auto) >30 /hpf (0-5) Urine RBC (Auto) 0-4 /hpf (0-4) Urine Hyaline Casts (Auto) 0 /lpf (0-5) Urine Epithelial Cells (Auto) 20-30 /lpf (0-5) Urine Bacteria (Auto) 4+ (NEG) Urine Pathogenic Casts /lpf (0) Urine Yeast (Auto) (NONE PRSENT) Bedside Lactic Acid Venous 1.35 mmol/L (0.90-1.70) White Blood Count 6.88 K/uL (4.8-10.8) Red Blood Count 4.18 M/uL (4.2-5.4) Hemoglobin 12.5 g/dL (12.0-16.0) Hematocrit 37.8 % (37-47) Mean Corpuscular Volume 90.4 fL (80-100) Mean Corpuscular Hemoglobin 29.9 pg (25-34) Mean Corpuscular Hemoglobin Concent 33.1 g/dl (32-36) Platelet Count 125 K/uL (130-400) Mean Platelet Volume 9.5 fL (7.4-10.4) Neutrophils (%) (Auto) 78.5 % Lymphocytes (%) (Auto) 17.4 % Monocytes (%) (Auto) 3.3 % Eosinophils (%) (Auto) 0.1 % Basophils (%) (Auto) 0.1 % Neutrophils # (Auto) 5.39 K/uL (1.4-6.5) Lymphocytes # (Auto) 1.20 K/uL (1.2-3.4) Monocytes # (Auto) 0.23 K/uL (0.11-0.59) Eosinophils # (Auto) 0.01 K/uL (0-0.5) Basophils # (Auto) 0.01 K/uL (0-0.2) RDW Standard Deviation 55.6 fL (36.4-46.3) RDW Coefficient of Variation 16.9 % (11.5-14.5) Immature Granulocyte % (Auto) 0.6 % Immature Granulocyte # (Auto) 0.04 K/uL (0.00-0.02) Prothrombin Time 10.4 SECONDS (9.0-12.0) Prothromb Time International Ratio 1.0 (0.9-1.1) Anion Gap 7.0 mmol/L (3-11) Est Creatinine Clear Calc Drug Dose 26.1 ml/min Estimated GFR () 45.4 Estimated GFR (Non- 39.1 BUN/Creatinine Ratio 23.9 (10-20) Calcium Level 8.7 mg/dl (8.5-10.1) Magnesium Level 3.3 mg/dl (1.8-2.4) Total Bilirubin 0.3 mg/dl (0.2-1) Direct Bilirubin < 0.1 mg/dl (0-0.2) Aspartate Amino Transf (AST/SGOT) 28 U/L (15-37) Alanine Aminotransferase (ALT/SGPT) 32 U/L (12-78) Alkaline Phosphatase 117 U/L (45-117) Total Creatine Kinase 28 U/L (26-192) Creatine Kinase MB 5.3 ng/ml (0.5-3.6) Creatine Kinase MB Ratio 18.9 (0-3.0) Troponin I 0.025 ng/ml (0-0.045) Total Protein 6.9 gm/dl (6.4-8.2) Albumin 2.3 gm/dl (3.4-5.0) Laboratory results as reviewed by me. Medications Administered Medications (Trade) Dose Ordered Sig/Alfonso Route Start Time Stop Time Status Last Admin Dose Admin Sodium Chloride 1,000 ml @ 125 mls/hr Q8H STAT IV 11/17/17 03:12 11/17/17 06:05 DC 11/17/17 03:20 125 MLS/HR Cefepime HCl 1000 mg/Dextrose 111 ml @ 200 mls/hr NOW STAT IV 11/17/17 03:26 11/17/17 03:59 DC 11/17/17 03:42 200 MLS/HR Vancomycin HCl 1250 mg/Sodium Chloride 275 ml @ 125 mls/hr NOW STAT IV 11/17/17 03:37 11/17/17 05:48 DC 11/17/17 03:43 125 MLS/HR ECG Per My Interpretation Indication: altered mental status Rate (beats per minute): 66 Rhythm: atrial fibrillation Findings: no acute ischemic change, other (Intraventricular block, QTC 519) ED Course 0212: The patient was evaluated in room B1. A complete history and physical exam was performed. 0222: The patient has a temperature of 32. 0333: I reevaluated and updated the patient. She is more awake and is looking around the room. The patient's family is at bedside. They note that the patient' s confusion has been stable over the last day. They agree with the plan of treatment for the patient's UTI. 0348: Upon reevaluation, the patient is stable. Discussed results and treatment plan with the patient. She and her family verbalized understanding and agreement with the treatment plan. Discussed the patient's case with MINA Adler. The patient will be evaluated for further management. Medical Decision Differential: Toxicological, Infectious, Stroke, SAH, Trauma, Electrolyte Abnormality, Hypoglycemia, Alcohol Intoxication, Drug Intoxication, Cardiac Abnormality, Sepsis, Meningitis/Encephalitis, Trauma, Excited Delirium, Serotonin Syndrome, Psychiatric, amongst other pathologies entertained. 87 yr old female arrives acute altered and confused with hypothermia. She has mild hypoglycemia at home which has already resolved. Large cellulitis right leg and clearly with UTI. She is quite dischevelled and I suspect has been sick for some time already. Lab consistent with some dehydration as well. No SHOB/hypoxia thus will hold of on CT imaging chest. I feel that cellulitis is left leg and not DVT though will defer US imaging to hospitalist given clearly septic nature of patient as primary cause of her arrival. Given broad spectrum abx but will hold off on triple coverage as wishing to avoid Levaquin with QTC prolongation. She is stable otherwise and slowly coming too, though is a bit irritable and not at all back to her baseline. No indication for pressors. Would hold off on 30ml/kg IV fluids as I feel this would likely put her in to respiratory failure from CHF and she does not have elevated LA nor hypotension. Medication Reconcilliation Current Medication List: was personally reviewed by me Blood Pressure Screening Patient's blood pressure: Elevated blood pressure Elevated blood pressure will be evaluated by hospitalist. Consults Time Called: [phone] Consulting Physician: Dr. Bryan - MINA Mirza Returned Call: [phone] Discussed the patient's case. The patient will be evaluated for further treatment and disposition. Impression Primary Impression: Sepsis Additional Impressions: UTI (urinary tract infection) Left leg cellulitis Dehydration Altered mental status Scribe Attestation The scribe's documentation has been prepared under my direction and personally reviewed by me in its entirety. I confirm that the note above accurately reflects all work, treatment, procedures, and medical decision making performed by me. Departure Information Dispostion Being Evaluated By Hospitalist Referrals No Doctor, Assigned (PCP) Patient Instructions [facility] Problem Qualifiers
[2017-11-17 02:51] LABS: BASO % 0.1 %; BASO ABS # 0.01 K/uL (0-0.2); EOS % 0.1 %; EOS ABS # 0.01 K/uL (0-0.5); HEMATOCRIT 37.8 % (37-47); HEMOGLOBIN 12.5 g/dL (12.0-16.0); IG# 0.04 K/uL (0.00-0.02); LYMPH % 17.4 %; MEAN CELL VOLUME 90.4 fL (80-100); MEAN CORPUSCULAR HEMOGLOBIN 29.9 pg (25-34); MEAN CORPUSCULAR HGB CONC 33.1 g/dl (32-36); MEAN PLATELET VOLUME 9.5 fL (7.4-10.4); MONO % 3.3 %; MONO ABS # 0.23 K/uL (0.11-0.59); NEUT % 78.5 %; NEUT ABS # 5.39 K/uL (1.4-6.5); PLATELET COUNT 125 K/uL (130-400); RED CELL DISTRIBUTION WIDTH CV 16.9 % (11.5-14.5); RED CELL DISTRIBUTION WIDTH SD 55.6 fL (36.4-46.3); WHITE BLOOD COUNT 6.88 K/uL (4.8-10.8)
[2017-11-17] MEDS ORDERED: ASPI1TAB48 PO (02:58)
[2017-11-17 03:09] LABS: ALBUMIN 2.3 gm/dl (3.4-5.0); ALT/SGPT 32 U/L (12-78); AST/SGOT 28 U/L (15-37); BLOOD UREA NITROGEN 29 mg/dl (7-18); CALCIUM 8.7 mg/dl (8.5-10.1); CARBON DIOXIDE 27 mmol/L (21-32); CREATININE 1.23 mg/dl (0.60-1.20); GLUCOSE 189 mg/dl (70-99); POTASSIUM 3.9 mmol/L (3.5-5.1); SODIUM 143 mmol/L (136-145)
[2017-11-17] MEDS ORDERED: SODIUM CHLORIDE 0.9% 1000ML 1,000 ML IV STA (03:12)
[2017-11-17 03:14] LABS: ALKALINE PHOSPHATASE 117 U/L (45-117); CKMB 5.3 ng/ml (0.5-3.6); TOTAL PROTEIN 6.9 gm/dl (6.4-8.2)
[2017-11-17] MEDS ORDERED: VANCOMYCIN INJ 1,200 MG in SODIUM CHLORIDE 0.9% 500ML 500 ML IV STA (03:26)
[2017-11-17] MEDS ORDERED: CEFEPIME IV 1,000 MG in DEXTROSE 5% 100ML 100 ML IV STA (03:26)
[2017-11-17] MEDS ORDERED: VANCOMYCIN CONSULT ACTIVE PRN ×2 (03:30→04:45)
[2017-11-17] MEDS ORDERED: VANCOMYCIN INJ 1,250 MG in SODIUM CHLORIDE 0.9% 250ML 250 ML IV STA (03:37)
[2017-11-17] MEDS ORDERED: VANCOMYCIN INJ 1,000 MG in SODIUM CHLORIDE 0.9% 250ML 250 ML IV STA (04:40)
[2017-11-17] MEDS ORDERED: ACETAMINOPHEN 325 MG TAB PO PRN (04:45)
[2017-11-17] MEDS ORDERED: BISACODYL 10 MG SUPP PR PRN (04:45)
[2017-11-17] MEDS ORDERED: SOD PHOSPHATE/SOD BIPHOSPHATE ENEMA 132 ML BTL PR PRN ×2 (04:45)
[2017-11-17] MEDS ORDERED: CEFEPIME IV 1,000 MG in DEXTROSE 5% 100ML 100 ML IV SCH (04:45)
[2017-11-17] MEDS ORDERED: MAGNESIUM HYDROXIDE SUSP 30 ML UDC PO PRN (04:45)
[2017-11-17] MEDS ORDERED: CEFEPIME CONSULT ACTIVE PRN (05:00)
[2017-11-17] MEDS: NSS + 20MEQ KCL 1000ML 1,000 ML IV SCH ×3 (06:27→22:36)
--- NOTE | 2017-11-17 06:58 | DIAGNOSTIC IMAGING REPORT ---
CT OF THE HEAD WITHOUT CONTRAST CLINICAL HISTORY: Altered mental status. COMPARISON STUDY: Head CT May 01, 2013. CT DOSE: 537.48 mGy.cm TECHNIQUE: Helical axial images of the head were obtained without IV contrast. Automated exposure control was utilized for the study. A dose lowering technique was utilized adhering to the principles of ALARA. FINDINGS: No acute intracranial hemorrhage, midline shift or mass effect is present. Ventricular system is stable. Basilar cisterns are patent. There are no extra-axial collections. White matter hypodensity suggests small vessel disease. There are no findings to suggest acute dural sinus thrombosis or acute territorial infarct. There is marked mucosal thickening of the sinuses and nasal cavity with secretions and air-fluid levels within several sinuses. Ethmoid air cells are nearly completely opacified. A few hyperdense lesions measuring up to 1 cm are noted, the largest of which is within the left nasal cavity. These favor polyps. IMPRESSION: 1. No acute intracranial findings. 2. Extensive sinus and nasal cavity mucosal thickening with air-fluid levels and secretions throughout the sinuses. Several associated hyperdense lesions favor polyps. Masses could appear similar although are considered less likely. The findings favor sinonasal polyposis. Electronically signed by: Julien Winkler M.D. 11/17/2017 6:56 AM Dictated Date/Time: 11/17/2017 6:51 AM
--- NOTE | 2017-11-17 07:02 | DIAGNOSTIC IMAGING REPORT ---
CHEST ONE VIEW PORTABLE CLINICAL HISTORY: fever COMPARISON STUDY: 09/13/2017 FINDINGS: The heart is mildly enlarged. There is dense calcification within the mitral valve annulus. There is no current evidence for failure. There is been interval decrease in the size the bilateral pleural effusions with improving aeration of both lower lobes. The left hemidiaphragm remains obscured suggesting persistent left pleural fluid/left lower lobe atelectasis/consolidation[ IMPRESSION: 1. Decreasing pleural effusions with improving aeration of the lower lobes. Electronically signed by: Chris Espinoza M.D. 11/17/2017 7:00 AM Dictated Date/Time: 11/17/2017 6:59 AM
[2017-11-17] MEDS ORDERED: ONDANSETRON 8MG OD TAB PO PRN (08:30)
--- NOTE | 2017-11-17 08:35 | History and Physical ---
History & Physical Date & Time of Service: Nov 17, 2017 at 08:20 Chief Complaint: Sepsis, Uti Primary Care Physician: Michael Almeida M.D. History of Present Illness Source: family, hospital records The patient is unable to contribute to her history of present illness for review of systems due to altered mental state. Information is gathered from EMS and 2 of her sons who are in attendance in the emergency department. The patient's blood sugar was at 60, which was then later recorded at 216 after supplementation, without change in symptomatology. Her son's report that she has been gradually becoming less responsive over the past several days, with no obvious origin for these symptoms. Past Medical/Surgical History Medical Problems: (1) Cellulitis Status: Resolved (2) Hypertension Status: Chronic (3) Pulmonary embolism Status: Resolved (4) UTI (urinary tract infection) Status: Resolved Family History No pertinent family history Social History Smoking Status: Never Smoker Smokeless Tobacco Use: No Alcohol Use: none Drug Use: none Marital Status: single Housing status: lives with family Occupational Status: retired Immunizations History of Influenza Vaccine: No History of Tetanus Vaccine?: No History of Pneumococcal: No History of Hepatitis B Vaccine: No Multi-Drug Resistant Organisms History of MDRO: No Allergies Coded Allergies: Amoxicillin (Verified Allergy, Mild, rash-on both Zithromax and Augmentin , 09/13/17) Azithromycin (Verified Allergy, Mild, rash- on both Augmentin and Zithromax, 09/13/17) Clavulanic Acid (Verified Allergy, Mild, rash-on both Zithromax and Augmentin, 09/13/17) Home Medications Scheduled Aspirin (Aspirin Low Dose), 81 MG PO DAILY Furosemide (Lasix), 20 MG PO DAILY Insulin Glargine (Lantus Solostar), 5 UNITS SC HS Insulin Lispro (Human) (Humalog), UNITS SQ ACHS Lisinopril (Zestril), 20 MG PO BID Lisinopril (Lisinopril), 1 TAB PO DAILY Prednisone (Prednisone), 20 MG PO DAILY Scheduled PRN Acetaminophen (Tylenol), 650 MG PO Q6 PRN for Pain or Fever Bisacodyl (Dulcolax), 1 SUPP MS DAILY PRN for Constipation Clonidine Hcl (Catapres), 0.1 MG PO DAILY PRN for Magnesium Hydroxide (Milk of Magnesia), 30 ML PO DAILY PRN for Constipation Sodium Phosphate/Biphosphate (Fleet Enema), 1 EA MS DAILY PRN for Constipation Review of Systems Review of systems is limited due to patient's altered mental state. Her son's report that there was no obvious symptomatology that he could associated with her gradually worsening change in responsiveness over the past few days. Physical Exam Vital Signs Date Time Temp Pulse Resp B/P (MAP) Pulse Ox O2 Delivery O2 Flow Rate FiO2 11/17/17 08:00 36.3 81 16 112/56 (74) 90 Room Air 11/17/17 06:21 34.1 11/17/17 05:24 33.6 63 17 147/81 94 Room Air 11/17/17 05:07 33.5 11/17/17 05:01 132/55 11/17/17 05:00 59 16 93 11/17/17 04:46 134/57 11/17/17 04:45 58 16 94 11/17/17 04:31 150/63 11/17/17 04:30 60 18 95 11/17/17 04:16 149/67 11/17/17 04:15 59 17 95 11/17/17 04:00 55 15 96 11/17/17 03:46 154/75 11/17/17 03:45 56 18 92 11/17/17 03:31 180/78 11/17/17 03:31 180/78 11/17/17 03:30 25 11/17/17 03:30 25 11/17/17 03:27 162/128 11/17/17 03:15 57 17 97 11/17/17 03:00 56 21 170/95 97 Room Air 11/17/17 02:29 32.2 64 22 212/86 98 Room Air 11/17/17 02:24 61 The patient is awake, appears thin, normocephalic and atraumatic, lying in bed and in no acute distress. HEENT--PERRL, EOMI, mucous membranes and oropharynx dry. Neck--supple. No JVD. No bruits. Thyroid normal, trachea midline, no adenopathy. Heart--normal S1 and S2. No murmurs, rubs or gallops. Lungs--clear bilaterally, no respiratory distress, no accessory muscle use. Abdomen--normal bowel sounds and soft. Nontender. Nondistended, no hernias or masses, no organomegaly. Extremities--no cyanosis or clubbing. There is bilateral pretibial 1+ pitting edema. There are good distal pulses b/l. Dermatologic--there is moderately severe erythema bilateral tibial surfaces Neurologic--cranial nerves II through XII grossly intact. Rheumatologic--deferred Psychiatric--nonresponsive Diagnostics Laboratory Results Results Past 24 Hours Test 11/17/17 02:25 11/17/17 02:30 11/17/17 02:42 Range/Units Urine Color YELLOW Urine Appearance CLOUDY CLEAR Urine pH 5.0 4.5-7.5 Urine Specific Homer 1.013 1.000-1.030 Urine Protein NEG NEG Urine Glucose (UA) NEG NEG Urine Ketones NEG NEG Urine Occult Blood 1+ NEG Urine Nitrite POS NEG Urine Bilirubin NEG NEG Urine Urobilinogen NEG NEG Urine Leukocyte Esterase LARGE NEG Urine WBC (Auto) >30 0-5 /hpf Urine RBC (Auto) 0-4 0-4 /hpf Urine Hyaline Casts (Auto) 0 0-5 /lpf Urine Epithelial Cells (Auto) 20-30 0-5 /lpf Urine Bacteria (Auto) 4+ NEG Urine Pathogenic Casts 0 /lpf Urine Yeast (Auto) NONE PRSENT Bedside Lactic Acid Venous 1.35 0.90-1.70 mmol/L White Blood Count 6.88 4.8-10.8 K/uL Red Blood Count 4.18 4.2-5.4 M/uL Hemoglobin 12.5 12.0-16.0 g/dL Hematocrit 37.8 37-47 % Mean Corpuscular Volume 90.4 80-100 fL Mean Corpuscular Hemoglobin 29.9 25-34 pg Mean Corpuscular Hemoglobin Concent 33.1 32-36 g/dl Platelet Count 125 130-400 K/uL Mean Platelet Volume 9.5 7.4-10.4 fL Neutrophils (%) (Auto) 78.5 % Lymphocytes (%) (Auto) 17.4 % Monocytes (%) (Auto) 3.3 % Eosinophils (%) (Auto) 0.1 % Basophils (%) (Auto) 0.1 % Neutrophils # (Auto) 5.39 1.4-6.5 K/uL Lymphocytes # (Auto) 1.20 1.2-3.4 K/uL Monocytes # (Auto) 0.23 0.11-0.59 K/uL Eosinophils # (Auto) 0.01 0-0.5 K/uL Basophils # (Auto) 0.01 0-0.2 K/uL RDW Standard Deviation 55.6 36.4-46.3 fL RDW Coefficient of Variation 16.9 11.5-14.5 % Immature Granulocyte % (Auto) 0.6 % Immature Granulocyte # (Auto) 0.04 0.00-0.02 K/uL Prothrombin Time 10.4 9.0-12.0 SECONDS Prothromb Time International Ratio 1.0 0.9-1.1 Sodium Level 143 136-145 mmol/L Potassium Level 3.9 3.5-5.1 mmol/L Chloride Level 109 98-107 mmol/L Carbon Dioxide Level 27 21-32 mmol/L Anion Gap 7.0 3-11 mmol/L Blood Urea Nitrogen 29 7-18 mg/dl Creatinine 1.23 0.60-1.20 mg/dl Est Creatinine Clear Calc Drug Dose 26.1 ml/min Estimated GFR () 45.4 Estimated GFR (Non- 39.1 BUN/Creatinine Ratio 23.9 10-20 Random Glucose 189 70-99 mg/dl Calcium Level 8.7 8.5-10.1 mg/dl Magnesium Level 3.3 1.8-2.4 mg/dl Total Bilirubin 0.3 0.2-1 mg/dl Direct Bilirubin < 0.1 0-0.2 mg/dl Aspartate Amino Transf (AST/SGOT) 28 15-37 U/L Alanine Aminotransferase (ALT/SGPT) 32 12-78 U/L Alkaline Phosphatase 117 45-117 U/L Total Creatine Kinase 28 26-192 U/L Creatine Kinase MB 5.3 0.5-3.6 ng/ml Creatine Kinase MB Ratio 18.9 0-3.0 Troponin I 0.025 0-0.045 ng/ml Total Protein 6.9 6.4-8.2 gm/dl Albumin 2.3 3.4-5.0 gm/dl Microbiology Results 11/17/17 Blood Culture, Received Pending 11/17/17 Blood Culture, Received Pending 11/17/17 Urine Culture, Received Pending Diagnostic Radiology Patient Name: SHUBHAM WEINER Unit Number: [id number] Dictated: 11/17/17650 Transcribed: 11/17/17650 JA Printed Date/Time: [~ rep prt dt]/[~ rep prt tm] [~ rep ct labl] - [~ rep ct ivnm] [facility] [place] [address] Dictated: 11/17/17650 Transcribed: 11/17/17650 JA Printed Date/Time: [~ rep prt dt]/[~ rep prt tm] [~ rep ct labl] - [~ rep ct ivnm] CT OF THE HEAD WITHOUT CONTRAST CLINICAL HISTORY: Altered mental status. COMPARISON STUDY: Head CT May 01, 2013. CT DOSE: 537.48 mGy.cm TECHNIQUE: Helical axial images of the head were obtained without IV contrast. Automated exposure control was utilized for the study. A dose lowering technique was utilized adhering to the principles of ALARA. FINDINGS: No acute intracranial hemorrhage, midline shift or mass effect is present. Ventricular system is stable. Basilar cisterns are patent. There are no extra-axial collections. White matter hypodensity suggests small vessel disease. There are no findings to suggest acute dural sinus thrombosis or acute territorial infarct. There is marked mucosal thickening of the sinuses and nasal cavity with secretions and air-fluid levels within several sinuses. Ethmoid air cells are nearly completely opacified. A few hyperdense lesions measuring up to 1 cm are noted, the largest of which is within the left nasal cavity. These favor polyps. IMPRESSION: 1. No acute intracranial findings. 2. Extensive sinus and nasal cavity mucosal thickening with air-fluid levels and secretions throughout the sinuses. Several associated hyperdense lesions favor polyps. Masses could appear similar although are considered less likely. The findings favor sinonasal polyposis. Electronically signed by: Julien Winkler M.D. 11/17/2017 6:56 AM Dictated Date/Time: 11/17/2017 6:51 AM The status of this report is Signed. Draft = Not yet reviewed or approved by Radiologist. Signed = Reviewed and approved by Radiologist. <AttendingPhy>Misael Bryan M.D.</AttendingPhy> <FamilyPhy>Michael Almeida M.D.</FamilyPhy> <PrimaryPhy>Michael Almeida M.D.</ PrimaryPhy> <UnitNumber>[id number]</UnitNumber> <VisitNumber>[id number]</ VisitNumber> <PatientName>SHUBHAM WEINER</PatientName> <DateOfBirth>1930</ DateOfBirth> <Location>C.2T</Location> <ServiceDate>11/17/17</ServiceDate> <MNE> ESINDI</MNE> <OrderingPhy>Vic Todd M.D.</OrderingPhy> <OrderingPhyMNE> f rep ord dr trejo</OrderingPhyMNE> <DictatingPhyMNE>f rep dict dr trejo</ DictatingPhyMNE> <CCListMNE>f rep ct mne</CCListMNE> <AdmittingPhyMNE>f pt admit dr trejo</AdmittingPhyMNE> <AttendingPhyMNE>f pt attend dr trejo</ AttendingPhyMNE> <ConsultingPhyMNE>f pt consult dr trejo</ConsultingPhyMNE> <FamilyPhyMNE>f pt fam dr trejo</FamilyPhyMNE> <OtherPhyMNE>f pt other dr trejo</OtherPhyMNE> < PrimaryPhyMNE>f pt prim care dr trejo</PrimaryPhyMNE> <ReferringPhyMNE>f pt referring dr trejo</ReferringPhyMNE> Patient Name: HUSAMSHUBHAM Unit Number: [id number] Dictated: 11/17/17658 Transcribed: 11/17/17658 ARG Printed Date/Time: [~ rep prt dt]/[~ rep prt tm] [~ rep ct labl] - [~ rep ct ivnm] [facility] [place] [place] [address] Dictated: 11/17/17658 Transcribed: 11/17/17658 ARG Printed Date/Time: [~ rep prt dt]/[~ rep prt tm] [~ rep ct labl] - [~ rep ct ivnm] [~ rep ct add3]] CHEST ONE VIEW PORTABLE CLINICAL HISTORY: fever COMPARISON STUDY: 09/13/2017 FINDINGS: The heart is mildly enlarged. There is dense calcification within the mitral valve annulus. There is no current evidence for failure. There is been interval decrease in the size the bilateral pleural effusions with improving aeration of both lower lobes. The left hemidiaphragm remains obscured suggesting persistent left pleural fluid/left lower lobe atelectasis/consolidation[ IMPRESSION: 1. Decreasing pleural effusions with improving aeration of the lower lobes. Electronically signed by: Chris Espinoza M.D. 11/17/2017 7:00 AM Dictated Date/Time: 11/17/2017 6:59 AM The status of this report is Signed. Draft = Not yet reviewed or approved by Radiologist. Signed = Reviewed and approved by Radiologist. <AttendingPhy>Misael Bryan M.D.</AttendingPhy> <FamilyPhy>Michael Almeida M.D.</FamilyPhy> <PrimaryPhy>Michael Almeida M.D.</ PrimaryPhy> <UnitNumber>[id number]</UnitNumber> <VisitNumber>[id number]</ VisitNumber> <PatientName>HUSAMSHUBHAM</PatientName> <DateOfBirth>1930</ DateOfBirth> <Location>C.2T</Location> <ServiceDate>11/17/17</ServiceDate> <MNE> ESINDI</MNE> <OrderingPhy>Vic Todd M.D.</OrderingPhy> <OrderingPhyMNE> f rep ord dr trejo</OrderingPhyMNE> <DictatingPhyMNE>f rep dict dr trejo</ DictatingPhyMNE> <CCListMNE>f rep ct anae</CCListMNE> <AdmittingPhyMNE>f pt admit dr trejo</AdmittingPhyMNE> <AttendingPhyMNE>f pt attend dr trejo</ AttendingPhyMNE> <ConsultingPhyMNE>f pt consult dr trejo</ConsultingPhyMNE> <FamilyPhyMNE>f pt fam dr trejo</FamilyPhyMNE> <OtherPhyMNE>f pt other dr trejo</OtherPhyMNE> < PrimaryPhyMNE>f pt prim care dr trejo</PrimaryPhyMNE> <ReferringPhyMNE>f pt referring dr trejo</ReferringPhyMNE> EKG EKG shows atrial fibrillation, right bundle branch block, left anterior fascicular block at 66 bpm. Impression Assessment and Plan Altered mental state/dehydration/UTI/bilateral lower extremity cellulitis-- NSS + KCl 20 mEq at 100 ML's per hour. Vancomycin IV and cefepime IV. Follow urine culture and sensitivity, and clinical examination. Next Atrial fibrillation-- Appears to be new. The patient will be admitted to telemetry for serial cardiac enzymes, serial EKG's, cardiac rhythm monitoring and a 2-D echocardiogram with Dopplers. Continue aspirin 81 mg daily and lisinopril 20 mg by mouth twice a day. Hold lisinopril 40 mg daily. Hold furosemide 20 mg daily Diabetes mellitus-- Hold Lantus [address] on Accu-Cheks before meals and at bedtime with NovoLog coverage per scale. Prednisone use-- Unclear why and when prednisone was used. We will hold on stress dose hydrocortisone until clarified. Level of Care Telemetry Advanced Directives Existing Living Will: No Existing Power of Mill Oiler: No VTE Prophylaxis VTE Risk Assessment Done? Y/N: Yes Risk Level: High Given or contraindicated: SCD's
[2017-11-17] MEDS ORDERED: LISINOPRIL 20 MG TAB PO SCH (09:00)
[2017-11-17] MEDS: ASPIRIN 81 MG ECTAB PO SCH (09:34)
[2017-11-17] MEDS: HEPARIN SOD 5000 UNIT/0.5 ML CARP SQ SCH ×2 (09:38→21:40)
--- NOTE | 2017-11-17 11:50 | Pharmacy Progress Note ---
Pharmacy Abx Initial Consult Date of Service Nov 17, 2017. Pharmacy Dosing Scope Date of Consult: 11/17/17 Consultation requested by: Dr. Bryan Pharmacy is consulted to initiate vancomycin IV dosing therapy, order appropriate labs and adjust drug dose/frequency. Subjective The patient is a 87 year old female admitted on Nov 17, 2017 at 04:40. Objective Height (Feet): 5 Height (Inches): 0.00 Weight (Kilograms): 53.000 Vital Signs (Past 12Hrs) Vital Signs Past 12 Hours Date Time Temp Pulse Resp B/P (MAP) Pulse Ox O2 Delivery O2 Flow Rate FiO2 11/17/17 09:50 37.8 11/17/17 08:30 90 Room Air 11/17/17 08:30 Room Air 11/17/17 08:00 36.3 81 16 112/56 (74) 90 Room Air 11/17/17 06:21 34.1 11/17/17 05:24 33.6 63 17 147/81 94 Room Air 11/17/17 05:07 33.5 11/17/17 05:01 132/55 11/17/17 05:00 59 16 93 11/17/17 04:46 134/57 11/17/17 04:45 58 16 94 11/17/17 04:31 150/63 11/17/17 04:30 60 18 95 11/17/17 04:16 149/67 11/17/17 04:15 59 17 95 11/17/17 04:00 55 15 96 11/17/17 03:46 154/75 11/17/17 03:45 56 18 92 11/17/17 03:31 180/78 11/17/17 03:31 180/78 11/17/17 03:30 25 11/17/17 03:30 25 11/17/17 03:27 162/128 11/17/17 03:15 57 17 97 11/17/17 03:00 56 21 170/95 97 Room Air 11/17/17 02:29 32.2 64 22 212/86 98 Room Air 11/17/17 02:24 61 Lab Results (24Hrs) Laboratory Tests (24 Hours) Test 11/17/17 02:42 White Blood Count 6.88 K/uL (4.8-10.8) Red Blood Count 4.18 M/uL (4.2-5.4) L Hemoglobin 12.5 g/dL (12.0-16.0) Hematocrit 37.8 % (37-47) Mean Corpuscular Volume 90.4 fL (80-100) Mean Corpuscular Hemoglobin 29.9 pg (25-34) Mean Corpuscular Hemoglobin Concent 33.1 g/dl (32-36) Platelet Count 125 K/uL (130-400) L Mean Platelet Volume 9.5 fL (7.4-10.4) Neutrophils (%) (Auto) 78.5 % Lymphocytes (%) (Auto) 17.4 % Monocytes (%) (Auto) 3.3 % Eosinophils (%) (Auto) 0.1 % Basophils (%) (Auto) 0.1 % Neutrophils # (Auto) 5.39 K/uL (1.4-6.5) Lymphocytes # (Auto) 1.20 K/uL (1.2-3.4) Monocytes # (Auto) 0.23 K/uL (0.11-0.59) Eosinophils # (Auto) 0.01 K/uL (0-0.5) Basophils # (Auto) 0.01 K/uL (0-0.2) Total Creatine Kinase 28 U/L (26-192) Micro Results Date/Time Source Procedure Growth Status 11/17/17 02:42 Blood Blood Culture Pending Received 11/17/17 02:30 Blood Blood Culture Pending Received 11/17/17 02:25 Urine,Catheterized Urine Culture Pending Received Risk Factors for Resistance * Resident in a fpc or extended-care facility * Hospitalization for 48 hours or more within the past 90 days * H/o multiple UTIs and C diff Assessment & Plan Assessment 87 year old female with a PMH of recurrent UTIs and C diff who presents with altered mental status. She has a worsening cellulitis on her leg and a possible UTI. Plan vancomycin for treatment of SSTI/UTI Vancomycin IV * Loading dose: 1250 mg (22 mg/kg) * Maintenance dose: 1000 mg IV (18.8 mg/kg) every 24 hours (with patient's current renal function being slightly worse than baseline, will estimate the kidney function to be slightly better than it is. Will not use less than 1 gm for patients- especially small, elderly women who historically vancomycin quicker than kinetics suggest) * Goal trough level for cellulitis/UTI : ~15 mcg/mL * Trough ordered for 11/20/17 prior to 0400 dose * A less than traditional dose and extended dosing interval have been selected due to likelihood of drug accumulation in patient with h/o CKD. Pharmacy will continue to follow and will adjust dose/frequency as necessary. Thank you.
[2017-11-17 13:10] LABS: INFLUENZA A PCR Neg for Influ A (NEG); INFLUENZA B PCR Neg for Influ B (NEG)
--- NOTE | 2017-11-17 15:40 | ECHOCARDIOGRAM REPORT ---
*NOTICE TO RECEIVING LIBERTARIAN AGENCY This information is strictly Confidential and protected under [place] law. [place] law prohibits you from making any further disclosure of this information unless further disclosure is expressly permitted by the written consent of the person to whom it pertains or is authorized by law. A general authorization for the release of medical or other information is not sufficient for this purpose. Hospital accepts no responsibility if the information is made available to any other person, INCLUDING THE PATIENT. Interpretation Summary * Name: SHUBHAM WEINER Study Date: 11/17/2017 06:22 AM BP: 132/55 mmHg * Patient Location: C.2T\S\S236\S\1 HR: 59 * : 1930 (M/d/yyy) Gender: Female Height: 63 in * Age: 87 yrs Ethnicity: [place] Weight: 126 lb * Ordering Physician: Miasel Bryan * Referring Physician: Self, Referred * Performed By: Sade Mcwilliams RCS * * Reason For Study: A-FIB * BSA: 1.6 m2 * -- Conclusions -- * 1. Normal left ventricular size with hyperdynamic systolic function. EF > 70%. No regional wall motion abnormalities. No left ventricular hypertrophy. Type 1 diastolic dysfunction. * 2. Mild valvular aortic stenosis. * 3. Moderate to severe mitral annular calcification with mild mitral stenosis suggested. * 4. Normal estimated right ventricular systolic pressure; 24mmHg. * 5. Compared to prior study on 12/13/2016, trace pericardial effusion is now present. Procedure Details * A complete two-dimensional transthoracic echocardiogram was performed (2D, M-mode, Doppler and color flow Doppler). Left Ventricle * Normal left ventricular size with hyperdynamic systolic function. EF > 70%. No regional wall motion abnormalities. No left ventricular hypertrophy. Type 1 diastolic dysfunction. Right Ventricle * The right ventricle is normal in size and function. * The right ventricular systolic function is normal as assessed by tricuspid annular plane systolic excursion (TAPSE) (normal >1.5 cm). Atria * The left atrial size is normal. * Right atrial size is normal. * The atrial septum is aneurysmal. Mitral Valve * Moderate to severe mitral annular calcification with mild mitral stenosis suggested. * There is trace mitral regurgitation. Tricuspid Valve * The tricuspid valve is not well visualized. * There is no tricuspid stenosis. * There is trace tricuspid regurgitation. Aortic Valve * The aortic valve is trileaflet. * Mild valvular aortic stenosis. * There is no significant aortic regurgitation. Pulmonic Valve * The pulmonary valve is inadequately visualized, but the Doppler data is adequate for interpretation. * There is no pulmonic valvular stenosis. * There is no significant pulmonary regurgitation. Great Vessels * The aortic root is normal size. * Ascending aorta of normal dimension Pericardium/Pleural * Trace pericardial effusion. Great Vessels * Normal inferior vena cava size and collapsability with sniff indicates a normal right atrial pressure of 3 mmHg MMode 2D Measurements and Calculations IVSd 1.1 cm IVSs 1.4 cm LVIDd 3.5 cm LVIDs 1.8 cm LVPWd 0.99 cm LVPWs 1.5 cm IVS/LVPW 1.1 FS 48.1 % EDV(Teich) 49.4 ml ESV(Teich) 9.7 ml EF(Teich) 80.5 % EDV(cubed) 41.4 ml ESV(cubed) 5.8 ml EF(cubed) 86.0 % % IVS thick 34.4 % % LVPW thick 50.6 % LV mass(C)d 105.7 grams LV mass(C)dI 66.5 grams/m\S\2 LV mass(C)s 83.2 grams LV mass(C)sI 52.4 grams/m\S\2 SV(Teich) 39.8 ml SI(Teich) 25.0 ml/m\S\2 SV(cubed) 35.6 ml SI(cubed) 22.4 ml/m\S\2 Ao root diam 3.6 cm Ao root area 10.3 cm\S\2 LA dimension 3.5 cm asc Aorta Diam 2.7 cm LA/Ao 0.97 LVOT diam 1.9 cm LVOT area 2.9 cm\S\2 Doppler Measurements and Calculations MV E max mary 100.2 cm/sec MV A max mary 155.3 cm/sec MV E/A 0.65 MV V2 max 157.2 cm/sec MV max PG 9.9 mmHg MV V2 mean 91.3 cm/sec MV mean PG 3.8 mmHg MV V2 VTI 42.7 cm MVA(VTI) 2.0 cm\S\2 MV P1/2t max mary 113.9 cm/sec MV P1/2t 121.4 msec MVA(P1/2t) 1.8 cm\S\2 MV dec slope 274.7 cm/sec\S\2 MV dec time 0.58 sec Ao V2 max 258.5 cm/sec Ao max PG 26.7 mmHg Ao max PG (full) 19.3 mmHg Ao V2 mean 177.9 cm/sec Ao mean PG 14.4 mmHg Ao mean PG (full) 11.0 mmHg Ao V2 VTI 60.1 cm CONNOR(I,A) 1.4 cm\S\2 CONNOR(I,D) 1.4 cm\S\2 CONNOR(V,A) 1.5 cm\S\2 CONNOR(V,D) 1.5 cm\S\2 LV V1 max PG 7.4 mmHg LV V1 mean PG 3.4 mmHg LV V1 max 135.9 cm/sec LV V1 mean 84.3 cm/sec LV V1 VTI 29.3 cm SV(Ao) 620.1 ml SI(Ao) 390.2 ml/m\S\2 SV(LVOT) 85.7 ml SI(LVOT) 53.9 ml/m\S\2 PA V2 max 128.0 cm/sec PA max PG 6.6 mmHg TR max mary 226.2 cm/sec RVSP(TR) 23.5 mmHg RAP systole 3.0 mmHg
[2017-11-17] MEDS ORDERED: GLUCAGON FOR INJ 1 MG VIAL SQ PRN (16:15)
[2017-11-17] MEDS ORDERED: GLUCOSE 40% GEL 15 GM TUBE PO PRN (16:15)
[2017-11-17] MEDS ORDERED: GLUCOSE 10 TABS/TUBE PO PRN (16:15)
[2017-11-17] MEDS ORDERED: DEXTROSE 50% 50 ML SYR IV PRN (16:15)
--- NOTE | 2017-11-17 16:59 | Hospitalist Progress Note ---
Hospitalist Progress Note Date of Service Nov 17, 2017. (Pia Manzo, BONIFACIOC) Subjective Pt evaluation today including: conversation w/ patient, physical exam, chart review, lab review, review of studies, review of inpatient medication list Patient seen and evaluated. Admitted early this AM. Question of A Fib on EKG but has only been NSR on monitor. Patient opens eyes to voice but mostly sleepy. Unable to address ROS. Patient talks but very soft spoken and mostly mumbling. She does follow commands when asked to take deep breaths and open her mouth. Her mouth is extremely dry. Chronic lymphedema of b/l legs with L > R. - minimal erythema to RLE but erythema extending to thigh of LLE Erythema of skin folds noted as well. Maurilio antifungal cream applied Additional Comments: ROS deferred due to mentation. (Pia Manzo, BONIFACIOC) Medications Current Inpatient Medications Medications (Trade) Dose Ordered Sig/Alfonso Route Start Time Stop Time Status Last Admin Dose Admin Heparin Sodium (Porcine) (Heparin Sq 5000 Unit/0.5ml) 5,000 unit Q12 SQ 11/17/17 09:00 12/17/17 08:59 11/17/17 09:38 5,000 UNIT Potassium Chloride/Sodium Chloride 1,000 ml @ 125 mls/hr Q8H IV 11/17/17 06:30 12/17/17 06:29 11/17/17 14:12 125 MLS/HR Acetaminophen (Tylenol Tab) 650 mg Q4H PRN PO 11/17/17 04:45 12/17/17 04:44 Aspirin (Ecotrin Tab) 81 mg DAILY PO 11/17/17 09:00 12/17/17 08:59 11/17/17 09:34 81 MG Bisacodyl (Dulcolax Supp) 10 mg DAILY PRN NH 11/17/17 04:45 12/17/17 04:44 Lisinopril (Zestril Tab) 20 mg BID PO 11/17/17 09:00 12/17/17 08:59 11/17/17 09:34 20 MG Magnesium Hydroxide (Milk Of Magnesia Susp) 30 ml DAILY PRN PO 11/17/17 04:45 12/17/17 04:44 Miscellaneous Information (Consult) 1 ea UD PRN N/A 11/17/17 04:45 12/17/17 04:44 Sodium Biphosphate/ Sodium Phosphate (Fleet Enema) 132 ml DAILY PRN NH 11/17/17 04:45 12/17/17 04:44 Cefepime HCl (Consult) 1 ea UD PRN N/A 11/17/17 05:00 12/17/17 04:59 Cefepime HCl 1000 mg/Syringe 11 ml @ 5.5 mls/min Q24H IV 11/18/17 04:00 11/28/17 03:59 Ondansetron HCl (Zofran Odt) 8 mg Q6H PRN PO 11/17/17 08:30 12/17/17 08:29 Vancomycin HCl 1000 mg/Sodium Chloride 270 ml @ 125 mls/hr Q24H IV 11/18/17 04:00 11/27/17 03:59 Insulin Aspart (novoLOG ASPART) SLIDING SCALE If C... ACHS SC 11/17/17 16:15 12/17/17 16:14 UNV Glucose (Glucose 40% Gel) 15-30 GRAMS 15 GRAMS... UD PRN PO 11/17/17 16:15 12/17/17 16:14 UNV (Pia Manzo, JOB) Objective Vital Signs Date Time Temp Pulse Resp B/P (MAP) Pulse Ox O2 Delivery O2 Flow Rate FiO2 11/17/17 12:00 Room Air 11/17/17 12:00 36.3 79 20 108/58 (75) 93 Room Air 11/17/17 09:50 37.8 11/17/17 08:30 90 Room Air 11/17/17 08:30 Room Air 11/17/17 08:00 36.3 81 16 112/56 (74) 90 Room Air 11/17/17 06:21 34.1 11/17/17 05:24 33.6 63 17 147/81 94 Room Air 11/17/17 05:07 33.5 11/17/17 05:01 132/55 11/17/17 05:00 59 16 93 11/17/17 04:46 134/57 11/17/17 04:45 58 16 94 11/17/17 04:31 150/63 11/17/17 04:30 60 18 95 11/17/17 04:16 149/67 11/17/17 04:15 59 17 95 11/17/17 04:00 55 15 96 11/17/17 03:46 154/75 11/17/17 03:45 56 18 92 11/17/17 03:31 180/78 11/17/17 03:31 180/78 11/17/17 03:30 25 11/17/17 03:30 25 11/17/17 03:27 162/128 11/17/17 03:15 57 17 97 11/17/17 03:00 56 21 170/95 97 Room Air 11/17/17 02:29 32.2 64 22 212/86 98 Room Air 11/17/17 02:24 61 (Pia Manzo, PA-C) Physical Exam General Appearance: no apparent distress ENT: + pertinent finding (oral mucosa dry) Neck: supple, no JVD, trachea midline Respiratory/Chest: lungs clear, normal breath sounds, no respiratory distress, no accessory muscle use, + decreased breath sounds (bases b/l) Cardiovascular: regular rate, rhythm Abdomen: normal bowel sounds, non tender, soft Extremities: + pertinent finding (large lymphedema legs with L > R with erythema of LLE extending to medial thigh and erythema of RLE isolated to distal portion of clemente) Neurologic/Psychiatric: + pertinent finding (obtunded; open eyes to verbal stimuli) Skin: + pertinent finding (erythema of skin folds) (Pia Manzo, PA-C) Laboratory Results Last 24 Hours Test 11/17/17 00:00 11/17/17 02:25 11/17/17 02:30 11/17/17 02:42 Influenza Type A (RT-PCR) Neg for Influ A Influenza Type B (RT-PCR) Neg for Influ B Urine Color YELLOW Urine Appearance CLOUDY Urine pH 5.0 Urine Specific Bow 1.013 Urine Protein NEG Urine Glucose (UA) NEG Urine Ketones NEG Urine Occult Blood 1+ Urine Nitrite POS Urine Bilirubin NEG Urine Urobilinogen NEG Urine Leukocyte Esterase LARGE Urine WBC (Auto) >30 /hpf Urine RBC (Auto) 0-4 /hpf Urine Hyaline Casts (Auto) 0 /lpf Urine Epithelial Cells (Auto) 20-30 /lpf Urine Bacteria (Auto) 4+ Urine Pathogenic Casts /lpf Urine Yeast (Auto) Bedside Lactic Acid Venous 1.35 mmol/L White Blood Count 6.88 K/uL Red Blood Count 4.18 M/uL Hemoglobin 12.5 g/dL Hematocrit 37.8 % Mean Corpuscular Volume 90.4 fL Mean Corpuscular Hemoglobin 29.9 pg Mean Corpuscular Hemoglobin Concent 33.1 g/dl Platelet Count 125 K/uL Mean Platelet Volume 9.5 fL Neutrophils (%) (Auto) 78.5 % Lymphocytes (%) (Auto) 17.4 % Monocytes (%) (Auto) 3.3 % Eosinophils (%) (Auto) 0.1 % Basophils (%) (Auto) 0.1 % Neutrophils # (Auto) 5.39 K/uL Lymphocytes # (Auto) 1.20 K/uL Monocytes # (Auto) 0.23 K/uL Eosinophils # (Auto) 0.01 K/uL Basophils # (Auto) 0.01 K/uL RDW Standard Deviation 55.6 fL RDW Coefficient of Variation 16.9 % Immature Granulocyte % (Auto) 0.6 % Immature Granulocyte # (Auto) 0.04 K/uL Prothrombin Time 10.4 SECONDS Prothromb Time International Ratio 1.0 Sodium Level 143 mmol/L Potassium Level 3.9 mmol/L Chloride Level 109 mmol/L Carbon Dioxide Level 27 mmol/L Anion Gap 7.0 mmol/L Blood Urea Nitrogen 29 mg/dl Creatinine 1.23 mg/dl Est Creatinine Clear Calc Drug Dose 26.1 ml/min Estimated GFR () 45.4 Estimated GFR (Non- 39.1 BUN/Creatinine Ratio 23.9 Random Glucose 189 mg/dl Calcium Level 8.7 mg/dl Magnesium Level 3.3 mg/dl Total Bilirubin 0.3 mg/dl Direct Bilirubin < 0.1 mg/dl Aspartate Amino Transf (AST/SGOT) 28 U/L Alanine Aminotransferase (ALT/SGPT) 32 U/L Alkaline Phosphatase 117 U/L Total Creatine Kinase 28 U/L Creatine Kinase MB 5.3 ng/ml Creatine Kinase MB Ratio 18.9 Troponin I 0.025 ng/ml Total Protein 6.9 gm/dl Albumin 2.3 gm/dl Test 11/17/17 09:28 Troponin I 0.033 ng/ml (Pia Manzo, PACarolineC) Assessment and Plan Metabolic Encephalopathy 2/2 Dehydration and UTI with Possible B/L Lower Extremity Cellulitis: UNCHANGED - Influenza negative; await UCx and BCx - Unsure of baseline mentation but reviewing outpatient records it would suggest she is more with in than she currently appears; does have H/O lacunar infarct and may have some underlying vascular-type dementia? Possible Atrial Fibrillation: - A lot of artifact in the initial EKG and she was on a bearhugger - maybe shivering? - she has been NSR on monitor with clear P waves -- Comparison to previous EKGs largely looks unchanged but P waves are a little more obvious in previous EKG but similar irregularity seen and will continue to monitor - Echo - hyperdynamic with EF > 70% and diastolic dysfunction; trace pericardial effusion -- No evidence of hemodynamic instability or tamponade - can monitor Urinary Tract Infection: - Continue Cefepime 1 g IV daily and Vancomycin Dehydration: - NSS + 20 mEq KCl at 125 mL/hr - Hold Lasix LLE Cellulitis Superimposed on Lymphedema and Candidal Intertrigo: - Treatment with Abx as above and monitor for improvement - Continue anti-fungal cream per wound care T2DM: - Hold Lantus and cover with liberalized SSI and monitor oral intake HTN: - Lisinopril 20 mg BID 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 Discussed with AUSTIN Manzo and agree with findings and plan as documented in the note. Any exceptions or clarifications are listed here: Pt more awake and alert when I saw her tonight. Said her left leg has looked this same way since 10 years ago. SHe has a chronic left sided hemiparesis/ stroke syndrome. Had a lot of blocked PACs on tele today, temps have come up. She knows where she is and is very close to getting the exact date correct. Vitals reviewed NAD, AAOx2 +2/3 RRR +2/6 BRYAN at RUSB Lungs with diffuse rhonchi and wheezes Abd +BS soft NT ND, Rodriguez in place Ext LLE with moderate-severe lymphedema with darkly erythematous skin diffusely with some spread up medial left thigh appears chronic, right leg with mild lymphedema SKin: erythema of left leg-chronic as per pt and previous notes, all skin folds with mild erythema/fungal infection Neuro: left sided hemiparesis with some flexion contracture of left hand and elbow ECG on admission I suspect is sinus with PACS and artifactual baseline and bifascicular block and prolonged QT, repeat ECG now with 1st degree block and bifascicular block, prolonged QT Troponin #3 elevated at 0.048 Pt is an 87 yo female with a h/o CVA with left hemiparesis, HTN, chronic diastolic CHF, DVT/PE, lymphedema and chronic venous stasis changes left leg, possible aspiration PNA, mitral stenosis, aortic regurg, pleural effusion, prediabetes, here with acute encephalopathy, and hypothermia, with UTI and sepsis (hypothermia, tachypnea + urine as source) -continue abx -place Sara hugger back on for low temp again -follow labs -consult Cardio for conduction disease and elevated troponin, trend troponin -f/u Ur cx and Bcx -not true cellulitis I believe but current abx will cover for this -check Venous DOpplers Documented By: Diana Burt (Diana Burt MD)
[2017-11-17] MEDS: INSULIN ASPART 100 UNITS/ML 3 ML PEN SC SCH ×2 (17:09→21:40)
[2017-11-17 18:11] LABS: CKMB 2.4 ng/ml (0.5-3.6)
[2017-11-17 20:45] LABS: CALCIUM 7.6 mg/dl (8.5-10.1); CREATININE 1.2 mg/dl (0.60-1.20); PHOSPHORUS 2.7 mg/dl (2.5-4.9); POTASSIUM 4.6 mmol/L (3.5-5.1)
[2017-11-17] MEDS: ALBUTEROL 0.083% NEBU SOLN 3 ML VIAL INH SCH (21:00)
--- NOTE | 2017-11-17 21:30 | DIAGNOSTIC IMAGING REPORT ---
ULTRASOUND BILATERAL LOWER EXTREMITY VENOUS CLINICAL HISTORY: Lower extremity edema. COMPARISON STUDY: Bilateral lower extremity venous ultrasound dated 09/03/2017. TECHNIQUE: Real-time, grayscale, and color Doppler sonography of the deep veins of the right and left lower extremity was performed from the inguinal crease to the calf. Compression and augmentation were utilized. FINDINGS: Right lower extremity: There is extensive nearly occlusive to occlusive deep venous thrombosis seen throughout the right lower extremity. This extends from the proximal superficial femoral vein to the calf involving the posterior tibial and peroneal veins. The common femoral vein is patent an normally compressible. The greater saphenous vein and the profunda femoris vein at the junction with the common femoral vein are clear. Soft tissue edema is present in the right lower extremity. Left lower extremity: There is no sonographic evidence of deep venous thrombosis identified in the left lower extremity. The common femoral, superficial femoral, and popliteal veins are patent and normally compressible. The greater saphenous vein and the profunda femoris vein at the junction with the common femoral vein are clear. The visualized calf veins are patent. Soft tissue edema is present in the left lower extremity. IMPRESSION: 1. Extensive there is occlusive to occlusive deep venous thrombosis is seen throughout the right lower extremity as above. 2. There is no sonographic evidence of deep venous thrombosis identified in the left lower extremity. Electronically signed by: Juanpablo Rivas M.D. 11/17/2017 9:28 PM Dictated Date/Time: 11/17/2017 9:26 PM
[2017-11-17] MEDS ORDERED: HEPARIN IV LOW DOSE NO BOLUS SCH (22:00)
[2017-11-17] MEDS ORDERED: NURSING VERBAL MED ORDER ONE (22:15)
[2017-11-17 22:33] LABS: PTT PATIENT 36.6 SECONDS (21.0-31.0)
[2017-11-17 22:46] LABS: EOS % 0.4 %; EOS ABS # 0.02 K/uL (0-0.5); HEMATOCRIT 29.7 % (37-47); HEMOGLOBIN 9.6 g/dL (12.0-16.0); IG# 0.05 K/uL (0.00-0.02); LYMPH % 16.5 %; LYMPH ABS # 0.88 K/uL (1.2-3.4); MEAN CORPUSCULAR HEMOGLOBIN 29.7 pg (25-34); MEAN CORPUSCULAR HGB CONC 32.3 g/dl (32-36); MEAN PLATELET VOLUME 9.7 fL (7.4-10.4); MONO % 4.7 %; MONO ABS # 0.25 K/uL (0.11-0.59); NEUT % 77.5 %; NEUT ABS # 4.13 K/uL (1.4-6.5); PLATELET COUNT 115 K/uL (130-400); RED CELL DISTRIBUTION WIDTH SD 57.5 fL (36.4-46.3); WHITE BLOOD COUNT 5.33 K/uL (4.8-10.8)
[2017-11-17] MEDS: HEPARIN 25,000 UNIT/500ML D5W 500 ML IV PRN (23:05)
--- NOTE | 2017-11-17 23:40 | Progress Note ---
Progress Note Date of Service Nov 17, 2017. Progress Note Overnight, results of Doppler LE u/S showed Extensive occlusive deep venous thrombosis is seen throughout the right lower extremity. Heparin drip was started at that time. Patient is thrombocytopenic and will need close monitoring of platelet ct.
[2017-11-18] VITALS (17 sets, daily range): BP systolic 128–150; BP diastolic 52–79; PULSE 60–80; TEMP 34.9–36.5; O2SAT 90–99
[2017-11-18] MEDS: SODIUM CHLORIDE 0.45% 1000ML 1,000 ML IV SCH ×2 (00:29→13:29)
[2017-11-18] MEDS: ALBUTEROL 0.083% NEBU SOLN 3 ML VIAL INH SCH ×4 (01:43→19:07)
[2017-11-18] MEDS: CEFEPIME IV 1,000 MG in SYRINGE 0 ML IV SCH (04:22)
[2017-11-18] MEDS: VANCOMYCIN INJ 1,000 MG in SODIUM CHLORIDE 0.9% 250ML 250 ML IV SCH (04:22)
[2017-11-18 05:27] LABS: BASO % 0.2 %; BASO ABS # 0.01 K/uL (0-0.2); EOS % 0.5 %; EOS ABS # 0.03 K/uL (0-0.5); HEMATOCRIT 28.8 % (37-47); HEMOGLOBIN 9.4 g/dL (12.0-16.0); IG# 0.04 K/uL (0.00-0.02); LYMPH % 19.5 %; LYMPH ABS # 1.15 K/uL (1.2-3.4); MEAN CELL VOLUME 91.4 fL (80-100); MEAN CORPUSCULAR HEMOGLOBIN 29.8 pg (25-34); MEAN CORPUSCULAR HGB CONC 32.6 g/dl (32-36); MEAN PLATELET VOLUME 9.8 fL (7.4-10.4); MONO % 7.1 %; MONO ABS # 0.42 K/uL (0.11-0.59); NEUT ABS # 4.26 K/uL (1.4-6.5); PLATELET COUNT 116 K/uL (130-400); RED CELL DISTRIBUTION WIDTH CV 17.2 % (11.5-14.5); WHITE BLOOD COUNT 5.91 K/uL (4.8-10.8)
[2017-11-18 05:47] LABS: PTT PATIENT 85.1 SECONDS (21.0-31.0)
[2017-11-18 05:49] LABS: CALCIUM 7.7 mg/dl (8.5-10.1); POTASSIUM 4.8 mmol/L (3.5-5.1)
[2017-11-18] MEDS: INSULIN ASPART 100 UNITS/ML 3 ML PEN SC SCH ×4 (07:00→20:59)
[2017-11-18] MEDS: ASPIRIN 81 MG ECTAB PO SCH (07:59)
[2017-11-18] MEDS: LISINOPRIL 20 MG TAB PO SCH (07:59)
--- NOTE | 2017-11-18 09:21 | Clinical Documentation Query ---
ANN Wells : CLINICAL DOCUMENTATION QUERIES QUERY 1 OF 3 Patient is an 87 year old female admitted for evaluation of an altered mental status, subsequently determined to have a UTI and bilateral lower extremity cellulitis. Sepsis was not documented on H&P but was subsequently identified on next progress note. Consider explicit documentation of your clinical opinion regarding whether or not this important clinical diagnosis was or was not POA. Thank you. In your clinical opinion is this patient being managed for: ( x ) Sepsis, POA ( ) Not Agree ( ) Other explanation of clinical findings (Please Explain) ( ) Unable to determine (Please Define) ( ) Need to Discuss The medical record reflects the following clinical findings, treatment, and risk factors. Clinical Indicators: As above Treatment: Sara hugger, IV antibiotics, IVF, chemistries Risk Factors: UTI, ?cellulitis QUERY 2 OF 3 WOCN nurse consulted for "stage 2 decub on r buttocks" per EMR order history. Codes cannot be assigned from this location and no documentation exists within the H&P or progress notes identifying any buttocks lesion(s). Please clarify as clinically appropriate. Thank you. In your clinical opinion is this patient being managed for: ( x ) Pressure ulcer of right buttock, stage 2 ( ) Not Agree ( ) Other explanation of clinical findings (Please Explain) ( ) Unable to determine (Please Define) ( ) Need to Discuss The medical record reflects the following clinical findings, treatment, and risk factors. Clinical Indicators: As above Treatment: WOCN consultation Risk Factors: Age, immobility, malnutrition QUERY 3 OF 3 Per EMR, patient has lost 10.6 Kg since 09/13, representing a loss of nearly 17% of her body weight over this interval. Steam Plant Control Room Operator noted poor intake, 0-25% of breakfast and lunch. Patient noted to have mild/moderate fat and muscle wasting. BMI only 22.8 kg/m*m. Patient edentulous. Likely requires assistance with eating due to weakness and hemiparesis. Per copying machine mechanic, "her protein & energy intake is predicted to be suboptimal d/t skin breakdown". As appropriate, consider documentation as suggested below. Thank you. In your clinical opinion is this patient being managed for: ( x ) Severe protein-calorie malnutrition ( ) Not Agree ( ) Other explanation of clinical findings (Please Explain) ( ) Unable to determine (Please Define) ( ) Need to Discuss The medical record reflects the following clinical findings, treatment, and risk factors. Clinical Indicators: Poor intake, weight loss, hypoalbuminemia, buttocks ulceration Treatment: Steam Plant Control Room Operator consultation, assist with meals, lab monitoring, weight monitoring, snacks Risk Factors: Age, edentulous Please clarify and document your clinical opinion in the progress notes and discharge summary. Terms such as "probable", "suspected", "likely", "questionable", "possible", or "still to be ruled out" are acceptable. IF IN AGREEMENT, YOU MUST DOCUMENT ABOVE DIAGNOSTIC STATEMENT IN DAILY PROGRESS NOTES AND DISCHARGE SUMMARY. This document is not part of the patient's record. Thank You, Manuel Ramirez, REAGAN [phone]
--- NOTE | 2017-11-18 11:50 | CARDIOLOGY CONSULTATION ---
DATE OF CONSULTATION: 11/18/2017 TIME: 10:53 a.m. CONSULTING PHYSICIAN: Dr. Burt. REASON FOR CONSULTATION: Atrial fibrillation and abnormal troponin. HISTORY OF PRESENT ILLNESS: Ms. Correia is a pleasant 87-year-old female with a history significant for DVT/PE in November of 2016, hypertension, lymphedema, aortic stenosis, and stroke, who presented to [facility] with altered mental status according to her records. She was found to have UTI. During her hospital stay, telemetry demonstrated atrial fibrillation, which was also noted on ECG. She had troponin levels checked, which were slightly elevated at 0.091. She also during this hospitalization underwent bilateral lower extremity ultrasound, which demonstrated extensive occlusive DVT involving the right lower extremity. She denies chest pain, shortness of breath, syncope, near syncope, palpitations or bleeding. She admits that she has a swollen leg, but cannot recall which leg is swollen. She believes that her leg has been swollen for at least 10 years. She feels that she is back to her baseline. She states that she ambulates with a walker at home, but does not do much exertion overall and lives a rather sedentary life. She recalls being on Coumadin in the past for DVT/PE, but it appears as though it has been discontinued a few months ago. She lives at home with 2 of her sons in [facility]. She is currently alone in the hospital room. REVIEW OF SYSTEMS: As above and review of systems otherwise negative/unremarkable. PAST MEDICAL HISTORY: 1. Hypertension. 2. DVT/pulmonary embolism in November of 2016. 3. Urinary tract infection. 4. Stroke. 5. Lymphedema. 6. History of pneumonia. 7. Aortic stenosis. 8. Decubitus ulcer. HOME MEDICATIONS: Include aspirin 81 mg daily, lisinopril 20 mg daily, Lasix 20 mg daily and clonidine as needed for hypertension. INPATIENT MEDICATIONS: Include, 1. Aspirin 81 mg daily. 2. Cefepime 1000 mg IV q. 24 hours. 3. Heparin IV per protocol. 4. Lisinopril 20 mg daily. 5. Normal saline 75 mL per hour. 6. Vancomycin 1000 mg IV daily. ALLERGIES: INCLUDE AMOXICILLIN, AZITHROMYCIN, AND CLAVULANIC ACID. SOCIAL HISTORY: Denies tobacco and alcohol abuse. She is a . She has 4 sons and lives with 2 of her sons in [facility]. FAMILY HISTORY: No known premature CAD. PHYSICAL EXAMINATION: VITAL SIGNS: Temperature 36.4 degrees, but has been as low as 32.2 degrees, heart rate 63 beats per minute, respiratory rate 22, blood pressure 145/72 mmHg, and oxygen saturation is 93% on room air. I's and O's positive 1.67 liters yesterday. Weight is 52.4 kg. GENERAL: No acute distress. She is alert. HEENT: Anicteric sclerae. NECK: No appreciable JVD. No bruits noted. Normal carotid upstrokes bilaterally. CARDIAC EXAMINATION: PMI was nonpalpable. There was no ventricular heave. Regular, normal S1 and S2. 2/6 early peaking systolic ejection murmur best heard at the right upper sternal border. No rubs or gallops. LUNGS: Coarse breath sounds bilaterally throughout all lung hillman. ABDOMEN: Soft, nontender, and nondistended. Normoactive bowel sounds. EXTREMITIES: 2+ radial pulses bilaterally. 2+ dorsalis pedis pulses bilaterally. No cyanosis. Left lower extremity is much larger in circumference compared to the right. There is 1+ pitting edema throughout the left lower extremity with erythema. The right lower extremity has trace edema with 1+ pedal edema. PSYCHIATRIC: Affect appears appropriate. ECGs personally reviewed. Initial ECG on 11/17/2017 at 18:49 demonstrated sinus rhythm with first degree AV block at 79 beats per minute. Right bundle branch block and left anterior fascicular block. ECG on 11/17/2017 at 02:34 a.m. demonstrated atrial fibrillation at 66 beats per minute with right bundle branch block and left anterior fascicular block. ECG on 11/18/2017 at 06:25 a.m. demonstrated sinus rhythm with first degree AV block with a right bundle branch block and left anterior fascicular block. ECG on 11/18/2017 at 06:45 a.m., sinus rhythm, first degree block, right bundle branch block, and left anterior fascicular block. Telemetry personally reviewed. She had what appears to be a few hours of atrial fibrillation on 11/17/2017 in the perinatal nurse hours, but otherwise has been in sinus. No ventricular arrhythmia. No significant pauses. Echocardiogram on 11/17/2017 demonstrated normal LV size with hyperdynamic systolic function. EF greater than 70%. Normal wall motion. No LVH. Type 1 diastolic dysfunction. Mild aortic stenosis. Mild to moderate mitral annular calcification with mild mitral stenosis. RVSP 24. Trace pericardial effusion. LABORATORY DATA: White blood cell count is 5.91, hemoglobin 9.4, and platelets 116. Sodium 143, potassium 4.8, BUN 24, creatinine 1, and magnesium 2.6. Peak troponin 0.091. PTT is 85. Influenza A and B are negative. Urine culture is growing gram negative bacilli. One of 2 blood cultures growing gram positive cocci. Chest x-ray on 11/17/2017, decreasing pleural effusions with improving aeration of the lower lobes as per radiology. Chest x-ray image personally reviewed. No obvious infiltrate or concern for CHF. The lower extremity Doppler report reviewed as noted above. Head CT on 11/17/2017, no acute intracranial findings. ASSESSMENT AND PLAN: 1. Paroxysmal atrial fibrillation: She did have atrial fibrillation for possibly a few hours in the perinatal nurse of 11/17/2017. She appears asymptomatic. Agree with anticoagulation not only for treatment of the deep venous thrombosis, but also for stroke risk reduction given her prior stroke and also mild mitral stenosis as she does have increased stroke risk with atrial fibrillation. The diagnosis was discussed with her. Her heart rate seems reasonably controlled, so no rate controlling medication was started at this time. 2. Elevated troponins: Her troponins are minimally elevated. She did not present with acute coronary syndrome. Given her extensive deep venous thrombosis of the right lower extremity, there is concern that perhaps she has some degree of pulmonary emboli as well. Would not pursue ischemic evaluation at this time given her lack of symptoms and the fact that she did not rule in for myocardial infarction. Could consider statin therapy; however, her most recent lipid profile in May of 2017 demonstrated an HDL of 99 and LDL of 89. It is not clear if it would make a significant change in her overall 10-year cardiovascular risk given her advanced age and other comorbidities. 3. Hypertension. Lisinopril was restarted today. This is one of her home medications. No other changes are recommended at this time. 4. Aortic and mitral stenosis: She has mild aortic stenosis and significant MAC with mild stenosis of her mitral valve suggested. No specific valvular procedures indicated at this time. Continue medical therapy for her other cardiac issues as noted above. Anticoagulation for stroke risk reduction indicated as noted above. 5. Edema: She has significant edema of the left lower extremity compared to the right, which apparently is chronic and she has been diagnosed with lymphedema. She does not appear to be significantly hypervolemic. She has deep venous thrombosis of her right lower extremity. 6. Deep venous thrombosis: Treatment as per primary service. She has had a drop in her hemoglobin. They are checking stool for blood. Monitor for bleeding. She does have mild thrombocytopenia. 7. Trace pericardial effusion: There was no hemodynamic significance of her trace pericardial effusion noted on echo. This preceded her anticoagulation therapy. If she has any significant hypotension, especially with tachycardia, would recommend repeating a limited echo to evaluate the pericardial effusion, but otherwise at this time, there is no indication for pericardiocentesis or further diagnostic evaluation. 8. Disposition: The patient's care has been discussed with Dr. Jacobson of the primary hospitalist service. Please call for any other questions or concerns. Cardiology will sign off at this time. Thank you for allowing me to participate in the care of Mr. Correia. Sincerely,
[2017-11-18 13:04] LABS: PTT PATIENT 74.5 SECONDS (21.0-31.0)
[2017-11-18] MEDS: HEPARIN 25,000 UNIT/500ML D5W 500 ML IV PRN (13:31)
--- NOTE | 2017-11-18 19:18 | Hospitalist Progress Note ---
Hospitalist Progress Note Date of Service Nov 18, 2017. (iPa Manzo, BONIFACIOC) Subjective Pt evaluation today including: conversation w/ patient, physical exam, chart review, lab review, review of studies, review of inpatient medication list Patient seen and evaluated. No acute events overnight. She has been mostly in NSR with 1st degree AV block...blocked PACs and question of 2nd degree. Patient verbalizes no complaints at this time. Under bearhugger during examination. Still appears rather dry. No overt bleeding but is heme + on stool but no visible blood noted. Will away repeat H&H. Constitutional: No fever, No chills Respiratory: No cough, No shortness of breath Cardiovascular: No chest pain Abdomen: No pain, No nausea, No vomiting Musculoskeletal: + swelling (chronic b/l lower extremity edema L > R) Female : No dysuria Skin: + problem reported (chronic erythema of b/l lower extremities ( reporting this appears baseline)) (Pia Manzo, BONIFACIOC) Medications Current Inpatient Medications Medications (Trade) Dose Ordered Sig/Alfonso Route Start Time Stop Time Status Last Admin Dose Admin Acetaminophen (Tylenol Tab) 650 mg Q4H PRN PO 11/17/17 04:45 12/17/17 04:44 Aspirin (Ecotrin Tab) 81 mg DAILY PO 11/17/17 09:00 12/17/17 08:59 11/18/17 07:59 81 MG Bisacodyl (Dulcolax Supp) 10 mg DAILY PRN IN 11/17/17 04:45 12/17/17 04:44 Magnesium Hydroxide (Milk Of Magnesia Susp) 30 ml DAILY PRN PO 11/17/17 04:45 12/17/17 04:44 Miscellaneous Information (Consult) 1 ea UD PRN N/A 11/17/17 04:45 12/17/17 04:44 Sodium Biphosphate/ Sodium Phosphate (Fleet Enema) 132 ml DAILY PRN IN 11/17/17 04:45 12/17/17 04:44 Cefepime HCl (Consult) 1 ea UD PRN N/A 11/17/17 05:00 12/17/17 04:59 Cefepime HCl 1000 mg/Syringe 11 ml @ 5.5 mls/min Q24H IV 11/18/17 04:00 11/28/17 03:59 11/18/17 04:22 5.5 MLS/MIN Vancomycin HCl 1000 mg/Sodium Chloride 270 ml @ 125 mls/hr Q24H IV 11/18/17 04:00 11/27/17 03:59 11/18/17 04:22 125 MLS/HR Insulin Aspart (novoLOG ASPART) SLIDING SCALE If C... ACHS SC 11/17/17 16:15 12/17/17 16:14 11/18/17 12:24 1 UNITS Glucose (Glucose 40% Gel) 15-30 GRAMS 15 GRAMS... UD PRN PO 11/17/17 16:15 12/17/17 16:14 Glucose (Glucose Chew Tab) 4-8 Tablets 4 Tabl... UD PRN PO 11/17/17 16:15 12/17/17 16:14 Dextrose (Dextrose 50% 50ML Syringe) 25-50ML OF 50% DW IV FOR... UD PRN IV 11/17/17 16:15 12/17/17 16:14 Glucagon (Glucagon Inj) 1 mg UD PRN SQ 11/17/17 16:15 12/17/17 16:14 Lisinopril (Zestril Tab) 20 mg DAILY PO 11/18/17 09:00 12/17/17 08:59 11/18/17 07:59 20 MG Albuterol Sulfate (Ventolin 0.083% 2.5MG/3ML Neb) 2.5 mg Q6R INH 11/17/17 21:00 12/17/17 20:59 11/18/17 14:19 2.5 MG Heparin Sodium/ Dextrose 500 ml @ 9 mls/hr Q24H PRN IV 11/17/17 22:30 12/17/17 22:29 11/18/17 13:31 9 MLS/HR Sodium Chloride 1,000 ml @ 75 mls/hr [id number] IV 11/18/17 00:00 12/18/17 00:00 11/18/17 13:29 75 MLS/HR Fexofenadine HCl (Maday Tab) 60 mg BID PO 11/18/17 21:00 12/18/17 20:59 UNV Triamcinolone Acetonide (Nasacort Allergy 24hr) 2 sprays DAILY CHANTALE 2/21/18 18:15 12/18/17 18:14 UNV (Pia Manzo PA-C) Objective Vital Signs Date Time Temp Pulse Resp B/P (MAP) Pulse Ox O2 Delivery O2 Flow Rate FiO2 11/18/17 16:00 Room Air 11/18/17 15:17 36.4 75 22 133/66 (88) 90 Room Air 11/18/17 14:20 80 18 92 Room Air 11/18/17 12:00 35.7 64 16 145/74 (97) 95 Room Air 11/18/17 12:00 Room Air 11/18/17 08:00 Room Air 11/18/17 07:18 36.4 63 22 145/72 (96) 93 Room Air 11/18/17 07:09 60 16 95 Room Air 11/18/17 04:32 36.3 66 16 128/52 (77) 93 Room Air 11/18/17 04:00 Room Air 11/18/17 01:59 36.5 11/18/17 01:43 63 16 96 Room Air 11/18/17 00:04 35.0 70 16 134/79 (97) 97 Room Air 11/17/17 23:59 Room Air 11/17/17 21:49 36.4 11/17/17 20:00 Room Air 11/17/17 19:15 35.3 64 23 109/50 (69) 94 Room Air (Pia Manzo PA-C) Physical Exam General Appearance: no apparent distress Eyes: sclerae normal ENT: hearing grossly normal Neck: supple, no JVD, trachea midline Respiratory/Chest: no respiratory distress, no accessory muscle use, + rhonchi Cardiovascular: regular rate, rhythm, + systolic murmur Abdomen: normal bowel sounds, non tender, soft Neurologic/Psychiatric: alert Skin: + pertinent finding (b/l erythema of lower extremities L>R) (Pia Manzo PA-C) Laboratory Results Last 24 Hours Test 11/17/17 19:41 11/17/17 20:11 11/17/17 22:10 11/17/17 22:15 Sodium Level 147 mmol/L Potassium Level 4.6 mmol/L Chloride Level 114 mmol/L Carbon Dioxide Level 28 mmol/L Anion Gap 4.0 mmol/L Blood Urea Nitrogen 26 mg/dl Creatinine 1.20 mg/dl Est Creatinine Clear Calc Drug Dose 23.3 ml/min Estimated GFR () 46.7 Estimated GFR (Non- 40.3 BUN/Creatinine Ratio 21.8 Random Glucose 204 mg/dl Calcium Level 7.6 mg/dl Phosphorus Level 2.7 mg/dl Magnesium Level 2.6 mg/dl Bedside Glucose 221 mg/dl Prothrombin Time 10.6 SECONDS Prothromb Time International Ratio 1.0 Activated Partial Thromboplast Time 36.6 SECONDS Partial Thromboplastin Ratio 1.4 White Blood Count 5.33 K/uL Red Blood Count 3.23 M/uL Hemoglobin 9.6 g/dL Hematocrit 29.7 % Mean Corpuscular Volume 92.0 fL Mean Corpuscular Hemoglobin 29.7 pg Mean Corpuscular Hemoglobin Concent 32.3 g/dl Platelet Count 115 K/uL Mean Platelet Volume 9.7 fL Neutrophils (%) (Auto) 77.5 % Lymphocytes (%) (Auto) 16.5 % Monocytes (%) (Auto) 4.7 % Eosinophils (%) (Auto) 0.4 % Basophils (%) (Auto) 0.0 % Neutrophils # (Auto) 4.13 K/uL Lymphocytes # (Auto) 0.88 K/uL Monocytes # (Auto) 0.25 K/uL Eosinophils # (Auto) 0.02 K/uL Basophils # (Auto) 0.00 K/uL RDW Standard Deviation 57.5 fL RDW Coefficient of Variation 17.0 % Immature Granulocyte % (Auto) 0.9 % Immature Granulocyte # (Auto) 0.05 K/uL Test 11/18/17 00:14 11/18/17 05:04 11/18/17 06:50 11/18/17 10:35 Total Creatine Kinase 248 U/L Creatine Kinase MB 13.0 ng/ml Creatine Kinase MB Ratio 5.2 Troponin I 0.079 ng/ml 0.091 ng/ml White Blood Count 5.91 K/uL Red Blood Count 3.15 M/uL Hemoglobin 9.4 g/dL Hematocrit 28.8 % Mean Corpuscular Volume 91.4 fL Mean Corpuscular Hemoglobin 29.8 pg Mean Corpuscular Hemoglobin Concent 32.6 g/dl Platelet Count 116 K/uL Mean Platelet Volume 9.8 fL Neutrophils (%) (Auto) 72.0 % Lymphocytes (%) (Auto) 19.5 % Monocytes (%) (Auto) 7.1 % Eosinophils (%) (Auto) 0.5 % Basophils (%) (Auto) 0.2 % Neutrophils # (Auto) 4.26 K/uL Lymphocytes # (Auto) 1.15 K/uL Monocytes # (Auto) 0.42 K/uL Eosinophils # (Auto) 0.03 K/uL Basophils # (Auto) 0.01 K/uL RDW Standard Deviation 57.0 fL RDW Coefficient of Variation 17.2 % Immature Granulocyte % (Auto) 0.7 % Immature Granulocyte # (Auto) 0.04 K/uL Activated Partial Thromboplast Time 85.1 SECONDS Partial Thromboplastin Ratio 3.3 Sodium Level 143 mmol/L Potassium Level 4.8 mmol/L Chloride Level 114 mmol/L Carbon Dioxide Level 25 mmol/L Anion Gap 4.0 mmol/L Blood Urea Nitrogen 24 mg/dl Creatinine 1.00 mg/dl Est Creatinine Clear Calc Drug Dose 27.9 ml/min Estimated GFR () 58.3 Estimated GFR (Non- 50.3 BUN/Creatinine Ratio 23.6 Random Glucose 87 mg/dl Calcium Level 7.7 mg/dl Magnesium Level 2.6 mg/dl Iron Level 61 mcg/dl Total Iron Binding Capacity 141 mcg/dl Transferrin 113 mg/dl Transferrin % Saturation 39 % Ferritin 398.6 ng/ml Vitamin B12 Level 1793 pg/mL Folate 7.52 ng/mL Chemistry Specimen Hemolysis Bedside Glucose 82 mg/dl Stool Occult Blood POSITIVE Test 11/18/17 11:10 11/18/17 12:23 11/18/17 16:35 11/18/17 16:50 Bedside Glucose 199 mg/dl 143 mg/dl Activated Partial Thromboplast Time 74.5 SECONDS Partial Thromboplastin Ratio 2.9 (Pia Manzo, PACarolineC) Assessment and Plan Metabolic Encephalopathy 2/2 Dehydration and UTI with Possible B/L Lower Extremity Cellulitis vs Bacteremia: IMPROVING - Unsure of baseline mentation but reviewing outpatient records it would suggest she is more with in than she currently appears; does have H/O lacunar infarct and may have some underlying vascular-type dementia? Positive Blood Cx: - UCx with gram neg bacilli, one BCx with gram + cocci (may be contaminant) but other BCx with gram + bacilli? 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 Likely more of a Coumadin candidate given MAC with mild mitral stenosis/aortic stenosis? Possible Paroxysmal Atrial Fibrillation and AV Block: - Seems to transient and has maintained out of this rhythm - Echo - hyperdynamic with EF > 70% and diastolic dysfunction; trace pericardial effusion -- No evidence of hemodynamic instability or tamponade - can monitor Urinary Tract Infection: - Continue Cefepime 1 g IV daily and Vancomycin Dehydration: - Continue 1/2 NSS at 75 mL/hr - Hold Lasix LLE Cellulitis Superimposed on Lymphedema and Candidal Intertrigo: - Treatment with Abx as above and monitor for improvement - patient is reporting this is baseline and may simply be stasis changes - Continue anti-fungal cream per wound care T2DM: - Hold Lantus and cover with liberalized SSI and monitor oral intake HTN: - Lisinopril 20 mg BID 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 I agree w/ the ash components of her documentation. During my visit she was awake/alert but she was noted to be drooling. Son at bedside states "she does this" but "it's been worse since she got sick." +cough had hypothermia this afternoon. tele stable VSS gen - ill appearing, slouched over due to kyphosis, drooling; but awake and alert neck - no obvious JVD mouth - drooling noted; no thrush skin - intertrigo/sarah below both breasts heart - RRR lungs - decreased BS left base, no wheeze abd - soft, NT ext - lymphedema left leg, mild edema right leg, cellulitis vs stasis changes left clemente; minimal erythema/stasis right leg; left leg is markedly more edematous than right leg A/P: 1. sepsis 2nd to UTI +/- bacteremia (if cultures are deemed to be pathogenic rather than contaminant) +/- LLL pneumonia +/- cellulitis +/- acute sinusitis - Cont broad-spectrum IV antibiotics. Would repeat her blood cx's in the AM. 2. hypothermia - 2nd to #1 - warmer, supportive care. TSH in 08/2017 wnl. If this persists consider cortisol level as well. 3. drooling - 2nd to prior stroke? new stroke? speech consult. Aspiration precautions. 4. LLL pneumonia - suspected - could be aspiration - broad-spectrum IV antibiotics. 5. extensive RLE DVT - heparin infusion for now. Noted that stool is heme+. 6. CKD stage 4 - creatinine stable, BMP am. 7. +troponin - myocardial demand ischemia 2nd to #1 (type 2 [place]). Jerad Jacobson MD (Jerad Jacobson MD)
[2017-11-18 19:45] LABS: HEMATOCRIT 28.4 % (37-47); HEMOGLOBIN 9.5 g/dL (12.0-16.0)
[2017-11-18 20:10] LABS: PTT PATIENT 60.1 SECONDS (21.0-31.0)
[2017-11-18] MEDS: TRIAMCINOLONE ACET NASAL SPRAY 10.8ML BTL NAE SCH (20:20)
[2017-11-18] MEDS: FEXOFENADINE HCL 60 MG TAB PO SCH (20:20)
[2017-11-18] MEDS ORDERED: NURSING VERBAL MED ORDER ONE ×2 (23:15→23:30)
[2017-11-18] MEDS ORDERED: FUROSEMIDE 40 MG/4 ML VIAL ONE (23:20)
[2017-11-18] MEDS ORDERED: CLINDAMYCIN IV 900 MG in DEXTROSE 5% 50ML 44 ML IV STA (23:21)
[2017-11-18] MEDS ORDERED: FUROSEMIDE INJ 40 MG in SYRINGE 0 ML IV STA (23:22)
[2017-11-18] MEDS ORDERED: ALBUMIN HUMAN 25% 12.5 GM/50 ML VIAL IV STA (23:23)
[2017-11-18] MEDS ORDERED: ALBUMIN HUMAN 25% 12.5 GM/50 ML VIAL IV ONE (23:30)
[2017-11-19] VITALS (35 sets, daily range): BP systolic 107–158; BP diastolic 35–71; PULSE 65–87; TEMP 36.2–36.9; O2SAT 86–98
[2017-11-19] MEDS ORDERED: ICU PROTOCOL FOR HYPERGLYCEMIA PRN
[2017-11-19] MEDS ORDERED: CLINDAMYCIN 600 MG/54 ML D5W IV SCH
[2017-11-19] MEDS: IPRATROPIUM BROMIDE NEB SOLN 0.02% 2.5 ML VIAL INH SCH ×7 (00:36→23:08)
[2017-11-19] MEDS: LEVALBUTEROL 1.25MG/0.5ML NEB INH SCH ×7 (00:36→23:08)
[2017-11-19 00:46] LABS: ALBUMIN 1.9 gm/dl (3.4-5.0); CALCIUM 7.8 mg/dl (8.5-10.1); CREATININE 1.06 mg/dl (0.60-1.20); POTASSIUM 5.2 mmol/L (3.5-5.1)
[2017-11-19 00:48] LABS: BASO % 0.1 %; BASO ABS # 0.01 K/uL (0-0.2); EOS % 0.3 %; EOS ABS # 0.02 K/uL (0-0.5); HEMATOCRIT 30.5 % (37-47); IG# 0.09 K/uL (0.00-0.02); LYMPH % 13.8 %; LYMPH ABS # 1.04 K/uL (1.2-3.4); MEAN CORPUSCULAR HEMOGLOBIN 29.9 pg (25-34); MEAN CORPUSCULAR HGB CONC 32.8 g/dl (32-36); MEAN PLATELET VOLUME 9.7 fL (7.4-10.4); MONO % 5.4 %; MONO ABS # 0.41 K/uL (0.11-0.59); NEUT % 79.2 %; NEUT ABS # 5.96 K/uL (1.4-6.5); PLATELET COUNT 122 K/uL (130-400); RED CELL DISTRIBUTION WIDTH SD 56.4 fL (36.4-46.3); WHITE BLOOD COUNT 7.53 K/uL (4.8-10.8)
[2017-11-19 00:51] LABS: CKMB 8.7 ng/ml (0.5-3.6); TOTAL PROTEIN 6.1 gm/dl (6.4-8.2)
--- NOTE | 2017-11-19 01:36 | Critical Care Consultation ---
Critical Care Consultation Date of Consultation: Nov 19, 2017. Attending Physician: Jerad Jacobson MD Reason for Consultation: 87-year-old female admitted 3 days ago for sepsis from urinary source versus bilateral lower externally cellulitis having aspiration event overnight with bradycardia and hypoxia requiring close monitoring from a pulmonary and cardiovascular standpoint. History of Present Illness Patient is an 87-year-old female with a significant past mental history of previous CVA, hypertension, DVT with PE in November 2016, lower extremity lymphedema, aortic stenosis, and history of pneumonia who was admitted on Thursday night for altered mental status presumed related to UTI sepsis and bilateral lower extremity cellulitis. She did respond to IV fluid resuscitation as well as antibiotic administration and rewarming with bear hugger. Of note, ultrasound of the bilateral lower extremities demonstrated new RIGHT sided extensive lower extremity DVT. Patient was subsequently started on heparin drip in addition to vancomycin and cefepime. At approximately 2315, a CODE PURPLE was called to the patient's room. Upon arrival, the patient had reportedly developed bradycardia into the 30s. On nursing evaluation, the patient was gurgling and had appeared to aspirate. There was no sylvester emesis appreciated. She was suctioned and her heart rate quickly elevated. Her pulse oximetry was found to be in the 40s with good waveform. A nonrebreather was applied at 15 L. Prior to my evaluation, a chest x-ray as well as ABG had been ordered by colleague. The patient did appear to slowly respond with pulse ox symmetry regions in the 90s. Chest x- ray was concerning for developing pulmonary vascular congestion. ABG showed poor oxygenation. She received IV albumin and 40 mg Lasix intravenously. She was transferred to the ICU for closer monitoring. On my evaluation, the patient is awake, alert, and oriented. She does not to handle her secretions well secondary to prior CVA per nursing staff. She denies any complains of pain. She denies being nauseous. She currently denies any headaches, dizziness, chest pain, pleuritic pain, palpitations, shortness of breath, sylvester hemoptysis, or abdominal pain. Past Medical/Surgical History Medical Problems: (1) Cellulitis (2) Deep vein blood clot of left lower extremity (3) Hypertension (4) Pulmonary embolism (5) Shortness of breath (6) UTI (urinary tract infection) Family History No pertinent family history noncontributory Social History Smoking Status: Never Smoker Smokeless Tobacco Use: No Alcohol Use: none Drug Use: none Marital Status: single Housing Status: lives with family Occupation Status: retired Allergies Coded Allergies: Amoxicillin (Verified Allergy, Mild, rash-on both Zithromax and Augmentin , 09/13/17) Azithromycin (Verified Allergy, Mild, rash- on both Augmentin and Zithromax, 09/13/17) Clavulanic Acid (Verified Allergy, Mild, rash-on both Zithromax and Augmentin, 09/13/17) Home Medications Scheduled Aspirin (Aspirin Low Dose), 81 MG PO DAILY Furosemide (Lasix), 20 MG PO DAILY Insulin Glargine (Lantus Solostar), 5 UNITS SC HS Insulin Lispro (Human) (Humalog), UNITS SQ ACHS Lisinopril (Zestril), 20 MG PO BID Lisinopril (Lisinopril), 1 TAB PO DAILY Scheduled PRN Acetaminophen (Tylenol), 650 MG PO Q6 PRN for Pain or Fever Bisacodyl (Dulcolax), 1 SUPP ME DAILY PRN for Constipation Clonidine Hcl (Catapres), 0.1 MG PO DAILY PRN for Magnesium Hydroxide (Milk of Magnesia), 30 ML PO DAILY PRN for Constipation Sodium Phosphate/Biphosphate (Fleet Enema), 1 EA ME DAILY PRN for Constipation Current Inpatient Medications Current Inpatient Medications Medications (Trade) Dose Ordered Sig/Alfonso Route Start Time Stop Time Status Last Admin Dose Admin Acetaminophen (Tylenol Tab) 650 mg Q4H PRN PO 11/17/17 04:45 12/17/17 04:44 Aspirin (Ecotrin Tab) 81 mg DAILY PO 11/17/17 09:00 12/17/17 08:59 11/18/17 07:59 81 MG Bisacodyl (Dulcolax Supp) 10 mg DAILY PRN ME 11/17/17 04:45 12/17/17 04:44 Magnesium Hydroxide (Milk Of Magnesia Susp) 30 ml DAILY PRN PO 11/17/17 04:45 12/17/17 04:44 Miscellaneous Information (Consult) 1 ea UD PRN N/A 11/17/17 04:45 12/17/17 04:44 Sodium Biphosphate/ Sodium Phosphate (Fleet Enema) 132 ml DAILY PRN ME 11/17/17 04:45 12/17/17 04:44 Cefepime HCl (Consult) 1 ea UD PRN N/A 11/17/17 05:00 12/17/17 04:59 Cefepime HCl 1000 mg/Syringe 11 ml @ 5.5 mls/min Q24H IV 11/18/17 04:00 11/28/17 03:59 11/18/17 04:22 5.5 MLS/MIN Vancomycin HCl 1000 mg/Sodium Chloride 270 ml @ 125 mls/hr Q24H IV 11/18/17 04:00 11/27/17 03:59 11/18/17 04:22 125 MLS/HR Insulin Aspart (novoLOG ASPART) SLIDING SCALE If C... ACHS SC 11/17/17 16:15 12/17/17 16:14 11/18/17 12:24 1 UNITS Glucose (Glucose 40% Gel) 15-30 GRAMS 15 GRAMS... UD PRN PO 11/17/17 16:15 12/17/17 16:14 Glucose (Glucose Chew Tab) 4-8 Tablets 4 Tabl... UD PRN PO 11/17/17 16:15 12/17/17 16:14 Dextrose (Dextrose 50% 50ML Syringe) 25-50ML OF 50% DW IV FOR... UD PRN IV 11/17/17 16:15 12/17/17 16:14 Glucagon (Glucagon Inj) 1 mg UD PRN SQ 11/17/17 16:15 12/17/17 16:14 Lisinopril (Zestril Tab) 20 mg DAILY PO 11/18/17 09:00 12/17/17 08:59 11/18/17 07:59 20 MG Albuterol Sulfate (Ventolin 0.083% 2.5MG/3ML Neb) 2.5 mg Q6R INH 11/17/17 21:00 12/17/17 20:59 11/18/17 19:07 2.5 MG Heparin Sodium/ Dextrose 500 ml @ 9 mls/hr Q24H PRN IV 11/17/17 22:30 12/17/17 22:29 11/18/17 13:31 9 MLS/HR Fexofenadine HCl (Maday Tab) 60 mg BID PO 11/18/17 21:00 12/18/17 20:59 11/18/17 20:20 60 MG Triamcinolone Acetonide (Nasacort Allergy 24hr) 2 sprays DAILY CHANTALE 11/18/17 19:30 12/18/17 19:29 11/18/17 20:20 2 SPRAYS Pantoprazole Sodium 40 mg/ Syringe 10 ml @ 5 mls/min DAILY IV 11/19/17 09:00 12/19/17 08:59 Levalbuterol (Xopenex 1.25MG/ 0.5ML Neb) 1.25 mg Q4R INH 11/19/17 00:00 12/19/17 00:00 11/19/17 00:36 1.25 MG Ipratropium [place] (Atrovent 0.02% 0.5MG/2.5ML Neb) 0.5 mg Q4R INH 11/19/17 00:00 12/19/17 00:00 11/19/17 00:36 0.5 MG Miscellaneous Information (Icu Protocol For Hyperglycemia) 1 ea PRN PRN N/A 11/19/17 00:00 11/21/17 00:00 Clindamycin Phosphate 600 mg/ Dextrose 54 ml @ 108 mls/hr Q8H IV 11/19/17 08:00 11/26/17 07:59 Review of Systems A complete 10-point Review of Systems was discussed with the patient, with pertinent positives and negatives listed in the History of Present Illness. All remaining Review of Systems questions can be considered negative unless otherwise specified. Physical Exam Date Time Temp Pulse Resp B/P (MAP) Pulse Ox O2 Delivery O2 Flow Rate FiO2 11/19/17 00:37 71 16 98 Nasal Cannula 2.0 11/18/17 20:00 Room Air 11/18/17 19:53 36.3 72 18 144/68 (93) 93 Room Air 11/18/17 19:07 61 18 95 Room Air 11/18/17 16:00 Room Air 11/18/17 15:17 36.4 75 22 133/66 (88) 90 Room Air 11/18/17 14:20 80 18 92 Room Air 11/18/17 12:00 35.7 64 16 145/74 (97) 95 Room Air 11/18/17 12:00 Room Air 11/18/17 08:00 Room Air 11/18/17 07:18 36.4 63 22 145/72 (96) 93 Room Air 11/18/17 07:09 60 16 95 Room Air 11/18/17 04:32 36.3 66 16 128/52 (77) 93 Room Air 11/18/17 04:00 Room Air 11/18/17 01:59 36.5 11/18/17 01:43 63 16 96 Room Air VITAL SIGNS - Vital signs and nursing notes were reviewed. GENERAL - 87-year-old female appearing her stated age who is in no acute distress. Communicates well with provider and answers questions appropriately. SKIN - B/L LE Edema w/ erythema versus chronic sarah stasis changes appreciated. HEAD - NC/AT. EYES - PERRL with EOMI bilaterally. Sclera anicteric. EARS - No deformities of external structures noted on gross examination bilaterally. NOSE - Midline and without cyanosis. MOUTH/OROPHARYNX - Without perioral cyanosis. Buccal mucosa pink and moist with moderate secretions noted. NECK - Neck with FROM. Supple to palpation. LUNGS - Chest wall symmetric without accessory muscle use, intercostals retractions, or central cyanosis. Normal vesicular breath sounds CTA B/L. No wheezes, rales, or rhonchi appreciated. CARDIAC - RRR with S1/S2. No murmur, rubs, or gallops appreciated. ABDOMEN - Abdominal contour flat without pulsations or visible masses. BS normoactive all four quadrants. No tenderness, palpable masses, hepatosplenomegaly, or ascites noted. EXTREMITIES - No clubbing or peripheral cyanosis. Bilateral lower extremity edema w/ erythema versus venous stasis changes. +3/5 radial and dorsalis pedis pulses palpated throughout. Residual LEFT sided deficit appreciated. NEUROLOGIC - Cranial nerves II through XII grossly intact. Sensory intact to light touch throughout. PSYCH - A&Ox3 and cooperates fully with examiner. Pt is very pleasant and interacts well with examiner. Laboratory Results Last 24 Hours Test 11/18/17 05:04 11/18/17 06:50 11/18/17 10:35 11/18/17 11:10 White Blood Count 5.91 K/uL Red Blood Count 3.15 M/uL Hemoglobin 9.4 g/dL Hematocrit 28.8 % Mean Corpuscular Volume 91.4 fL Mean Corpuscular Hemoglobin 29.8 pg Mean Corpuscular Hemoglobin Concent 32.6 g/dl Platelet Count 116 K/uL Mean Platelet Volume 9.8 fL Neutrophils (%) (Auto) 72.0 % Lymphocytes (%) (Auto) 19.5 % Monocytes (%) (Auto) 7.1 % Eosinophils (%) (Auto) 0.5 % Basophils (%) (Auto) 0.2 % Neutrophils # (Auto) 4.26 K/uL Lymphocytes # (Auto) 1.15 K/uL Monocytes # (Auto) 0.42 K/uL Eosinophils # (Auto) 0.03 K/uL Basophils # (Auto) 0.01 K/uL RDW Standard Deviation 57.0 fL RDW Coefficient of Variation 17.2 % Immature Granulocyte % (Auto) 0.7 % Immature Granulocyte # (Auto) 0.04 K/uL Activated Partial Thromboplast Time 85.1 SECONDS Partial Thromboplastin Ratio 3.3 Sodium Level 143 mmol/L Potassium Level 4.8 mmol/L Chloride Level 114 mmol/L Carbon Dioxide Level 25 mmol/L Anion Gap 4.0 mmol/L Blood Urea Nitrogen 24 mg/dl Creatinine 1.00 mg/dl Est Creatinine Clear Calc Drug Dose 27.9 ml/min Estimated GFR () 58.3 Estimated GFR (Non- 50.3 BUN/Creatinine Ratio 23.6 Random Glucose 87 mg/dl Calcium Level 7.7 mg/dl Magnesium Level 2.6 mg/dl Iron Level 61 mcg/dl Total Iron Binding Capacity 141 mcg/dl Transferrin 113 mg/dl Transferrin % Saturation 39 % Ferritin 398.6 ng/ml Troponin I 0.091 ng/ml Vitamin B12 Level 1793 pg/mL Folate 7.52 ng/mL Chemistry Specimen Hemolysis Bedside Glucose 82 mg/dl 199 mg/dl Stool Occult Blood POSITIVE Test 11/18/17 12:23 11/18/17 16:35 11/18/17 19:25 11/18/17 20:05 Activated Partial Thromboplast Time 74.5 SECONDS 60.1 SECONDS Partial Thromboplastin Ratio 2.9 2.3 Bedside Glucose 143 mg/dl 150 mg/dl Hemoglobin 9.5 g/dL Hematocrit 28.4 % Test 11/18/17 23:12 11/18/17 23:50 11/18/17 23:51 Blood Gas Sample Site R Radial Bedside Blood Gas pH (LAB) 7.30 Bedside Blood Gas pCO2 (LAB) 44 mmHg Bedside Blood Gas pO2 (LAB) 65 mmHg Bedside Blood Gas HCO3 (LAB) 21 meq/L Bedside Blood Gas Total CO2 23 mEq/l Bedside Blood Gas Base Excess (LAB) -5.0 meq/L Bedside Blood Gas O2 Saturation 91.0 % Gorge Test Pass Oxygen Delivery Device NonRb Mask Bedside FiO2 100 % Lactic Acid Level 0.8 mmol/L Creatine Kinase MB Ratio Diagnostic Results Radiological imaging and reports were reviewed by myself. Assessment & Plan (1) Bradycardia (2) Hypoxia (3) Aspiration into airway (4) Deep vein blood clot of left lower extremity (5) UTI (urinary tract infection) (6) Cellulitis (7) Sepsis Reason Critically Ill: 87-year-old female admitted 3 days ago for sepsis from urinary source versus bilateral lower externally cellulitis having aspiration event overnight with bradycardia and hypoxia requiring close monitoring from a pulmonary and cardiovascular standpoint. Neuro - * CAM ICU: NEGATIVE * History of CVA (Lacunar Infarct) with LEFT sided Deficits: * Continue daily ASA. * Concerning as patient does not handle her secretions well likely resulting in recurrent aspiration events and subsequent pneumonias. * Will monitor for any changes in mental status or neurological changes otherwise. * Is currently on heparin drip for extensive RIGHT lower trending DVT, however she is awake, alert, and oriented without new focal events. No head CT necessary at this point. We'll continue to monitor. Cardiac - * Bradycardic event: * Transient episode of bradycardia in the 30s. Patient with a known history of A. fib. * Occurred when the patient was actively aspirating/gagging. Question vagal episode as was so transient in nature and resolved so abruptly with stimulation (i.e. suctioning). * Repeat EKG demonstrates no new profound changes. * Will continue to monitor on telemetry. * New Congestive Changes on CXR: * Plan to repeat echocardiogram in the morning. Initial echocardiogram consistent with an EF of 70%. Question if any significant structural changes versus worsening EF in the setting of sepsis which may be contributed to volume overload and worsening pulmonary status. * Received 40 mg IV Lasix and 25 g albumin intravenously. Actively diuresing. * Improved respiratory status. * Will continue to monitor. * Would avoid BiPAP as long as possible and the situation secondary to recent aspiration event and risk for worsening with positive pressure. May consider high flow for slight addition of PEEP if she were to continue to decline. * Elevated Troponin in the setting of sepsis: * Demand ischemia. * Now with known RLE DVT and hypoxic/bradycardic event, will repeat for any abrupt elevations which may point to new heart strain in the setting of extensive PE. * Hypertension: * Continue home medications as tolerated. Respiratory - * Hypoxic Event: * With the sequela bradycardia and hypoxia without overt hypotension, lens itself to aspiration event. * Will broaden anaerobic coverage with clindamycin. * Aggressive pulmonary toilet - flutter valve, CPT, nebs, IS. * CXR does show some congestive changes. Maximize from a cardiac standpoint with Lasix/Albumin to aid in oxygenation. * Serial CXRs. * Of concern, the patient has a known history of DVT and PEs in November 2016. Ultrasound of the RIGHT lower extremity which was performed at Hospital was concerning for extensive RIGHT lower extremity DVT. Certainly, the hypoxic event could be related to dislodgment of DVT and subsequent heavy burden of clot. At this point, however, the patient is maximized in current therapy with heparin drip. On initial evaluation, the patient was unstable for travel to CT scan, however I do not feel that it is absolutely emergent at this point. Certainly, if she were to change her primary standpoint, CTA could be warranted , however this may only confirms suspicion of underlying clot burden in the lungs. We will repeat ultrasound of the RIGHT lower extremity for any dislodgment. Will evaluate from a cardiac strain standpoint including repeat echocardiogram and cardiac indices. At this point, the patient is oxygenating well on room air and there is no indication for emergent lysis or intervention necessary at this point. Certainly, if this were to change, we would address aggressively. GI - * Will make NPO. * Poor handling of secretions. * Will have speech evaluate for swallow study. * I'm concerned that eventually, patient may warrant PEG tube or other intervention if her episodes of aspiration continue to persist. If not, patient may be candidate for palliate care evaluation. Regardless, family discussion of continuation of care is eminent. * Will add Protonix for Prophylaxis. * Note to be Heme + while on Heparin. RENAL/LYTES - * No sylvester electrolyte derangement. Will monitor. - * UTI with Sepsis: * Figueroa catheter for I&Os. * Antibiotic described below. ENDO - * DM: * ISS per protocol. * No h/o Thyroid Dz. HEME - * Stable H&H at this point. * Will monitor closely while on Heparin gtt. ID - * UTI with Sepsis/Cellulitis: * Vanc/Cefepime currently. * Mixed mg blood cultures noted. Sensitivities to follow. * Initially added Clindamycin 2/2 aspiration event w/ c/o PNC allergy. * Will check ProCal to trend antibiotic effectiveness. * Check Lactate - trend. LINES/IV ACCESS - * PIVs intact. * Figueroa Catheter DVT PROPHYLAXIS - * Heparin gtt * Hold on SCDs 2/2 DVT. I have personally spent 45 minutes of critical care time in the direct management of this patient. This is a life/limb threatening event. This includes time spent evaluating patient, direct bedside care, chart review, placing orders, interpretation of diagnostic studies, discussion with consultants, patient, and family members, as well as other required patient management activities. This time is exclusive of all separately billable procedures, and teaching time and separate from and in addition to any other critical care service time. Thank you for this consultation allow us to be part of this patient's care. Please refer to my attending physician's documentation for any further recommendations. Attending addendum, The patient was seen, examined independently, agree with assessment and plan of my colleague Guy An, The patient is 87-year-old female with multiple comorbidities including aortic stenosis, CVA, CHF, admitted to the hospital with left lower extremity cellulitis, and developed acute respiratory failure due to aspiration. The patient was transferred to the ICU and started on the BiPAP. When I interviewed the patient, the patient was off the BiPAP, she did not have any respiratory distress and she was speaking in full sentences. Denies any chest pain or shortness of breath, the patient apparently is well known to speech pathology, she is at risk for aspiration due to her body habitus. Physical exam revealed elderly female, the vital signs are stable, O2 saturation was 95% on nasal cannula, severe kyphosis, S1-S2 systolic ejection murmur, bilateral diffuse rhonchi, abdomen is benign, left lower extremity was synovitic changes and edema bilaterally. Neurologically difficult to assess. Impression: #1 aspiration pneumonitis. #2 although the patient had a history of CHF and aortic stenosis but I doubt that this is infected at this point. #3 left lower extreme any cellulitis. #4 diabetes. Plan: #1 continue with current antibiotics to cover for cellulitis and aspiration both. #2 I do believe that clindamycin was given in that regard for cellulitis rather than aspiration. No need to cover anaerobic coverage. #3 appreciate speech pathology input. #4 start oral intake. #5 discontinue BiPAP. #6 continue her current cardiac medications. #7 GI and DVT prophylaxis. #8 gentle diuresis. #9 patient can be disposition back again to telemetry floor. #10 given her comorbidity, CODE STATUS should be addressed again. Discussed with the staff on rounds and details. CCT was 60 minutes. Problem Qualifiers (1) Aspiration into airway: Encounter type: initial encounter Qualified Codes: T17.908A - Unspecified foreign body in respiratory tract, part unspecified causing other injury, initial encounter (2) Deep vein blood clot of left lower extremity: Affected thrombotic vein of extremity: unspecified vein of extremity Chronicity: acute Qualified Codes: I82.402 - Acute embolism and thrombosis of unspecified deep veins of left lower extremity
[2017-11-19] MEDS: ALBUTEROL 0.083% NEBU SOLN 3 ML VIAL INH SCH (01:42)
[2017-11-19] MEDS: CEFEPIME IV 1,000 MG in SYRINGE 0 ML IV SCH (03:18)
[2017-11-19] MEDS: VANCOMYCIN INJ 1,000 MG in SODIUM CHLORIDE 0.9% 250ML 250 ML IV SCH (03:19)
[2017-11-19 05:57] LABS: HEMATOCRIT 26.6 % (37-47); HEMOGLOBIN 8.8 g/dL (12.0-16.0); MEAN CELL VOLUME 90.2 fL (80-100); MEAN CORPUSCULAR HEMOGLOBIN 29.8 pg (25-34); MEAN CORPUSCULAR HGB CONC 33.1 g/dl (32-36); RED CELL DISTRIBUTION WIDTH CV 16.7 % (11.5-14.5); RED CELL DISTRIBUTION WIDTH SD 54.5 fL (36.4-46.3); WHITE BLOOD COUNT 7.67 K/uL (4.8-10.8)
[2017-11-19 06:14] LABS: MEAN PLATELET VOLUME 9.2 fL (7.4-10.4); PLATELET COUNT 92 K/uL (130-400)
[2017-11-19 06:17] LABS: BASO % 0.1 %; BASO ABS # 0.01 K/uL (0-0.2); EOS % 0.1 %; EOS ABS # 0.01 K/uL (0-0.5); IG# 0.08 K/uL (0.00-0.02); LYMPH % 13.3 %; LYMPH ABS # 1.02 K/uL (1.2-3.4); MONO % 5.7 %; MONO ABS # 0.44 K/uL (0.11-0.59); NEUT % 79.8 %; NEUT ABS # 6.11 K/uL (1.4-6.5); PTT PATIENT 60.7 SECONDS (21.0-31.0)
--- NOTE | 2017-11-19 06:35 | DIAGNOSTIC IMAGING REPORT ---
ULTRASOUND R VENOUS DOPP LOWER EXT UNILAT CLINICAL HISTORY: Right lower extremity DVT. New pulmonary Evaluate for thrombus COMPARISON STUDY: November 17, 2017 FINDINGS: There is persistent thrombus within the superficial femoral vein, one of 2 paired popliteal veins, posterior tibial vein, and peroneal vein. The common femoral vein remains patent. IMPRESSION: Persistent extensive right lower extremity DVT. Electronically signed by: Chris Espinoza M.D. 11/19/2017 6:34 AM Dictated Date/Time: 11/19/2017 6:32 AM
--- NOTE | 2017-11-19 06:37 | DIAGNOSTIC IMAGING REPORT ---
CHEST ONE VIEW PORTABLE CLINICAL HISTORY: Respiratory arrest COMPARISON STUDY: September 16, 2018 FINDINGS: The heart remains mildly enlarged. There is calcification within the mitral valve annulus. There are small bilateral pleural effusions. There is persistent left lower lobe atelectasis/consolidation. There are increased interstitial markings within the right upper lobe. This could be inflammatory or represent asymmetric edema.[ IMPRESSION: 1. Cardiomegaly and small bilateral pleural effusions 2. Persistent left lower lobe atelectasis/consolidation 3. Increased interstitial markings right upper lobe, inflammatory versus asymmetric edema. Electronically signed by: Chris Espinoza M.D. 11/19/2017 6:36 AM Dictated Date/Time: 11/19/2017 6:34 AM
[2017-11-19 06:38] LABS: CALCIUM 8.4 mg/dl (8.5-10.1); CREATININE 1.05 mg/dl (0.60-1.20); POTASSIUM 4.5 mmol/L (3.5-5.1)
[2017-11-19] MEDS: INSULIN ASPART 100 UNITS/ML 3 ML PEN SC SCH ×4 (06:45→21:00)
--- NOTE | 2017-11-19 06:56 | DIAGNOSTIC IMAGING REPORT ---
CHEST ONE VIEW PORTABLE CLINICAL HISTORY: f/u congestive changes/?RLL pna ?aspiration event pneumonitis COMPARISON STUDY: 11/18/2017 FINDINGS: Unchanging left lower lobe atelectasis. Small left effusion also unchanged. Slight bronchovascular prominence primarily of the right upper lobe also unchanged. IMPRESSION: No change in the prior study. Persistent left lower lobe atelectatic change with a small left effusion. The above report was generated using voice recognition software. It may contain grammatical, syntax or spelling errors. Electronically signed by: Riley Newell M.D. 11/19/2017 6:55 AM Dictated Date/Time: 11/19/2017 6:50 AM
[2017-11-19] MEDS: TRIAMCINOLONE ACET NASAL SPRAY 10.8ML BTL NAE SCH (07:49)
[2017-11-19] MEDS: PANTOprazole INJ 40 MG in SYRINGE 0 ML IV SCH (07:49)
[2017-11-19] MEDS ORDERED: CLINDAMYCIN IV 600 MG in DEXTROSE 5% 50ML 50 ML IV SCH (08:00)
[2017-11-19] MEDS: ASPIRIN 81 MG ECTAB PO SCH (09:00)
[2017-11-19] MEDS: FEXOFENADINE HCL 60 MG TAB PO SCH ×2 (09:00→21:25)
[2017-11-19] MEDS: LISINOPRIL 20 MG TAB PO SCH (09:00)
[2017-11-19 14:11] LABS: HEMATOCRIT 28.2 % (37-47); HEMOGLOBIN 9.2 g/dL (12.0-16.0); MEAN CELL VOLUME 90.7 fL (80-100); MEAN CORPUSCULAR HEMOGLOBIN 29.6 pg (25-34); MEAN CORPUSCULAR HGB CONC 32.6 g/dl (32-36); NUCLEATED RED BLOOD CELL ABS 0.02 K/uL (0-0); RED CELL DISTRIBUTION WIDTH CV 16.7 % (11.5-14.5); WHITE BLOOD COUNT 5.57 K/uL (4.8-10.8)
[2017-11-19 14:13] LABS: MEAN PLATELET VOLUME 8.9 fL (7.4-10.4); PLATELET COUNT 99 K/uL (130-400)
--- NOTE | 2017-11-19 16:18 | Hospitalist Progress Note ---
Hospitalist Progress Note Date of Service Nov 19, 2017. (Pia Manzo PA-C) Subjective Pt evaluation today including: conversation w/ patient, conversation w/ family , physical exam Patient seen and evaluated. Was a code purple overnight of 11/18. Patient was found gurgling with associated hypoxia and bradycardia. She actually looks a lot better today then the other days in the hospital. She is much more alert and communicative. Speech largely sounds clear but is soft spoken so was hard to completely hear what she was saying. Verbalizes no issues and denies any SOB. Has a lot of thick nasal drainage and drooling which is baseline. Constitutional: No fever, No chills Respiratory: No cough, No shortness of breath Cardiovascular: No chest pain Abdomen: No pain, No nausea, No vomiting Musculoskeletal: No calf pain Female : No dysuria Heme: No abnormal bleeding/bruising (Pia Manzo, BONIFACIOC) Medications Current Inpatient Medications Medications (Trade) Dose Ordered Sig/Alfonso Route Start Time Stop Time Status Last Admin Dose Admin Acetaminophen (Tylenol Tab) 650 mg Q4H PRN PO 11/17/17 04:45 12/17/17 04:44 Aspirin (Ecotrin Tab) 81 mg DAILY PO 11/17/17 09:00 12/17/17 08:59 11/18/17 07:59 81 MG Bisacodyl (Dulcolax Supp) 10 mg DAILY PRN [place] 11/17/17 04:45 12/17/17 04:44 Magnesium Hydroxide (Milk Of Magnesia Susp) 30 ml DAILY PRN PO 11/17/17 04:45 12/17/17 04:44 Miscellaneous Information (Consult) 1 ea UD PRN N/A 11/17/17 04:45 12/17/17 04:44 Sodium Biphosphate/ Sodium Phosphate (Fleet Enema) 132 ml DAILY PRN W[place] 11/17/17 04:45 12/17/17 04:44 Cefepime HCl (Consult) 1 ea UD PRN N/A 11/17/17 05:00 12/17/17 04:59 Cefepime HCl 1000 mg/Syringe 11 ml @ 5.5 mls/min Q24H IV 11/18/17 04:00 11/28/17 03:59 11/19/17 03:18 5.5 MLS/MIN Vancomycin HCl 1000 mg/Sodium Chloride 270 ml @ 125 mls/hr Q24H IV 11/18/17 04:00 11/27/17 03:59 11/19/17 03:19 125 MLS/HR Insulin Aspart (novoLOG ASPART) SLIDING SCALE If C... ACHS SC 11/17/17 16:15 12/17/17 16:14 11/18/17 12:24 1 UNITS Glucose (Glucose 40% Gel) 15-30 GRAMS 15 GRAMS... UD PRN PO 11/17/17 16:15 12/17/17 16:14 Glucose (Glucose Chew Tab) 4-8 Tablets 4 Tabl... UD PRN PO 11/17/17 16:15 12/17/17 16:14 Dextrose (Dextrose 50% 50ML Syringe) 25-50ML OF 50% DW IV FOR... UD PRN IV 11/17/17 16:15 12/17/17 16:14 Glucagon (Glucagon Inj) 1 mg UD PRN SQ 11/17/17 16:15 12/17/17 16:14 Lisinopril (Zestril Tab) 20 mg DAILY PO 11/18/17 09:00 12/17/17 08:59 11/18/17 07:59 20 MG Heparin Sodium/ Dextrose 500 ml @ 9 mls/hr Q24H PRN IV 11/17/17 22:30 12/17/17 22:29 11/18/17 13:31 9 MLS/HR Fexofenadine HCl (Maday Tab) 60 mg BID PO 11/18/17 21:00 12/18/17 20:59 11/18/17 20:20 60 MG Triamcinolone Acetonide (Nasacort Allergy 24hr) 2 sprays DAILY CHANTALE 11/18/17 19:30 12/18/17 19:29 11/19/17 07:49 2 SPRAYS Pantoprazole Sodium 40 mg/ Syringe 10 ml @ 5 mls/min DAILY IV 11/19/17 09:00 12/19/17 08:59 11/19/17 07:49 5 MLS/MIN Levalbuterol (Xopenex 1.25MG/ 0.5ML Neb) 1.25 mg Q4R INH 11/19/17 00:00 12/19/17 00:00 11/19/17 15:35 1.25 MG Ipratropium [place] (Atrovent 0.02% 0.5MG/2.5ML Neb) 0.5 mg Q4R INH 11/19/17 00:00 12/19/17 00:00 11/19/17 15:35 0.5 MG Miscellaneous Information (Icu Protocol For Hyperglycemia) 1 ea PRN PRN N/A 11/19/17 00:00 11/21/17 00:00 Warfarin Sodium (Coumadin Tab) 5 mg DAILY@16 PO 11/19/17 16:00 12/19/17 15:59 (Pia Manzo, JOB) Objective Vital Signs Date Time Temp Pulse Resp B/P (MAP) Pulse Ox O2 Delivery O2 Flow Rate FiO2 11/19/17 15:36 82 18 98 Room Air 11/19/17 13:00 78 19 11/19/17 12:01 86 19 148/39 (75) 91 11/19/17 12:00 87 23 86 11/19/17 11:20 Room Air 11/19/17 11:20 36.7 78 18 158/71 (100) 98 Room Air 11/19/17 11:17 78 18 97 Room Air 11/19/17 11:01 80 22 158/61 (93) 93 11/19/17 11:00 80 25 95 11/19/17 10:01 73 21 131/40 (70) 96 11/19/17 10:00 73 21 94 11/19/17 10:00 36.7 72 18 131/40 (70) 98 Room Air 11/19/17 09:01 72 21 118/35 (62) 94 11/19/17 09:00 71 21 94 11/19/17 08:11 Room Air 11/19/17 08:01 73 21 114/43 (66) 94 11/19/17 08:00 36.2 72 18 107/39 (61) 98 Room Air 11/19/17 08:00 72 20 94 11/19/17 07:12 68 18 98 Room Air 11/19/17 07:01 65 20 107/37 (60) 96 11/19/17 07:00 67 20 96 11/19/17 06:13 71 23 132/39 (70) 96 Room Air 11/19/17 05:01 73 22 139/38 (71) 94 Room Air 11/19/17 04:01 81 27 143/45 (77) 94 Room Air 11/19/17 04:00 93 Nasal Cannula 11/19/17 03:26 75 18 95 Room Air 11/19/17 02:01 36.3 73 24 113/41 (65) 93 Room Air 11/19/17 01:16 76 24 137/38 (71) 93 11/19/17 00:46 79 16 134/36 (68) 93 Room Air 11/19/17 00:37 71 16 98 Nasal Cannula 2.0 11/19/17 00:31 69 22 142/42 (75) 97 Nasal Cannula 2.0 11/19/17 00:16 73 19 132/48 (76) 98 Nasal Cannula 2.0 11/19/17 00:01 71 22 155/55 (88) 98 Nasal Cannula 2.0 11/18/17 23:59 93 Nasal Cannula 11/18/17 23:46 36.4 77 21 150/65 (93) 99 Nasal Cannula 2.0 11/18/17 20:00 Room Air 11/18/17 19:53 36.3 72 18 144/68 (93) 93 Room Air 11/18/17 19:07 61 18 95 Room Air 11/18/17 16:00 Room Air (Pia Manzo, PA-C) Physical Exam General Appearance: no apparent distress, + pertinent finding (drooling) ENT: hearing grossly normal, + pertinent finding (thick nasal drainage) Neck: supple, no JVD, trachea midline Respiratory/Chest: normal breath sounds, no respiratory distress, no accessory muscle use, + decreased breath sounds (diminished at bases) Cardiovascular: regular rate, rhythm Abdomen: normal bowel sounds, non tender, soft Extremities: + swelling (b/l lower extremities L > R), + pertinent finding ( erythema of LLE improving) Neurologic/Psychiatric: alert Skin: normal color (Pia Manzo, PA-C) Laboratory Results Last 24 Hours Test 11/18/17 16:35 11/18/17 19:25 11/18/17 20:05 11/18/17 23:12 Bedside Glucose 143 mg/dl 150 mg/dl Hemoglobin 9.5 g/dL Hematocrit 28.4 % Activated Partial Thromboplast Time 60.1 SECONDS Partial Thromboplastin Ratio 2.3 Blood Gas Sample Site R Radial Bedside Blood Gas pH (LAB) 7.30 Bedside Blood Gas pCO2 (LAB) 44 mmHg Bedside Blood Gas pO2 (LAB) 65 mmHg Bedside Blood Gas HCO3 (LAB) 21 meq/L Bedside Blood Gas Total CO2 23 mEq/l Bedside Blood Gas Base Excess (LAB) -5.0 meq/L Bedside Blood Gas O2 Saturation 91.0 % Gorge Test Pass Oxygen Delivery Device NonRb Mask Bedside FiO2 100 % Test 11/18/17 23:50 11/19/17 01:50 11/19/17 05:38 11/19/17 10:49 White Blood Count 7.53 K/uL 7.67 K/uL Red Blood Count 3.35 M/uL 2.95 M/uL Hemoglobin 10.0 g/dL 8.8 g/dL Hematocrit 30.5 % 26.6 % Mean Corpuscular Volume 91.0 fL 90.2 fL Mean Corpuscular Hemoglobin 29.9 pg 29.8 pg Mean Corpuscular Hemoglobin Concent 32.8 g/dl 33.1 g/dl Platelet Count 122 K/uL 92 K/uL Mean Platelet Volume 9.7 fL 9.2 fL Neutrophils (%) (Auto) 79.2 % 79.8 % Lymphocytes (%) (Auto) 13.8 % 13.3 % Monocytes (%) (Auto) 5.4 % 5.7 % Eosinophils (%) (Auto) 0.3 % 0.1 % Basophils (%) (Auto) 0.1 % 0.1 % Neutrophils # (Auto) 5.96 K/uL 6.11 K/uL Lymphocytes # (Auto) 1.04 K/uL 1.02 K/uL Monocytes # (Auto) 0.41 K/uL 0.44 K/uL Eosinophils # (Auto) 0.02 K/uL 0.01 K/uL Basophils # (Auto) 0.01 K/uL 0.01 K/uL RDW Standard Deviation 56.4 fL 54.5 fL RDW Coefficient of Variation 17.0 % 16.7 % Immature Granulocyte % (Auto) 1.2 % 1.0 % Immature Granulocyte # (Auto) 0.09 K/uL 0.08 K/uL Sodium Level 141 mmol/L 142 mmol/L Potassium Level 5.2 mmol/L 4.5 mmol/L Chloride Level 112 mmol/L 111 mmol/L Carbon Dioxide Level 22 mmol/L 22 mmol/L Anion Gap 7.0 mmol/L 9.0 mmol/L Blood Urea Nitrogen 20 mg/dl 21 mg/dl Creatinine 1.06 mg/dl 1.05 mg/dl Est Creatinine Clear Calc Drug Dose 26.4 ml/min 26.6 ml/min Estimated GFR () 54.3 54.9 Estimated GFR (Non- 46.8 47.4 BUN/Creatinine Ratio 19.3 20.0 Random Glucose 159 mg/dl 122 mg/dl Lactic Acid Level 0.8 mmol/L Calcium Level 7.8 mg/dl 8.4 mg/dl Phosphorus Level 3.0 mg/dl Magnesium Level 2.3 mg/dl 2.3 mg/dl Total Bilirubin 0.4 mg/dl Direct Bilirubin 0.1 mg/dl Aspartate Amino Transf (AST/SGOT) 37 U/L Alanine Aminotransferase (ALT/SGPT) 29 U/L Alkaline Phosphatase 116 U/L Total Creatine Kinase 95 U/L Creatine Kinase MB 8.7 ng/ml Creatine Kinase MB Ratio 9.2 Troponin I 0.062 ng/ml Total Protein 6.1 gm/dl Albumin 1.9 gm/dl Procalcitonin 0.26 ng/ml Blood Gas Sample Site R Radial Bedside Blood Gas pH (LAB) 7.44 Bedside Blood Gas pCO2 (LAB) 33 mmHg Bedside Blood Gas pO2 (LAB) 66 mmHg Bedside Blood Gas HCO3 (LAB) 22 meq/L Bedside Blood Gas Total CO2 23 mEq/l Bedside Blood Gas Base Excess (LAB) -2.0 meq/L Bedside Blood Gas O2 Saturation 94.0 % Gorge Test Pass Oxygen Delivery Device Room Air Dohle Bodies OCCASIONAL Platelet Estimate DECREASED Activated Partial Thromboplast Time 60.7 SECONDS Partial Thromboplastin Ratio 2.3 Bedside Glucose 99 mg/dl Test 11/19/17 13:52 White Blood Count 5.57 K/uL Red Blood Count 3.11 M/uL Hemoglobin 9.2 g/dL Hematocrit 28.2 % Mean Corpuscular Volume 90.7 fL Mean Corpuscular Hemoglobin 29.6 pg Mean Corpuscular Hemoglobin Concent 32.6 g/dl RDW Standard Deviation 55.0 fL RDW Coefficient of Variation 16.7 % Platelet Count 99 K/uL Mean Platelet Volume 8.9 fL Nucleated RBC Absolute Count (auto) 0.02 K/uL Nucleated Red Blood Cells % 0.3 % Platelet Estimate DECREASED (Pia Manzo PA-C) Assessment and Plan Metabolic Encephalopathy 2/2 Dehydration and UTI with Possible B/L Lower Extremity Cellulitis vs Bacteremia: IMPROVING - She is much more alert and talkative today Acute Hypoxic Respiratory Failure: - Possibly related to aspiration event as she does not handle secretions well; improved with suctioning and likely bradycardia was a vagal component - Aspiration precautions - initially treated with Clinda - Received Albumin and Lasix - does not appear directly volume overloaded and will hold of further diuretics at this time Positive Blood Cx: - Will repeat Cx to check for sterility - Continue Cefepime and Vanc at this time Extensive RLE DVT: - 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 - Given findings there is a possibility of underlying PE - patient remains on RA and no CP - but ultimately course of treatment does not change and will hold of CTA chest - Heparin gtt initiated - awaiting F/U CBC as initial drop may be from dilution given how dry she was on examination - does have heme+ stool but stool was brown with no visible blood - Initiate Coumadin/Heparin gtt Possible Paroxysmal Atrial Fibrillation and AV Block: - Seems to transient and has maintained out of this rhythm - Echo - hyperdynamic with EF > 70% and diastolic dysfunction; trace pericardial effusion -- No evidence of hemodynamic instability or tamponade - can monitor Urinary Tract Infection: - Continue Cefepime 1 g IV daily and Vancomycin Dehydration: IMPROVING - Can monitor off fluids and re-assess LLE Cellulitis Superimposed on Lymphedema and Candidal Intertrigo: IMPROVING - Treatment with Abx as above and monitor for improvement - patient is reporting this is baseline and may simply be stasis changes - Continue anti-fungal cream per wound care T2DM: - Hold Lantus and cover with liberalized SSI and monitor oral intake HTN: - Lisinopril 20 mg BID H/O Lacunar CVA/Ischemic APPLIANCE 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 I agree w/ the ash components of her documentation. Events of last night noted. Pt resting comfortably at this time; seen by speech - placed on nectar thick liquids. Continues with drooling albeit it is improved slightly. Denies any pain during the visit. VSS gen - severe kyphosis, eating dinner, NAD neck - no obvious JVD mouth - drooling noted once again but less than yesterday; no thrush heart - RRR lungs - decreased BS left base, mild end-exp wheeze b/l abd - soft, NT ext - lymphedema left leg, mild edema right leg, cellulitis vs stasis changes left clemente; minimal erythema/stasis right leg; left leg is markedly more edematous than right leg - erythema is much less red today than previous A/P: 1. sepsis 2nd to UTI +/- bacteremia (if cultures are deemed to be pathogenic rather than contaminant) +/- LLL pneumonia +/- cellulitis +/- acute sinusitis - Cont broad-spectrum IV antibiotics. Hopefully can narrow tomorrow. Repeat blood cx's drawn and are pending. 2. hypothermia - 2nd to #1 - resolved. 3. drooling - 2nd to prior stroke? new stroke? speech consult appreciated. Aspiration precautions. Consider MRI brain to r/o acute stroke. 4. LLL pneumonia - suspected - could be aspiration - broad-spectrum IV antibiotics. 5. extensive RLE DVT - heparin infusion with coumadin. Noted that stool is heme+. INR daily. 6. CKD stage 4 - creatinine stable, BMP am. 7. +troponin - myocardial demand ischemia 2nd to #1 (type 2 OR). 8. dysphagia - nectar thick liquids; speech following. ok for transfer out of ICU to tele Jerad Jacobson MD (Jerad Jacobson MD)
[2017-11-19] MEDS: WARFARIN SOD 5 MG TAB PO SCH (16:25)
[2017-11-20] VITALS (8 sets, daily range): BP systolic 142–173; BP diastolic 53–83; PULSE 62–90; TEMP 36.3–36.8; O2SAT 92–99
[2017-11-20] MEDS ORDERED: VANCOMYCIN TROUGH ONE (03:30)
[2017-11-20 03:36] LABS: BASO % 0.4 %; BASO ABS # 0.02 K/uL (0-0.2); EOS % 0.6 %; EOS ABS # 0.03 K/uL (0-0.5); HEMATOCRIT 27.8 % (37-47); IG# 0.09 K/uL (0.00-0.02); LYMPH % 17.1 %; LYMPH ABS # 0.89 K/uL (1.2-3.4); MEAN CELL VOLUME 90.8 fL (80-100); MEAN CORPUSCULAR HEMOGLOBIN 29.4 pg (25-34); MEAN CORPUSCULAR HGB CONC 32.4 g/dl (32-36); MEAN PLATELET VOLUME 9.6 fL (7.4-10.4); MONO % 7.3 %; MONO ABS # 0.38 K/uL (0.11-0.59); NEUT % 72.9 %; PLATELET COUNT 117 K/uL (130-400); RED CELL DISTRIBUTION WIDTH CV 16.7 % (11.5-14.5); RED CELL DISTRIBUTION WIDTH SD 55.1 fL (36.4-46.3); WHITE BLOOD COUNT 5.21 K/uL (4.8-10.8)
[2017-11-20] MEDS: LEVALBUTEROL 1.25MG/0.5ML NEB INH SCH ×6 (03:50→23:08)
[2017-11-20] MEDS: IPRATROPIUM BROMIDE NEB SOLN 0.02% 2.5 ML VIAL INH SCH ×6 (03:50→23:08)
[2017-11-20 03:55] LABS: PTT PATIENT 50.7 SECONDS (21.0-31.0)
[2017-11-20 03:58] LABS: CALCIUM 8.5 mg/dl (8.5-10.1); CREATININE 0.98 mg/dl (0.60-1.20); POTASSIUM 4.8 mmol/L (3.5-5.1)
[2017-11-20] MEDS: VANCOMYCIN INJ 1,000 MG in SODIUM CHLORIDE 0.9% 250ML 250 ML IV SCH (04:00)
[2017-11-20] MEDS: CEFEPIME IV 1,000 MG in SYRINGE 0 ML IV SCH (04:53)
[2017-11-20] MEDS: HEPARIN 25,000 UNIT/500ML D5W 500 ML IV PRN (06:17)
[2017-11-20] MEDS: INSULIN ASPART 100 UNITS/ML 3 ML PEN SC SCH ×4 (06:45→20:49)
--- NOTE | 2017-11-20 07:12 | DIAGNOSTIC IMAGING REPORT ---
CHEST ONE VIEW PORTABLE CLINICAL HISTORY: f/u congestive changes/?RLL pna ?aspiration event dyspnea COMPARISON STUDY: 11/19/2017 FINDINGS: Unchanging consolidative and effusion-type change left lung base. Mild cardiomegaly. Considerable calcification of the mitral annulus. Trace pleural fluid right lateral gastric angle. Lungs otherwise appear clear. IMPRESSION: Unchanged exam compared to the prior day. Unchanging consolidative change left base. Small bilateral pleural effusions. The above report was generated using voice recognition software. It may contain grammatical, syntax or spelling errors. Electronically signed by: Riley Newell M.D. 11/20/2017 7:10 AM Dictated Date/Time: 11/20/2017 7:09 AM
[2017-11-20] MEDS: VANCOMYCIN INJ 750 MG in SODIUM CHLORIDE 0.9% 250ML 250 ML IV SCH (08:44)
[2017-11-20] MEDS: FEXOFENADINE HCL 60 MG TAB PO SCH ×3 (08:45→20:49)
[2017-11-20] MEDS: LISINOPRIL 20 MG TAB PO SCH (08:45)
[2017-11-20] MEDS: TRIAMCINOLONE ACET NASAL SPRAY 10.8ML BTL NAE SCH (08:45)
[2017-11-20] MEDS: PANTOprazole INJ 40 MG in SYRINGE 0 ML IV SCH ×2 (08:46→09:00)
[2017-11-20] MEDS: ASPIRIN 81 MG ECTAB PO SCH (09:00)
--- NOTE | 2017-11-20 13:55 | Pharmacy Progress Note ---
Pharmacy Abx Dose Short Note Date of Service Nov 20, 2017. Assessment & Plan Assessment 87 year old female receiving vanc/cefepime for treatment of UTI and E. Faecium in the blood. Repeat BC are pending given the strange speciation of corynebacterium in one BC and Enterococcus Faecium in the other. Level this morning was slightly elevated and held for ~4.5 hours before resuming at a lower dose. I will recheck level in 2 days to ensure accuracy. Day # 4 of antimicrobial therapy. Plan Vancomycin * Trough level of 21.9 mcg/mL is slightly supratherapeutic. * Change to 750 mg IV every 24 hours * Goal trough level : 15 to 20 mcg/mL * Trough or random level ordered for: 11/22/17 @0734 Pharmacy will continue to follow and will adjust dose/frequency as necessary. Thank you.
[2017-11-20] MEDS ORDERED: FLUCONAZOLE 100 MG TAB PO ONE (14:15)
[2017-11-20] MEDS: WARFARIN SOD 5 MG TAB PO SCH (15:35)
[2017-11-20] MEDS: TRIAMCINOLONE ACET 0.1% CR 80 GM TUBE EXT SCH ×2 (16:22→20:49)
[2017-11-20] MEDS: METOPROLOL TARTRATE 1 MG/ML VIAL IV. SCH ×2 (16:23→17:46)
[2017-11-20] MEDS ORDERED: FLUCONAZOLE / NSS 100 MG in PREMIXED NSS 50 ML IV SCH (21:30)
[2017-11-20] MEDS ORDERED: HALOPERIDOL LACTATE 5 MG/ML 1 ML VIAL IM PRN (22:00)
--- NOTE | 2017-11-20 22:07 | Progress Note ---
Subjective Date of Service: Nov 20, 2017. Subjective Pt evaluation today including: conversation w/ patient, physical exam, chart review, lab review Pain: none voiced PO Intake: poor today Voiding: best catheter in place tele stable overnight she was quite confused during the visit much of her speech was difficult to understand she was drooling once again during the encounter staff report she has been refusing medications Problem List Medical Problems: (1) Altered mental status Status: Acute (2) Aspiration into airway Status: Acute (3) Bradycardia Status: Acute (4) Cellulitis Status: Acute (5) Deep vein blood clot of left lower extremity Status: Acute (6) Dehydration Status: Acute (7) Elevated troponin Status: Acute (8) Hypoxia Status: Acute (9) Left leg cellulitis Status: Acute (10) Pneumonia Status: Acute (11) Pneumonia Status: Acute (12) Sepsis Status: Acute (13) Sepsis Status: Acute (14) UTI (urinary tract infection) Status: Acute Review of Systems Respiratory: No shortness of breath Cardiac: No chest pain Abdomen: No pain Objective Vital Signs Date Time Temp Pulse Resp B/P (MAP) Pulse Ox O2 Delivery O2 Flow Rate FiO2 11/20/17 20:00 Room Air 11/20/17 17:46 70 157/64 11/20/17 17:45 69 18 142/55 (84) 11/20/17 17:00 71 20 173/76 (108) 11/20/17 16:23 90 161/53 11/20/17 16:00 Room Air 11/20/17 16:00 36.3 82 20 151/62 (91) 92 Room Air 11/20/17 16:00 74 21 11/20/17 12:00 36.8 90 25 161/53 (89) 92 Room Air 11/20/17 12:00 Room Air 11/20/17 08:00 Room Air 11/20/17 08:00 36.6 75 23 151/57 (88) 94 Room Air 11/20/17 04:00 36.4 82 21 143/61 (88) 96 Room Air 11/20/17 04:00 Room Air 11/20/17 03:50 79 20 95 Room Air 11/19/17 23:59 36.7 81 22 134/70 (91) 95 Room Air 11/19/17 23:59 Room Air 11/19/17 23:08 74 18 95 Room Air Physical Exam General Appearance: no apparent distress, + pertinent finding (slouched over to her right in the bed; drooling; confused (but awake)) ENT: + pertinent finding (MMM; drooling) Neck: no JVD Respiratory/Chest: no respiratory distress, no accessory muscle use, + decreased breath sounds (both bases, worse on left) Cardiovascular: regular rate, rhythm, no gallop, + systolic murmur Abdomen: normal bowel sounds, non tender, soft, no organomegaly Extremities: + pedal edema, + swelling (worse on left (3-4+ edema on left, 2+ on right)) Neurologic/Psychiatric: + motor weakness (LUE/LLE - no change from yesterday's exam), + disoriented Skin: + pertinent finding (stasis changes vs resolving cellulitis on shins b/l ) Comments: musculo - kyphosis present Laboratory Results Last 24 Hours Test 11/20/17 03:24 11/20/17 07:31 11/20/17 11:42 11/20/17 16:26 White Blood Count 5.21 K/uL Red Blood Count 3.06 M/uL Hemoglobin 9.0 g/dL Hematocrit 27.8 % Mean Corpuscular Volume 90.8 fL Mean Corpuscular Hemoglobin 29.4 pg Mean Corpuscular Hemoglobin Concent 32.4 g/dl Platelet Count 117 K/uL Mean Platelet Volume 9.6 fL Neutrophils (%) (Auto) 72.9 % Lymphocytes (%) (Auto) 17.1 % Monocytes (%) (Auto) 7.3 % Eosinophils (%) (Auto) 0.6 % Basophils (%) (Auto) 0.4 % Neutrophils # (Auto) 3.80 K/uL Lymphocytes # (Auto) 0.89 K/uL Monocytes # (Auto) 0.38 K/uL Eosinophils # (Auto) 0.03 K/uL Basophils # (Auto) 0.02 K/uL RDW Standard Deviation 55.1 fL RDW Coefficient of Variation 16.7 % Immature Granulocyte % (Auto) 1.7 % Immature Granulocyte # (Auto) 0.09 K/uL Activated Partial Thromboplast Time 50.7 SECONDS Partial Thromboplastin Ratio 2.0 Sodium Level 141 mmol/L Potassium Level 4.8 mmol/L Chloride Level 111 mmol/L Carbon Dioxide Level 23 mmol/L Anion Gap 7.0 mmol/L Blood Urea Nitrogen 15 mg/dl Creatinine 0.98 mg/dl Est Creatinine Clear Calc Drug Dose 28.5 ml/min Estimated GFR () 59.7 Estimated GFR (Non- 51.5 BUN/Creatinine Ratio 15.4 Random Glucose 101 mg/dl Calcium Level 8.5 mg/dl Magnesium Level 2.2 mg/dl Vancomycin Level Trough 21.9 mcg/ml Bedside Glucose 104 mg/dl 97 mg/dl 109 mg/dl Test 11/20/17 20:28 Bedside Glucose 99 mg/dl Assessment and Plan 87yo female with: 1. sepsis 2nd to UTI +/- bacteremia +/- LLL pneumonia +/- cellulitis +/- acute sinusitis - Cont broad-spectrum IV antibiotics. Day #4 of IV cefepime/vanco. Repeat blood cx's thus far negative. 2. enterococcal bacteremia - this would be unusual to be a contaminant. Will treat as pathogenic; continue IV vanco for now. Corynebacterium likely contaminant. enterococcus source -- skin? GI/? other? urine cx grew e. coli thus urine not source. has h/o gallstones - may need to check her gall bladder. check lfts in am. 3. drooling - 2nd to prior stroke? new stroke? speech consult appreciated. Aspiration precautions. Order MRI brain to exclude new stroke. 4. LLL pneumonia - suspected - could be aspiration - broad-spectrum IV antibiotics, day #4 of such. 5. extensive RLE DVT - heparin infusion with coumadin. Noted that stool is heme+. INR daily. 6. CKD stage 4 - creatinine stable, BMP am. 7. +troponin - myocardial demand ischemia 2nd to #1 (type 2 ME). 8. dysphagia - nectar thick liquids; speech following. 9. e. coli UTI - cefepime will suffice. 10. acute sinusitis - current abx will suffice. 11. lymphedema, left leg, with possible cellulitis - current abx will suffice. 12. metabolic encephalopathy - haldol IM prn; avoid benzos; treat underlying infections. 13. HTN - metoprolol 2.5mg IV q6h. 14. extensive candidal rashes (groin, under breasts, etc) - diflucan 100mg daily x 7-10 days. Continued [facility] stay due to: inadequate po fluid intake, multiple IV medications needed, other (confusion) Discharge planning: uncertain
[2017-11-21] VITALS (13 sets, daily range): BP systolic 126–167; BP diastolic 59–83; PULSE 58–72; TEMP 36.3–36.8; O2SAT 91–99
[2017-11-21] MEDS: METOPROLOL TARTRATE 1 MG/ML VIAL IV. SCH ×4 (00:51→17:48)
[2017-11-21] MEDS: CEFEPIME IV 1,000 MG in SYRINGE 0 ML IV SCH (04:57)
[2017-11-21] MEDS: INSULIN ASPART 100 UNITS/ML 3 ML PEN SC SCH ×4 (06:30→21:00)
[2017-11-21] MEDS: LEVALBUTEROL 1.25MG/0.5ML NEB INH SCH ×3 (07:27→14:40)
[2017-11-21] MEDS: IPRATROPIUM BROMIDE NEB SOLN 0.02% 2.5 ML VIAL INH SCH ×3 (07:27→14:39)
[2017-11-21] MEDS: TRIAMCINOLONE ACET 0.1% CR 80 GM TUBE EXT SCH ×3 (08:12→21:07)
[2017-11-21] MEDS: TRIAMCINOLONE ACET NASAL SPRAY 10.8ML BTL NAE SCH (08:13)
[2017-11-21] MEDS: ASPIRIN 81 MG ECTAB PO SCH (08:15)
[2017-11-21] MEDS: FEXOFENADINE HCL 60 MG TAB PO SCH (08:15)
[2017-11-21] MEDS: LISINOPRIL 20 MG TAB PO SCH (08:16)
[2017-11-21] MEDS: PANTOprazole SOD 40 MG TAB PO SCH (08:16)
[2017-11-21] MEDS: VANCOMYCIN INJ 750 MG in SODIUM CHLORIDE 0.9% 250ML 250 ML IV SCH (08:21)
--- NOTE | 2017-11-21 08:30 | DIAGNOSTIC IMAGING REPORT ---
MRI OF THE BRAIN WITHOUT CONTRAST CLINICAL HISTORY: Left sided weakness, confusion, drooling; evaluate for acute stroke. COMPARISON STUDY: MRI of the brain no August 14, [address] November 17, 2017. TECHNIQUE: Utilizing a 1.5 Park magnet and dedicated coil, multiplanar, multiecho imaging of the brain was performed without IV contrast. FINDINGS: No foci of restricted diffusion. No acute intracranial hemorrhage, midline shift or mass effect is present. Moderate atrophy is noted. This accounts for mild ventricular dilatation. The basilar cisterns are patent. There are no extra axial collections. No intracranial masses identified on this unenhanced exam. There are multiple old lacunar infarcts. Orbits are unremarkable. There is extensive sinus opacification with near complete opacification of the maxillary, ethmoid and frontal sinuses with multiple air-fluid levels. Several T1 hyperintense lesions within the nasal cavity and sinuses were noted on exam of August 14, 2016. IMPRESSION: 1. No acute intracranial findings. 2. Moderate small vessel disease and multiple old lacunar infarcts. Moderate atrophy. 3. Pansinusitis. The findings may reflect acute on chronic sinusitis with a sinonasal polyposis. Electronically signed by: Julien Winkler M.D. 11/21/2017 8:29 AM Dictated Date/Time: 11/21/2017 8:23 AM
[2017-11-21 11:53] LABS: HEMATOCRIT 30.8 % (37-47); HEMOGLOBIN 10.1 g/dL (12.0-16.0); MEAN CELL VOLUME 91.4 fL (80-100); MEAN CORPUSCULAR HGB CONC 32.8 g/dl (32-36); MEAN PLATELET VOLUME 9.2 fL (7.4-10.4); PLATELET COUNT 133 K/uL (130-400); RED CELL DISTRIBUTION WIDTH CV 16.7 % (11.5-14.5); RED CELL DISTRIBUTION WIDTH SD 54.9 fL (36.4-46.3); WHITE BLOOD COUNT 6.78 K/uL (4.8-10.8)
[2017-11-21 12:11] LABS: INR 1.7 (0.9-1.1)
[2017-11-21 12:13] LABS: PTT PATIENT 58.8 SECONDS (21.0-31.0)
[2017-11-21 12:18] LABS: ALBUMIN 2.3 gm/dl (3.4-5.0); ALT/SGPT 29 U/L (12-78); BLOOD UREA NITROGEN 17 mg/dl (7-18); CALCIUM 8.8 mg/dl (8.5-10.1); CARBON DIOXIDE 25 mmol/L (21-32); GLUCOSE 158 mg/dl (70-99); POTASSIUM 4.3 mmol/L (3.5-5.1); SODIUM 142 mmol/L (136-145)
[2017-11-21 12:21] LABS: ALKALINE PHOSPHATASE 107 U/L (45-117); AST/SGOT 27 U/L (15-37); TOTAL PROTEIN 6.2 gm/dl (6.4-8.2)
[2017-11-21] MEDS: WARFARIN SOD 2.5 MG TAB PO SCH (17:07)
--- NOTE | 2017-11-21 18:10 | Progress Note ---
Subjective Date of Service: Nov 21, 2017. Subjective Pt evaluation today including: conversation w/ patient, conversation w/ family (son by phone), physical exam, chart review, lab review, review of studies (MRI brain), review of inpatient medication list Pain: denies abd pain PO Intake: 25% of breakfast consumed w/o incident Voiding: best catheter in place tele stable overnight patient more awake/alert during my visit albeit still confused NO DROOLING today able to tell me she had no chest pain, abd pain, nausea, emesis she complained of not having a bowel movement Problem List Medical Problems: (1) Altered mental status Status: Acute (2) Aspiration into airway Status: Acute (3) Bradycardia Status: Acute (4) Cellulitis Status: Acute (5) Deep vein blood clot of left lower extremity Status: Acute (6) Dehydration Status: Acute (7) Elevated troponin Status: Acute (8) Hypoxia Status: Acute (9) Left leg cellulitis Status: Acute (10) Pneumonia Status: Acute (11) Pneumonia Status: Acute (12) Sepsis Status: Acute (13) Sepsis Status: Acute (14) UTI (urinary tract infection) Status: Acute Review of Systems Constitutional: No fever Respiratory: + cough, No shortness of breath Cardiac: No chest pain Abdomen: No pain Objective Vital Signs Date Time Temp Pulse Resp B/P (MAP) Pulse Ox O2 Delivery O2 Flow Rate FiO2 11/21/17 17:48 58 11/21/17 16:00 96 Room Air 11/21/17 15:03 36.3 60 16 126/83 (97) 91 Room Air 11/21/17 14:40 62 18 94 Room Air 11/21/17 12:33 66 160/72 11/21/17 12:00 96 Room Air 11/21/17 11:34 66 18 96 Room Air 11/21/17 11:11 36.5 63 18 162/59 (93) 99 Room Air 11/21/17 08:00 96 Room Air 11/21/17 07:30 63 18 96 Room Air 11/21/17 07:20 36.8 62 18 153/78 (103) 95 11/21/17 06:00 59 11/21/17 04:10 36.3 59 18 137/59 (85) 96 Room Air 11/21/17 04:00 Room Air 11/21/17 00:51 72 167/77 11/21/17 00:48 72 167/77 (107) 11/21/17 00:00 Room Air 11/20/17 23:50 36.3 62 18 163/83 (109) 99 Room Air 11/20/17 20:00 Room Air Physical Exam General Appearance: no apparent distress, + pertinent finding (looks better, no drooling noted today) ENT: pharynx normal Neck: no JVD Respiratory/Chest: no respiratory distress, no accessory muscle use, + decreased breath sounds (bases) Cardiovascular: regular rate, rhythm, no gallop, + systolic murmur (2/6 LLSB) Abdomen: normal bowel sounds, non tender, soft, no organomegaly Extremities: + pedal edema, + swelling (no change b/l (left much worse than right)) Neurologic/Psychiatric: alert, + disoriented (thinks she is in [place]) Skin: + pertinent finding (stasis changes b/l shins; previous cellulitis resolved ) Laboratory Results Last 24 Hours Test 11/20/17 20:28 11/21/17 07:41 11/21/17 11:30 11/21/17 11:41 Bedside Glucose 99 mg/dl 72 mg/dl 160 mg/dl White Blood Count 6.78 K/uL Red Blood Count 3.37 M/uL Hemoglobin 10.1 g/dL Hematocrit 30.8 % Mean Corpuscular Volume 91.4 fL Mean Corpuscular Hemoglobin 30.0 pg Mean Corpuscular Hemoglobin Concent 32.8 g/dl RDW Standard Deviation 54.9 fL RDW Coefficient of Variation 16.7 % Platelet Count 133 K/uL Mean Platelet Volume 9.2 fL Prothrombin Time 17.7 SECONDS Prothromb Time International Ratio 1.7 Activated Partial Thromboplast Time 58.8 SECONDS Partial Thromboplastin Ratio 2.3 Sodium Level 142 mmol/L Potassium Level 4.3 mmol/L Chloride Level 112 mmol/L Carbon Dioxide Level 25 mmol/L Anion Gap 5.0 mmol/L Blood Urea Nitrogen 17 mg/dl Creatinine 0.90 mg/dl Est Creatinine Clear Calc Drug Dose 31.0 ml/min Estimated GFR () 66.2 Estimated GFR (Non- 57.1 BUN/Creatinine Ratio 18.7 Random Glucose 158 mg/dl Calcium Level 8.8 mg/dl Total Bilirubin 0.4 mg/dl Direct Bilirubin < 0.1 mg/dl Aspartate Amino Transf (AST/SGOT) 27 U/L Alanine Aminotransferase (ALT/SGPT) 29 U/L Alkaline Phosphatase 107 U/L Total Protein 6.2 gm/dl Albumin 2.3 gm/dl Test 11/21/17 16:17 Bedside Glucose 152 mg/dl Assessment and Plan 87yo female with: 1. sepsis 2nd to UTI +/- LLL pneumonia +/- cellulitis +/- acute sinusitis - Cont broad-spectrum IV antibiotics. Day #5 of IV cefepime/vanco. Repeat blood cx's continue to be negative. 2. enterococcal bacteremia - this would be unusual to be a contaminant. Will treat as pathogenic; continue IV vanco for now. Corynebacterium likely contaminant. enterococcus source -- skin? GI/? other? urine cx grew e. coli thus urine not source. has h/o gallstones - but LFTs are normal, NO Nausea, NO emesis, NO abdominal pain. Defer on gall bladder imaging for now unless exam/labs change. LFTs wnl today. 3. drooling - resolved. Suspect due to altered mental status and severe sinusitis? No acute stroke on MRI brain. Aspiration precautions. 4. LLL pneumonia - suspected - could be aspiration - broad-spectrum IV antibiotics, day #5 of such. 5. extensive RLE DVT - heparin infusion with coumadin. Noted that stool is heme+. INR today 1.7 with only 5mg of coumadin given. Will reduce coumadin to 2.5mg today. INR in am. 6. CKD stage 4 - creatinine stable, BMP am. 7. +troponin - myocardial demand ischemia 2nd to #1 (type 2 [place]). 8. dysphagia - nectar thick liquids; speech following. No issues overnight. 9. e. coli UTI - cefepime will suffice. 10. acute sinusitis - current abx will suffice. 11. lymphedema, left leg, with possible cellulitis - current abx will suffice. Cellulitis appears resolved. 12. metabolic encephalopathy - haldol IM prn; avoid benzos; treat underlying infections. Slow/modest improvement overnight. 13. HTN - stop metoprolol 2.5mg IV q6h. Continue oral agents. 14. extensive candidal rashes (groin, under breasts, etc) - diflucan 100mg daily x 7-10 days. 15. severe protein calorie malnutrition - add boost supplement + MVI. Hopefully has infections clear appetite will improve. 16. stage 2 pressure ulcer, right buttock - appreciate wound gericare aide teacher's recommendations. son updated by phone PT, OT both recommending rehab son aware of that recommendation Continued [facility] stay due to: inadequate po fluid intake, ambulation difficulties , multiple IV medications needed, other (confusion) Discharge planning: uncertain
[2017-11-21] MEDS ORDERED: FLUCONAZOLE 100 MG TAB PO ONE (18:30)
[2017-11-22] VITALS (19 sets, daily range): BP systolic 105–149; BP diastolic 46–72; PULSE 58–91; TEMP 34.6–37.2; O2SAT 91–96
[2017-11-22] MEDS: CEFEPIME IV 1,000 MG in SYRINGE 0 ML IV SCH (03:59)
[2017-11-22] MEDS: INSULIN ASPART 100 UNITS/ML 3 ML PEN SC SCH ×4 (06:30→21:00)
[2017-11-22] MEDS: HEPARIN 25,000 UNIT/500ML D5W 500 ML IV PRN ×3 (07:10→16:55)
[2017-11-22] MEDS ORDERED: VANCOMYCIN TROUGH ONE (07:15)
[2017-11-22 07:49] LABS: PTT PATIENT 72.8 SECONDS (21.0-31.0)
[2017-11-22 07:58] LABS: CALCIUM 8.2 mg/dl (8.5-10.1); CREATININE 0.84 mg/dl (0.60-1.20); POTASSIUM 3.9 mmol/L (3.5-5.1)
[2017-11-22] MEDS: FLUCONAZOLE 100 MG TAB PO SCH (08:07)
[2017-11-22] MEDS: TRIAMCINOLONE ACET 0.1% CR 80 GM TUBE EXT SCH ×3 (08:07→20:42)
[2017-11-22] MEDS: TRIAMCINOLONE ACET NASAL SPRAY 10.8ML BTL NAE SCH (08:07)
[2017-11-22] MEDS: PANTOprazole SOD 40 MG TAB PO SCH (08:08)
[2017-11-22] MEDS: ASPIRIN 81 MG ECTAB PO SCH (08:08)
[2017-11-22] MEDS: LISINOPRIL 20 MG TAB PO SCH (08:09)
[2017-11-22] MEDS: VANCOMYCIN INJ 750 MG in SODIUM CHLORIDE 0.9% 250ML 250 ML IV SCH (08:12)
--- NOTE | 2017-11-22 10:08 | Progress Note ---
Subjective Date of Service: Nov 22, 2017. Subjective Pt evaluation today including: physical exam, chart review, lab review, review of inpatient medication list Pain: patient denies pain PO Intake: very poor Voiding: best catheter in place overnight the patient slept deeply and this AM was difficult to arouse upon my arrival she was lethargic she only woke up and spoke once we did a rectal temp check when she awoke I asked if she had any pain and she said "no" tele with sinus lissy when she was sleeping and had several pauses, longest was 2 seconds unable to elicit a thorough ROS due to altered MS when we placed the rectal thermometer in the rectum there was gross, dark- maroon blood on the probe Problem List Medical Problems: (1) Altered mental status Status: Acute (2) Aspiration into airway Status: Acute (3) Bradycardia Status: Acute (4) Cellulitis Status: Acute (5) Deep vein blood clot of left lower extremity Status: Acute (6) Dehydration Status: Acute (7) Elevated troponin Status: Acute (8) Hypoxia Status: Acute (9) Left leg cellulitis Status: Acute (10) Pneumonia Status: Acute (11) Pneumonia Status: Acute (12) Sepsis Status: Acute (13) Sepsis Status: Acute (14) UTI (urinary tract infection) Status: Acute Objective Vital Signs Date Time Temp Pulse Resp B/P (MAP) Pulse Ox O2 Delivery O2 Flow Rate FiO2 11/22/17 09:32 36.3 11/22/17 09:22 34.6 11/22/17 08:05 124/64 (84) 11/22/17 07:40 36.4 91 16 105/46 (65) 91 Room Air 11/22/17 04:54 Room Air 11/22/17 04:12 36.3 58 20 149/52 (84) 96 Room Air 11/22/17 00:00 Room Air 11/21/17 23:23 36.3 58 20 135/63 (87) 97 Room Air 11/21/17 19:57 Room Air 11/21/17 19:17 36.3 66 16 149/74 (99) 95 Room Air 11/21/17 17:48 58 11/21/17 16:00 96 Room Air 11/21/17 15:03 36.3 60 16 126/83 (97) 91 Room Air 11/21/17 14:40 62 18 94 Room Air 11/21/17 12:33 66 160/72 11/21/17 12:00 96 Room Air 11/21/17 11:34 66 18 96 Room Air 11/21/17 11:11 36.5 63 18 162/59 (93) 99 Room Air Physical Exam General Appearance: no apparent distress, + pertinent finding (lethargic) Eyes: + pertinent finding (PERRL) ENT: + pertinent finding (MM dry; no drooling) Neck: no JVD Respiratory/Chest: no respiratory distress, no accessory muscle use, + decreased breath sounds (both bases) Cardiovascular: no gallop, + bradycardia, + systolic murmur (2/6 LSB) Abdomen: normal bowel sounds, non tender, soft, no organomegaly Extremities: + pedal edema (L>R; stasis changes b/l shins w/ no superimposed cellulitis ) Neurologic/Psychiatric: + pertinent finding (lethargic; no focal deficits although tone was poor throughout all 4 extremities) Skin: + pertinent finding (stasis changes b/l shins; buttock irritation with stage 2 ulcer - stable/improved) Laboratory Results Last 24 Hours Test 11/21/17 11:30 11/21/17 11:41 11/21/17 16:17 11/21/17 20:18 Bedside Glucose 160 mg/dl 152 mg/dl 165 mg/dl White Blood Count 6.78 K/uL Red Blood Count 3.37 M/uL Hemoglobin 10.1 g/dL Hematocrit 30.8 % Mean Corpuscular Volume 91.4 fL Mean Corpuscular Hemoglobin 30.0 pg Mean Corpuscular Hemoglobin Concent 32.8 g/dl RDW Standard Deviation 54.9 fL RDW Coefficient of Variation 16.7 % Platelet Count 133 K/uL Mean Platelet Volume 9.2 fL Prothrombin Time 17.7 SECONDS Prothromb Time International Ratio 1.7 Activated Partial Thromboplast Time 58.8 SECONDS Partial Thromboplastin Ratio 2.3 Sodium Level 142 mmol/L Potassium Level 4.3 mmol/L Chloride Level 112 mmol/L Carbon Dioxide Level 25 mmol/L Anion Gap 5.0 mmol/L Blood Urea Nitrogen 17 mg/dl Creatinine 0.90 mg/dl Est Creatinine Clear Calc Drug Dose 31.0 ml/min Estimated GFR () 66.2 Estimated GFR (Non- 57.1 BUN/Creatinine Ratio 18.7 Random Glucose 158 mg/dl Calcium Level 8.8 mg/dl Total Bilirubin 0.4 mg/dl Direct Bilirubin < 0.1 mg/dl Aspartate Amino Transf (AST/SGOT) 27 U/L Alanine Aminotransferase (ALT/SGPT) 29 U/L Alkaline Phosphatase 107 U/L Total Protein 6.2 gm/dl Albumin 2.3 gm/dl Test 11/22/17 07:15 11/22/17 07:25 11/22/17 08:51 Prothrombin Time 20.4 SECONDS Prothromb Time International Ratio 2.0 Activated Partial Thromboplast Time 72.8 SECONDS Partial Thromboplastin Ratio 2.8 Sodium Level 144 mmol/L Potassium Level 3.9 mmol/L Chloride Level 113 mmol/L Carbon Dioxide Level 27 mmol/L Anion Gap 5.0 mmol/L Blood Urea Nitrogen 18 mg/dl Creatinine 0.84 mg/dl Est Creatinine Clear Calc Drug Dose 33.3 ml/min Estimated GFR () 71.9 Estimated GFR (Non- 62.1 BUN/Creatinine Ratio 21.8 Random Glucose 88 mg/dl Calcium Level 8.2 mg/dl Vancomycin Level Trough 21.1 mcg/ml Bedside Glucose 94 mg/dl Assessment and Plan 87yo female with: 1. sepsis 2nd to UTI +/- LLL pneumonia +/- cellulitis +/- acute sinusitis -- vs another source?? Cont broad-spectrum IV antibiotics. Day #6 of IV cefepime/vanco. Adding flagyl IV to cover anaerobes in the event her gall bladder is some how playing a role in her infectious issues. Repeat blood cx's continue to be negative. 2. enterococcal bacteremia - this would be unusual to be a contaminant. Will treat as pathogenic; continue IV vanco for now. Corynebacterium likely contaminant. enterococcus source -- skin? GI/? other? urine cx grew e. coli thus urine not source. has h/o gallstones - will obtain RUQ u/s this am; add flagyl IV. 3. drooling - resolved. Suspect due to altered mental status and severe sinusitis? No acute stroke on MRI brain. Aspiration precautions. 4. LLL pneumonia - suspected - could be aspiration - broad-spectrum IV antibiotics, day #6 of such. 5. extensive RLE DVT - heparin infusion with coumadin. Noted that stool is heme+. INR today 2. Stool with gross blood this am. Recheck CBC. If any significant drop in H/H and/or continued GI bleeding could potentially need IVC filter. 6. CKD stage 4 - creatinine stable, BMP again in am. 7. +troponin - myocardial demand ischemia 2nd to #1 (type 2 [place]). 8. dysphagia - nectar thick liquids. 9. e. coli UTI - cefepime will suffice. 10. acute sinusitis - current abx will suffice. 11. lymphedema, left leg, with possible cellulitis - current abx will suffice. Cellulitis resolved. 12. metabolic encephalopathy - yesterday AM had mild confusion but was much better than previous days. Today is quite lethargic once again. MRI brain was negative for acute stroke 48 hours ago. Check ammonia. Check VBG. Checking gall bladder u/s to exclude cholecystitis. I still suspect this issue is from sepsis. 13. HTN - continue current oral agents. 14. extensive candidal rashes (groin, under breasts, etc) - diflucan 100mg daily x 7-10 days. 15. severe protein calorie malnutrition - add boost supplement + MVI. Hopefully as her infections clear appetite will improve. 16. stage 2 pressure ulcer, right buttock - appreciate wound gericare aide teacher's recommendations. 17. sinus bradycardia with sinus pauses - avoid AV fransisco agents. These occurred this am when she was quite lethargy. TSH 08/2017 was wnl. Consider reconsulting cardiology given her h/o PAF and now sinus lissy w/ pauses. will update son Continued [facility] stay due to: abnormal vital signs, inadequate po fluid intake, voiding difficulties, ambulation difficulties, multiple IV medications needed, other (confusion) Discharge planning: uncertain
[2017-11-22] MEDS: NSS + 20MEQ KCL 1000ML 1,000 ML IV SCH ×2 (10:13→20:42)
--- NOTE | 2017-11-22 10:21 | DIAGNOSTIC IMAGING REPORT ---
BILIARY ULTRASOUND CLINICAL HISTORY: Bacteremia. Possible acute cholecystitis. COMPARISON STUDY: 05/01/2013 FINDINGS: The pancreas appears sonographically normal. The gallbladder is stone filled. There is no ductal dilatation. The common bile duct measures 4 mm. There is no right-sided hydronephrosis. There are tiny scattered echogenic foci within the right lobe of the liver, similar to the preceding study. IMPRESSION: Cholelithiasis. No evidence of ductal dilatation. Electronically signed by: Chris Espinoza M.D. 11/22/2017 10:19 AM Dictated Date/Time: 11/22/2017 10:17 AM
[2017-11-22] MEDS: METRONIDAZOLE / NSS 500 MG in PREMIXED NSS 100 ML IV SCH ×2 (10:35→17:28)
[2017-11-22 13:51] LABS: HEMOGLOBIN 8.6 g/dL (12.0-16.0); MEAN CELL VOLUME 91.2 fL (80-100); MEAN CORPUSCULAR HEMOGLOBIN 30.2 pg (25-34); MEAN CORPUSCULAR HGB CONC 33.1 g/dl (32-36); MEAN PLATELET VOLUME 9.1 fL (7.4-10.4); PLATELET COUNT 139 K/uL (130-400); RED CELL DISTRIBUTION WIDTH CV 16.5 % (11.5-14.5); RED CELL DISTRIBUTION WIDTH SD 54.1 fL (36.4-46.3)
--- NOTE | 2017-11-22 14:11 | Pharmacy Progress Note ---
Pharmacy Abx Dose Short Note Date of Service Nov 22, 2017. Assessment & Plan Assessment 87 year old female receiving Vancomycin and cefepime for treatment of pneumonia/ enterococcal bacteremia. Day # 6 of antimicrobial therapy. Cefepime now a consult due to crcl above 30ml/min x 2 days. Item Value Date Time Vancomycin Level Trough 21.1 mcg/ml 11/22/17 0715 Plan Vancomycin * Trough level of 21.1 mcg/mL is supratherapeutic. * Change to 750 mg IV every 26 hours * Goal trough level 15 to 20 mcg/mL * Repeat trough level if vanc to extend beyond 10 days. Cefepime * Change to 2 gm Q24 hours for crcl 30-60 Pharmacy will continue to follow and will adjust dose/frequency as necessary. Thank you.
[2017-11-22 15:05] LABS: PTT PATIENT 98.6 SECONDS (21.0-31.0)
[2017-11-22] MEDS: WARFARIN SOD 2.5 MG TAB PO SCH (16:00)
[2017-11-22] MEDS: DEXAMETHASONE INJ 4 MG in SYRINGE 0 ML IV SCH (21:28)
[2017-11-22 23:02] LABS: PTT PATIENT 41.3 SECONDS (21.0-31.0)
[2017-11-23] VITALS (10 sets, daily range): BP systolic 147–181; BP diastolic 57–80; PULSE 70–88; TEMP 36.4–37; O2SAT 90–94
[2017-11-23] MEDS: DEXAMETHASONE INJ 4 MG in SYRINGE 0 ML IV SCH ×6 (00:27→23:45)
[2017-11-23] MEDS ORDERED: HEPARIN IV BOLUS 2,000 UNIT in SYRINGE 0 ML IV ONE (00:45)
[2017-11-23] MEDS: HEPARIN 25,000 UNIT/500ML D5W 500 ML IV PRN (00:47)
[2017-11-23] MEDS: METRONIDAZOLE / NSS 500 MG in PREMIXED NSS 100 ML IV SCH ×2 (01:55→09:17)
[2017-11-23] MEDS ORDERED: CEFEPIME IV 2,000 MG in SYRINGE 7.5 ML IV SCH (04:00)
[2017-11-23] MEDS: NSS + 20MEQ KCL 1000ML 1,000 ML IV SCH ×2 (05:58→21:31)
[2017-11-23] MEDS: INSULIN ASPART 100 UNITS/ML 3 ML PEN SC SCH ×4 (06:30→21:29)
[2017-11-23 06:58] LABS: HEMATOCRIT 28.1 % (37-47); HEMOGLOBIN 9.1 g/dL (12.0-16.0); MEAN CELL VOLUME 91.5 fL (80-100); MEAN CORPUSCULAR HEMOGLOBIN 29.6 pg (25-34); MEAN CORPUSCULAR HGB CONC 32.4 g/dl (32-36); MEAN PLATELET VOLUME 9.6 fL (7.4-10.4); PLATELET COUNT 191 K/uL (130-400); RED CELL DISTRIBUTION WIDTH CV 16.9 % (11.5-14.5); RED CELL DISTRIBUTION WIDTH SD 54.9 fL (36.4-46.3); WHITE BLOOD COUNT 5.67 K/uL (4.8-10.8)
[2017-11-23 07:16] LABS: INR 2.5 (0.9-1.1)
[2017-11-23 07:17] LABS: PTT PATIENT 66.2 SECONDS (21.0-31.0)
[2017-11-23] MEDS: TRIAMCINOLONE ACET 0.1% CR 80 GM TUBE EXT SCH ×3 (08:03→21:26)
[2017-11-23] MEDS: FLUCONAZOLE 100 MG TAB PO SCH (08:03)
[2017-11-23] MEDS: TRIAMCINOLONE ACET NASAL SPRAY 10.8ML BTL NAE SCH (08:03)
[2017-11-23] MEDS: PANTOprazole SOD 40 MG TAB PO SCH (08:04)
[2017-11-23] MEDS: LISINOPRIL 20 MG TAB PO SCH (08:04)
[2017-11-23] MEDS: ASPIRIN 81 MG ECTAB PO SCH (08:04)
[2017-11-23] MEDS: VANCOMYCIN INJ 750 MG in SODIUM CHLORIDE 0.9% 250ML 250 ML IV SCH (10:31)
[2017-11-23 10:46] LABS: BASO % 0.2 %; BASO ABS # 0.01 K/uL (0-0.2); IG# 0.08 K/uL (0.00-0.02); LYMPH ABS # 0.46 K/uL (1.2-3.4); MONO % 0.7 %; MONO ABS # 0.04 K/uL (0.11-0.59); NEUT % 89.7 %; NEUT ABS # 5.13 K/uL (1.4-6.5)
[2017-11-23] MEDS: WARFARIN SOD 2.5 MG TAB PO SCH (16:44)
[2017-11-23] MEDS ORDERED: INSULIN GLARGINE SOLOSTAR 100 UNITS/ML 3 ML PEN SC SCH (21:00)
--- NOTE | 2017-11-23 22:34 | Progress Note ---
Subjective Date of Service: Nov 23, 2017. Subjective Pt evaluation today including: conversation w/ patient, conversation w/ family (son, Ez, by phone), physical exam, chart review, lab review, review of inpatient medication list Pain: none voiced during the visit PO Intake: ate very well today! Voiding: best catheter in place remarkable turn-around overnight per staff slept all night last night but then awoke this am -- was conversing, eating breakfast, knew she was in the hospital in [place], etc. when I saw the patient she said "I feel pretty well" c/o weakness but no dyspnea, orthopnea, nausea, emesis, or abd pain tele - no pauses, AV block, or dysrhythmia Problem List Medical Problems: (1) Altered mental status Status: Acute (2) Aspiration into airway Status: Acute (3) Bradycardia Status: Acute (4) Cellulitis Status: Acute (5) Deep vein blood clot of left lower extremity Status: Acute (6) Dehydration Status: Acute (7) Elevated troponin Status: Acute (8) Hypoxia Status: Acute (9) Left leg cellulitis Status: Acute (10) Pneumonia Status: Acute (11) Pneumonia Status: Acute (12) Sepsis Status: Acute (13) Sepsis Status: Acute (14) UTI (urinary tract infection) Status: Acute Review of Systems Constitutional: + problem reported (no further hypothermia), No fever, No chills Cardiac: No chest pain, No orthopnea Abdomen: No pain Neurologic: + weakness Skin: + rash, No itch Objective Vital Signs Date Time Temp Pulse Resp B/P (MAP) Pulse Ox O2 Delivery O2 Flow Rate FiO2 11/23/17 18:56 37.0 86 20 167/80 (109) 93 Room Air 11/23/17 16:00 90 Room Air 11/23/17 15:05 36.5 80 16 149/57 (87) 90 Room Air 11/23/17 12:08 93 Room Air 11/23/17 11:24 36.4 73 16 147/67 (93) 93 Room Air 11/23/17 08:01 93 Room Air 11/23/17 07:16 36.5 70 20 150/75 (100) 93 11/23/17 03:47 Room Air 11/23/17 03:34 36.6 80 20 150/72 (98) 92 Room Air 11/23/17 00:00 Room Air 11/22/17 23:41 36.8 60 16 133/62 (85) 95 Room Air Physical Exam General Appearance: no apparent distress, + pertinent finding (looks remarkably better ! -- a/o x 3, answered all questions) ENT: pharynx normal Neck: no JVD Respiratory/Chest: no respiratory distress, no accessory muscle use, + decreased breath sounds (left base) Cardiovascular: regular rate, rhythm, no gallop, + systolic murmur (2/6 LLSB) Abdomen: normal bowel sounds, non tender, soft, no organomegaly Extremities: + pedal edema, + swelling (1-2+ on left, <1+ on right; pulses 2+ b /l; warm) Neurologic/Psychiatric: alert, oriented x 3 Skin: + rash (generalized - back, torso, abdominal wall, limbs; soles of feet/ palms of hands spared; papular, erythematous ) Laboratory Results Last 24 Hours Test 11/23/17 06:37 11/23/17 07:29 11/23/17 11:40 11/23/17 16:10 White Blood Count 5.67 K/uL Red Blood Count 3.07 M/uL Hemoglobin 9.1 g/dL Hematocrit 28.1 % Mean Corpuscular Volume 91.5 fL Mean Corpuscular Hemoglobin 29.6 pg Mean Corpuscular Hemoglobin Concent 32.4 g/dl Platelet Count 191 K/uL Mean Platelet Volume 9.6 fL Neutrophils (%) (Auto) 89.7 % Lymphocytes (%) (Auto) 8.0 % Monocytes (%) (Auto) 0.7 % Eosinophils (%) (Auto) 0.0 % Basophils (%) (Auto) 0.2 % Neutrophils # (Auto) 5.13 K/uL Lymphocytes # (Auto) 0.46 K/uL Monocytes # (Auto) 0.04 K/uL Eosinophils # (Auto) 0.00 K/uL Basophils # (Auto) 0.01 K/uL RDW Standard Deviation 54.9 fL RDW Coefficient of Variation 16.9 % Immature Granulocyte % (Auto) 1.4 % Immature Granulocyte # (Auto) 0.08 K/uL Nucleated RBC Absolute Count (auto) 0.00 K/uL Nucleated Red Blood Cells % 0.0 % Prothrombin Time 25.6 SECONDS Prothromb Time International Ratio 2.5 Activated Partial Thromboplast Time 66.2 SECONDS Partial Thromboplastin Ratio 2.5 Bedside Glucose 163 mg/dl 321 mg/dl 253 mg/dl Test 11/23/17 20:13 Bedside Glucose 288 mg/dl Assessment and Plan 87yo female with: 1. sepsis 2nd to UTI +/- LLL pneumonia +/- cellulitis +/- acute sinusitis. Despite 6 days of broad-spectrum IV antibiotics she had recurrent hypothermia with altered MS yesterday. gall bladder u/s w/o cholecystitis. most recent blood cx's were negative. we added stress-dose steroids as her cortisol level was only 7 yesterday; did this lead to clinical improvement and resolution of her hypothermia?? she now has an extensive rash (not pruritic oddly) despite the steroids yesterday. drug reaction to flagyl? cefepime? vanco? other? will stop the flagyl stop the cefepime (had 6 days of this - would have easily treated the UTI) continue vanco for enterococcus in blood continue steroids but wean dose today 2. enterococcal bacteremia - this would be unusual to be a contaminant. Have treated as pathogenic; continue IV vanco for now. Day #7 of vanco. enterococcus source -- skin? GI/? other? urine cx grew e. coli thus urine not source. 3. drooling - resolved. Suspect due to altered mental status and severe sinusitis? No acute stroke on MRI brain. Aspiration precautions. 4. LLL pneumonia - could be aspiration - broad-spectrum IV antibiotics, day #7 of such. 5. extensive RLE DVT - heparin infusion with coumadin. Noted that stool is heme+ and has had some gross blood (maroon) at times. INR today 2.5. Needs 1 more day of "overlap" therapy and then can d/c heparin drip AM of . H/H with slight drop - monitor carefully. Discussed IVC filter placement with family yesterday - we are not going to pursue such at this time. 6. CKD stage 4 - creatinine stable. 7. +troponin - myocardial demand ischemia 2nd to #1 (type 2 [place]). 8. dysphagia - nectar thick liquids. 9. e. coli UTI - has completed 7 days of appropriate Rx. 10. acute sinusitis - received 7 days of cefepime - should suffice. 11. lymphedema, left leg, with possible cellulitis - current abx sufficed. Cellulitis resolved. 12. metabolic encephalopathy - ongoing since admission. was lethargic/obtunded yesterday and remained so for nearly 24 hours. she "awoke" today a/o x 3 ! uncertain of what made her clinically better -- stress dose steroids?? MRI brain with old stroke but no new stroke. 13. HTN - continue current oral agents. 14. extensive candidal rashes (groin, under breasts, etc) - diflucan 100mg daily x 7-10 days. day #3 today. 15. severe protein calorie malnutrition - add boost supplement + MVI. Hopefully as her infections clear appetite will improve. 16. stage 2 pressure ulcer, right buttock - appreciate wound personal care attendant's recommendations. 17. sinus bradycardia - has typically occurred only when she is severely hypothermic. At times she has blocked PACs which have been mistaken for sinus pauses. I reviewed the blocked PACs w/ cardiology - nothing to do at this time. 18. FEN - diet as tolerated w/ nectar thick liquids; cont IVF at rate of 50cc/ hr. Labs am. 19. generalized rash - looks like drug reaction. This started in the midst of adding flagyl - will stop flagyl. She has PCN allergy so has 5-10% change of cephalosporin allergy - stop the cefepime. All in all, however, will be difficult to know which agent caused the rash. Cont steroids IV. son updated 11/23/17 cont DNR status and hopefully today's improvement will be sustained if she gets through this complicated admission she will need SNF placement due to profound weakness Continued [facility] stay due to: voiding difficulties, ambulation difficulties, multiple IV medications needed Discharge planning: uncertain
[2017-11-24] VITALS (10 sets, daily range): BP systolic 143–169; BP diastolic 60–89; PULSE 74–86; TEMP 36.3–36.8; O2SAT 93–96
[2017-11-24 06:36] LABS: HEMATOCRIT 27.1 % (37-47); HEMOGLOBIN 8.8 g/dL (12.0-16.0); MEAN CELL VOLUME 91.2 fL (80-100); MEAN CORPUSCULAR HEMOGLOBIN 29.6 pg (25-34); MEAN CORPUSCULAR HGB CONC 32.5 g/dl (32-36); MEAN PLATELET VOLUME 9.4 fL (7.4-10.4); PLATELET COUNT 311 K/uL (130-400); RED CELL DISTRIBUTION WIDTH CV 17.2 % (11.5-14.5); RED CELL DISTRIBUTION WIDTH SD 53.9 fL (36.4-46.3); WHITE BLOOD COUNT 14.92 K/uL (4.8-10.8)
[2017-11-24 06:49] LABS: INR 2.9 (0.9-1.1)
[2017-11-24 06:51] LABS: PTT PATIENT 56.2 SECONDS (21.0-31.0)
[2017-11-24 07:02] LABS: CALCIUM 8.3 mg/dl (8.5-10.1); CREATININE 0.95 mg/dl (0.60-1.20); POTASSIUM 4.3 mmol/L (3.5-5.1)
[2017-11-24] MEDS: DEXAMETHASONE INJ 4 MG in SYRINGE 0 ML IV SCH ×3 (08:56→23:49)
[2017-11-24] MEDS: LISINOPRIL 20 MG TAB PO SCH (08:57)
[2017-11-24] MEDS: ASPIRIN 81 MG ECTAB PO SCH (08:57)
[2017-11-24] MEDS: FLUCONAZOLE 100 MG TAB PO SCH (08:57)
[2017-11-24] MEDS: PANTOprazole SOD 40 MG TAB PO SCH (08:58)
[2017-11-24] MEDS: INSULIN ASPART 100 UNITS/ML 3 ML PEN SC SCH ×4 (09:03→21:16)
[2017-11-24] MEDS: TRIAMCINOLONE ACET 0.1% CR 80 GM TUBE EXT SCH ×3 (09:49→21:14)
[2017-11-24] MEDS: TRIAMCINOLONE ACET NASAL SPRAY 10.8ML BTL NAE SCH (09:49)
[2017-11-24] MEDS ORDERED: VANCOMYCIN TROUGH ONE (11:30)
[2017-11-24] MEDS: VANCOMYCIN INJ 750 MG in SODIUM CHLORIDE 0.9% 250ML 250 ML IV SCH (12:35)
[2017-11-24] MEDS: SODIUM CHLORIDE 0.45% 1000ML 1,000 ML IV SCH (13:02)
--- NOTE | 2017-11-24 13:28 | Pharmacy Progress Note ---
Pharmacy Abx Dose Short Note Date of Service Nov 24, 2017. Assessment & Plan Assessment Ms. Correia's trough came back therapeutic at 16.8mcg/mL. Renal fxn has been stable throughout hospital admission. No further vanco lvls ordered at this juncture. If there is a profound change in renal fxn or clinical status, another trough may be warranted. Pharmacy will continue to follow and will adjust dose/frequency as necessary. Thank you.
[2017-11-24] MEDS: WARFARIN SOD 2.5 MG TAB PO SCH (16:20)
--- NOTE | 2017-11-24 18:46 | Hospitalist Progress Note ---
Hospitalist Progress Note Date of Service Nov 24, 2017. Subjective Pt evaluation today including: conversation w/ patient, conversation w/ family Patient has no complaints. RN reports that she still sounds like she is aspirating and coughing with eating. Her 2 sons are at the bedside and reports they really feel like they will not be able to take her home at this point as she is not moving around much as she used to. She is much more alert and awake since starting on the dexamethasone, although still confused especially in the evenings as per nursing and her sons. No further bloody stools today. Sons are concerned about this especially in the setting of anticoagulation. They believe she had a colonoscopy many years ago Telemetry with normal sinus rhythm and blocked PACs All Other Systems: Reviewed and Negative Objective Vital Signs Date Time Temp Pulse Resp B/P (MAP) Pulse Ox O2 Delivery O2 Flow Rate FiO2 11/24/17 15:50 95 Room Air 11/24/17 15:50 36.7 74 16 169/69 (102) 95 Room Air 11/24/17 12:15 36.8 77 16 166/89 (114) 95 Room Air 11/24/17 12:00 95 Room Air 11/24/17 08:30 36.3 86 16 143/88 (106) 93 Room Air 11/24/17 08:30 93 Room Air 11/24/17 08:00 96 Room Air 11/24/17 05:00 36.3 75 18 167/83 (111) 96 11/24/17 04:00 Room Air 11/23/17 23:59 Room Air 11/23/17 23:30 36.6 88 18 181/72 (108) 94 Room Air 11/23/17 20:00 90 Room Air 11/23/17 18:56 37.0 86 20 167/80 (109) 93 Room Air Physical Exam General Appearance: no apparent distress (Kyphotic, sitting in bed eating dinner, follows commands and answers questions) Eyes: normal inspection, sclerae normal ENT: hearing grossly normal Neck: trachea midline Respiratory/Chest: no respiratory distress, no accessory muscle use, + decreased breath sounds (And crackles at the bases) Cardiovascular: regular rate, rhythm, no murmur, + pertinent finding (Chronic large lymphedema in the left lower extremity similar to previous, right leg minimal edema) Abdomen: normal bowel sounds, non tender, soft Extremities: no calf tenderness, + swelling (As above) Neurologic/Psychiatric: alert, + pertinent finding (Oriented to person and place) Skin: warm/dry, + rash (Scattered erythematous maculopapular diffuse rash on the trunk which is resolving as per RN) Laboratory Results Last 24 Hours Test 11/23/17 20:13 11/24/17 00:09 11/24/17 06:07 11/24/17 07:09 Bedside Glucose 288 mg/dl 205 mg/dl 168 mg/dl White Blood Count 14.92 K/uL Red Blood Count 2.97 M/uL Hemoglobin 8.8 g/dL Hematocrit 27.1 % Mean Corpuscular Volume 91.2 fL Mean Corpuscular Hemoglobin 29.6 pg Mean Corpuscular Hemoglobin Concent 32.5 g/dl RDW Standard Deviation 53.9 fL RDW Coefficient of Variation 17.2 % Platelet Count 311 K/uL Mean Platelet Volume 9.4 fL Prothrombin Time 30.0 SECONDS Prothromb Time International Ratio 2.9 Activated Partial Thromboplast Time 56.2 SECONDS Partial Thromboplastin Ratio 2.2 Sodium Level 146 mmol/L Potassium Level 4.3 mmol/L Chloride Level 118 mmol/L Carbon Dioxide Level 22 mmol/L Anion Gap 6.0 mmol/L Blood Urea Nitrogen 28 mg/dl Creatinine 0.95 mg/dl Est Creatinine Clear Calc Drug Dose 31.9 ml/min Estimated GFR () 62.0 Estimated GFR (Non- 53.5 BUN/Creatinine Ratio 29.3 Random Glucose 165 mg/dl Calcium Level 8.3 mg/dl Magnesium Level 1.9 mg/dl Test 11/24/17 11:07 11/24/17 11:50 11/24/17 15:51 Bedside Glucose 238 mg/dl 216 mg/dl Vancomycin Level Trough 16.8 mcg/ml Assessment and Plan Pt is an 87 yo female with a h/o CVA with left hemiparesis, HTN, chronic diastolic CHF, DVT/PE, lymphedema and chronic venous stasis changes left leg, h/ o aspiration PNA, mitral stenosis, aortic regurg, pleural effusion, prediabetes , here with acute encephalopathy, hypothermia, with UTI and sepsis. She then later developed recurrent aspiration pneumonia, had evidence of acute sinusitis , enterococcus bacteremia, and found to have adrenal insufficiency. Also found to have acute RLE DVT. Sepsis 2nd to UTI +/- LLL pneumonia +/- cellulitis +/- acute sinusitis, enterococcus bacteremia/hypothermia. Despite 6 days of broad-spectrum IV antibiotics she had recurrent hypothermia with altered MS which then improved with starting IV Decadron for adrenal insufficiency gall bladder u/s w/o cholecystitis. most recent blood cx's continue to be negative. we added stress-dose steroids as her cortisol level was only 7; this seems to have lead to clinical improvement and resolution of her hypothermia -Taper stress dose steroids down over the next few days Drug eruption-rash is resolving, possible drug reaction to flagyl? cefepime? vanco? other? Now resolving with stopping Flagyl and cefepime Enterococcal bacteremia - this would be unusual to be a contaminant. Have treated as pathogenic; continue IV vanco for now. Day #8 of vanco. enterococcus source -- skin? GI/? other? urine cx grew e. coli thus urine not source. -May need PICC line to complete 6 days of therapy -We will consult infectious disease for opinion in the morning on course of treatment Aspiration/drooling/suspected aspiration pneumonia of left lower lobe-drooling was suspect due to altered mental status and severe sinusitis? No acute stroke on MRI brain. Aspiration precautions. RN reports patient continues to be possibly aspirating with eating, however she is trying to eat in bed and slouched over to the right given her hemiparesis. Completed 6 days of cefepime as well as several days of Flagyl, but then had drug eruption as above and antibiotics were stopped. -Speech therapy following and was considering video swallow on Thursday-they have not seen her yet this week -Reconsult speech therapy to see about video swallow for tomorrow -Discussed sitting upright in the bed or getting out of bed to chair to eat -No further antibiotics at this time -[place] thickened liquids and mechanical soft, slippery diet Extensive RLE DVT - heparin infusion overlapped with coumadin. Noted that stool is heme+ and has had some gross blood (maroon) at times-none since yesterday. 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 Discussed IVC filter placement with family yesterday - we are not going to pursue such at this time. -If has drop in hemoglobin or more gross hematochezia, would have to reconsider IVC filter and stopping anticoagulation CKD stage 4/hypernatremia creatinine stable. Sodium slightly increased at 146 today -Renally dose medications -Avoid nephrotoxins -Switch fluids to half-normal saline and follow PRP +troponin - myocardial demand ischemia 2nd to #1 (type 2 ID). e. coli UTI - has completed 7 days of appropriate Rx. acute sinusitis - received 7 days of cefepime - should suffice. lymphedema, left leg, with possible cellulitis - current abx sufficed. Cellulitis resolved. Acute metabolic encephalopathy - ongoing since admission. Now much improved on IV Decadron uncertain of what made her clinically better -- stress dose steroids?? MRI brain with old stroke but no new stroke. -Continue to treat all infections HTN -hypertensive at times -Continue lisinopril -Consider adding additional medication or increasing lisinopril if remains uncontrolled extensive candidal rashes (groin, under breasts, etc) - diflucan 100mg daily x 7 -10 days. day #4 today. severe protein calorie malnutrition - added boost supplement + MVI. Hopefully as her infections clear appetite will improve. stage 2 pressure ulcer, right buttock POA appreciate wound technical healthcare consultant's recommendations. sinus bradycardia - has typically occurred only when she is severely hypothermic. At times she has blocked PACs which have been mistaken for sinus pauses. I reviewed the blocked PACs w/ cardiology - nothing to do at this time. sebastian updated at the bedside Prophylaxis-Coumadin Disposition-reconsult PT as will definitely need SNF placement DNR
[2017-11-24] MEDS: INSULIN GLARGINE SOLOSTAR 100 UNITS/ML 3 ML PEN SC SCH (21:17)
[2017-11-25] VITALS (9 sets, daily range): BP systolic 148–193; BP diastolic 63–80; PULSE 65–76; TEMP 36.4–36.8; O2SAT 95–96
[2017-11-25 06:38] LABS: HEMATOCRIT 27.4 % (37-47); HEMOGLOBIN 8.8 g/dL (12.0-16.0); MEAN CELL VOLUME 92.3 fL (80-100); MEAN CORPUSCULAR HEMOGLOBIN 29.6 pg (25-34); MEAN CORPUSCULAR HGB CONC 32.1 g/dl (32-36); MEAN PLATELET VOLUME 9.5 fL (7.4-10.4); PLATELET COUNT 368 K/uL (130-400); RED CELL DISTRIBUTION WIDTH CV 17.8 % (11.5-14.5); RED CELL DISTRIBUTION WIDTH SD 57.7 fL (36.4-46.3); WHITE BLOOD COUNT 10.82 K/uL (4.8-10.8)
[2017-11-25 06:47] LABS: INR 3.4 (0.9-1.1)
[2017-11-25 07:15] LABS: CALCIUM 8.6 mg/dl (8.5-10.1); CREATININE 0.9 mg/dl (0.60-1.20); POTASSIUM 4.3 mmol/L (3.5-5.1)
[2017-11-25] MEDS: DEXAMETHASONE INJ 4 MG in SYRINGE 0 ML IV SCH ×2 (09:01→20:18)
[2017-11-25] MEDS: TRIAMCINOLONE ACET NASAL SPRAY 10.8ML BTL NAE SCH (09:01)
[2017-11-25] MEDS: TRIAMCINOLONE ACET 0.1% CR 80 GM TUBE EXT SCH ×3 (09:02→21:12)
[2017-11-25] MEDS: PANTOprazole SOD 40 MG TAB PO SCH (09:02)
[2017-11-25] MEDS: FLUCONAZOLE 100 MG TAB PO SCH (09:02)
[2017-11-25] MEDS: ASPIRIN 81 MG ECTAB PO SCH (09:05)
[2017-11-25] MEDS: LISINOPRIL 20 MG TAB PO SCH (09:17)
[2017-11-25] MEDS: INSULIN ASPART 100 UNITS/ML 3 ML PEN SC SCH ×4 (09:21→21:13)
[2017-11-25] MEDS: SODIUM CHLORIDE 0.45% 1000ML 1,000 ML IV SCH (09:22)
--- NOTE | 2017-11-25 11:18 | Progress Note ---
Progress Note Date of Service Nov 25, 2017. Progress Note ID Consult Dictated #[id number] A/P: 1. E. facium sepsis 2. UTI - E. coli -Can continue vanco x 2 more days, then d/c -Completed course of cefepime for uti -Thank you
[2017-11-25] MEDS: HydrALAZINE HCL 20 MG/ML VIAL IV. PRN (11:36)
--- NOTE | 2017-11-25 11:49 | INFECT. DISEASE CONSULTATION ---
DATE OF CONSULTATION: 11/25/2017 HISTORY OF PRESENT ILLNESS: This is an 87-year-old female who was admitted to the hospital secondary to a change in mental status. She currently is unable to provide any review of systems. Infectious diseases was consulted for a positive blood culture which grew Enterococcus faecium on the . This was out of 1/2 sets in the Emergency Room. Repeat blood cultures were obtained on the and those are negative and final. The patient has been on vancomycin and is tolerating this well. She did have a positive urinalysis on the that had greater than 30 wbc's, large leukocyte esterase and 4+ bacteria. Her urine culture did grow E. coli which was resistant to ampicillin and gentamicin only. She did complete a course of cefepime during this admission. She is now on a prednisone taper and her white blood cell count is mildly elevated at 10.8, but otherwise has been normal. She currently is on vancomycin and fluconazole and appears to be tolerating this well. She has been on vancomycin since the 18 of November. An echocardiogram was also done as part of her workup and was negative for vegetation. She had a gallbladder ultrasound on the which was negative and her most recent chest x-ray was on the showing atelectasis. She currently appears comfortable but is unable to answer any question. She is also being followed with aspiration precautions and she did have positive blood in her stool and she is being followed for anemia as well. She has been afebrile and appears to be tolerating antibiotics well. PAST MEDICAL HISTORY: Significant for hypertension, history of PE and history of urinary tract infection in the past. FAMILY HISTORY: Noncontributory. SOCIAL HISTORY: Negative for tobacco use, alcohol use or drug use. ALLERGIES: SHE DOES HAVE ALLERGIES TO PENICILLIN AND AZITHROMYCIN; I do not know reactions to these. MEDICATIONS: Include lisinopril, insulin, hydralazine, dexamethasone, vancomycin, Diflucan, Protonix, Haldol, Nasacort, aspirin, Tylenol, Dulcolax, milk of magnesia, and [place] enemas. PHYSICAL EXAMINATION: VITAL SIGNS: She is afebrile, pulse 65, respiratory rate 18, blood pressure 185/77, oxygen saturation is 95% on room air. GENERAL: She is awake and appears comfortable but is nonverbal on my examination. HEENT: Mucous membranes are dry. HEART: Regular. I do not auscultate a murmur. LUNGS: Clear anteriorly with decreased breath sounds bilaterally. ABDOMEN: Soft and nondistended. EXTREMITIES: There is no edema. LABORATORY STUDIES: CBC today reveals a white blood cell count of 10.8, hemoglobin 8.8, and platelets are 368. Chemistry panel reveals a sodium of 143, potassium 4.3, chloride 116, bicarbonate 20, BUN 32, creatinine is 0.9, glucose 152. Most recent LFTs were done on the are well within normal limits. Again, urinalysis had large leukocyte esterase, greater than 30 wbc's and 4+ bacteria. A vancomycin trough done yesterday was 16.8. Flu swab was negative in the ER. A urine culture from the grew E. coli resistant to ampicillin and gentamicin only. One 1 out of 2 blood cultures on the is growing Enterococcus faecium, which is sensitive to both vancomycin and ampicillin. Repeat blood cultures on the are negative and final. IMAGING: As above. 1. Positive blood culture for enterococcus. 2. Urinary tract infection with Escherichia coli. She has subsequently been treated with a course of cefepime for her Escherichia coli urinary tract infection and I would not recommend any additional antibiotics. Her repeat blood cultures were negative and her echocardiogram was negative. I would recommend no more than 10 days of vancomycin. I believe this is day #8 and she would require 2 additional days of vancomycin and then this can be discontinued as well. Thank you for this consultation.
--- NOTE | 2017-11-25 12:22 | Hospitalist Progress Note ---
Hospitalist Progress Note Date of Service Nov 25, 2017. Subjective Pt evaluation today including: conversation w/ patient Patient has no complaints. Denies shortness of breath or chest pain. Denies abdominal pain. Afebrile. Telemetry with blocked PACs, sinus rhythm in the 60s-80s, longest pause was 1.7 seconds overnight. Blood pressures have been elevated here. No further reported bloody stools. All Other Systems: Reviewed and Negative Objective Vital Signs Date Time Temp Pulse Resp B/P (MAP) Pulse Ox O2 Delivery O2 Flow Rate FiO2 11/25/17 11:31 36.4 69 16 193/68 (109) 95 Room Air 181/73 (109) 11/25/17 08:00 95 Room Air 2.0 11/25/17 07:07 36.4 65 18 185/77 (113) 95 Room Air 11/25/17 04:00 36.8 76 20 167/63 (97) 95 Room Air 11/25/17 04:00 Room Air 11/24/17 23:59 Room Air 11/24/17 23:50 36.6 81 20 158/60 (92) 94 Room Air 11/24/17 20:00 95 Room Air 11/24/17 19:41 36.7 85 20 155/66 (95) 94 Room Air 11/24/17 16:00 95 Room Air 11/24/17 15:50 95 Room Air 11/24/17 15:50 36.7 74 16 169/69 (102) 95 Room Air 11/24/17 12:15 36.8 77 16 166/89 (114) 95 Room Air 11/24/17 12:00 95 Room Air Physical Exam General Appearance: no apparent distress (Kyphotic) Eyes: normal inspection, sclerae normal ENT: hearing grossly normal Neck: trachea midline Respiratory/Chest: no respiratory distress, no accessory muscle use, + decreased breath sounds (At bases with some crackles bilaterally) Cardiovascular: regular rate, rhythm, no murmur, + pertinent finding (Chronic lower extremity edema left much greater than right, 3+ left, 2+ right, left upper extremity with 2+ pitting edema) Abdomen: normal bowel sounds, non tender, soft, + pertinent finding (Figueroa catheter in place draining clear yellow urine) Extremities: no calf tenderness, + pertinent finding (Weakness in left upper and lower extremity with flexion contractures in the left upper extremity) Neurologic/Psychiatric: alert, normal mood/affect Skin: warm/dry, + rash (Diffuse but resolving erythematous maculopapular rash on trunk and lower extremities) Laboratory Results Last 24 Hours Test 11/24/17 15:51 11/24/17 20:40 11/25/17 06:19 11/25/17 07:23 Bedside Glucose 216 mg/dl 207 mg/dl 152 mg/dl White Blood Count 10.82 K/uL Red Blood Count 2.97 M/uL Hemoglobin 8.8 g/dL Hematocrit 27.4 % Mean Corpuscular Volume 92.3 fL Mean Corpuscular Hemoglobin 29.6 pg Mean Corpuscular Hemoglobin Concent 32.1 g/dl RDW Standard Deviation 57.7 fL RDW Coefficient of Variation 17.8 % Platelet Count 368 K/uL Mean Platelet Volume 9.5 fL Prothrombin Time 35.2 SECONDS Prothromb Time International Ratio 3.4 Sodium Level 143 mmol/L Potassium Level 4.3 mmol/L Chloride Level 116 mmol/L Carbon Dioxide Level 20 mmol/L Anion Gap 7.0 mmol/L Blood Urea Nitrogen 32 mg/dl Creatinine 0.90 mg/dl Est Creatinine Clear Calc Drug Dose 33.9 ml/min Estimated GFR () 66.2 Estimated GFR (Non- 57.1 BUN/Creatinine Ratio 35.3 Random Glucose 165 mg/dl Calcium Level 8.6 mg/dl Magnesium Level 2.0 mg/dl Assessment and Plan Pt is an 87 yo female with a h/o CVA with left hemiparesis, HTN, chronic diastolic CHF, DVT/PE, lymphedema and chronic venous stasis changes left leg, h/ o aspiration PNA, mitral stenosis, aortic regurg, pleural effusion, prediabetes , here with acute encephalopathy, hypothermia, with UTI and sepsis. She then later developed recurrent aspiration pneumonia with acute hypoxic respiratory failure, had evidence of acute sinusitis, enterococcus bacteremia, and found to have adrenal insufficiency. Also found to have acute RLE DVT. Sepsis 2nd to UTI +/- LLL pneumonia +/- cellulitis +/- acute sinusitis, enterococcus bacteremia/hypothermia. Despite 6 days of broad-spectrum IV antibiotics she had recurrent hypothermia with altered MS which then improved with starting IV Decadron for adrenal insufficiency gall bladder u/s w/o cholecystitis. most recent blood cx's continue to be negative. we added stress-dose steroids as her cortisol level was only 7; this seems to have lead to clinical improvement and resolution of her hypothermia-continues to be improved and stable. -Will start to taper stress dose steroids down today to Decadron 4 mg IV every 12 hours Drug eruption-rash continues to improve, possible drug reaction to flagyl? cefepime? vanco? other? Now resolving with stopping Flagyl and cefepime -Also on steroids which could be helping Enterococcal bacteremia - this would be unusual to be a contaminant. Have treated as pathogenic; continue IV vanco for now. Day #9 of vanco. enterococcus source -- skin? GI/? other? urine cx grew e. coli thus urine not source. Infectious disease consult appreciated-recommends 2 more days of IV vancomycin and then stop Aspiration/drooling/suspected aspiration pneumonia of left lower lobe-drooling was suspect due to altered mental status and severe sinusitis? No acute stroke on MRI brain. Aspiration precautions. RN reports patient continues to be possibly aspirating with eating, however she is trying to eat in bed and slouched over to the right given her hemiparesis. Completed 7 days of cefepime as well as several days of Flagyl, but then had drug eruption as above and antibiotics were stopped. -Speech therapy following and was considering video swallow on Thursday-they have not seen her yet this week -Reconsult speech therapy to see about video swallow? -Discussed sitting upright in the bed or getting out of bed to chair to eat -No further antibiotics at this time -[place] thickened liquids and mechanical soft, slippery diet -Discussed with patient and her sons about risk of recurrent aspiration pneumonia -Oral hygiene Extensive RLE DVT - heparin infusion overlapped with coumadin. Noted that stool is heme+ and has had some gross blood (maroon) at times-none in 2 days. INR today 3.4 -Discontinued heparin drip -Continue Coumadin indefinitely given this is her second DVT in her lifetime and sedentary lifestyle H/H remained stable at 8.8 -Follow CBC -If has drop in hemoglobin or more gross hematochezia, would have to reconsider IVC filter and stopping anticoagulation -Hold Coumadin today for supratherapeutic INR -Follow PT/INR CKD stage 4/hypernatremia creatinine stable. Sodium was slightly increased at 146 and now improved to 143 with hypotonic saline. Creatinine normal -Renally dose medications -Avoid nephrotoxins -Continue hypertonic saline +troponin - myocardial demand ischemia 2nd to #1 (type 2 OR). e. coli UTI - has completed 7 days of appropriate Rx. acute sinusitis - received 7 days of cefepime - should suffice. lymphedema, left leg, with possible cellulitis - current abx sufficed. Cellulitis resolved. Acute metabolic encephalopathy - ongoing since admission. Now much improved on IV Decadron uncertain of what made her clinically better -- stress dose steroids?? MRI brain with old stroke but no new stroke. -Continue to treat all infections -Tapering steroids as above HTN -continues to be significantly hypertensive at times -Continue lisinopril and increased dose to 40 mg -IV hydralazine as needed -Consider adding additional medication such as amlodipine if does not improve extensive candidal rashes (groin, under breasts, etc) - diflucan 100mg daily x 7 -10 days. day #5 today. severe protein calorie malnutrition - added boost supplement + MVI. Hopefully as her infections clear appetite will improve. stage 2 pressure ulcer, right buttock POA appreciate wound floor care specialist's recommendations. sinus bradycardia - has typically occurred only when she is severely hypothermic. At times she has blocked PACs which have been mistaken for sinus pauses. I reviewed the blocked PACs w/ cardiology - nothing to do at this time. -Continue on telemetry Prophylaxis-Coumadin Disposition-reconsult PT as will definitely need SNF placement DNR
[2017-11-25] MEDS: VANCOMYCIN INJ 750 MG in SODIUM CHLORIDE 0.9% 250ML 250 ML IV SCH (14:19)
[2017-11-25] MEDS: INSULIN GLARGINE SOLOSTAR 100 UNITS/ML 3 ML PEN SC SCH (21:14)
[2017-11-26] VITALS (7 sets, daily range): BP systolic 148–184; BP diastolic 56–84; PULSE 45–69; TEMP 36.3–36.6; O2SAT 92–100
[2017-11-26] MEDS: SODIUM CHLORIDE 0.45% 1000ML 1,000 ML IV SCH (05:32)
[2017-11-26 07:23] LABS: BASO % 0.1 %; BASO ABS # 0.01 K/uL (0-0.2); HEMATOCRIT 26.8 % (37-47); HEMOGLOBIN 8.7 g/dL (12.0-16.0); IG# 0.12 K/uL (0.00-0.02); LYMPH % 12.6 %; LYMPH ABS # 0.91 K/uL (1.2-3.4); MEAN CELL VOLUME 92.4 fL (80-100); MEAN CORPUSCULAR HGB CONC 32.5 g/dl (32-36); MEAN PLATELET VOLUME 9.7 fL (7.4-10.4); MONO % 5.4 %; MONO ABS # 0.39 K/uL (0.11-0.59); NEUT % 80.2 %; NEUT ABS # 5.82 K/uL (1.4-6.5); PLATELET COUNT 384 K/uL (130-400); RED CELL DISTRIBUTION WIDTH SD 58.5 fL (36.4-46.3); WHITE BLOOD COUNT 7.25 K/uL (4.8-10.8)
[2017-11-26 07:43] LABS: INR 3.9 (0.9-1.1)
[2017-11-26 07:49] LABS: CALCIUM 8.1 mg/dl (8.5-10.1); CREATININE 1.01 mg/dl (0.60-1.20); POTASSIUM 4.3 mmol/L (3.5-5.1)
[2017-11-26] MEDS: FLUCONAZOLE 100 MG TAB PO SCH (08:25)
[2017-11-26] MEDS: ASPIRIN 81 MG ECTAB PO SCH (08:25)
[2017-11-26] MEDS: INSULIN ASPART 100 UNITS/ML 3 ML PEN SC SCH ×4 (08:25→20:56)
[2017-11-26] MEDS: LISINOPRIL 20 MG TAB PO SCH (08:26)
[2017-11-26] MEDS: TRIAMCINOLONE ACET NASAL SPRAY 10.8ML BTL NAE SCH (08:26)
[2017-11-26] MEDS: PANTOprazole SOD 40 MG TAB PO SCH (08:27)
[2017-11-26] MEDS: TRIAMCINOLONE ACET 0.1% CR 80 GM TUBE EXT SCH ×3 (08:27→20:54)
[2017-11-26] MEDS: DEXAMETHASONE INJ 4 MG in SYRINGE 0 ML IV SCH ×2 (08:27→20:54)
[2017-11-26] MEDS: VANCOMYCIN INJ 750 MG in SODIUM CHLORIDE 0.9% 250ML 250 ML IV SCH (16:09)
--- NOTE | 2017-11-26 16:17 | Palliative Care Consultation ---
Consultation Date of Consultation: Nov 26, 2017. Requesting Physician: Dr Burt Attending Physician: Dr Burt Reason for Consultation: Goals of care History of Present Illness Pt is an 87 yo female with a PMH of HTN, h/o DVT/PE, DM and h/o CVA with partial L hemiparesis who was admitted on 11/17 with AMS. Her glucose was low and she was hypothermic. Pt able to give some history , no family at bedside . Pt is awake and alert but does not know her home meds or that she has DM. Pt is not aware that she may be aspirating, but she did state she would not want a feeding tube. Pt improved with warming, decadron and treatment of her UTI. Pt has increased weakness and will likely not be able to return home as this time. Pt lived with her son , Ez, and has 3 other sons that live nearby. Pt had an episode of A fib which has resolved. Pt states she has no appetite and forces herself to eat "a little something". Past Medical/Surgical History Medical History: CVA with residual L sided paresis, HTN, h/o DVT/PE, chronic LE edema, UTI's. Family History non contributory Social History Smoking Status: Never Smoker History of Alcohol Use: No Drug Use: none Marital Status: single Housing Status: lives with family (Lives with son Ez) Occupation Status: retired Review of Systems Constitutional: No fever, No chills Eyes: No worsening of vision ENT: No hearing loss Respiratory: + cough Cardiac: No chest pain Abdomen: No pain Musculoskeletal: + problem reported (L sided weakness) Neurologic: + memory loss, + weakness Psychiatric: No anxiety Skin: + problem reported (edema , erythema of LE unchanged X 10 years per pt) Allergies Coded Allergies: Amoxicillin (Verified Allergy, Mild, rash-on both Zithromax and Augmentin , 09/13/17) Azithromycin (Verified Allergy, Mild, rash- on both Augmentin and Zithromax, 09/13/17) Clavulanic Acid (Verified Allergy, Mild, rash-on both Zithromax and Augmentin, 09/13/17) Medications Current Inpatient Medications Medications (Trade) Dose Ordered Sig/Alfonso Route Start Time Stop Time Status Last Admin Dose Admin Acetaminophen (Tylenol Tab) 650 mg Q4H PRN PO 2/20/18 04:45 12/17/17 04:44 Aspirin (Ecotrin Tab) 81 mg DAILY PO 11/17/17 09:00 12/17/17 08:59 11/26/17 08:25 81 MG Bisacodyl (Dulcolax Supp) 10 mg DAILY PRN MA 11/17/17 04:45 12/17/17 04:44 Magnesium Hydroxide (Milk Of Magnesia Susp) 30 ml DAILY PRN PO 11/17/17 04:45 12/17/17 04:44 Miscellaneous Information (Consult) 1 ea UD PRN N/A 11/17/17 04:45 11/26/17 23:59 Sodium Biphosphate/ Sodium Phosphate (Fleet Enema) 132 ml DAILY PRN MA 11/17/17 04:45 12/17/17 04:44 Insulin Aspart (novoLOG ASPART) SLIDING SCALE If C... ACHS SC 11/17/17 16:15 12/17/17 16:14 11/26/17 12:19 3 UNITS Glucose (Glucose 40% Gel) 15-30 GRAMS 15 GRAMS... UD PRN PO 11/17/17 16:15 12/17/17 16:14 Glucose (Glucose Chew Tab) 4-8 Tablets 4 Tabl... UD PRN PO 11/17/17 16:15 12/17/17 16:14 Dextrose (Dextrose 50% 50ML Syringe) 25-50ML OF 50% DW IV FOR... UD PRN IV 11/17/17 16:15 12/17/17 16:14 Glucagon (Glucagon Inj) 1 mg UD PRN SQ 11/17/17 16:15 12/17/17 16:14 Triamcinolone Acetonide (Nasacort Allergy 24hr) 2 sprays DAILY CHANTALE 11/18/17 19:30 12/18/17 19:29 11/26/17 08:26 2 SPRAYS Fluconazole (Diflucan Tab) 100 mg QAM PO 11/21/17 09:00 11/30/17 08:59 Future hold 11/26/17 08:25 100 MG Triamcinolone Acetonide (Triamcinolone Acet 0.1% Crm) 1 appln TID EXT 11/20/17 14:00 12/20/17 13:59 11/26/17 13:36 1 APPLN Pantoprazole Sodium (Protonix Tab) 40 mg QAM PO 11/21/17 09:00 12/21/17 08:59 11/26/17 08:27 40 MG Haloperidol Lactate (Haldol Inj) 1 mg Q6H PRN IM 11/20/17 22:00 12/20/17 21:59 Warfarin Sodium (Coumadin Tab) 2.5 mg DAILY@16 PO 11/21/17 16:00 12/19/17 15:59 Future Hold 11/24/17 16:20 2.5 MG Vancomycin HCl 750 mg/Sodium Chloride 265 ml @ 125 mls/hr Q26H IV 11/23/17 10:00 11/26/17 23:59 11/25/17 14:19 125 MLS/HR Sodium Chloride 1,000 ml @ 50 mls/hr Q20H IV 11/24/17 13:00 12/24/17 12:59 11/26/17 05:32 50 MLS/HR Insulin Glargine (Lantus Solostar Pen) 8 units HS SC 11/24/17 21:00 12/23/17 20:59 11/25/17 21:14 8 UNITS Hydralazine HCl (HydrALAZINE INJ) 5 mg Q6H PRN IV. 11/24/17 20:00 12/24/17 19:59 11/25/17 11:36 5 MG Lisinopril (Zestril Tab) 40 mg DAILY PO 11/25/17 09:00 12/17/17 08:59 11/26/17 08:26 40 MG Dexamethasone Sodium Phosphate 4 mg/Syringe 1 ml @ 1 mls/min Q12H IV 11/25/17 20:00 12/22/17 00:00 11/26/17 08:27 1 MLS/MIN Physical Exam Date Time Temp Pulse Resp B/P (MAP) Pulse Ox O2 Delivery O2 Flow Rate FiO2 11/26/17 12:00 93 Room Air 11/26/17 11:43 36.4 50 14 176/77 (110) 93 Room Air 11/26/17 09:26 Room Air 11/26/17 08:00 95 Room Air 11/26/17 08:00 36.3 53 14 156/60 (92) 100 Room Air 11/26/17 04:00 36.6 45 16 160/56 (90) 96 Room Air 11/26/17 04:00 Room Air 11/26/17 00:18 36.4 58 16 148/84 (105) 96 Room Air 11/26/17 00:00 Room Air 11/25/17 20:00 Room Air 11/25/17 19:13 36.4 67 20 162/69 (100) 96 Room Air 11/25/17 16:01 157/71 (99) 11/25/17 16:00 Room Air General Appearance: no apparent distress Eyes: EOMI ENT: hearing grossly normal Respiratory: no respiratory distress, + pertinent finding (excess upper airway secretions - some clearing post cough) Cardiovascular: regular rate, rhythm Abdomen: non tender, soft Musculoskeletal: pertinent finding (LUE 2+/5) Neurologic/Psychiatric: alert, + pertinent finding (+ cognitive deficits) Skin: + pertinent finding (bruising) Laboratory Results Last 24 Hours Test 11/25/17 16:22 11/25/17 20:47 11/26/17 06:42 11/26/17 07:23 Bedside Glucose 211 mg/dl 192 mg/dl 173 mg/dl White Blood Count 7.25 K/uL Red Blood Count 2.90 M/uL Hemoglobin 8.7 g/dL Hematocrit 26.8 % Mean Corpuscular Volume 92.4 fL Mean Corpuscular Hemoglobin 30.0 pg Mean Corpuscular Hemoglobin Concent 32.5 g/dl Platelet Count 384 K/uL Mean Platelet Volume 9.7 fL Neutrophils (%) (Auto) 80.2 % Lymphocytes (%) (Auto) 12.6 % Monocytes (%) (Auto) 5.4 % Eosinophils (%) (Auto) 0.0 % Basophils (%) (Auto) 0.1 % Neutrophils # (Auto) 5.82 K/uL Lymphocytes # (Auto) 0.91 K/uL Monocytes # (Auto) 0.39 K/uL Eosinophils # (Auto) 0.00 K/uL Basophils # (Auto) 0.01 K/uL RDW Standard Deviation 58.5 fL RDW Coefficient of Variation 18.0 % Immature Granulocyte % (Auto) 1.7 % Immature Granulocyte # (Auto) 0.12 K/uL Red Blood Cell Morphology Unremarkable Prothrombin Time 39.4 SECONDS Prothromb Time International Ratio 3.9 Sodium Level 144 mmol/L Potassium Level 4.3 mmol/L Chloride Level 115 mmol/L Carbon Dioxide Level 21 mmol/L Anion Gap 8.0 mmol/L Blood Urea Nitrogen 40 mg/dl Creatinine 1.01 mg/dl Est Creatinine Clear Calc Drug Dose 30.3 ml/min Estimated GFR () 57.6 Estimated GFR (Non- 49.7 BUN/Creatinine Ratio 39.5 Random Glucose 162 mg/dl Calcium Level 8.1 mg/dl Magnesium Level 2.0 mg/dl Test 11/26/17 11:06 Bedside Glucose 259 mg/dl Assessment & Plan Palliative Performance Scale: 30 % (1) Palliative care encounter Status: Acute Assessment & Plan: Will continue to attempt to reach son, would like to fill out POST form prior to d/c (2) Altered mental status Status: Acute Assessment & Plan: Improving (3) UTI (urinary tract infection) Status: Acute Assessment & Plan: On IV ab Counseling and Coordination Total time 50 min with > 50 % of time spent speaking with pt and discussing POC with attending.
--- NOTE | 2017-11-26 16:43 | Hospitalist Progress Note ---
Hospitalist Progress Note Date of Service Nov 26, 2017. Subjective Pt evaluation today including: conversation w/ patient, conversation w/ oncology consultant (Palliative care) Voiding: best catheter in place Patient denies any complaints. We discussed her chronic aspiration and she says she understands. She says she would not want a feeding tube and I do not think that would help her anyway. Discussed the case with palliative care today who will discuss her condition with the sons and hopes to fill out a POLST form. Telemetry with sinus bradycardia as low as the 30s but trends in the 40s-50s all day and overnight, some blocked PACs All Other Systems: Reviewed and Negative Objective Vital Signs Date Time Temp Pulse Resp B/P (MAP) Pulse Ox O2 Delivery O2 Flow Rate FiO2 11/26/17 12:00 93 Room Air 11/26/17 11:43 36.4 50 14 176/77 (110) 93 Room Air 11/26/17 09:26 Room Air 11/26/17 08:00 95 Room Air 11/26/17 08:00 36.3 53 14 156/60 (92) 100 Room Air 11/26/17 04:00 36.6 45 16 160/56 (90) 96 Room Air 11/26/17 04:00 Room Air 11/26/17 00:18 36.4 58 16 148/84 (105) 96 Room Air 11/26/17 00:00 Room Air 11/25/17 20:00 Room Air 11/25/17 19:13 36.4 67 20 162/69 (100) 96 Room Air Physical Exam General Appearance: no apparent distress (Lying flat in bed) Eyes: normal inspection, sclerae normal ENT: hearing grossly normal Neck: trachea midline Respiratory/Chest: no respiratory distress, no accessory muscle use, + pertinent finding (Course upper airway sounds auscultated, otherwise decreased breath sounds at the bases bilaterally) Cardiovascular: no murmur, + bradycardia (Regular rhythm), + pertinent finding (Edema worsening in the bilateral lower extremities) Abdomen: normal bowel sounds, non tender, soft Extremities: + swelling (As above) Neurologic/Psychiatric: alert, normal mood/affect Skin: + rash (Chronic venous stasis changes left greater than right legs) Laboratory Results Last 24 Hours Test 11/25/17 20:47 11/26/17 06:42 11/26/17 07:23 11/26/17 11:06 Bedside Glucose 192 mg/dl 173 mg/dl 259 mg/dl White Blood Count 7.25 K/uL Red Blood Count 2.90 M/uL Hemoglobin 8.7 g/dL Hematocrit 26.8 % Mean Corpuscular Volume 92.4 fL Mean Corpuscular Hemoglobin 30.0 pg Mean Corpuscular Hemoglobin Concent 32.5 g/dl Platelet Count 384 K/uL Mean Platelet Volume 9.7 fL Neutrophils (%) (Auto) 80.2 % Lymphocytes (%) (Auto) 12.6 % Monocytes (%) (Auto) 5.4 % Eosinophils (%) (Auto) 0.0 % Basophils (%) (Auto) 0.1 % Neutrophils # (Auto) 5.82 K/uL Lymphocytes # (Auto) 0.91 K/uL Monocytes # (Auto) 0.39 K/uL Eosinophils # (Auto) 0.00 K/uL Basophils # (Auto) 0.01 K/uL RDW Standard Deviation 58.5 fL RDW Coefficient of Variation 18.0 % Immature Granulocyte % (Auto) 1.7 % Immature Granulocyte # (Auto) 0.12 K/uL Red Blood Cell Morphology Unremarkable Prothrombin Time 39.4 SECONDS Prothromb Time International Ratio 3.9 Sodium Level 144 mmol/L Potassium Level 4.3 mmol/L Chloride Level 115 mmol/L Carbon Dioxide Level 21 mmol/L Anion Gap 8.0 mmol/L Blood Urea Nitrogen 40 mg/dl Creatinine 1.01 mg/dl Est Creatinine Clear Calc Drug Dose 30.3 ml/min Estimated GFR () 57.6 Estimated GFR (Non- 49.7 BUN/Creatinine Ratio 39.5 Random Glucose 162 mg/dl Calcium Level 8.1 mg/dl Magnesium Level 2.0 mg/dl Assessment and Plan Pt is an 87 yo female with a h/o CVA with left hemiparesis, HTN, chronic diastolic CHF, DVT/PE, lymphedema and chronic venous stasis changes left leg, h/ o aspiration PNA, mitral stenosis, aortic regurg, pleural effusion, prediabetes , here with acute encephalopathy, hypothermia, with UTI and sepsis. She then later developed recurrent aspiration pneumonia with acute hypoxic respiratory failure, had evidence of acute sinusitis, enterococcus bacteremia, and found to have adrenal insufficiency. Also found to have acute RLE DVT. Sepsis 2nd to UTI +/- LLL pneumonia +/- cellulitis +/- acute sinusitis, enterococcus bacteremia/hypothermia. Despite 6 days of broad-spectrum IV antibiotics she had recurrent hypothermia with altered MS which then improved with starting IV Decadron for adrenal insufficiency gall bladder u/s w/o cholecystitis. most recent blood cx's continue to be negative. we added stress-dose steroids as her cortisol level was only 7; this seems to have lead to clinical improvement and resolution of her hypothermia-continues to be improved and stable. - tapered stress dose steroids down to Decadron 4 mg IV every 12 hours on 11/25- now with some recurrent bradycardia and temperatures on the low side again-we will watch carefully -Check cortisol level again in the morning -Consider remaining on daily Decadron indefinitely Drug eruption-rash continues to improve, possible drug reaction to flagyl? cefepime? vanco? other? Now resolving with stopping Flagyl and cefepime -Also on steroids which could be helping Enterococcal bacteremia - this would be unusual to be a contaminant. Have treated as pathogenic; continue IV vanco for now. Day #10 of vanco. enterococcus source -- skin? GI/? other? urine cx grew e. coli thus urine not source. Infectious disease consult appreciated-recommends 10 days of IV vancomycin and then stop today Aspiration/drooling/suspected aspiration pneumonia of left lower lobe-drooling was suspect due to altered mental status and severe sinusitis? No acute stroke on MRI brain. Aspiration precautions. RN reports patient continues to be possibly aspirating with eating, however she is trying to eat in bed and slouched over to the right given her hemiparesis. Completed 7 days of cefepime as well as several days of Flagyl, but then had drug eruption as above and antibiotics were stopped. -Speech therapy following-video swallow unable to be completed due to significant difficulty in positioning secondary to kyphosis-obviously aspirating as per speech -No further antibiotics at this time -[place] thickened liquids and mechanical soft, slippery diet -Discussed with patient and her sons about risk of recurrent aspiration pneumonia -Oral hygiene -Appreciate palliative care consultation-POLST form to be filled out this patient does not desire recurrent hospitalizations -Palliative care recommend scopolamine patch to help with obvious upper airway secretions-we will monitor for encephalopathy with adding this medication Speech recommendations: "The persistent (L) lower lobe pneumonia, wet/gurgly vocal quality and the overt s/s aspiration witnessed by staff as patient eats meals all point to a single picture. The patient's ability to swallow safely is decompensating as is her physical health. At this patient's age and with her comorbidities, that leaves very few options: -PEG-tube: Her positioning/posture (in addition to age and comorbidities) make her a very poor candidate for PEG-tube placement. She is known to have GERD so she would almost assuredly aspirate if fed via PEG-tube. -Thickened Liquids: She is likely aspirating thickened liquids evidenced by witness s/s aspiration during meals using nectar-thick liquids and aspiration of thickener does not benefit the patient. It is unlikely she would accept liquids thicker than nectar-thick well enough to maintain her hydration. I would advocate thickener use ONLY if it made the patient more comfortable by decreasing any severe coughing. -Permissive Aspiration: Allow patient to eat/drink by mouth while accepting risks of aspiration, BUT MUST USE STRINGENT ORAL HYGIENE to minimize the oral bacteria the patient aspirates with liquids and with her own secretions. Recommend SLIPPERY MECHANICAL SOFT DIET and thin liquids (thicken prn to minimize cough). Recommendations * Please see note above. My suggestion would be to consider quality of life at this point and allow the patient to eat/drink according to what is comfortable and desirable to her vs. imposing heavy diet modifications or surgical procedures. Stringent oral hygiene protocol will be paramount to maximizing patient health no matter which option is chosen. That includes: cleaning all surfaces of mouth/dental appliances with toothbrush and toothpaste PRIOR TO any oral intake in the morning, after all meals, and before going to bed for the night." Extensive RLE DVT - heparin infusion overlapped with coumadin. Noted that stool is heme+ and has had some gross blood (maroon) at times-none in 2 days. INR today 3.9 -Continue Coumadin indefinitely given this is her second DVT in her lifetime and sedentary lifestyle H/H low but remains stable at 8.7 -Follow CBC -If has drop in hemoglobin or more gross hematochezia, would have to reconsider IVC filter and stopping anticoagulation -Will again hold Coumadin today for supratherapeutic INR -Follow PT/INR CKD stage 4/hypernatremia creatinine stable. Sodium was slightly increased at 146 and now improved to 144 with hypotonic saline. Creatinine normal -Becoming edematous -Stop hypotonic saline -Renally dose medications -Avoid nephrotoxins +troponin - myocardial demand ischemia 2nd to #1 (type 2 NM). e. coli UTI - has completed 7 days of appropriate Rx. acute sinusitis - received 7 days of cefepime - should suffice. lymphedema, left leg, with possible cellulitis - current abx sufficed. Cellulitis resolved. Acute metabolic encephalopathy - ongoing since admission. Now much improved on IV Decadron uncertain of what made her clinically better -- stress dose steroids?? MRI brain with old stroke but no new stroke. -Continue to treat all infections -Tapering steroids as above HTN -BP is are improved with increased dose of lisinopril -Continue lisinopril 40 mg -IV hydralazine as needed -Consider adding additional medication such as amlodipine if does not improve extensive candidal rashes (groin, under breasts, etc) - diflucan 100mg daily x 7 -10 days. day #6 today. severe protein calorie malnutrition - added boost supplement + MVI. Hopefully as her infections clear appetite will improve. stage 2 pressure ulcer, right buttock POA appreciate wound day care home provider's recommendations. sinus bradycardia - has typically occurred only when she is severely hypothermic. At times she has blocked PACs which have been mistaken for sinus pauses. I reviewed the blocked PACs w/ cardiology - nothing to do at this time. Was improved but now bradycardic again today with slightly low temperatures -Continue on telemetry -Plan as above with steroids Prophylaxis-Coumadin Disposition-plan to go to [facility] hopefully tomorrow DNR-POLST form to be completed tomorrow prior to discharge
[2017-11-26] MEDS: SCOPOLAMINE 1.5 MG TDSY TD SCH (17:50)
[2017-11-26] MEDS: HydrALAZINE HCL 20 MG/ML VIAL IV. PRN (18:16)
[2017-11-26] MEDS: INSULIN GLARGINE SOLOSTAR 100 UNITS/ML 3 ML PEN SC SCH (20:55)
[2017-11-26] MEDS: CHECK SCOPOLAMINE PATCH PLACEMENT SCH (23:33)
[2017-11-27] VITALS (12 sets, daily range): BP systolic 157–185; BP diastolic 63–77; PULSE 59–90; TEMP 36.4–36.7; O2SAT 92–95
[2017-11-27] MEDS: HydrALAZINE HCL 20 MG/ML VIAL IV. PRN ×2 (05:07→12:50)
[2017-11-27 07:59] LABS: HEMATOCRIT 27.2 % (37-47); HEMOGLOBIN 8.8 g/dL (12.0-16.0); MEAN CELL VOLUME 92.2 fL (80-100); MEAN CORPUSCULAR HEMOGLOBIN 29.8 pg (25-34); MEAN CORPUSCULAR HGB CONC 32.4 g/dl (32-36); MEAN PLATELET VOLUME 9.6 fL (7.4-10.4); NUCLEATED RED BLOOD CELL ABS 0.02 K/uL (0-0); PLATELET COUNT 442 K/uL (130-400); RED CELL DISTRIBUTION WIDTH CV 18.1 % (11.5-14.5); RED CELL DISTRIBUTION WIDTH SD 59.1 fL (36.4-46.3); WHITE BLOOD COUNT 7.59 K/uL (4.8-10.8)
[2017-11-27 08:09] LABS: INR 3.4 (0.9-1.1)
[2017-11-27 08:31] LABS: CALCIUM 8.3 mg/dl (8.5-10.1); CREATININE 0.73 mg/dl (0.60-1.20); POTASSIUM 4.1 mmol/L (3.5-5.1)
[2017-11-27] MEDS: INSULIN ASPART 100 UNITS/ML 3 ML PEN SC SCH ×4 (09:10→20:29)
[2017-11-27] MEDS: DEXAMETHASONE INJ 4 MG in SYRINGE 0 ML IV SCH (09:26)
[2017-11-27] MEDS: TRIAMCINOLONE ACET 0.1% CR 80 GM TUBE EXT SCH ×3 (09:26→20:26)
[2017-11-27] MEDS: TRIAMCINOLONE ACET NASAL SPRAY 10.8ML BTL NAE SCH (09:27)
[2017-11-27] MEDS: LISINOPRIL 20 MG TAB PO SCH (09:27)
[2017-11-27] MEDS: FLUCONAZOLE 100 MG TAB PO SCH (09:27)
[2017-11-27] MEDS: PANTOprazole SOD 40 MG TAB PO SCH (09:27)
[2017-11-27] MEDS: ASPIRIN 81 MG ECTAB PO SCH (09:27)
[2017-11-27] MEDS: CHECK SCOPOLAMINE PATCH PLACEMENT SCH ×3 (09:30→23:40)
[2017-11-27] MEDS ORDERED: HYDROCORTISONE 10 MG TAB PO ONE ×2 (11:45→12:29)
[2017-11-27] MEDS ORDERED: AMLODIPINE BESYLATE 5 MG TAB PO ONE (12:45)
--- NOTE | 2017-11-27 13:10 | Palliative Care Progress Note ---
Palliative Care Progress Note Date of Service Nov 27, 2017. Subjective Pt evaluation today including: conversation w/ patient, conversation w/ family , physical exam, chart review, lab review, conversation w/ [employer] consultant Pain: none PO Intake: fair to poor Voiding: best catheter in place Pt with less excess secretions of scop path - no AMS due to patch Review of Systems Constitutional: No fever, No chills Eyes: No worsening of vision ENT: No hearing loss Respiratory: + cough (improved with secretion control) Cardiac: No chest pain Abdomen: No pain Neurologic: + memory loss, + weakness, + balance problems Psychiatric: No anxiety Endo: + fatigue Objective Vital Signs Date Time Temp Pulse Resp B/P (MAP) Pulse Ox O2 Delivery O2 Flow Rate FiO2 11/27/17 11:31 36.7 65 18 183/63 (103) 95 11/27/17 08:45 92 Room Air 11/27/17 07:18 36.4 70 17 179/68 (105) 92 Room Air 11/27/17 06:00 66 163/66 (98) 11/27/17 04:59 36.5 59 18 183/68 (106) 94 Room Air 11/27/17 04:00 Room Air 11/27/17 01:07 63 172/74 (106) 11/27/17 00:00 36.5 67 18 185/66 (105) 94 Room Air 11/27/17 00:00 Room Air 11/26/17 20:00 Room Air 11/26/17 18:03 36.5 69 16 184/69 (107) 92 Room Air 11/26/17 16:00 93 Room Air Physical Exam General Appearance: no apparent distress Eyes: EOMI ENT: hearing grossly normal Neck: supple Respiratory/Chest: no respiratory distress Cardiovascular: regular rate, rhythm Abdomen: normal bowel sounds, non tender, soft Extremities: + swelling (chronic - not increased) Neurologic/Psychiatric: alert Skin: warm/dry Laboratory Results Last 24 Hours Test 11/26/17 16:24 11/26/17 20:35 11/27/17 07:40 11/27/17 07:44 Bedside Glucose 201 mg/dl 245 mg/dl 154 mg/dl White Blood Count 7.59 K/uL Red Blood Count 2.95 M/uL Hemoglobin 8.8 g/dL Hematocrit 27.2 % Mean Corpuscular Volume 92.2 fL Mean Corpuscular Hemoglobin 29.8 pg Mean Corpuscular Hemoglobin Concent 32.4 g/dl RDW Standard Deviation 59.1 fL RDW Coefficient of Variation 18.1 % Platelet Count 442 K/uL Mean Platelet Volume 9.6 fL Nucleated RBC Absolute Count (auto) 0.02 K/uL Nucleated Red Blood Cells % 0.2 % Prothrombin Time 34.8 SECONDS Prothromb Time International Ratio 3.4 Sodium Level 146 mmol/L Potassium Level 4.1 mmol/L Chloride Level 116 mmol/L Carbon Dioxide Level 20 mmol/L Anion Gap 9.0 mmol/L Blood Urea Nitrogen 38 mg/dl Creatinine 0.73 mg/dl Est Creatinine Clear Calc Drug Dose 42.0 ml/min Estimated GFR () 85.2 Estimated GFR (Non- 73.5 BUN/Creatinine Ratio 52.5 Random Glucose 150 mg/dl Calcium Level 8.3 mg/dl Magnesium Level 2.2 mg/dl Cortisol AM Sample 1.14 mcg/dl Test 11/27/17 11:39 Bedside Glucose 230 mg/dl Assessment and Plan (1) Palliative care encounter Status: Acute Assessment & Plan: Met with 2 sons, Homer and Ez, if pt cannot be skilled at [facility], they will take her home with Home Health. Discussed Hospice care and what they can provide - pt is borderline Hospice appropriate. (2) Altered mental status Status: Acute Assessment & Plan: Pt back to baseline (3) UTI (urinary tract infection) Status: Acute Assessment & Plan: Treated Palliative Performance Scale: 30 % Continued [facility] stay due to: ambulation difficulties Discharge planning: uncertain Counseling and Coordination Total time 45 min with > 50 % of time spent discussing treatment options and plans of care with pt and family
[2017-11-27] MEDS ORDERED: WARFARIN SOD 1 MG TAB PO SCH (16:00)
[2017-11-27] MEDS: HYDROCORTISONE 10 MG TAB PO SCH (20:26)
[2017-11-27] MEDS: INSULIN GLARGINE SOLOSTAR 100 UNITS/ML 3 ML PEN SC SCH (20:29)
[2017-11-27] MEDS ORDERED: HYDROCORTISONE 10 MG TAB PO SCH (21:00)
[2017-11-28] VITALS (7 sets, daily range): BP systolic 162–186; BP diastolic 66–74; PULSE 60–67; TEMP 36.4–36.6; O2SAT 93–97
[2017-11-28] MEDS: HydrALAZINE HCL 20 MG/ML VIAL IV. PRN (01:10)
[2017-11-28] MEDS: ASPIRIN 81 MG ECTAB PO SCH (08:12)
[2017-11-28] MEDS: PANTOprazole SOD 40 MG TAB PO SCH (08:12)
[2017-11-28] MEDS: FLUCONAZOLE 100 MG TAB PO SCH (08:12)
[2017-11-28] MEDS: HYDROCORTISONE 10 MG TAB PO SCH ×2 (08:12→21:09)
--- NOTE | 2017-11-28 08:14 | Hospitalist Progress Note ---
Hospitalist Progress Note Date of Service Nov 27, 2017. Subjective Pt evaluation today including: conversation w/ patient, conversation w/ emergency management consultant (Palliative Care) Pt has no complaints. Tolerating Scopolamine patch well. Did have some continued sinus bradycardia in the 50s-60s, blocked PACs continue on tele, asymptomatic. Denies SOB or CP. All Other Systems: Reviewed and Negative Objective Vital Signs Date Time Temp Pulse Resp B/P (MAP) Pulse Ox O2 Delivery O2 Flow Rate FiO2 11/28/17 07:53 36.5 63 16 177/70 (105) 95 Room Air 11/28/17 04:00 36.6 67 20 181/66 (104) 95 Room Air 11/28/17 04:00 Room Air 11/28/17 00:00 Room Air 11/27/17 23:31 36.6 73 19 181/72 (108) 95 Room Air 11/27/17 20:00 Room Air 11/27/17 19:06 36.4 76 20 157/71 (99) 95 Room Air 11/27/17 16:00 Room Air 11/27/17 15:32 163/77 (105) 11/27/17 15:00 36.6 90 17 178/70 (106) 93 Room Air 11/27/17 12:00 92 Room Air 11/27/17 11:31 36.7 65 18 183/63 (103) 95 11/27/17 08:45 92 Room Air Physical Exam General Appearance: no apparent distress (frail, kyphotic, pleasant, eating lunch) Eyes: normal inspection, sclerae normal ENT: hearing grossly normal Neck: trachea midline Respiratory/Chest: no respiratory distress, no accessory muscle use, + pertinent finding (actually sounds much improved today with less upper airway coarse sounds since starting scop patch) Cardiovascular: regular rate, rhythm, no murmur, + pertinent finding (2+ pitting edema RLE to knee, left leg with 3+ edema, chronic venous stasis changes ) Abdomen: normal bowel sounds, non tender, soft Extremities: no calf tenderness, + swelling (as above) Neurologic/Psychiatric: alert, normal mood/affect Skin: warm/dry, no rash Laboratory Results Last 24 Hours Test 11/27/17 11:39 11/27/17 16:39 11/27/17 20:24 11/28/17 07:40 Bedside Glucose 230 mg/dl 249 mg/dl 275 mg/dl 134 mg/dl Assessment and Plan Pt is an 87 yo female with a h/o CVA with left hemiparesis, HTN, chronic diastolic CHF, DVT/PE, lymphedema and chronic venous stasis changes left leg, h/ o aspiration PNA, mitral stenosis, aortic regurg, pleural effusion, prediabetes , here with acute encephalopathy, hypothermia, with UTI and sepsis. She then later developed recurrent aspiration pneumonia with acute hypoxic respiratory failure, had evidence of acute sinusitis, enterococcus bacteremia, and found to have adrenal insufficiency. Also found to have acute RLE DVT. Sepsis 2nd to UTI +/- LLL pneumonia +/- cellulitis +/- acute sinusitis, enterococcus bacteremia/hypothermia. All resolved now Continued to have recurrent hypothermia with altered MS which then improved with starting IV Decadron for adrenal insufficiency, Repeat Cortisol level this AM is severely low at 1 gall bladder u/s w/o cholecystitis. most recent blood cx's negative. we added stress-dose steroids as her cortisol level was only 7; this seems to have lead to clinical improvement and resolution of her hypothermia-continues to be improved and stable. - tapered stress dose steroids down to Decadron 4 mg IV every 12 hours on 11/25- and then had some recurrent bradycardia and temperatures on the low side again-- > starting po hydrocortisone 15mg po bid today and dc Decadron Drug eruption-rash resolved, likely drug reaction to flagyl? cefepime? vanco? Enterococcal bacteremia - this would be unusual to be a contaminant. Have treated as pathogenic;completed course of Vancomycin IV x 10 days as per ID recommendations Aspiration/drooling/suspected aspiration pneumonia of left lower lobe-drooling was suspect due to altered mental status and severe sinusitis? No acute stroke on MRI brain. Aspiration precautions. Completed 7 days of cefepime as well as several days of Flagyl, but then had drug eruption as above and antibiotics were stopped. -Speech therapy following-video swallow unable to be completed due to significant difficulty in positioning secondary to kyphosis-obviously aspirating as per speech -No further antibiotics at this time -[place] thickened liquids and mechanical soft, slippery diet -Discussed with patient and her sons about risk of recurrent aspiration pneumonia -Oral hygiene -Appreciate palliative care consultation-POLST form to be filled out prior to discharge with Palliative Care -Palliative care recommend scopolamine patch to help with obvious upper airway secretions-we will monitor for encephalopathy with adding this medication but is helping a lot with secretions! Speech recommendations: "The persistent (L) lower lobe pneumonia, wet/gurgly vocal quality and the overt s/s aspiration witnessed by staff as patient eats meals all point to a single picture. The patient's ability to swallow safely is decompensating as is her physical health. At this patient's age and with her comorbidities, that leaves very few options: -PEG-tube: Her positioning/posture (in addition to age and comorbidities) make her a very poor candidate for PEG-tube placement. She is known to have GERD so she would almost assuredly aspirate if fed via PEG-tube. -Thickened Liquids: She is likely aspirating thickened liquids evidenced by witness s/s aspiration during meals using nectar-thick liquids and aspiration of thickener does not benefit the patient. It is unlikely she would accept liquids thicker than nectar-thick well enough to maintain her hydration. I would advocate thickener use ONLY if it made the patient more comfortable by decreasing any severe coughing. -Permissive Aspiration: Allow patient to eat/drink by mouth while accepting risks of aspiration, BUT MUST USE STRINGENT ORAL HYGIENE to minimize the oral bacteria the patient aspirates with liquids and with her own secretions. Recommend SLIPPERY MECHANICAL SOFT DIET and thin liquids (thicken prn to minimize cough). Recommendations * Please see note above. My suggestion would be to consider quality of life at this point and allow the patient to eat/drink according to what is comfortable and desirable to her vs. imposing heavy diet modifications or surgical procedures. Stringent oral hygiene protocol will be paramount to maximizing patient health no matter which option is chosen. That includes: cleaning all surfaces of mouth/dental appliances with toothbrush and toothpaste PRIOR TO any oral intake in the morning, after all meals, and before going to bed for the night." Extensive RLE DVT - heparin infusion overlapped with coumadin. Noted that stool is heme+ and has had some gross blood (maroon) at times-none in many days. INR today 3.4 after holding coumadin x 2 days -Continue Coumadin indefinitely given this is her second DVT in her lifetime and sedentary lifestyle H/H low but remains stable at 8.8 -Follow CBC -If has drop in hemoglobin or more gross hematochezia, would have to reconsider IVC filter and stopping anticoagulation -restart coumadin today at 1mg daily as INR now dropping -Follow PT/INR CKD stage III/hypernatremia creatinine stable. Sodium was slightly increased at 146 and improved with hypotonic saline but then stopped due to worsening LE edema. Creatinine normal now -can drink po water -Becoming edematous -Stopped hypotonic saline -Renally dose medications -Avoid nephrotoxins +troponin - myocardial demand ischemia 2nd to #1 (type 2 [place]). e. coli UTI - has completed 7 days of appropriate Rx. acute sinusitis - received 7 days of cefepime - should suffice. lymphedema, left leg, with possible cellulitis - current abx sufficed. Cellulitis resolved. Acute metabolic encephalopathy - resolved on IV Decadron and with treatment of infections uncertain of what made her clinically better -- stress dose steroids?? MRI brain with old stroke but no new stroke. -starting po HC as above HTN -BP is are improved with increased dose of lisinopril, but still high and now with addition of hydrocortisone po, could go higher -Continue lisinopril 40 mg -IV hydralazine as needed -added amlodipine 5mg daily extensive candidal rashes (groin, under breasts, etc) - diflucan 100mg daily x 7 -10 days. day #7 today. severe protein calorie malnutrition - added boost supplement + MVI. Hopefully as her infections clear appetite will improve. stage 2 pressure ulcer, right buttock POA appreciate wound urgent care technician's recommendations. sinus bradycardia - has typically occurred only when she is severely hypothermic. At times she has blocked PACs which have been mistaken for sinus pauses. I reviewed the blocked PACs w/ cardiology - nothing to do at this time. Stable and asymptomatic -Continue on telemetry -Plan as above with steroids Prophylaxis-Coumadin Disposition-late in the day, found out denied SNF, now Palliative discussing plan for home with Hospice with sons, will possibly dc to home tomorrow with hospice DNR-POLST form to be completed prior to discharge
[2017-11-28] MEDS: LISINOPRIL 20 MG TAB PO SCH (08:15)
[2017-11-28] MEDS: TRIAMCINOLONE ACET 0.1% CR 80 GM TUBE EXT SCH ×3 (08:16→21:05)
[2017-11-28] MEDS: AMLODIPINE BESYLATE 5 MG TAB PO SCH (08:16)
[2017-11-28] MEDS: TRIAMCINOLONE ACET NASAL SPRAY 10.8ML BTL NAE SCH (08:16)
[2017-11-28] MEDS: CHECK SCOPOLAMINE PATCH PLACEMENT SCH ×3 (08:17→23:54)
[2017-11-28] MEDS: INSULIN ASPART 100 UNITS/ML 3 ML PEN SC SCH ×4 (08:42→21:00)
[2017-11-28 08:48] LABS: BASO % 0.1 %; BASO ABS # 0.01 K/uL (0-0.2); HEMATOCRIT 29.3 % (37-47); HEMOGLOBIN 9.7 g/dL (12.0-16.0); IG# 0.27 K/uL (0.00-0.02); LYMPH % 15.1 %; LYMPH ABS # 1.56 K/uL (1.2-3.4); MEAN CORPUSCULAR HEMOGLOBIN 30.8 pg (25-34); MEAN CORPUSCULAR HGB CONC 33.1 g/dl (32-36); MEAN PLATELET VOLUME 9.8 fL (7.4-10.4); MONO % 10.1 %; MONO ABS # 1.04 K/uL (0.11-0.59); NEUT % 72.1 %; NEUT ABS # 7.45 K/uL (1.4-6.5); PLATELET COUNT 536 K/uL (130-400); RED CELL DISTRIBUTION WIDTH CV 18.8 % (11.5-14.5); RED CELL DISTRIBUTION WIDTH SD 61.1 fL (36.4-46.3); WHITE BLOOD COUNT 10.33 K/uL (4.8-10.8)
[2017-11-28 09:24] LABS: CALCIUM 8.6 mg/dl (8.5-10.1); CREATININE 0.8 mg/dl (0.60-1.20); POTASSIUM 3.8 mmol/L (3.5-5.1)
[2017-11-28 10:08] LABS: INR 3.8 (0.9-1.1)
[2017-11-28] MEDS: INSULIN GLARGINE SOLOSTAR 100 UNITS/ML 3 ML PEN SC SCH (21:07)
--- NOTE | 2017-11-28 22:56 | Progress Note ---
Subjective Date of Service: Nov 28, 2017. Subjective Pt evaluation today including: conversation w/ patient, conversation w/ family (son Ez by phone), physical exam, chart review, lab review, review of inpatient medication list Pain: denies PO Intake: fair per staff Voiding: incontinence tele stable overnight no bradycardia patient states "I feel pretty good" thinks she is at the [facility]" Problem List Medical Problems: (1) Altered mental status Status: Acute (2) Aspiration into airway Status: Acute (3) Bradycardia Status: Acute (4) Cellulitis Status: Acute (5) Deep vein blood clot of left lower extremity Status: Acute (6) Dehydration Status: Acute (7) Elevated troponin Status: Acute (8) Hypoxia Status: Acute (9) Left leg cellulitis Status: Acute (10) Pneumonia Status: Acute (11) Pneumonia Status: Acute (12) Sepsis Status: Acute (13) Sepsis Status: Acute (14) UTI (urinary tract infection) Status: Acute Review of Systems Constitutional: No fever Respiratory: + cough, No shortness of breath Cardiac: No chest pain Abdomen: + constipation (but did have bowel movement today), No pain Objective Vital Signs Date Time Temp Pulse Resp B/P (MAP) Pulse Ox O2 Delivery O2 Flow Rate FiO2 11/28/17 19:16 36.4 66 18 166/71 (102) 97 Room Air 11/28/17 16:00 96 Room Air 11/28/17 15:21 36.5 60 16 162/68 (99) 96 Room Air 11/28/17 12:15 Room Air 11/28/17 11:54 36.6 61 16 167/69 (101) 93 Room Air 11/28/17 08:30 Room Air 11/28/17 07:53 36.5 63 16 177/70 (105) 95 Room Air 11/28/17 04:00 36.6 67 20 181/66 (104) 95 Room Air 11/28/17 04:00 Room Air 11/28/17 00:00 Room Air 11/27/17 23:31 36.6 73 19 181/72 (108) 95 Room Air Physical Exam General Appearance: no apparent distress ENT: pharynx normal (slightly dry MM) Neck: no JVD Respiratory/Chest: no respiratory distress, no accessory muscle use, + decreased breath sounds (bases) Cardiovascular: regular rate, rhythm, no gallop, + systolic murmur (2/6 LLSB) Abdomen: normal bowel sounds, non tender, soft, no organomegaly Extremities: + pedal edema (L>R) Neurologic/Psychiatric: alert, + disoriented Skin: + pertinent finding (no cellulitis of either leg; stasis changes b/l shins) Laboratory Results Last 24 Hours Test 11/28/17 07:40 11/28/17 08:24 11/28/17 09:14 11/28/17 11:53 Bedside Glucose 134 mg/dl 162 mg/dl White Blood Count 10.33 K/uL Red Blood Count 3.15 M/uL Hemoglobin 9.7 g/dL Hematocrit 29.3 % Mean Corpuscular Volume 93.0 fL Mean Corpuscular Hemoglobin 30.8 pg Mean Corpuscular Hemoglobin Concent 33.1 g/dl Platelet Count 536 K/uL Mean Platelet Volume 9.8 fL Neutrophils (%) (Auto) 72.1 % Lymphocytes (%) (Auto) 15.1 % Monocytes (%) (Auto) 10.1 % Eosinophils (%) (Auto) 0.0 % Basophils (%) (Auto) 0.1 % Neutrophils # (Auto) 7.45 K/uL Lymphocytes # (Auto) 1.56 K/uL Monocytes # (Auto) 1.04 K/uL Eosinophils # (Auto) 0.00 K/uL Basophils # (Auto) 0.01 K/uL RDW Standard Deviation 61.1 fL RDW Coefficient of Variation 18.8 % Immature Granulocyte % (Auto) 2.6 % Immature Granulocyte # (Auto) 0.27 K/uL Sodium Level 146 mmol/L Potassium Level 3.8 mmol/L Chloride Level 117 mmol/L Carbon Dioxide Level 23 mmol/L Anion Gap 7.0 mmol/L Blood Urea Nitrogen 40 mg/dl Creatinine 0.80 mg/dl Est Creatinine Clear Calc Drug Dose 38.8 ml/min Estimated GFR () 76.3 Estimated GFR (Non- 65.8 BUN/Creatinine Ratio 49.7 Random Glucose 134 mg/dl Calcium Level 8.6 mg/dl Magnesium Level 2.1 mg/dl Chemistry Specimen Hemolysis Prothrombin Time 38.8 SECONDS Prothromb Time International Ratio 3.8 Test 11/28/17 16:36 11/28/17 20:21 Bedside Glucose 195 mg/dl 162 mg/dl Assessment and Plan 87yo female with: 1. sepsis 2nd to UTI +/- LLL pneumonia +/- cellulitis +/- acute sinusitis. Resolved. Off all antibiotics. 2. enterococcal bacteremia - resolved. Etiology uncertain - suspect the skin. Completed course of IV vancomycin. 3. suspected adrenal insufficiency - in the midst of #1 she had recurrent hypothermia, altered MS, bradycardia. Responded very quickly to stress dose steroids. These have been weaned to hydrocortisone 15mg BID. Will continue hydrocortisone after discharge. 4. LLL pneumonia - could be aspiration - completed full course of antibiotics. Clinically resolved. 5. extensive RLE DVT - heparin drip is off, now only on coumadin. INR supratherapeutic today; repeat INR in am. Hold today's coumadin. 6. CKD stage 4 - creatinine stable. 7. +troponin - myocardial demand ischemia 2nd to #1 (type 2 [place]). 8. dysphagia - nectar thick liquids. 9. e. coli UTI - has completed full course of antibiotics. 10. acute sinusitis - resolved. 11. lymphedema, left leg, with possible cellulitis - improved/resolved. 12. metabolic encephalopathy - likely due to multiple infectious issues. Has improved tremendously during her hospital stay. MRI brain w/o acute stroke. 13. HTN - controlled. 14. extensive candidal rashes (groin, under breasts, etc) - diflucan 100mg daily; day #7 today. Plan 10 days in total. 15. severe protein calorie malnutrition 16. stage 2 pressure ulcer, right buttock 17. sinus bradycardia - resolved; occurred in setting of severe hypothermia. Ok to d/c tele. DNR updated son - can likely d/c home tomorrow with home health and possible palliative care bridge Continued [facility] stay due to: ambulation difficulties Discharge planning: home with home health
[2017-11-29] VITALS (8 sets, daily range): BP systolic 148–194; BP diastolic 61–70; PULSE 59–66; TEMP 36.4–36.7; O2SAT 93–96
[2017-11-29] MEDS: HydrALAZINE HCL 20 MG/ML VIAL IV. PRN (02:03)
[2017-11-29 06:59] LABS: INR 3.2 (0.9-1.1)
[2017-11-29 07:29] LABS: CREATININE 0.62 mg/dl (0.60-1.20); POTASSIUM 3.6 mmol/L (3.5-5.1)
[2017-11-29] MEDS: ASPIRIN 81 MG ECTAB PO SCH (08:32)
[2017-11-29] MEDS: LISINOPRIL 20 MG TAB PO SCH (08:33)
[2017-11-29] MEDS: PANTOprazole SOD 40 MG TAB PO SCH (08:33)
[2017-11-29] MEDS: FLUCONAZOLE 100 MG TAB PO SCH (08:33)
[2017-11-29] MEDS: AMLODIPINE BESYLATE 5 MG TAB PO SCH (08:33)
[2017-11-29] MEDS: HYDROCORTISONE 10 MG TAB PO SCH ×2 (08:34→21:23)
[2017-11-29] MEDS: TRIAMCINOLONE ACET NASAL SPRAY 10.8ML BTL NAE SCH (08:34)
[2017-11-29] MEDS: TRIAMCINOLONE ACET 0.1% CR 80 GM TUBE EXT SCH ×3 (08:34→21:24)
[2017-11-29] MEDS: INSULIN ASPART 100 UNITS/ML 3 ML PEN SC SCH ×4 (08:35→21:00)
[2017-11-29] MEDS: CHECK SCOPOLAMINE PATCH PLACEMENT SCH ×3 (08:36→23:53)
[2017-11-29] MEDS ORDERED: SODIUM CHLORIDE 0.45% 1000ML 1,000 ML IV SCH (11:00)
[2017-11-29] MEDS: SCOPOLAMINE 1.5 MG TDSY TD SCH (17:48)
[2017-11-29] MEDS: INSULIN GLARGINE SOLOSTAR 100 UNITS/ML 3 ML PEN SC SCH (21:27)
--- NOTE | 2017-11-29 22:17 | Progress Note ---
Subjective Date of Service: Nov 29, 2017. Subjective Pt evaluation today including: conversation w/ patient, conversation w/ family (Ez, son - by phone), physical exam, chart review, lab review Pain: denies any complaints PO Intake: eating well, but drinking poorly Voiding: best catheter in place no events overnight patient asks "when can I go?" review of input totals - only taking 100-200cc of fluids each meal during my visit she had just finished lunch and she had audible wheezing concerning for aspiration patient knew she was in the hospital today Problem List Medical Problems: (1) Altered mental status Status: Acute (2) Aspiration into airway Status: Acute (3) Bradycardia Status: Acute (4) Cellulitis Status: Acute (5) Deep vein blood clot of left lower extremity Status: Acute (6) Dehydration Status: Acute (7) Elevated troponin Status: Acute (8) Hypoxia Status: Acute (9) Left leg cellulitis Status: Acute (10) Pneumonia Status: Acute (11) Pneumonia Status: Acute (12) Sepsis Status: Acute (13) Sepsis Status: Acute (14) UTI (urinary tract infection) Status: Acute Review of Systems Respiratory: No dyspnea at rest Cardiac: No chest pain Abdomen: No pain Objective Vital Signs Date Time Temp Pulse Resp B/P (MAP) Pulse Ox O2 Delivery O2 Flow Rate FiO2 11/29/17 19:55 36.7 66 16 163/64 (97) 95 Room Air 11/29/17 16:00 96 Room Air 11/29/17 15:19 36.7 65 16 148/61 (90) 96 Room Air 11/29/17 08:15 Room Air 11/29/17 07:16 36.4 60 18 167/65 (99) 93 Room Air 11/29/17 04:14 36.5 59 17 162/61 (94) 95 Room Air 11/29/17 02:40 159/67 (97) 11/29/17 01:59 194/66 (108) 11/28/17 23:45 Room Air 11/28/17 23:34 36.5 63 17 186/70 (108) 96 Room Air 162/74 (103) Physical Exam General Appearance: + pertinent finding (audible wheezing, coughing) ENT: + pertinent finding (retained food throughout oral cavity) Neck: no JVD Respiratory/Chest: no respiratory distress, no accessory muscle use, + wheezing , + pertinent finding (course BS b/l ) Cardiovascular: regular rate, rhythm, no gallop, + systolic murmur (2/6 LSB) Abdomen: normal bowel sounds, non tender, soft, no organomegaly Extremities: + pedal edema, + swelling (L>R) Neurologic/Psychiatric: alert Skin: + pertinent finding (stasis changes b/l legs) Laboratory Results Last 24 Hours Test 11/29/17 05:55 11/29/17 07:47 11/29/17 11:43 11/29/17 16:19 Prothrombin Time 32.5 SECONDS Prothromb Time International Ratio 3.2 Sodium Level 148 mmol/L Potassium Level 3.6 mmol/L Chloride Level 118 mmol/L Carbon Dioxide Level 23 mmol/L Anion Gap 7.0 mmol/L Blood Urea Nitrogen 37 mg/dl Creatinine 0.62 mg/dl Est Creatinine Clear Calc Drug Dose 49.2 ml/min Estimated GFR () 93.3 Estimated GFR (Non- 80.5 BUN/Creatinine Ratio 59.5 Random Glucose 81 mg/dl Calcium Level 8.0 mg/dl Bedside Glucose 83 mg/dl 185 mg/dl 172 mg/dl Test 11/29/17 20:12 Bedside Glucose 174 mg/dl Assessment and Plan 87yo female with: 1. sepsis 2nd to UTI +/- LLL pneumonia +/- cellulitis +/- acute sinusitis. Resolved. 2. enterococcal bacteremia - resolved. Etiology uncertain - suspect the skin. Completed course of IV vancomycin. 3. suspected adrenal insufficiency - in the midst of #1 she had recurrent hypothermia, altered MS, bradycardia. Responded very quickly to stress dose steroids. These have been weaned to hydrocortisone 15mg BID. Will continue hydrocortisone after discharge. 4. LLL pneumonia - likely aspiration - completed full course of antibiotics. 5. extensive RLE DVT - INR again supratherapeutic today; repeat INR in am. Hold today's coumadin. 6. CKD stage 4 - creatinine stable but BUN high along with hypernatremia - c/w dehydration. 7. +troponin - myocardial demand ischemia 2nd to #1 (type 2 [place]). 8. dysphagia - nectar thick liquids. 9. e. coli UTI - has completed full course of antibiotics. 10. acute sinusitis - resolved. 11. lymphedema, left leg, with possible cellulitis - latter resolved. 12. metabolic encephalopathy - resolved. 13. HTN - acceptable control. 14. extensive candidal rashes (groin, under breasts, etc) - diflucan 100mg daily; day #8 today. Plan 10 days in total. 15. severe protein calorie malnutrition 16. stage 2 pressure ulcer, right buttock 17. sinus bradycardia - resolved; occurred in setting of severe hypothermia. 18. hypernatremia - due to poor liquid intake -- 1/2 NS x 1 liter today. BMP am. spoke with Ez today, her son after seeing her after lunch and hearing her wheezing I suspect she aspirated during lunch this, couple with hypernatremia, is not good prognosis she is at high risk of readmission for recurrent aspiration pneumonia + dehydration explained this to Ez on phone today recommend hospice at d/c hold until tomorrow, then will have family preservation caseworker set up home hospice Ez agreeable voices understanding DNR Continued [facility] stay due to: ambulation difficulties, other (aspiration, hypernatremia ) Discharge planning: home with home health (possible hospice)
[2017-11-30] VITALS (8 sets, daily range): BP systolic 145–161; BP diastolic 52–74; PULSE 55–67; TEMP 36.1–36.4; O2SAT 85–100
[2017-11-30 06:59] LABS: INR 2.8 (0.9-1.1)
[2017-11-30 07:26] LABS: CALCIUM 7.7 mg/dl (8.5-10.1); CREATININE 0.58 mg/dl (0.60-1.20); POTASSIUM 3.7 mmol/L (3.5-5.1)
[2017-11-30] MEDS ORDERED: NURSING VERBAL MED ORDER ONE (07:45)
[2017-11-30] MEDS ORDERED: MoRPHine SULFATE 2 MG/ML CARP IV ONE (08:00)
[2017-11-30] MEDS: INSULIN ASPART 100 UNITS/ML 3 ML PEN SC SCH ×4 (08:16→20:55)
[2017-11-30] MEDS: TRIAMCINOLONE ACET 0.1% CR 80 GM TUBE EXT SCH ×3 (08:50→20:47)
[2017-11-30] MEDS: TRIAMCINOLONE ACET NASAL SPRAY 10.8ML BTL NAE SCH (08:50)
[2017-11-30] MEDS: AMLODIPINE BESYLATE 5 MG TAB PO SCH (08:51)
[2017-11-30] MEDS: HYDROCORTISONE 10 MG TAB PO SCH ×2 (08:51→20:48)
[2017-11-30] MEDS: PANTOprazole SOD 40 MG TAB PO SCH (08:51)
[2017-11-30] MEDS: ASPIRIN 81 MG ECTAB PO SCH (08:51)
[2017-11-30] MEDS: LISINOPRIL 20 MG TAB PO SCH (08:51)
[2017-11-30] MEDS: CHECK SCOPOLAMINE PATCH PLACEMENT SCH ×3 (08:53→23:13)
--- NOTE | 2017-11-30 09:04 | DIAGNOSTIC IMAGING REPORT ---
CHEST ONE VIEW PORTABLE HISTORY: 87 years-old Female SUSPECTED ASPIRATION acute aspiration with sepsis COMPARISON: Chest radiograph 11/20/2017 TECHNIQUE: Portable AP view of the chest FINDINGS: Cardiac silhouette is again moderately enlarged, unchanged. Atherosclerosis of the aorta. Dense calcifications of the mitral annulus redemonstrated. Right lung apex is partially obscured by the patient's chin. No overt pulmonary edema. There is no pneumothorax. Small bilateral pleural effusions with subsegmental bibasilar opacities, generally unchanged from comparison. Additionally, there is a hazy ill-defined opacity of the right midlung. Bones of the chest appear grossly intact and appear moderately demineralized. Degenerative changes are seen within the shoulders and spine. IMPRESSION: 1. Cardiomegaly with small bilateral pleural effusions and persistent subsegmental bibasilar opacities favoring atelectasis. 2. Hazy ill-defined opacities of the right midlung suggest composite pulmonary vasculature or mild pneumonitis. The above report was generated using voice recognition software. It may contain grammatical, syntax or spelling errors. Electronically signed by: Jovany Cuellar M.D. 11/30/2017 9:03 AM Dictated Date/Time: 11/30/2017 9:00 AM
--- NOTE | 2017-11-30 13:13 | Palliative Care Progress Note ---
Palliative Care Progress Note Date of Service Nov 30, 2017. Subjective Pt evaluation today including: conversation w/ patient, conversation w/ family (son, Ez), physical exam, chart review, conversation w/ information consultant (Dr. Jacobson) Spoke with Dr. Jacobson this morning. Patient aspirating over the weekend and developed wheezing. She has increased weakness and deconditioning. Conversation was held with patient's son, Ez, last evening by Dr. Jacobson to update family on patient's condition and deteriorating status. I asked to follow up today to discuss goals of care. I spoke with patient in room 278-2. She is drowsy but does awaken. She knew was in the hospital and that it was November 2017. She fell asleep frequently during my visit and could not really participate in goals of care conversation. She offered no complaints of pain or discomfort. I called patient's son, Ez. See plan below. Review of Systems Constitutional: + weakness Respiratory: No shortness of breath Cardiac: No chest pain Abdomen: No pain, No nausea, No vomiting Psychiatric: No anxiety limited ROS due to altered mental status/drowsiness Objective Vital Signs Date Time Temp Pulse Resp B/P (MAP) Pulse Ox O2 Delivery O2 Flow Rate FiO2 11/30/17 08:30 100 Nasal Cannula 2.0 11/30/17 08:13 55 24 161/52 (88) 100 2.0 11/30/17 08:10 36.4 63 24 150/74 (99) 96 2.0 11/30/17 08:00 85 Room Air 11/30/17 00:00 Room Air 11/29/17 23:41 36.6 61 17 163/70 (101) 95 Room Air 11/29/17 19:55 36.7 66 16 163/64 (97) 95 Room Air 11/29/17 16:00 96 Room Air 11/29/17 15:19 36.7 65 16 148/61 (90) 96 Room Air Physical Exam General Appearance: no apparent distress, + pertinent finding (frail, elderly) ENT: hearing grossly normal Neck: supple, no JVD Respiratory/Chest: no respiratory distress, no accessory muscle use Cardiovascular: regular rate, rhythm, no edema Abdomen: normal bowel sounds, non tender, soft Neurologic/Psychiatric: oriented x 3 (but very forgetful), + pertinent finding (drowsy, falling asleeping during exam) Skin: normal color Laboratory Results Last 24 Hours Test 11/29/17 16:19 11/29/17 20:12 11/30/17 06:36 11/30/17 07:42 Bedside Glucose 172 mg/dl 174 mg/dl 98 mg/dl Prothrombin Time 29.1 SECONDS Prothromb Time International Ratio 2.8 Sodium Level 145 mmol/L Potassium Level 3.7 mmol/L Chloride Level 115 mmol/L Carbon Dioxide Level 23 mmol/L Anion Gap 7.0 mmol/L Blood Urea Nitrogen 29 mg/dl Creatinine 0.58 mg/dl Est Creatinine Clear Calc Drug Dose 53.3 ml/min Estimated GFR () 95.4 Estimated GFR (Non- 82.3 BUN/Creatinine Ratio 50.2 Random Glucose 91 mg/dl Calcium Level 7.7 mg/dl Test 11/30/17 11:51 Bedside Glucose 104 mg/dl Assessment and Plan Problem list: Lethargy Aspiration risk/Dysphagia Pneumonia Malnutrition/FTT/hypoalbuminemia CKD stage IV Goals of care Palliative care recs: Discussed with patient's son, Ez Dr. Kavon Correia and case management. -Patient is DNR. -Spoke with son, Ez, at length this morning. We discussed patient's deteriorating status and she is not likely to improve from her current state. Ez is in agreement. We also talked about aspiration and risk of recurrent pneumonias. Ez agrees with the fact that being in hospital is not beneficial to patient at this time. -After discussion, goal is for home with hospice. Patient lives with Ez's two other brothers and can provide patient 20/04 care. partnership development manager is to follow up and obtain a hospice agency to make referral to. Total time spent 25 minutes with >50% of time spent with patient and family counseling/discussing goals of care. Palliative Performance Scale: 20 % Discharge planning: home with Hospice
[2017-11-30] MEDS: INSULIN GLARGINE SOLOSTAR 100 UNITS/ML 3 ML PEN SC SCH (20:55)
--- NOTE | 2017-12-01 05:40 | Progress Note ---
Subjective Date of Service: late entry for visit Nov 30, 2017. Subjective Pt evaluation today including: conversation w/ patient, physical exam, chart review, lab review, review of studies (cxr) Pain: none reported by patient PO Intake: eating ok, but liquid intake is not good Voiding: best catheter in place this am the patient's nurse called me shortly after she ate breakfast and reported she had course BS, was wheezing, and she had a wet cough cxr obtained showing right sided opacities; no CHF she required O2 briefly but this was weaned off quickly during the visit she denied any complaints was disappointed she wasn't going home today Problem List Medical Problems: (1) Altered mental status Status: Acute (2) Aspiration into airway Status: Acute (3) Bradycardia Status: Acute (4) Cellulitis Status: Acute (5) Deep vein blood clot of left lower extremity Status: Acute (6) Dehydration Status: Acute (7) Elevated troponin Status: Acute (8) Hypoxia Status: Acute (9) Left leg cellulitis Status: Acute (10) Pneumonia Status: Acute (11) Pneumonia Status: Acute (12) Sepsis Status: Acute (13) Sepsis Status: Acute (14) UTI (urinary tract infection) Status: Acute Review of Systems Respiratory: + cough, No shortness of breath Cardiac: No chest pain Abdomen: No pain Objective Vital Signs Date Time Temp Pulse Resp B/P (MAP) Pulse Ox O2 Delivery O2 Flow Rate FiO2 12/01/17 00:00 Room Air 11/30/17 19:46 36.2 63 20 150/53 (85) 95 Room Air 11/30/17 16:00 94 Room Air 11/30/17 15:35 36.1 59 18 145/66 (92) 94 Room Air 11/30/17 13:00 67 94 Room Air 11/30/17 08:30 100 Nasal Cannula 2.0 11/30/17 08:13 55 24 161/52 (88) 100 2.0 11/30/17 08:10 36.4 63 24 150/74 (99) 96 2.0 11/30/17 08:00 85 Room Air Physical Exam General Appearance: no apparent distress ENT: pharynx normal Neck: no JVD Respiratory/Chest: no respiratory distress, no accessory muscle use, + wheezing (b/l), + pertinent finding (course BS b/l with crackles) Cardiovascular: regular rate, rhythm, no gallop, + systolic murmur (2/6 BRYAN LSB ) Abdomen: normal bowel sounds, non tender, soft, no organomegaly Extremities: + pedal edema, + swelling Neurologic/Psychiatric: alert Skin: + pertinent finding (stasis changes b/l shins) Laboratory Results Last 24 Hours Test 11/30/17 06:36 11/30/17 07:42 11/30/17 11:51 11/30/17 16:18 Prothrombin Time 29.1 SECONDS Prothromb Time International Ratio 2.8 Sodium Level 145 mmol/L Potassium Level 3.7 mmol/L Chloride Level 115 mmol/L Carbon Dioxide Level 23 mmol/L Anion Gap 7.0 mmol/L Blood Urea Nitrogen 29 mg/dl Creatinine 0.58 mg/dl Est Creatinine Clear Calc Drug Dose 53.3 ml/min Estimated GFR () 95.4 Estimated GFR (Non- 82.3 BUN/Creatinine Ratio 50.2 Random Glucose 91 mg/dl Calcium Level 7.7 mg/dl Bedside Glucose 98 mg/dl 104 mg/dl 228 mg/dl Test 11/30/17 20:22 Bedside Glucose 153 mg/dl Assessment and Plan 87yo female with: 1. sepsis 2nd to UTI +/- LLL pneumonia +/- cellulitis +/- acute sinusitis. Resolved. 2. enterococcal bacteremia - resolved; completed course of IV vancomycin. 3. suspected adrenal insufficiency - in the midst of #1 she had recurrent hypothermia, altered MS, bradycardia. Responded very quickly to stress dose steroids. These have been weaned to hydrocortisone 15mg BID. Will continue hydrocortisone at discharge. 4. LLL pneumonia - likely aspiration - completed full course of antibiotics. She now appears to have a RML infiltrate on cxr - likely aspiration - she has now had 2 days of increased respiratory symptoms immediately after meals. This is highly suspicious for aspiration. 5. extensive RLE DVT - resume coumadin today. 6. CKD stage 4 -creatinine stable. 7. +troponin - myocardial demand ischemia 2nd to #1 (type 2 FL). 8. dysphagia - nectar thick liquids, but continues to aspirate with such.. 9. e. coli UTI - has completed full course of antibiotics. 10. acute sinusitis - resolved. 11. lymphedema, left leg, with possible cellulitis - latter resolved. 12. metabolic encephalopathy - resolved. 13. HTN - acceptable control. 14. extensive candidal rashes (groin, under breasts, etc) - diflucan 100mg daily; day #9 today. Plan 10 days in total. 15. severe protein calorie malnutrition 16. stage 2 pressure ulcer, right buttock 17. sinus bradycardia - resolved; occurred in setting of severe hypothermia. 18. hypernatremia - due to poor liquid intake -- resolved. dispo - home with hospice services will leave best in place and give O2 Discharge planning: home with Hospice
[2017-12-01 07:42] VITALS: BP 121/48; PULSE 60; TEMP 36.4; O2SAT 100
[2017-12-01 08:00] VITALS: O2SAT 100
[2017-12-01] MEDS: CHECK SCOPOLAMINE PATCH PLACEMENT SCH ×2 (08:00→15:04)
[2017-12-01] MEDS: TRIAMCINOLONE ACET 0.1% CR 80 GM TUBE EXT SCH ×2 (08:30→14:40)
[2017-12-01] MEDS: HYDROCORTISONE 10 MG TAB PO SCH (08:31)
[2017-12-01] MEDS: TRIAMCINOLONE ACET NASAL SPRAY 10.8ML BTL NAE SCH (08:31)
[2017-12-01] MEDS: ASPIRIN 81 MG ECTAB PO SCH (08:31)
[2017-12-01] MEDS: AMLODIPINE BESYLATE 5 MG TAB PO SCH (08:32)
[2017-12-01] MEDS: PANTOprazole SOD 40 MG TAB PO SCH (08:32)
[2017-12-01] MEDS: LISINOPRIL 20 MG TAB PO SCH (08:32)
[2017-12-01] MEDS: INSULIN ASPART 100 UNITS/ML 3 ML PEN SC SCH ×2 (08:36→12:53)
[2017-12-01 15:37] VITALS: BP 138/55; PULSE 67; TEMP 36.5; O2SAT 100
[2017-12-01] MEDS ORDERED: LISI-725 PO (15:51)
[2017-12-01] MEDS ORDERED: HYD10 PO (15:51)
[2017-12-01] MEDS ORDERED: LORA-741 PO (15:51)
[2017-12-01] MEDS ORDERED: SCOP1.5D2 TD (15:51)
[2017-12-01] MEDS ORDERED: XRL15 PO (15:51)
[2017-12-01] MEDS ORDERED: RIVA1TAB4 PO (15:51)
[2017-12-01] MEDS ORDERED: ONDA8TAB62 SL (15:51)
[2017-12-01] MEDS ORDERED: OXGN (15:51)
[2017-12-01] MEDS ORDERED: MORP20SO PO (15:51)
--- NOTE | 2017-12-01 16:01 | Discharge Instructions ---
Discharge Instructions Date of Service Dec 01, 2017. Admission Reason for Admission: Sepsis, Pneumonia, UTI, Skin Infection, Confusion Discharge Discharge Diagnosis / Problem: Multiple infections - resolved. Difficulty swallowing with aspiration. Discharge Goals Goal(s): Decrease discomfort, Learn about illness, Diagnostic testing, Therapeutic intervention Activity Recommendations Activity Limitations: resume your previous activity (as tolerated and/or desired) . Instructions / Follow-Up Instructions / Follow-Up From Dr. Jacobson - It was a pleasure caring for you while you were in the hospital. You had a number of infections during your stay including UTI, skin infection of your legs, pneumonia and sinus infection. The pneumonia is coming from your difficulty swallowing. Difficulty swallowing causes aspiration which is when liquid (and sometimes food ) goes into the lungs. When you get home please avoid foods that can "get stuck" easily when you swallow including but not limited to - raw vegetables, apples and other hard fruit, chunks of meat, pasta and dry cereal, bread, bagels, etc. It will be easier for you to swallow if you eat a soft diet (ground up meat, finely cut cooked veggies, use of gravies to moisten your food, etc). When drinking take small sips each time. If you have pain or difficulty breathing you can use MORPHINE LIQUID, 5-10 MG EVERY 3 HOURS NEEDED. If you have nausea or upset stomach you can use zofran tablet under your tongue every 6-8 hours as needed. If you are anxious or agitated you can use ativan (lorazepam) every 6 hours as needed. Continue the scopalamine patches behind your ear every 3 days. This will help with drooling and secretions. You can also use a nebulizer treatment every 4 hours as needed for cough, wheezing, or shortness of breath. Continue to use the oxygen while you sleep and during the day as needed. If you have any questions, needs, problems, etc when you get home please call the hospice agency first. They will be able to help you in the majority of situations and address your needs at your home. That way you can remain comfortable at your home with your sons. Current Hospital Diet Patient's current hospital diet: Diabetes Type 2 Diet Discharge Diet Recommended Diet: Diabetes Type 2 Diet Diet Texture: Mechanical Soft (ground) Procedures Procedures Performed: Ultrasound of right leg showing extensive blood clots (DVT). MRI brain showing old stroke but no new stroke. Multiple chest x-rays showing pneumonia. Gall bladder ultrasound with gallstones. Pending Studies Studies pending at discharge: no Medical Emergencies . Who to Call and When: Medical Emergencies: If at any time you feel your situation is an emergency, please call 911 immediately. . Non-Emergent Contact Non-Emergency issues call your: Specialist (HOSPICE ) Call Non-Emergent contact if: your pain is not controlled, your pain is worsening, your pain is unusual for you, your pain is concerning you, you have any medication questions . . "Provider Documentation" section prepared by Jerad Jacobson. .
[2017-12-01] MEDS ORDERED: IPRASOL4 INH (16:02)
[2017-12-01] MEDS ORDERED: NEBMAC (16:02)
[2017-12-01 16:03] VITALS: BP 138/55; PULSE 67; TEMP 36.5; O2SAT 100
--- NOTE | 2017-12-02 08:43 | Discharge Summary ---
Discharge Summary Date of Service Dec 02, 2017. Discharge Summary Admission Date: Nov 17, 2017 at 04:40 Discharge Date: Dec 01, 2017 Discharge Disposition: Home with services (HOSPICE) Principal Diagnosis: sepsis 2nd to multiple infectious sources (UTI, pneumonia , sinusitis, etc) Problems/Secondary Diagnoses: 1. metabolic encephalopathy 2nd to sepsis - resolved, appears at baseline 2. recurrent hypothermia - 2nd to sepsis +/- suspected adrenal insufficiency 3. cellulitis of the LEs - resolved 4. UTI - resolved 5. acute sinusitis - resolved 6. dysphagia with ongoing aspiration 7. T2DM with hypoglycemia - latter resolved 8. HTN 9. prior h/o DVT/PE 10. ?early dementia? 11. LLL pneumonia - resolved 12. developing RML pneumonitis just prior to discharge - due to aspiration 13. anemia 14. heme+ stool 15. acute kidney injury - mild - resolved 16. enterococcal bacteremia - resolved; possibly from skin source? 17. stage 2 pressure ulcer, right buttock - POA 18. hypernatremia - resolved 19. lymphedema of left leg - chronic 20. paroxysmal atrial fibrillation in setting of sepsis - resolved 21. positive troponin (POA) - likely type 2 SD/myocardial demand ischemia due to sepsis 22. candidiasis - improved 23. severe protein calorie malnutrition 24. acute respiratory distress due to aspiration event Immunizations: Have You Had Influenza Vaccine: No History of Tetanus Vaccine?: No History of Pneumococcal: No History of Hepatitis B Vaccine: No Procedures: 1. CT head - negative for acute process. 2. MRI brain - showed old stroke but no new stroke or ICH. 3. gall blader u/s - gallstones, but no signs of acute cholecystitis. 4. echocardiogram - * -- Conclusions -- * 1. Normal left ventricular size with hyperdynamic systolic function. EF > 70% . No regional wall motion abnormalities. No left ventricular hypertrophy. Type 1 diastolic dysfunction. * 2. Mild valvular aortic stenosis. * 3. Moderate to severe mitral annular calcification with mild mitral stenosis suggested. * 4. Normal estimated right ventricular systolic pressure; 24mmHg. * 5. Compared to prior study on 12/13/2016, trace pericardial effusion is now present. 5. RLE venous duplex study - EXTENSIVE DVT throughout the RLE. 6. LLE venous duplex study - negative for DVT. Consultations: 1. cardiology 2. infectious disease 3. critical care 4. palliative care 5. PT, OT, speech Medication Reconciliation New Medications: Home O2 Therapy (Oxygen) Gas 2 LITERS NA PRN, #1 Ipratropium-Albuterol (Duoneb) 3 Ml Nebu 1 TREATMENT INH Q4H PRN for cough/wheeze/labored breathing, #1 BOX 1 Refill Lorazepam (Ativan) 0.5 Mg Tab 0.5 MG PO Q6H PRN for anxiety, #30 TAB 0 Refills Morphine Sulfate (Morphine Sulfate) 20 Mg/5 Ml Ynes 5-10 MG PO Q3H PRN for pain/difficulty breathing, #50 ML 0 Refills Nebulizer Machine (Home Use) (Nebulizer Machine (Home Use) ) Mis EA N/A UD, #1 Ondansetron Odt (Zofran Odt) 8 Mg Soltab 8 MG SL Q6H PRN for Nausea, #15 TAB 1 Refill Rivaroxaban (Xarelto) 15 Mg Tab 15 MG PO BID for 14 Days, #28 TABS 0 Refills start on the morning of 12/04/2017 Rivaroxaban (Xarelto) 20 Mg Tab 20 MG PO DAILY, #30 TABS 2 Refills start after the 2-week course of 15mg twice a day is complete Hydrocortisone (Cortef) 10 Mg Tab 10 MG PO DIRECTED, #60 TAB 2 Refills take 1.5 tablets every morning, and 1/2 tablet every afternoon. Scopolamine (Transderm-Scop) 1 Mg/3 Days Dis 1.5 MG TD Q3D, #10 PATCH 2 Refills change every 3 days Changed Medications: Lisinopril (Zestril) 20 Mg Tab 20 MG PO QAM, #30 TAB 2 Refills (Changed from: BID; Refills: ) Continued Medications: Acetaminophen (Tylenol) 325 Mg Tab 650 MG PO Q6 PRN for Pain or Fever, TAB Bisacodyl (Dulcolax) 10 Mg Sup 1 SUPP TX DAILY PRN for Constipation, SUP Insulin Glargine (Lantus Solostar) 100 Unit/Ml Inj 5 UNITS SC HS for 30 Days, #30 DOSE Insulin Lispro (Human) (Humalog) 100 Unit/Ml Inj UNITS SQ ACHS PER SLIDING SCALE: 350-400=8 UNITS, 401-450=12 UNITS, 451-500=16 UNITS, 501-550-18 UNITS Magnesium Hydroxide (Milk of Magnesia) 30 Ml Susp 30 ML PO DAILY PRN for Constipation Sodium Phosphate/Biphosphate (Fleet Enema) Loretta 1 EA [place] DAILY PRN for Constipation, BTL Discontinued Medications: Aspirin (Aspirin Low Dose) 81 Mg Tab 81 MG PO DAILY Clonidine Hcl (Catapres) 0.1 Mg Tab 0.1 MG PO DAILY PRN for , TAB Furosemide (Lasix) 20 Mg Tab 20 MG PO DAILY, TAB Lisinopril (Lisinopril) 40 Mg Tab 1 TAB PO DAILY for 30 Days, #30 TAB Discharge Exam Physical Exam: General Appearance: no apparent distress, + pertinent finding (severe kyphosis) ENT: pharynx normal (MM slightly dry, no thrush) Neck: no JVD Respiratory/Chest: no respiratory distress, no accessory muscle use, + pertinent finding (very course BS b/l, end-exp wheezing, occasional right-sided crackle) Cardiovascular: regular rate, rhythm, no gallop, + systolic murmur (2/6 LLSB ) Abdomen / GI: normal bowel sounds, non tender, soft, no organomegaly Extremities: + pedal edema (<1+ b/l) Neurologic/Psychiatric: alert Skin: + pertinent finding (stasis changes of both shins) Hospital Course HISTORY OF PRESENT ILLNESS: 87yo female with history of prior PE/DVT, HTN, T2DM, ambulatory dysfunction, and multiple episodes earlier in 2017 for pneumonia who presented with unresponsiveness/altered mental status. The patient was unable to contribute to her history of present illness for review of systems due to the altered mental state. Information was gathered from EMS and 2 of her sons who were in attendance in the emergency department. The patient's blood sugar was 60 at time of ER presentation which resolved with glucose supplementation. Despite correction of the hypoglycemia she continued to be altered. Her sons reported that she had been gradually becoming less responsive over the past several days , with no obvious origin for these symptoms. In addition to the above, the patient was markedly hypothermic at ER presentation with initial rectal temperature of 32.2. HOSPITAL COURSE: The patient had a protracted stay (14+ days) due to her sepsis and multiple infections. She had waxing/waning mental status for the bulk of her stay, improving in the days leading up to discharge. She required a warming blanket for recurrent hypothermia on multiple occasions. Broad-spectrum IV antibiotic therapy was employed for an e.coli UTI, acute sinusitis as seen on imaging, lower extremity cellulitis, LLL pneumonia, as well as enterococcal bacteremia. The exact source for the enterococcus was uncertain but possibly due to her cellulitis. Repeat blood cultures later on in her stay were negative. About fdc through her hospitalization, while on broad-spectrum IV antibiotics, the patient developed recurrent hypothermia, extreme lethargy/ altered mental status, and hypotension/bradycardia. She was placed on stress-dose IV steroids for presumed adrenal insufficiency and within about 24 hours her mental status improved as did the hypothermia and other symptoms. She received steroids for the remainder of her stay and will continue on hydrocortisone at discharge for suspected adrenal insufficiency. The patient was treated for her extensive RLE DVT with heparin drip and coumadin. At discharge the coumadin was stopped and she was placed on eliquis twice daily for ongoing anticoagulation. Throughout her stay multiple staff members, physicians, and speech therapy saw evidence of severe dysphagia. In fact, the patient had a "code purple" due to her dysphagia. Early on in her stay she had an aspiration event that led to fleeing acute respiratory distress and brief transfer to the ICU. Speech was consulted and they recommended nectar thick liquids. Even despite such she continued to have dysphagia and overt aspiration. In addition to the above the patient had severe protein calorie malnutrition, hypernatremic dehydration due to poor liquid intake, paroxysmal a. fib ( resolved well before discharge), failure to thrive and severe weakness, candidiasis (multiple skin areas), and numerous other problems as noted in the problem list above. Palliative care was consulted during her stay and multiple discussions were held with her sons who are her primary caregivers. Her sons were agreeable to home hospice services at discharge. At discharge the patient will return home with hospice in place, best catheter , [place] O2, ativan/morphine/zofran/scopalmine patch, duonebs prn, and her dysphagia diet has been lifted to allow oral intake as desired. I anticipate ongoing aspiration at home and this was discussed with her sons prior to discharge. Finally, hospice reported they were willing to continue her anticoagulation and thus she was discharged home on eliquis twice daily given the extent of her RLE DVT. Total Time Spent: Greater than 30 minutes This includes examination of the patient, discharge planning, medication reconciliation, and communication with other providers. Discharge Instructions Please refer to the electronic Patient Visit Report (Discharge Instructions) for additional information. Follow-Up with HOSPICE at home Additional Copies To Michael Almeida M.D.
== END 2017-12-01 17:01 | disposition hospice, home (50) | DRG 871 ==
LOC: EDBD 02:10 → C.EDB 02:13 → C.2T 04:40 → ENRESERV 04:56 → C.MSICU 11-19 00:11 → ENRESERV 11-20 17:33 → C.MED 11-20 18:49
PROVIDERS: ADMIT Hospitalist; ATTEND Internal Medicine
DX: A41.81 Sepsis due to Enterococcus (principal); G93.41 Metabolic encephalopathy; J69.0 Pneumonitis due to inhalation of food and vomit; J96.01 Acute respiratory failure with hypoxia; I21.A1 Myocardial infarction type 2; E43 Unspecified severe protein-calorie malnutrition; I69.354 Hemiplegia and hemiparesis following cerebral infarction affecting left non-dominant side; N39.0 Urinary tract infection, site not specified; L03.115 Cellulitis of right lower limb; L03.116 Cellulitis of left lower limb; I50.32 Chronic diastolic (congestive) heart failure; I82.401 Acute embolism and thrombosis of unspecified deep veins of right lower extremity; I13.0 Hypertensive heart and chronic kidney disease with heart failure and stage 1 through stage 4 chronic kidney disease, or unspecified chronic kidney disease; N18.4 Chronic kidney disease, stage 4 (severe); E87.0 Hyperosmolality and hypernatremia; L89.312 Pressure ulcer of right buttock, stage 2; J01.90 Acute sinusitis, unspecified; I48.0 Paroxysmal atrial fibrillation; E86.0 Dehydration; R68.0 Hypothermia, not associated with low environmental temperature; L30.4 Erythema intertrigo; F03.90 Unspecified dementia, unspecified severity, without behavioral disturbance, psychotic disturbance, mood disturbance, and anxiety; E11.9 Type 2 diabetes mellitus without complications; B96.20 Unspecified Escherichia coli [E. coli] as the cause of diseases classified elsewhere; R13.10 Dysphagia, unspecified; B37.2 Candidiasis of skin and nail; R21 Rash and other nonspecific skin eruption; Z66 Do not resuscitate; T50.905A Adverse effect of unspecified drugs, medicaments and biological substances, initial encounter; Z79.4 Long term (current) use of insulin; Z79.52 Long term (current) use of systemic steroids; Z79.82 Long term (current) use of aspirin; Z79.899 Other long term (current) drug therapy; Z88.1 Allergy status to other antibiotic agents; Z86.718 Personal history of other venous thrombosis and embolism; Z86.711 Personal history of pulmonary embolism

== ENCOUNTER → 2018-04-22 | Outpatient (CLI) | payer OTHER ==
[~2018-04-22] MED LIST changes: -CTP/1 PO; -FURO-85 PO; -GFNSR600 PO; +HYD10 PO; +IPRA-64 INH; +LORA-741 PO; -LSN40 PO; +MORP20SO PO; +ONDA8TAB62 SL; +OXGN; -PRD20 PO; +RIVA1TAB4 PO; +SCOP1.5D2 TD; +XRL15 PO
== END | disposition home or self-care (01) ==
LOC: C.LABSPEC 18:10
PROVIDERS: ATTEND Internal Medicine
DX: N39.0 Urinary tract infection, site not specified (principal)

== ENCOUNTER 2019-07-25 15:49 | Inpatient (IN) ==
[2019-07-25] MEDS ORDERED: SODIUM CHLORIDE 0.9% 1000ML 1,000 ML IV SCH (16:30)
[2019-07-25] MEDS ORDERED: SODIUM CHLORIDE 0.9% 1000ML 500 ML IV ONE (16:35)
[2019-07-25] MEDS ORDERED: VANCOMYCIN HCL 1,250 MG in SODIUM CHLORIDE 0.9% 500 ML IV ONE ×2 (16:37→23:01)
[2019-07-25] MEDS ORDERED: VANCOMYCIN CONSULT ACTIVE PRN ×2 (16:37→23:01)
[2019-07-25] MEDS ORDERED: CEFEPIME 1,000 MG in SYRINGE 0 ML IV STA (16:37)
--- NOTE | 2019-07-25 17:07 | XRay Report ---
XR chest 1V portable CLINICAL HISTORY: weakness COMPARISON STUDY: 11/30/2017 FINDINGS: The heart is mildly enlarged. There are small bilateral pleural effusions. There is associa toya left lower lobe atelectasis/consolidation. There is calcification of mitral valve annulus.[There is no current evidence of vascular congestion. IMPRESSION: 1. Bilateral pleural effusions with associated left lower lobe atelectasis/consolidation. Electronically signed by: Chris Espinoza M.D. 07/25/2019 5:06 PM
--- NOTE | 2019-07-25 17:55 | CT Scan Report ---
CT head/brain wo con CLINICAL HISTORY: weakness, lethargy COMPARISON STUDY: MRI performed October 2017, CT scan performed October 2017 TECHNIQUE: Axial CT of the brain is performed from the vertex to the skull base. IV contrast was not administered for this examination. A dose lowering technique was utilized adhering to the principles of ALARA. CT DOSE: 614.27 mGy.cm FINDINGS: No intra or extra-axial mass lesions are visualized. There is no CT evidence of acute cortical infarc tion. There is no evidence of midline shift. There is no acute hemorrhage. No calvarial fractures ar e visualized. There are patchy white matter hypodensities likely on a small vessel basis. There is no evidence of pathologic ventricular dilatation. There is nasal polyposis. IMPRESSION: No acute intracranial findings Electronically signed by: Chris Espinoza M.D. 07/25/2019 5:54 PM
[2019-07-25 18:01] LABS: Hematocrit (blood only) 26.4 % (37-47); Hemoglobin 8.9 g/dL (12.0-16.0); Mean Corpuscular Hemoglobin 28.1 pg (25-34); Mean Corpuscular Hgb Conc 33.7 g/dL (32-36); Mean Corpuscular Volume 83.3 fL (80-100); Mean Platelet Volume 8.9 fL (7.4-10.4); Platelet Count 255 K/uL (130-400); RDW Coefficient of Variation 15.6 % (11.5-14.5); Red Blood Count 3.17 M/uL (4.2-5.4); White Blood Count 17.59 K/uL (4.8-10.8)
[2019-07-25 18:18] LABS: Alanine Aminotransferase 68 U/L (12-78); Albumin Level 1.7 gm/dl (3.4-5.0); Aspartate Aminotransferase 80 U/L (15-37); Blood Urea Nitrogen 29 mg/dl (7-18); Calcium 7.8 mg/dl (8.5-10.1); Carbon Dioxide 22 mmol/L (21-32); Chloride 102 mmol/L (98-107); Est GFR (African American) 95.8; Est GFR (Non-African American) 82.7; Glucose 157 mg/dl (70-99); Magnesium 2.4 mg/dl (1.8-2.4); Potassium 4.4 mmol/L (3.5-5.1); Sodium 133 mmol/L (136-145)
[2019-07-25 18:22] LABS: Basophils # (auto) 0.06 K/uL (0-0.2); Basophils % (auto) 0.3 %; Eosinophils # (auto) 0.02 K/uL (0-0.5); Eosinophils % (auto) 0.1 %; Immature Granulocytes # (auto) 0.19 K/uL (0.00-0.02); Immature Granulocytes % (auto) 1.1 %; Lymphocytes # (auto) 1.59 K/uL (1.2-3.4); Monocytes # (auto) 1.24 K/uL (0.11-0.59); Neutrophils # (auto) 14.49 K/uL (1.4-6.5); Neutrophils % (auto) 82.5 %
[2019-07-25 18:28] LABS: Albumin Globulin Ratio 0.4 (0.9-2); Alkaline Phosphatase 150 U/L (45-117); Bilirubin,Total 0.8 mg/dl (0.2-1); Globulin 4.4 gm/dl (2.5-4.0); Thyroid Stimulating Hormone 0.409 uIu/ml (0.300-4.500); Total Protein 6.1 gm/dl (6.4-8.2)
[2019-07-25 19:40] LABS: Appearance Urine Turbid (Clear); Bacteria Urine Automated 4+ (Negative); Bilirubin Urine Negative (Negative); Blood Urine 2+ (Negative); Color Urine Dark Yellow; Epithelial Cell Urine Auto >30 /lpf (0-5); Glucose Urine UA Negative (Negative); Ketones Urine Negative (Negative); Leukocyte Esterase Urine 3+ (Negative); Nitrite Urine Positive (Negative); Protein Urine Trace (Negative); Specific Gravity Urine 1.015 (1.000-1.030); Urobilinogen Urine Negative (Negative); WBC Urine Automated >30 /hpf (0-5)
[2019-07-25] MEDS ORDERED: VANCOMYCIN HCL 750 MG in SODIUM CHLORIDE 0.9% 500 ML IV SCH (23:01)
[2019-07-25] MEDS ORDERED: ACETAMINOPHEN 325 MG TAB PO PRN (23:01)
[2019-07-25] MEDS ORDERED: POLYETHYLENE (MIRALAX) 17 GM PACK PO PRN (23:01)
[2019-07-25] MEDS ORDERED: PATIENT'S HEIGHT AND/OR WEIGHT NEEDED SCH (23:15)
--- NOTE | 2019-07-26 00:05 | Emergency Department Note ---
Entered by Divina Schwab acting as a scribe for Eran Coles MD ED Provider Note CHIEF COMPLAINT: lethargy HISTORY OF PRESENT ILLNESS: The patient is an 88 year old female with past medical history of stroke, left arm weakness, chronic anticoagulation, venous stasis ulcer, who presents to the Emergency Room with complaints of constant lethargy that started a few days ago. The patient states she has wounds on her legs that the home nurse cleans every couple of days. The patients family reports the patient seems more pale. No new medications were given. No pre-hospital treatment. Pt denies LOC, headache, fevers, chills, diaphoresis, visual changes, neck pain, chest pain, breathing difficulties, nausea, vomiting, abdominal pain, back pain, melena, hematochezia, urinary symptoms, numbness, lymphadenopathy, rash, or ot her complaints. REVIEW OF SYSTEMS: See HPI for pertinent positives and negatives. A total of ten systems were reviewed and were otherwise negative. PMHx/PSHx: Stroke Left arm weakness Chronic anticoagulation Venous stasis ulcer SOCIAL HISTORY: Patient lives at home. PHYSICAL EXAM: GENERAL: Awake, alert, tired-appearing, in no distress HENT: Normocephalic, atraumatic. Oropharynx unremarkable. Dry mucus membranes. EYES: PERRL. Normal conjunctiva. Sclera non-icteric. NECK: Inspection normal. Non-tender. Supple. No nuchal rigidity. FROM. No masses. RESPIRATORY: Systolic ejection murmur. No wheezes. No rales. Normal respiratory effort. CARDIAC: Normal rate. Normal rhythm. No murmurs. No rubs. Extremities warm and well perfused. Pulses equal. No JVD. GI: Soft, non-distended. No tenderness to palpation. No rebound or guarding. No masses. RECTAL: Deferred. MUSCULOSKELETAL: Atraumatic. Chest examination reveals no tenderness. The back is symmetrical on inspection without obvious abnormality. There is no CVA tenderness to palpation. No joint edema. Large grade 4 sacral ulcer LOWER EXTREMITIES: Calves are equal size bilaterally and non-tender. 3+ bilateral edema. No discoloration. Large grade 3 ulcer wound on the lower lateral right and left legs. Right worse than left. NEURO: Normal sensorium. No sensory or motor deficits noted. SKIN: No rash or jaundice noted. EMERGENCY DEPARTMENT COURSE: 1628: Past medical records reviewed. The patient was evaluated in room B10, and a complete history and physical examination were performed. 1924: I put a call out for Vandana Hua. 2002: I discussed the patients case with Dr. Bryan, [facility] Hospitalist. He will evaluate the patient for further management. MEDICAL DECISION MAKING: B10 Prior records/ancillary studies reviewed. Nursing notes reviewed and agree them. Additional history obtained from family. The patient's history was concerning for weakness. Differential diagnosis: Etiologies such as metabolic, infection, hypo/hyperglycemia, electrolyte abnormalities, cardiac sources, intracerebral event, toxicologic, neurologic, as well as others were entertained. Physical examination: As above. ER treatment provided: IV Lock Normal saline hydration IV vancomycin IV cefepime on reassessment the patient felt better. Diagnostics interpretation by me: ECG: Sinus rhythm without ischemia but ectopy noted. The labs revealed a moderate leukocytosis of 17,500 on CBC. Anemia also noted with hemoglobin of 8.9. Chemistry panel revealed significant dehydration. Troponin and LFTs were negative. Urinalysis is concerning for infection. Blood and wound cultures pending. Imaging studies: Chest x-ray concerning for left lower lobe infiltrate. The patient has significant skin breakdown. She has a UTI and left lower lobe pneumonia. She was treated with cefepime and vancomycin. I did attempt to consult wound but they were gone for the day. A formal consult was ordered. The patient will need further management in the hospital. Patient and family were updated and in agreement. Consultation: A consultation was placed with the hospitalist. The case was discussed and diagnostics were reviewed. The patient was evaluated in the ER for further treatment. IMPRESSION: Dehydration Left lower lobe pneumonia Infected venous stasis ulcer Leukocytosis Anemia UTI PLAN: Admit The scribe's documentation has been prepared under my direction and personally reviewed by me in its entirety. I confirm that the note above accurately reflects all work, treatment, procedures, and medical decision making performed by me. Impression & Plan Dehydration, Left lower lobe pneumonia, Venous stasis ulcer, Leukocytosis, Anemia, UTI (urinary tract infection) Past Med/Surg History Medical History Chronic anticoagulation (Acute) DVT (deep venous thrombosis) (Acute) Difficulty walking (Acute) Disc degeneration, lumbar (Acute) Edema (Acute) History of pulmonary embolism (Acute) Impaired fasting glucose (Acute) Lymphedema (Acute) Mitral regurgitation (Acute) Stasis, venous (Acute) Stenosis, cervical spine (Acute) Stroke syndrome (Acute) Hypertension (Chronic) Family History Other Family history non-contributory Social History Preferred Language: Lao Communication Ability: Effective Nascar Racer Required: No Beliefs That Will Affect Care: None Current Living Situation: Family Current Living Situation Comment: 3 sons Feels Safe at Home: Yes Safety Concerns: Feels Safe At This Time Smoking Status: Never smoker Hx Alcohol Use: No Hx Substance Use: No Results & Data Vital Signs Vital Signs - 24 hr 07/25/19 15:45 07/25/19 15:48 07/25/19 16:30 Temperature 36.7 C Temperature Source Oral Sepsis Recent Fever Within 48 Hours No Sepsis New/Unexplained Change in Mental Status No Sepsis Action Taken by Nursing No Action Required Pulse Rate 86 77 Pulse Rate [Apical] Pulse Rate from SpO2 Sensor 75 Respiratory Rate 18 26 H Respiratory Effort / Characteristics Non-Labored Spontaneous Respiratory Depth Normal Respiratory Pattern Regular Blood Pressure 167/71 H 167/71 H Blood Pressure [Right Arm] Blood Pressure Mean 103 103 Blood Pressure Mean [Right Arm] Pulse Oximetry 96 97 96 Oxygen Delivery Method Room Air Room Air 07/25/19 17:35 07/25/19 18:03 07/25/19 18:53 Temperature 36.8 C Temperature Source Oral Sepsis Recent Fever Within 48 Hours Sepsis New/Unexplained Change in Mental Status Sepsis Action Taken by Nursing Pulse Rate 75 78 Pulse Rate [Apical] 75 79 Pulse Rate from SpO2 Sensor 78 78 Respiratory Rate 25 H 24 15 Respiratory Effort / Characteristics Non-Labored Spontaneous Respiratory Depth Normal Respiratory Pattern Regular Blood Pressure 147/83 H 173/58 H Blood Pressure [Right Arm] 147/83 H 173/58 H Blood Pressure Mean 104 96 Blood Pressure Mean [Right Arm] 104 96 Pulse Oximetry 96 94 96 Oxygen Delivery Method Room Air Room Air 07/25/19 20:57 Temperature Temperature Source Sepsis Recent Fever Within 48 Hours Sepsis New/Unexplained Change in Mental Status Sepsis Action Taken by Nursing Pulse Rate Pulse Rate [Apical] 80 Pulse Rate from SpO2 Sensor Respiratory Rate 18 Respiratory Effort / Characteristics Respiratory Depth Respiratory Pattern Blood Pressure Blood Pressure [Right Arm] 168/73 H Blood Pressure Mean Blood Pressure Mean [Right Arm] 104 Pulse Oximetry 97 Oxygen Delivery Method Room Air Home Medications Current Medication List: was personally reviewed by me Laboratory Data Attestation: I reviewed the patient's lab results. Result diagrams: 07/25/19 17:46 07/25/19 17:46 Lab Results 07/25/19 07/25/19 07/25/19 Range/Units 17:01 17:46 17:46 WBC 17.59 H (4.8-10.8) K/uL RBC 3.17 L (4.2-5.4) M/uL Hgb 8.9 L (12.0-16.0) g/dL Hct 26.4 L (37-47) % MCV 83.3 (80-100) fL MCH 28.1 (25-34) pg MCHC 33.7 (32-36) g/dL RDW Std Deviation 48.0 H (36.4-46.3) fL RDW Coeff of Mary Kay 15.6 H (11.5-14.5) % Plt Count 255 (130-400) K/uL MPV 8.9 (7.4-10.4) fL Immature Gran % (Auto) 1.1 % Neut % (Auto) 82.5 % Lymph % (Auto) 9.0 % [place] % (Auto) 7.0 % Eos % (Auto) 0.1 % Baso % (Auto) 0.3 % Immature Gran # (Auto) 0.19 H (0.00-0.02) K/uL Neut # (Auto) 14.49 H (1.4-6.5) K/uL Lymph # (Auto) 1.59 (1.2-3.4) K/uL [place] # (Auto) 1.24 H (0.11-0.59) K/uL Eos # (Auto) 0.02 (0-0.5) K/uL Baso # (Auto) 0.06 (0-0.2) K/uL Sodium 133 L (136-145) mmol/L Potassium 4.4 (3.5-5.1) mmol/L Chloride 102 (98-107) mmol/L Carbon Dioxide 22 (21-32) mmol/L Anion Gap 9.0 (3-11) BUN 29 H (7-18) mg/dl Creatinine 0.56 L (0.6-1.2) mg/dl Est Cr Clr Drug Dosing Not Reportable Est GFR ( Amer) 95.8 Est GFR (Non-Af Amer) 82.7 BUN/Creatinine Ratio 52.0 H (10-20) Glucose 157 H (70-99) mg/dl POC Lactic Acid Polo 0.62 L (0.90-1.70) mmol/L Calcium 7.8 L (8.5-10.1) mg/dl Magnesium 2.4 (1.8-2.4) mg/dl Total Bilirubin 0.8 (0.2-1) mg/dl AST 80 H (15-37) U/L ALT 68 (12-78) U/L Alkaline Phosphatase 150 H (45-117) U/L Troponin I 0.030 (0-0.045) ng/ml Total Protein 6.1 L (6.4-8.2) gm/dl Albumin 1.7 L (3.4-5.0) gm/dl Globulin 4.4 H (2.5-4.0) gm/dl Albumin/Globulin Ratio 0.4 L (0.9-2) TSH 0.409 (0.300-4.500) uIu/ml Urine Color Urine Appearance (Clear) Urine pH (4.5-7.5) Ur Specific Farn[place] (1.000-1.030) Urine Protein (Negative) Urine Glucose (UA) (Negative) Urine Ketones (Negative) Urine Blood (Negative) Urine Nitrite (Negative) Urine Bilirubin (Negative) Urine Urobilinogen (Negative) Ur Leukocyte Esterase (Negative) Urine WBC (Auto) (0-5) /hpf Urine RBC (Auto) (0-4) /hpf U Hyaline Cast (Auto) U Epithel Cells (Auto) (0-5) /lpf Urine Bacteria (Auto) (Negative) Urine Yeast Urine Sperm 07/25/19 Range/Units 19:00 WBC (4.8-10.8) K/uL RBC (4.2-5.4) M/uL Hgb (12.0-16.0) g/dL Hct (37-47) % MCV (80-100) fL MCH (25-34) pg MCHC (32-36) g/dL RDW Std Deviation (36.4-46.3) fL RDW Coeff of Mary Kay (11.5-14.5) % Plt Count (130-400) K/uL MPV (7.4-10.4) fL Immature Gran % (Auto) % Neut % (Auto) % Lymph % (Auto) % [place] % (Auto) % Eos % (Auto) % Baso % (Auto) % Immature Gran # (Auto) (0.00-0.02) K/uL Neut # (Auto) (1.4-6.5) K/uL Lymph # (Auto) (1.2-3.4) K/uL [place] # (Auto) (0.11-0.59) K/uL Eos # (Auto) (0-0.5) K/uL Baso # (Auto) (0-0.2) K/uL Sodium (136-145) mmol/L Potassium (3.5-5.1) mmol/L Chloride (98-107) mmol/L Carbon Dioxide (21-32) mmol/L Anion Gap (3-11) BUN (7-18) mg/dl Creatinine (0.6-1.2) mg/dl Est Cr Clr Drug Dosing Est GFR ( Amer) Est GFR (Non-Af Amer) BUN/Creatinine Ratio (10-20) Glucose (70-99) mg/dl POC Lactic Acid Polo (0.90-1.70) mmol/L Calcium (8.5-10.1) mg/dl Magnesium (1.8-2.4) mg/dl Total Bilirubin (0.2-1) mg/dl AST (15-37) U/L ALT (12-78) U/L Alkaline Phosphatase (45-117) U/L Troponin I (0-0.045) ng/ml Total Protein (6.4-8.2) gm/dl Albumin (3.4-5.0) gm/dl Globulin (2.5-4.0) gm/dl Albumin/Globulin Ratio (0.9-2) TSH (0.300-4.500) uIu/ml Urine Color Dark Yellow Urine Appearance Turbid A (Clear) Urine pH 5.0 (4.5-7.5) Ur Specific [place] 1.015 (1.000-1.030) Urine Protein Trace H (Negative) Urine Glucose (UA) Negative (Negative) Urine Ketones Negative (Negative) Urine Blood 2+ H (Negative) Urine Nitrite Positive A (Negative) Urine Bilirubin Negative (Negative) Urine Urobilinogen Negative (Negative) Ur Leukocyte Esterase 3+ H (Negative) Urine WBC (Auto) >30 H (0-5) /hpf Urine RBC (Auto) 5-10 H (0-4) /hpf U Hyaline Cast (Auto) Not Reportable U Epithel Cells (Auto) >30 H (0-5) /lpf Urine Bacteria (Auto) 4+ H (Negative) Urine Yeast Not Reportable Urine Sperm Not Reportable Administered Medications Sodium Chloride (Nss 1000ml) 1,000 mls @ 125 mls/hr IV .Q8H RUFUS Stop: 07/26/19 00:29 Last Infusion: 07/25/19 23:39 Dose: 0 mls/hr Documented by: [id number] Admin: 07/25/19 17:57 Dose: 125 mls/hr Documented by: [id number] Discontinued Medications Sodium Chloride (Nss 1000ml) 500 mls @ 999 mls/hr IV .Q31M ONE Stop: 07/25/19 17:05 Last Infusion: 07/25/19 18:26 Dose: 0 mls/hr Documented by: [id number] Admin: 07/25/19 17:56 Dose: 999 mls/hr Documented by: [id number] Vancomycin HCl 1,250 mg/ (Sodium Chloride) 525 mls @ 200 mls/hr IV NOW ONE Stop: 07/25/19 19:14 Last Infusion: 07/25/19 20:40 Dose: 0 mls/hr Documented by: [id number] Admin: 07/25/19 17:56 Dose: 200 mls/hr Documented by: [id number] Cefepime HCl 1,000 mg/ Syringe 11.3 mls @ 5.5 mls/min IV NOW STA; Protocol Stop: 07/25/19 16:39 Last Admin: 07/25/19 17:56 Dose: 5.5 mls/min Documented by: [id number] Imaging Data Radiologist's Impression: Radiology results as stated below per my review and the radiologist's interpretation: CT head/brain wo con CLINICAL HISTORY: weakness, lethargy COMPARISON STUDY: MRI performed October 2017, CT scan performed October 2017 TECHNIQUE: Axial CT of the brain is performed from the vertex to the skull base. IV contrast was not administered for this examination. A dose lowering technique was utilized adhering to the principles of ALARA. CT DOSE: 614.27 mGy.cm FINDINGS: No intra or extra-axial mass lesions are visualized. There is no CT evidence of acute cortical infarction. There is no evidence of midline shift. There is no acute hemorrhage. No calvarial fractures are visualized. There are patchy white matter hypodensities likely on a small vessel basis. There is no evidence of pathologic ventricular dilatation. There is nasal polyposis. IMPRESSION: No acute intracranial findings Electronically signed by: Chris Espinoza M.D. 07/25/2019 5:54 PM XR chest 1V portable CLINICAL HISTORY: weakness COMPARISON STUDY: 11/30/2017 FINDINGS: The heart is mildly enlarged. There are small bilateral pleural effusions. There is associated left lower lobe atelectasis/consolidation. There is calcification of mitral valve annulus.[There is no current evidence of v ascular congestion. IMPRESSION: 1. Bilateral pleural effusions with associated left lower lobe atel ectasis/consolidation. Electronically signed by: Chris Espinoza M.D. 07/25/2019 5:06 PM ECG Data Attestation: I personally reviewed and interpreted this ECG as follows: Indication: weakness Rate (beats per minute): 78 Rhythm: sinus rhythm Findings: + other (Premature supraventricular contraction, left anteior fa sicular block) and + RBBB; no PVC, no ST depression and no ST elevation Blood Pressure Blood Pressure Findings: Elevated blood pressure Blood Pressure Disposition: further management by hospitalist Discharge Plan Visit Data *Final* Discharge Date/Time: 07/25/19 22:29 Chief Complaint: Leg Injury/Pain ED Provider: Eran Coles Discharge Problem: Dehydration, Left lower lobe pneumonia, Venous stasis ulcer, Leukocytosis, Anemia, UTI (urinary tract infection) Patient Disposition: Admitted As Inpatient Discharge Instructions Interventions: ED Discharge Assessment Last Done: 07/25/19 22:29 Discharge Problem: Left lower lobe pneumonia Qualifiers: Pneumonia type: due to unspecified organism Qualified Code(s): J18.1 - Lobar pneumonia, unspecified organism Venous stasis ulcer Qualifiers: Venous stasis ulcer site: unspecified site Varicose vein presence: unspecified whether present Non-pressure ulcer stage: unspecified non-pressure ulcer stage Qualified Code(s): I83.009 - Varicose veins of unspecified lower extremity with ulcer of unspecified site Leukocytosis Qualifiers: Leukocytosis type: unspecified Qualified Code(s): D72.829 - Elevated white blood cell count, unspecified Anemia Qualifiers: Anemia type: unspecified type Qualified Code(s): D64.9 - Anemia, unspecified The scribe's documentation has been prepared under my direction and personally reviewed by me in its entirety. I confirm that the note above accurately reflects all work, treatment, procedures, and medical decision making performed by me.
[2019-07-26] MEDS ORDERED: CEFEPIME CONSULT ACTIVE PRN (02:05)
--- NOTE | 2019-07-26 02:45 | History & Physical Report ---
Date of Service July 26, 2019 Assessment & Plan (1) Sacral decubitus ulcer: 88-year-old female with a past medical history of hypertension, aortic stenosis, CVA, diabetes, hypertension, DVT, PE, bilateral lower extremity lymphedema, spinal stenosis presents with fatigue for the past couple days. Patient describes having a large sacral decubitus ulcer and wounds on bilateral legs. Patient is nonambulatory and bedridden status post CVA. Fatigue, leukocytosis, sacral pressure ulcer Treat with Vanco/cefepime Wound culture, wound care consult General surgery consult, holding Xarelto for possible procedure Tylenol for fevers Left lower lobe consolidation Continue antibiotics as above UTI Continue antibiotics as above Dehydration Maintenance IV fluidsnormal saline 125 cc/h Anemia No signs of bleeding, reports poor p.o. intake 8.9 despite dehydration, baseline varies Order fecal occult, iron studies Transaminitis History of cholelithiasis Hypertension Continue lisinopril 20 mg CODE STATUSfull code Dietn.p.o. with possible procedure tomorrow DVT prophylaxisholding Xarelto for possible procedure tomorrow (2) Anemia: (3) Leukocytosis: (4) Stasis, venous: (5) Impaired fasting glucose: (6) Lymphedema: (7) Stenosis, cervical spine: (8) Left lower lobe pneumonia: (9) Venous stasis ulcer: (10) Aortic stenosis: (11) Dehydration: (12) History of pulmonary embolism: History of Present Illness Primary Care Provider: Michael Almeida MD 88-year-old female with a past medical history of hypertension, aortic stenosis, diabetes, hypertension, DVT, PE, bilateral lower extremity lymphedema, spinal stenosis presents with fatigue for the past couple days. Patient describes having a large sacral decubitus ulcer and wounds on bilateral legs. The patient is nonambulatory and bedridden following stroke. The patient wears adult diapers, denies being able to get up to use the bedside commode. She lives at home with her son who is her primary director dental services. She also has home health services that visit her twice per week. They noted that the ulcer on her sacrum started approximately 3 weeks ago as a small lesion and is developed into a deep approximately 4 cm lesion. Pt denies LOC, headache, fevers, chills, chest pain, shortness of breath, cough, runny nose, nausea, vomiting, abdominal pain, back pain, melena, hematochezia, urinary symptoms Allergies Allergy/AdvReac Type Severity Reaction Status Date / Time amoxicillin Allergy Mild rash-on Verified 07/26/19 17:52 both Zithromax and Augmentin clavulanic acid Allergy Mild rash-on Verified 07/25/19 17:33 both Zithromax and Augmentin azithromycin Allergy rash-on Verified 07/26/19 17:54 both Zithromax and Augmentin Home Medications Home Medications Medication Instructions Recorded Confirmed Type rivaroxaban 20 mg tablet 20 mg PO DAILY #30 tab 04/08/19 07/25/19 Rx lisinopril 20 mg tablet 20 mg PO DAILY #30 tab 07/05/19 07/25/19 History Past Med/Surg History Medical History Chronic anticoagulation (Acute) DVT (deep venous thrombosis) (Acute) Difficulty walking (Acute) Disc degeneration, lumbar (Acute) Edema (Acute) History of pulmonary embolism (Acute) Impaired fasting glucose (Acute) Lymphedema (Acute) Mitral regurgitation (Acute) Stasis, venous (Acute) Stenosis, cervical spine (Acute) Stroke syndrome (Acute) Hypertension (Chronic) Family History Other Family history non-contributory Social History Preferred Language: Albanian Communication Ability: Effective Tile Sorter Required: No Beliefs That Will Affect Care: None Current Living Situation: Family Current Living Situation Comment: 3 sons Feels Safe at Home: Yes Safety Concerns: Feels Safe At This Time Smoking Status: Never smoker Hx Alcohol Use: No Hx Substance Use: No Review of Systems Review of Systems: All systems reviewed & are unremarkable except as noted in HPI & below Physical Exam Constitutional: + ill appearing and + cachectic Eyes: PERRL, conjunctivae normal, anicteric sclerae ENMT: external ear and nose normal, oropharynx normal Neck: trachea midline, no thyromegaly Respiratory: normal respiratory effort, lungs clear to auscultation Cardiovascular: Rate/Rhythm: regular rate and regular rhythm Heart Sounds: no click, no gallop and no cardiac rub 3 out of 6 systolic murmur Gastrointestinal (Abdomen): normal bowel sounds, soft, nontender, no hepatosplenomegaly Musculoskeletal: Bilateral lower extremity edema, rough skin tags on shins consistent with venous stasis dermatitis Skin: 4 cm sacral decubitus open wound Right lateral lower extremity ulcer Neurologic: PERRL, EOMI, accommodation nl, no face palsy, no dysarthria Psychiatric: A+Ox3, euthymic affect Results & Data Vital Signs (Past 12 Hours) Vital Signs Temp Pulse Pulse Resp BP BP Pulse Ox 07/25/19 23:48 85 07/25/19 20:57 80 18 168/73 H 97 07/25/19 18:53 78 79 15 173/58 H 173/58 H 96 07/25/19 18:03 75 24 147/83 H 94 07/25/19 17:35 36.8 C 75 25 H 147/83 H 96 07/25/19 16:30 96 07/25/19 15:48 77 26 H 167/71 H 97 07/25/19 15:45 36.7 C 86 18 167/71 H 96 Code Status & VTE Plan Code Status Full code VTE Prophylaxis Plan VTE Prophylaxis will be ordered: Yes Supervising Physician Co-Signing Physician Notes Attending addendum: I have physically seen this patient, have supervised the medical residents activities, and agree with the H&P unless as otherwise noted. Assessment and Plan: Sacral decubitus ulcer- Empiric treatment vancomycin IV and cefepime IV. Follow wound culture and blood culture results. Consult wound care. Consult general surgery. Hold Xarelto. UTI- Follow urine culture and sensitivity Vancomycin IV and cefepime IV as noted above. Remainder of orders and notations as noted. PG Care Time/CCT Total # of Minutes Spent Total Time Spent with Patient: Total time spent is greater than 50% in coordination of care (as documented) at patient's floor/unit and/or counseling patient: Resident Activity Tracking Resident Involvement: Resident Care Provided Care Provided: Adult Hospital Medicine (1) Anemia Anemia type: unspecified type Qualified Code(s): D64.9 - Anemia, unspecified (2) Leukocytosis Leukocytosis type: unspecified Qualified Code(s): D72.829 - Elevated white blood cell count, unspecified (3) Left lower lobe pneumonia Pneumonia type: due to unspecified organism Qualified Code(s): J18.1 - Lobar pneumonia, unspecified organism (4) Venous stasis ulcer Non-pressure ulcer stage: unspecified non-pressure ulcer stage Varicose vein presence: unspecified whether present Venous stasis ulcer site: unspecified site Qualified Code(s): I83.009 - Varicose veins of unspecified lower extremity with ulcer of unspecified site; L97.909 - Non-pressure chronic ulcer of unspecified part of unspecified lower leg with unspecified severity
[2019-07-26] MEDS ORDERED: VANCOMYCIN HCL 750 MG in SODIUM CHLORIDE 0.9% 500 ML IV SCH (03:00)
[2019-07-26] MEDS ORDERED: VANCOMYCIN CONSULT ACTIVE PRN (03:00)
[2019-07-26 06:26] LABS: Hematocrit (blood only) 28.3 % (37-47); Hemoglobin 9.3 g/dL (12.0-16.0); Mean Corpuscular Hemoglobin 27.9 pg (25-34); Mean Corpuscular Hgb Conc 32.9 g/dL (32-36); Mean Platelet Volume 9.6 fL (7.4-10.4); Platelet Count 239 K/uL (130-400); RDW Coefficient of Variation 15.5 % (11.5-14.5); RDW Standard Deviation 48.9 fL (36.4-46.3); Red Blood Count 3.33 M/uL (4.2-5.4); White Blood Count 15.82 K/uL (4.8-10.8)
[2019-07-26 06:49] LABS: Basophils # (auto) 0.03 K/uL (0-0.2); Basophils % (auto) 0.2 %; Immature Granulocytes # (auto) 0.12 K/uL (0.00-0.02); Immature Granulocytes % (auto) 0.8 %; Lymphocytes % (auto) 8.2 %; Monocytes # (auto) 0.87 K/uL (0.11-0.59); Monocytes % (auto) 5.5 %; Neutrophils % (auto) 85.3 %
[2019-07-26 06:56] LABS: BUN Creatinine Ratio 45.8 (10-20); Calcium 7.8 mg/dl (8.5-10.1); Creatinine Clr Calc Pharmacy 46.5 ml/min; Est GFR (African American) 94.7; Est GFR (Non-African American) 81.7; Potassium 4.4 mmol/L (3.5-5.1)
[2019-07-26 07:01] LABS: Ferritin 234.5 ng/ml (8-388)
--- NOTE | 2019-07-26 07:48 | Surgery Consultation ---
Date of Consultation July 26, 2019 Assessment & Plan (1) Sacral decubitus ulcer: Patient was seen with Dr. Reinoso. No indication for surgical debridement at this time, patient to be seen by wound care today. 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 We were asked to evaluate sacral ulcer. Allergies Allergy/AdvReac Type Severity Reaction Status Date / Time amoxicillin Allergy Mild rash-on Verified 07/25/19 17:33 both Zithromax and Augmentin clavulanic acid Allergy Mild rash-on Verified 07/25/19 17:33 both Zithromax and Augmentin mivacurium Allergy Mild rash- on Verified 07/25/19 17:33 both Augmentin and Zithromax Home Medications Home Medications Medication Instructions Recorded Confirmed Type rivaroxaban 20 mg tablet 20 mg PO DAILY #30 tab 04/08/19 07/25/19 Rx lisinopril 20 mg tablet 20 mg PO DAILY #30 tab 07/05/19 07/25/19 History Patient History Medical History Chronic anticoagulation (Acute) DVT (deep venous thrombosis) (Acute) Difficulty walking (Acute) Disc degeneration, lumbar (Acute) Edema (Acute) History of pulmonary embolism (Acute) Impaired fasting glucose (Acute) Lymphedema (Acute) Mitral regurgitation (Acute) Stasis, venous (Acute) Stenosis, cervical spine (Acute) Stroke syndrome (Acute) Hypertension (Chronic) Family History Other Family history non-contributory Social History Preferred Language: Samoan Communication Ability: Effective Service Line Layer Required: No Beliefs That Will Affect Care: None Current Living Situation: Family Current Living Situation Comment: 3 sons Feels Safe at Home: Yes Safety Concerns: Feels Safe At This Time Smoking Status: Never smoker Hx Alcohol Use: No Hx Substance Use: No Review of Systems Constitutional: + weakness; no fever Physical Exam Skin: 8 cm stage IV sacral wound undermines to the right 2-3 cm, some purulent fluid in wound bed several small superficial lower extremity ulcers, +4 bilat LE edema Results & Data Vital Signs (Past 12 Hours) Vital Signs Temp Pulse Pulse Resp BP Pulse Ox 07/26/19 04:22 36.8 C 74 20 148/61 H 96 07/25/19 23:48 85 07/25/19 20:57 80 18 168/73 H 97 PG Care Time/CCT Total # of Minutes Spent Total Time Spent with Patient: Total time spent is greater than 50% in coordination of care (as documented) at patient's floor/unit and/or counseling patient:
[2019-07-26] MEDS: LISINOPRIL 20 MG TAB PO SCH (07:58)
--- NOTE | 2019-07-26 08:02 | Pharmacy Report ---
Pharmacy Abx Dose Short Note - Date of Service July 26, 2019 - Assessment & Plan A/P 88yo F being receiving vancomycin and cefepime for a decubitus ulcer. Previous kinetic data is available. Does not have a h/o MRSA. unsure if ulcer is purulent in nature. C/s are pending. Current population p'kinetics: t1/2=16, ke=[id number]. Vancomycin 1250mg (22mg/kg) given in ER then Vancomycin 750mg (13mg/kg) q20. Pt's renal fxn is vastly improved from previous admissions goal trough until c/s and POOJA result will be 15-20mcg/mL trough ordered for 07/28/19 @1530 Cefepime is appropriately dosed based on renal fxn Pharmacy will continue to follow and will adjust dose/frequency as necessary. Thank you.
--- NOTE | 2019-07-26 08:56 | Family Medicine Progress Note ---
Date of Service July 26, 2019 Assessment & Plan (1) Sacral decubitus ulcer: 88-year-old female with a past medical history of hypertension, aortic stenosis, CVA, diabetes, hypertension, DVT, PE, bilateral lower extremity lymphedema, spinal stenosis presents with fatigue for the past couple days. Patient describes having a large sacral decubitus ulcer and wounds on bilateral legs. Patient is nonambulatory and bedridden status post CVA. Fatigue, leukocytosis, sacral pressure ulcer -?Sepsis -Blood Culture Gram + Cocci, sensitivities pending -Wound Culture pending -Wound Care Consult placed. -Recommend MRI Pelvis w/wo -Concern for Osteomyelitis General surgery consult - Surgery noted not a candidate at this time, continue wound management -MRI Pelvis w/wo showed Osteomyelitis with multiple abscesses throughout including epidural abscess -Ortho Spine Consulted -Infectious Disease Consulted -Continue Vancomycin until cultures return, Ceftriaxone and Flagyl for gram(-) and anaerobic coverage. Tylenol for fevers Left lower lobe consolidation Likely secondary to atelectasis as patient has no symptoms and a normal pulmonary exam. UTI -UA Nitrates + and WBC >30 Ceftriaxone IV Dehydration Maintenance IV fluidsnormal saline 125 cc/h Anemia No signs of bleeding, reports poor p.o. intake -?Anemia of Chronic Disease 8.9 despite dehydration, baseline varies - up to 9.3 Iron Studies - Iron 7.9, TIBC 183, Ferritin 234.5 Transaminitis History of cholelithiasis -Denies RUQ pain on clinical exam Hypertension Continue lisinopril 20 mg CODE STATUSfull code DietHeart Healthy DVT prophylaxisXarelto 20mg QD, holding ?procedure Dispo - Med/Surg Tele (2) Anemia: (3) Leukocytosis: (4) Stasis, venous: (5) Impaired fasting glucose: (6) Lymphedema: (7) Stenosis, cervical spine: (8) Left lower lobe pneumonia: (9) Venous stasis ulcer: (10) Aortic stenosis: (11) Dehydration: (12) History of pulmonary embolism: Supervising Physician Co-Signing Physician Notes I personally examined the patient and verified all ash points of history and exam, discussed case, and agree with decision making with Dr Wyman. Denies any complaints. Generally notes that she feels okay. Notes she is eating okay. Denies any shortness of breath. Denies any pain in her sacral area. She does seem to be an extremely limited historian with very uncertain veracity. Vitals noted, in general she is awake and alert but very fatigued pleasant no distress. HEENT normal cephalic atraumatic mucous membranes are moist. Breathing is unlabored no accessory muscle use good effort. Skin shows no rashes no pallor or icterus. Due to weakness and positioning, I was unable to directly visualize the sacral ulcer, but both Dr. Wyman and Dr. Barry did earlier today. Infected sacral ulcershe does not seem to carry any significant Pseudomonas risk (she has not recently been in the hospital, not recently on antibiotics, is not a dialysis patient, not a snf patient) and therefore we will drop her gram-negative coverage from cefepime to ceftriaxone. Likewise given that she is not in severe sepsis or septic shock, we can give consideration to covering for MSSA rather than MRSA until proven otherwise, but given the risk associated with her positive blood culture we will continue vancomycin at least until that has sensitivities. Continue local wound care, await MRI, if evidence of osteomyelitis present may need infectious disease consult. Typically on Xarelto for clots, currently held due to potential for further need for interventions on her sacral ulcerwe will resume as soon as it is clear it is safe. Otherwise as above Subjective Attending Physician Dr. Ibanez Patient seen this AM while resting in bed. Patient states that for the most part she "feels fine." She has a fairly negative review of systems, but does agree she has had fatigue for the past few days and worsening sacral ulcer. She requests that I let her rest this AM. Review of Systems Constitutional: + fatigue and + weakness; no fever and no chills Eyes: no eye pain Ear, Nose, Mouth, Throat: no tinnitus and no dizziness Respiratory: no cough, no dyspnea and no pain on inspiration Cardiovascular: no chest pain, no dyspnea and no palpitations Gastrointestinal: no abdominal pain, no vomiting, no constipation and no diarrhea/loose stools Genitourinary: no dysuria and no hematuria Musculoskeletal: + muscle weakness Integumentary: + non-healing lesions and + wounds Physical Exam Constitutional: + ill appearing, + cachectic and + disheveled; no acute distress Eyes: PERRL, conjunctivae normal, anicteric sclerae ENMT: external ear and nose normal, oropharynx normal Neck: trachea midline, no thyromegaly Respiratory: normal respiratory effort, lungs clear to auscultation Cardiovascular: Rate/Rhythm: regular rate and regular rhythm Heart Sounds: + murmur (3/6 BRYAN L 2nd intercostal) Gastrointestinal (Abdomen): normal bowel sounds, soft, nontender, no hepatosplenomegaly Musculoskeletal: Head/Neck/Chest: normocephalic and head atraumatic Skin: + ulcer (Large sacral decubitus ulcer ) Neurologic: awake; not confused Cranial Nerves: PERRL, normal accommodation, tongue midline and normal hearing Psychiatric: Orientation: alert and oriented x 3 Eye Contact: + fair eye contact Affect: + flat affect Results & Data Vital Signs (Past 12 Hours) Vital Signs Temp Pulse Pulse Resp BP BP Pulse Ox 07/26/19 07:58 120/66 07/26/19 04:22 36.8 C 74 20 148/61 H 96 07/25/19 23:48 85 07/25/19 20:57 80 18 168/73 H 97 Laboratory Results Abnormal lab results 07/26/19 07/26/19 Range/Units 05:28 05:28 WBC 15.82 H (4.8-10.8) K/uL RBC 3.33 L (4.2-5.4) M/uL Hgb 9.3 L (12.0-16.0) g/dL Hct 28.3 L (37-47) % RDW Std Deviation 48.9 H (36.4-46.3) fL RDW Coeff of Mary Kay 15.5 H (11.5-14.5) % Immature Gran # (Auto) 0.12 H (0.00-0.02) K/uL Neut # (Auto) 13.50 H (1.4-6.5) K/uL [place] # (Auto) 0.87 H (0.11-0.59) K/uL Sodium 135 L (136-145) mmol/L BUN 26 H (7-18) mg/dl Creatinine 0.58 L (0.6-1.2) mg/dl BUN/Creatinine Ratio 45.8 H (10-20) Glucose 127 H (70-99) mg/dl Calcium 7.8 L (8.5-10.1) mg/dl Iron 17 L (35-150) mcg/dl TIBC 183 L (250-450) mcg/dl Medications Administered Abnormal lab results 07/26/19 07/26/19 Range/Units 05:28 05:28 WBC 15.82 H (4.8-10.8) K/uL RBC 3.33 L (4.2-5.4) M/uL Hgb 9.3 L (12.0-16.0) g/dL Hct 28.3 L (37-47) % RDW Std Deviation 48.9 H (36.4-46.3) fL RDW Coeff of Mary Kay 15.5 H (11.5-14.5) % Immature Gran # (Auto) 0.12 H (0.00-0.02) K/uL Neut # (Auto) 13.50 H (1.4-6.5) K/uL [place] # (Auto) 0.87 H (0.11-0.59) K/uL Sodium 135 L (136-145) mmol/L BUN 26 H (7-18) mg/dl Creatinine 0.58 L (0.6-1.2) mg/dl BUN/Creatinine Ratio 45.8 H (10-20) Glucose 127 H (70-99) mg/dl Calcium 7.8 L (8.5-10.1) mg/dl Iron 17 L (35-150) mcg/dl TIBC 183 L (250-450) mcg/dl PG Care Time/CCT Total # of Minutes Spent Total Time Spent with Patient: Total time spent is greater than 50% in coordination of care (as documented) at patient's floor/unit and/or counseling patient: Resident Activity Tracking Resident Involvement: Resident Care Provided Care Provided: Adult Hospital Medicine (1) Anemia Anemia type: unspecified type Qualified Code(s): D64.9 - Anemia, unspecified (2) Leukocytosis Leukocytosis type: unspecified Qualified Code(s): D72.829 - Elevated white blood cell count, unspecified (3) Left lower lobe pneumonia Pneumonia type: due to unspecified organism Qualified Code(s): J18.1 - Lobar pneumonia, unspecified organism (4) Venous stasis ulcer Non-pressure ulcer stage: unspecified non-pressure ulcer stage Varicose vein presence: unspecified whether present Venous stasis ulcer site: unspecified site Qualified Code(s): I83.009 - Varicose veins of unspecified lower extremity with ulcer of unspecified site; L97.909 - Non-pressure chronic ulcer of unspecified part of unspecified lower leg with unspecified severity
[2019-07-26] MEDS ORDERED: VANCOMYCIN HCL 750 MG in SODIUM CHLORIDE 0.9% 250 ML IV SCH (10:00)
[2019-07-26] MEDS: VANCOMYCIN HCL 750 MG in SODIUM CHLORIDE 0.9% 250 ML IV SCH (11:18)
[2019-07-26] MEDS ORDERED: RIVAROXABAN 20 MG TAB PO SCH (11:45)
[2019-07-26] MEDS ORDERED: CEFEPIME 2,000 MG in SYRINGE 7.5 ML IV SCH (12:00)
--- NOTE | 2019-07-26 14:23 | Wound Consultation ---
Date of Consultation July 26, 2019 Assessment & Plan (1) Sacral decubitus ulcer: Patient with a sacral pressure ulcer probing down to bone. Was able to open up the pus pocket and culture was taken. Recommend MRI of wound to rule out osteomyelitis. If there is no underlying infection will consider wound VAC. (2) Venous stasis ulcer: Patient with bilateral venous stasis ulcers. Recommend elevating legs on pillows as his waffle boots seem to be causing more skin breakdown. Wounds will be dressed with foam. Thank you for allowing me to participate in the care of this interesting patient. We will continue to follow. History of Present Illness Reason for Consultation: Sacral pressure ulcer Attending Physician: Gene Ibanez DO History of Present Illness This is an 88-year-old female with a history of hypertension, aortic stenosis, CVA, diabetes, hypertension, DVT, PE, venous stasis and spinal stenosis who was admitted with fatigue. Patient is essentially bedbound. She has been developing a sacral decubitus ulcer at home. She was seen by surgery and there is no surgical intervention required at this time. Patient is on Vanco and cefepime. Patient is without complaints though she is a questionable historian. Allergies Allergy/AdvReac Type Severity Reaction Status Date / Time amoxicillin Allergy Mild rash-on Verified 07/25/19 17:33 both Zithromax and Augmentin clavulanic acid Allergy Mild rash-on Verified 07/25/19 17:33 both Zithromax and Augmentin mivacurium Allergy Mild rash- on Verified 07/25/19 17:33 both Augmentin and Zithromax Home Medications Home Medications Medication Instructions Recorded Confirmed Type rivaroxaban 20 mg tablet 20 mg PO DAILY #30 tab 04/08/19 07/25/19 Rx lisinopril 20 mg tablet 20 mg PO DAILY #30 tab 07/05/19 07/25/19 History Patient History Medical History Chronic anticoagulation (Acute) DVT (deep venous thrombosis) (Acute) Difficulty walking (Acute) Disc degeneration, lumbar (Acute) Edema (Acute) History of pulmonary embolism (Acute) Impaired fasting glucose (Acute) Lymphedema (Acute) Mitral regurgitation (Acute) Stasis, venous (Acute) Stenosis, cervical spine (Acute) Stroke syndrome (Acute) Hypertension (Chronic) Family History Other Family history non-contributory Social History Preferred Language: Ukrainian Communication Ability: Effective Sql Manager Required: No Beliefs That Will Affect Care: None Current Living Situation: Family Current Living Situation Comment: 3 sons Feels Safe at Home: Yes Safety Concerns: Feels Safe At This Time Smoking Status: Never smoker Hx Alcohol Use: No Hx Substance Use: No Review of Systems Review of Systems: All systems reviewed & are unremarkable except as noted in HPI & below Physical Exam Skin: Wound measuring 9 x 3 x 0.1 cm. There is significant undermining circumferentially. Wound does probe down to bone. There is a pus pocket. Neurologic: awake; not confused Psychiatric: A+Ox3, euthymic affect Results & Data Vital Signs (Past 12 Hours) Vital Signs Temp Pulse Resp BP BP Pulse Ox 07/26/19 11:29 37.0 C 80 16 103/63 96 07/26/19 07:58 36.7 C 80 16 120/66 98 07/26/19 04:22 36.8 C 74 20 148/61 H 96 PG Care Time/CCT Total # of Minutes Spent Total Time Spent with Patient: Total time spent is greater than 50% in coordination of care (as documented) at patient's floor/unit and/or counseling patient: (1) Venous stasis ulcer Non-pressure ulcer stage: unspecified non-pressure ulcer stage Varicose vein presence: unspecified whether present Venous stasis ulcer site: unspecified site Qualified Code(s): I83.009 - Varicose veins of unspecified lower extremity with ulcer of unspecified site; L97.909 - Non-pressure chronic ulcer of unspecified part of unspecified lower leg with unspecified severity
[2019-07-26] MEDS ORDERED: GADOBUTROL 65ML VIAL IV PRN (17:41)
--- NOTE | 2019-07-26 18:31 | Magnetic Resonance Report ---
MR pelvis wo/w con HISTORY: Left buttock pain. R/O Osteomyelitis TECHNIQUE: Multiplanar multisequence MRI of the pelvis was performed both before and after the intrav enous administration of 6 cc of Gadavist contrast. COMPARISON STUDY: None. FINDINGS: There is diffuse subcutaneous and muscular edema seen throughout the pelvis. There is a Fol ey catheter decompressing the bladder. Trace pelvic fluid. Stool ball within the rectum measuring 6.7 cm. There is also mild enhancement within the subcutaneous soft tissues raising the possibility of a cellulitis. There is nonspecific enhancement within the bilateral iliac is muscles, left greater chevy n right. Focal area of heterogeneous marrow signal within the left sacral wing which may be cystic. I t measures approximately 2.4 cm. This does not clearly represent a fracture could represent an indete rminate cystic focus/lesion. Small hypointense focus within the takeoff canal at the L5-S1 level best seen on axial image 5. This measures 1.4 cm. This could be a small focus of gas within the sacral ca nal. There appears to be a sacral decubitus ulcer. Deep to the ulcer within the distal sacrum there i s abnormal marrow signal with associated enhancement. Therefore, this is highly suspicious for an ost eomyelitis and may account for the gas within the sacral canal. Moderate bladder wall thickening is n oted. There is edema and extensive enhancement as well as small fluid collections surrounding the jere ateral S2 nerves in the presacral space best seen on axial image 14 of 36. These appear to represent small peripheral enhancing fluid collections surrounding the distal peripheral S2 nerves which measur e 1.4 cm on the right and 1.1 cm on the left. These are concerning for small abscesses. There is also a small peripheral enhancing cystic focus within the right mid sacrum on axial image 12 measuring 7 mm. This is similar to the left sacral abnormalities and could represent small intraosseous abscesses . IMPRESSION: 1. Sacral decubitus ulcer. Deep to the ulcer within the distal sacrum there is abnormal marrow signal with enhancement consistent with an osteomyelitis. 2. There is edema and extensive enhancement as well as small fluid collections surrounding the bilat eral S2 nerves in the presacral space as described above. These appear to represent small peripheral enhancing fluid collections surrounding the distal peripheral S2 nerves which measure 1.4 cm on the r ight and 1.1 cm on the left. These are concerning for small abscesses. 3. Small peripheral enhancing cystic foci within the bilateral sacral wings with the largest on the l eft measuring approximately 2.4 cm. These could represent small intraosseous abscesses. 4. Diffuse muscular edema within the pelvis. There is also enhancement within the bilateral iliacus m uscles, left greater than right. This could represent a myositis possibly due to an infectious proces s. 5. A hypointense focus within the proximal sacral canal measuring 1.4 cm. This raises the possibility of gas within the sacral canal. This could be due to direct communication with the sacral decubitus ulcer or secondary to an underlying infection which would therefore be consistent with an epidural ab scess within the proximal sacral canal. Surgical consultation recommended. 6. Thickened bladder wall suggestive of an underlying cystitis. Electronically signed by: Tono Shaffer M.D. 07/26/2019 6:29 PM
[2019-07-26] MEDS: metroNIDAZOLE 500 MG/100 ML BAG IV SCH (19:21)
[2019-07-26] MEDS: SACCHAROMYCES BOULARDII 250 MG CAP PO SCH (19:23)
[2019-07-27] MEDS: metroNIDAZOLE 500 MG/100 ML BAG IV SCH ×3 (03:28→20:28)
[2019-07-27] MEDS: VANCOMYCIN HCL 750 MG in SODIUM CHLORIDE 0.9% 250 ML IV SCH (05:55)
[2019-07-27 07:20] LABS: Hematocrit (blood only) 25.4 % (37-47); Hemoglobin 8.5 g/dL (12.0-16.0); Mean Corpuscular Hemoglobin 27.9 pg (25-34); Mean Corpuscular Hgb Conc 33.5 g/dL (32-36); Mean Corpuscular Volume 83.3 fL (80-100); Mean Platelet Volume 9.1 fL (7.4-10.4); Platelet Count 252 K/uL (130-400); RDW Coefficient of Variation 15.7 % (11.5-14.5); RDW Standard Deviation 47.7 fL (36.4-46.3); Red Blood Count 3.05 M/uL (4.2-5.4); White Blood Count 12.78 K/uL (4.8-10.8)
[2019-07-27 07:55] LABS: BUN Creatinine Ratio 48.5 (10-20); Calcium 7.7 mg/dl (8.5-10.1); Creatinine Clr Calc Pharmacy 56.8 ml/min; Est GFR (Non-African American) 83.7; Potassium 3.8 mmol/L (3.5-5.1)
[2019-07-27 07:58] LABS: Basophils # (auto) 0.03 K/uL (0-0.2); Basophils % (auto) 0.2 %; Eosinophils % (auto) 0.8 %; Immature Granulocytes # (auto) 0.15 K/uL (0.00-0.02); Immature Granulocytes % (auto) 1.2 %; Lymphocytes # (auto) 1.78 K/uL (1.2-3.4); Lymphocytes % (auto) 13.9 %; Monocytes % (auto) 7.8 %; Neutrophils # (auto) 9.72 K/uL (1.4-6.5); Neutrophils % (auto) 76.1 %; RBC Morphology Unremarkable
[2019-07-27] MEDS: LISINOPRIL 20 MG TAB PO SCH (08:08)
--- NOTE | 2019-07-27 10:25 | Infectious Disease Consult ---
Date of Consultation July 27, 2019 Assessment & Plan (1) Acute osteomyelitis of sacrum: 88-year-old female with sacral osteomyelitis in the setting of stage IV sacral decubitus ulcer, with small abscesses seen on MRI scan as well, also with gram-positive bacteremia. Pending final culture results, will change patient to combination of IV ceftaroline and metronidazole patient will likely require surgical debridement. Await surgical follow-up after review of MRI scan. Will discuss with all involved. Will follow. (2) Gram-positive cocci bacteremia: (3) Decubitus ulcer of sacral region, stage 4: History of Present Illness Reason for Consultation: Sacral osteomyelitis, epidural abscess Attending Physician: Gene Ibanez DO History of Present Illness 88-year-old female with history of aortic stenosis, DVT with pulmonary emboli, spinal stenosis, who was admitted with nonhealing sacral decubitus ulcer.Patient essentially bedbound, and has had sacral decubitus ulceration noted for several weeks. She has been started empirically on vancomycin, ceftriaxone, and metronidazole. MRI scan of the pelvis shows evidence of's sacral osteomyelitis as well as possible small abscesses surrounding the S2 nerves. No report of significant fever. Not currently complaining of any pain. Blood cultures now positive for gram-positive cocci.Wound cultures have previously grown staphylococcal species and gamma strep. Allergies Allergy/AdvReac Type Severity Reaction Status Date / Time amoxicillin Allergy Mild rash-on Verified 07/26/19 17:52 both Zithromax and Augmentin clavulanic acid Allergy Mild rash-on Verified 07/25/19 17:33 both Zithromax and Augmentin azithromycin Allergy rash-on Verified 07/26/19 17:54 both Zithromax and Augmentin Home Medications Home Medications Medication Instructions Recorded Confirmed Type rivaroxaban 20 mg tablet 20 mg PO DAILY #30 tab 04/08/19 07/25/19 Rx lisinopril 20 mg tablet 20 mg PO DAILY #30 tab 07/05/19 07/25/19 History Patient History Medical History Chronic anticoagulation (Acute) DVT (deep venous thrombosis) (Acute) Difficulty walking (Acute) Disc degeneration, lumbar (Acute) Edema (Acute) History of pulmonary embolism (Acute) Impaired fasting glucose (Acute) Lymphedema (Acute) Mitral regurgitation (Acute) Stasis, venous (Acute) Stenosis, cervical spine (Acute) Stroke syndrome (Acute) Hypertension (Chronic) Family History Other Family history non-contributory Social History Preferred Language: Guyanese Communication Ability: Effective Delivery Engineer Required: No Beliefs That Will Affect Care: None Current Living Situation: Family Current Living Situation Comment: 3 sons Feels Safe at Home: Yes Safety Concerns: Feels Safe At This Time Smoking Status: Never smoker Hx Alcohol Use: No Hx Substance Use: No Review of Systems Review of Systems: All systems reviewed & are unremarkable except as noted in HPI & below Physical Exam Constitutional: WD/WN, vitals as above + ill appearing, + cachectic and comfortable; no acute distress Eyes: PERRL, conjunctivae normal, anicteric sclerae ENMT: external ear and nose normal, oropharynx normal Neck: trachea midline, no thyromegaly neck nontender Respiratory: normal respiratory effort, lungs clear to auscultation normal percussion; does not use accessory muscles Cardiovascular: Rate/Rhythm: regular rate and regular rhythm Heart Sounds: normal S1, normal S2 and + murmur (3 out of 6 systolic murmur); no gallop and no cardiac rub Vessels: normal peripheral pulses; no JVD Gastrointestinal (Abdomen): normal bowel sounds, soft, nontender, no hepatosplenomegaly Musculoskeletal: no cyanosis or clubbing, extremities motor strength 5/5 Spine: thoracic spine normal to inspection and lumbar spine normal to inspection; no cervical spinal tenderness Skin: normal turgor and + wound (Large sacral decubitus with some surrounding erythema, probes to bone) Bilateral venous stasis dermatitis Neurologic: patellar DTR's 2+ bilat, sensation intact no focal motor deficits Psychiatric: A+Ox3, euthymic affect Orientation: cooperative Lymphatic: no cervical or axillary lymphadenopathy no inguinal lymphadenopathy Results & Data Vital Signs (Past 12 Hours) Vital Signs Temp Pulse Pulse Resp BP Pulse Ox 07/27/19 10:00 67 07/27/19 07:39 36.9 C 73 18 146/63 H 96 07/27/19 04:11 37.0 C 80 20 138/71 92 07/27/19 00:51 70 07/26/19 23:52 37.2 C 74 20 127/66 97 Laboratory Results Microbiology 07/25/19 16:30 Leg,Right Gram Stain - Final 07/25/19 16:30 Leg,Right Wound Culture - Preliminary Staphylococcus species 07/25/19 17:46 Blood Aerobic Blood Culture - Preliminary No growth in Aerobic bottle after 24 hours. 07/25/19 17:46 Blood Anaerobic Blood Culture - Final 07/25/19 17:46 Blood Aerobic Blood Culture - Preliminary No growth in Aerobic bottle after 24 hours. 07/25/19 17:46 Blood Anaerobic Blood Culture - Preliminary Gram positive cocci 07/26/19 11:30 Sacrum Gram Stain - Final 07/25/19 19:00 Urine,Straight Cath Urine Culture - Final More than three types of organisms present, all high counts. Repeat collection recommended. No further identifications or sensitivities to follow. 07/25/19 16:30 Sacrum Gram Stain - Final 07/25/19 16:30 Sacrum Wound Culture - Preliminary Staphylococcus species Gamma strep not enterococcus Diagnostic Findings Microbiology 07/25/19 16:30 Leg,Right Gram Stain - Final 07/25/19 16:30 Leg,Right Wound Culture - Preliminary Staphylococcus species 07/25/19 17:46 Blood Aerobic Blood Culture - Preliminary No growth in Aerobic bottle after 24 hours. 07/25/19 17:46 Blood Anaerobic Blood Culture - Final 07/25/19 17:46 Blood Aerobic Blood Culture - Preliminary No growth in Aerobic bottle after 24 hours. 07/25/19 17:46 Blood Anaerobic Blood Culture - Preliminary Gram positive cocci 07/26/19 11:30 Sacrum Gram Stain - Final 07/25/19 19:00 Urine,Straight Cath Urine Culture - Final More than three types of organisms present, all high counts. Repeat collection recommended. No further identifications or sensitivities to follow. 07/25/19 16:30 Sacrum Gram Stain - Final 07/25/19 16:30 Sacrum Wound Culture - Preliminary Staphylococcus species Gamma strep not enterococcus MR pelvis wo/w con HISTORY: Left buttock pain. R/O Osteomyelitis TECHNIQUE: Multiplanar multisequence MRI of the pelvis was performed both before and after the intravenous administration of 6 cc of Gadavist contrast. COMPARISON STUDY: None. FINDINGS: There is diffuse subcutaneous and muscular edema seen throughout the pelvis. There is a Figueroa catheter decompressing the bladder. Trace pelvic fluid. Stool ball within the rectum measuring 6.7 cm. There is also mild enhancement within the subcutaneous soft tissues raising the possibility of a cellulitis. There is nonspecific enhancement within the bilateral iliac is muscles, left greater than right. Focal area of heterogeneous marrow signal within the left sacral wing which may be cystic. It measures approximately 2.4 cm. This does not clearly represent a fracture could represent an indeterminate cystic focus/lesion. Small hypointense focus within the takeoff canal at the L5-S1 level best seen on axial image 5. This measures 1.4 cm. This could be a small focus of gas within the sacral canal. There appears to be a sacral decubitus ulcer. Deep to the ulcer within the distal sacrum there is abnormal marrow signal with associated enhancement. Therefore, this is highly suspicious for an osteomyelitis and may account for the gas within the sacral canal. Moderate blad benny wall thickening is noted. There is edema and extensive enhancement as well as small fluid collections surrounding the bilateral S2 nerves in the presacral space best seen on axial image 14 of 36. These appear to represent small peripheral enhancing fluid collections surrounding the distal peripheral S2 nerves which measure 1.4 cm on the right and 1.1 cm on the left. These are concerning for small abscesses. There is also a small peripheral enhancing cystic focus within the right mid sacrum on axial image 12 measuring 7 mm. This is similar to the left sacral abnormalities and could represent small intraosseous abscesses. IMPRESSION: 1. Sacral decubitus ulcer. Deep to the ulcer within the distal sacrum there is abnormal marrow signal with enhancement consistent with an osteomyelitis. 2. There is edema and extensive enhancement as well as small fluid collections surrounding the bilateral S2 nerves in the presacral space as described above. These appear to represent small peripheral enhancing fluid collections surrounding the distal peripheral S2 nerves which measure 1.4 cm on the right and 1.1 cm on the left. These are concerning for small abscesses. 3. Small peripheral enhancing cystic foci within the bilateral sacral wings with the largest on the left measuring approximately 2.4 cm. These could represent small intraosseous abscesses. 4. Diffuse muscular edema within the pelvis. There is also enhancement within the bilateral iliacus muscles, left greater than right. This could represent a myositis possibly due to an infectious process. 5. A hypointense focus within the proximal sacral canal measuring 1.4 cm. This raises the possibility of gas within the sacral canal. This could be due to direct communication with the sacral decubitus ulcer or secondary to an under lying infection which would therefore be consistent with an epidural abscess within the proximal sacral canal. Surgical consultation recommended. 6. Thickened bladder wall suggestive of an underlying cystitis. Electronically signed by: Tono Shaffer M.D. 07/26/2019 6:29 PM Dictated: 07/26/19 1810 PG Care Time/CCT Total # of Minutes Spent Total Time Spent with Patient: Total time spent is greater than 50% in coordination of care (as documented) at patient's floor/unit and/or counseling patient:
[2019-07-27] MEDS: COLLAGENASE OINT 30 GM TUBE EXT SCH (10:51)
--- NOTE | 2019-07-27 10:57 | Family Medicine Progress Note ---
Date of Service July 27, 2019 Assessment & Plan (1) Sacral decubitus ulcer: 88-year-old female with a past medical history of hypertension, aortic stenosis, CVA, diabetes, hypertension, DVT, PE, bilateral lower extremity lymphedema, spinal stenosis presents with fatigue for the past couple days. Patient describes having a large sacral decubitus ulcer and wounds on bilateral legs. Patient is nonambulatory and bedridden status post CVA. Fatigue, leukocytosis, sacral pressure ulcer -?Sepsis -Blood Culture Gram + Cocci, sensitivities pending -Wound Culture pending -MRI Pelvis w/wo showed Osteomyelitis with multiple abscesses throughout including epidural abscess -Wound Care Consult placed. General surgery consult - Not a surgical candidate at this time. -Ortho Spine Consulted - Continue antibiotic treatment, no surgical intervention -Infectious Disease Consulted - IV ceftaroline and metronidazole -Vancomycin D/C Tylenol for fevers Left lower lobe consolidation Likely secondary to atelectasis as patient has no symptoms and a normal pulmonary exam. UTI -UA Nitrates + and WBC >30 Patient on IV Ceftaroline and Metronidazole Dehydration Resolve -IV fluids dc'd Anemia No signs of bleeding, reports poor p.o. intake -?Anemia of Chronic Disease Iron Studies - Iron 7.9, TIBC 183, Ferritin 234.5 -Hgb 8.5 this AM Transaminitis History of cholelithiasis -Denies RUQ pain on clinical exam Hypertension Continue lisinopril 20 mg CODE STATUSfull code DietHeart Healthy DVT prophylaxisXarelto 20mg QD, holding ?procedure Dispo - Med/Surg Tele (2) Anemia: (3) Leukocytosis: (4) Stasis, venous: (5) Impaired fasting glucose: (6) Lymphedema: (7) Stenosis, cervical spine: (8) Left lower lobe pneumonia: (9) Venous stasis ulcer: (10) Aortic stenosis: (11) Dehydration: (12) History of pulmonary embolism: Supervising Physician Co-Signing Physician Notes I personally examined the patient and verified all ash points of history and exam, discussed case, and agree with decision making with Dr Wyman. Denies any complaints. no buttocks pain no sacral pain no f/c/s. no trouble eating/drinking Vitals noted, in general she is awake and alert but very fatigued pleasant no distress. HEENT normal cephalic atraumatic mucous membranes are moist. Breathing is unlabored no accessory muscle use good effort. Skin shows no rashes no pallor or icterus. ulcer pictures noted. Infected sacral ulcerpossible sepsis POA, with osteomyelitis and epidural abscess - continue antibiotics, wound care, debridement as necessary, nutritional support. appreciate financial consultant input Typically on Xarelto for clots, currently held due to potential for further need for interventions on her sacral ulceronce it's clear that further procedures are not imminent, will resume. SQ heparin for now Otherwise as above Subjective Patient seen this AM at the bedside. Patient stated that she was "feeling fine" and that in fact she was doing better than yesterday. She notes she feels more awake today. No other complaints at this time. Denies pain of her sacrum. Review of Systems Review of Systems: Patient notes a fairly negative ROS, however, unsure if entirely accurate. Patient denies fever, chills, nausea, vomiting, diarrhea, sob, chest pain, abdominal pain, cough, sacral pain. Patient notes weakness. Physical Exam Constitutional: + ill appearing, + cachectic and + disheveled; no acute distress Eyes: PERRL, conjunctivae normal, anicteric sclerae ENMT: external ear and nose normal, oropharynx normal Neck: trachea midline, no thyromegaly Respiratory: normal respiratory effort, lungs clear to auscultation Cardiovascular: Rate/Rhythm: regular rate and regular rhythm Heart Sounds: + murmur (3/6 BRYAN L 2nd intercostal) Extremities: + edema (+2-3 B/L ); no calf tenderness Gastrointestinal (Abdomen): normal bowel sounds, soft, nontender, no hepatosplenomegaly Musculoskeletal: Head/Neck/Chest: normocephalic and head atraumatic Skin: + ulcer (Large sacral decubitus ulcer, Stage 4, 4cm) Neurologic: awake; not confused Cranial Nerves: PERRL, normal accommodation, tongue midline and normal hearing Psychiatric: Orientation: alert and oriented x 3 Eye Contact: + fair eye contact Affect: + flat affect Results & Data Vital Signs (Past 12 Hours) Vital Signs Temp Pulse Pulse Resp BP Pulse Ox 07/27/19 10:00 67 07/27/19 07:39 36.9 C 73 18 146/63 H 96 07/27/19 04:11 37.0 C 80 20 138/71 92 07/27/19 00:51 70 07/26/19 23:52 37.2 C 74 20 127/66 97 Laboratory Results Abnormal lab results 07/27/19 07/27/19 Range/Units 06:31 06:31 WBC 12.78 H (4.8-10.8) K/uL RBC 3.05 L (4.2-5.4) M/uL Hgb 8.5 L (12.0-16.0) g/dL Hct 25.4 L (37-47) % RDW Std Deviation 47.7 H (36.4-46.3) fL RDW Coeff of Mary Kay 15.7 H (11.5-14.5) % Immature Gran # (Auto) 0.15 H (0.00-0.02) K/uL Neut # (Auto) 9.72 H (1.4-6.5) K/uL Williams # (Auto) 1.00 H (0.11-0.59) K/uL Sodium 134 L (136-145) mmol/L BUN 26 H (7-18) mg/dl Creatinine 0.54 L (0.6-1.2) mg/dl BUN/Creatinine Ratio 48.5 H (10-20) Glucose 131 H (70-99) mg/dl Calcium 7.7 L (8.5-10.1) mg/dl Medications Administered Current Inpatient Medications Acetaminophen (Tylenol) 650 mg PO Q4H PRN PRN Reason: Pain or Fever Stop: 08/24/19 23:00 Collagenase (Santyl) 1 appln EXT DAILY RUFUS Stop: 08/26/19 08:59 Last Admin: 07/27/19 10:51 Dose: 1 appln Documented by: Gadobutrol (Gadavist 65ml) 6 ml IV ONCE PRN PRN Reason: Interaction Checking Stop: 07/30/19 17:40 Last Admin: 07/26/19 17:41 Dose: 6 ml Documented by: Heparin Sodium (Porcine) (Heparin Sodium (Porcine)) 5,000 units SQ Q12 RUFUS Stop: 08/26/19 20:59 Last Admin: 07/27/19 20:27 Dose: 5,000 units Documented by: Metronidazole (Flagyl) 500 mg in 100 mls @ 100 mls/hr IV Q8H RUFUS Stop: 08/05/19 18:29 Last Admin: 07/27/19 20:28 Dose: 100 mls/hr Documented by: Ceftaroline Fosamil 600 mg/ (Sodium Chloride) 270 mls @ 250 mls/hr IV Q12 RUFUS; Protocol Stop: 09/07/19 11:59 Last Infusion: 07/27/19 12:26 Dose: Infused Documented by: Lisinopril (Zestril) 20 mg PO DAILY RUFUS Stop: 08/25/19 08:59 Last Admin: 07/27/19 08:08 Dose: 20 mg Documented by: Polyethylene Glycol (Miralax Powder Packet) 17 gm PO DAILY PRN PRN Reason: Constipation Stop: 08/24/19 23:00 Saccharomyces Boulardii (Florastor) 250 mg PO HS RUFUS Stop: 08/25/19 20:59 Last Admin: 07/27/19 20:28 Dose: 250 mg Documented by: PG Care Time/CCT Total # of Minutes Spent Total Time Spent with Patient: Total time spent is greater than 50% in coordination of care (as documented) at patient's floor/unit and/or counseling patient: Resident Activity Tracking Resident Involvement: Resident Care Provided Care Provided: Adult Hospital Medicine (1) Anemia Anemia type: unspecified type Qualified Code(s): D64.9 - Anemia, unspecified (2) Leukocytosis Leukocytosis type: unspecified Qualified Code(s): D72.829 - Elevated white blood cell count, unspecified (3) Left lower lobe pneumonia Pneumonia type: due to unspecified organism Qualified Code(s): J18.1 - Lobar pneumonia, unspecified organism (4) Venous stasis ulcer Non-pressure ulcer stage: unspecified non-pressure ulcer stage Varicose vein presence: unspecified whether present Venous stasis ulcer site: unspecified site Qualified Code(s): I83.009 - Varicose veins of unspecified lower extremity with ulcer of unspecified site; L97.909 - Non-pressure chronic ulcer of unspecified part of unspecified lower leg with unspecified severity
[2019-07-27] MEDS: CEFTAROLINE FOSAMIL ACETATE 600 MG in SODIUM CHLORIDE 0.9% 250 ML IV SCH ×2 (11:26→21:23)
[2019-07-27] MEDS ORDERED: cefTRIAXone SODIUM 1,000 MG in DEXTROSE 5% 50 ML IV SCH (12:00)
--- NOTE | 2019-07-27 15:10 | Consultation Report ---
DATE OF CONSULTATION: 07/25/2019 Spinal consultation regard to the sacral decubitus and small epidural abscess in the area of the sacrum. HISTORY: I had the pleasure of seeing this morning about 7 o'clock Princess Correia for consultation. She is an 88-year-old female. She is bedridden, medical history of hypertension, stenosis, multiple medical problems. Evidently, she has a large sacral decubitus ulcer with wounds on bilateral legs. She is nonambulatory and bedridden after a stroke she had. The blessing today was she is in no pain. Medical and surgical history all reviewed including medications. PHYSICAL EXAMINATION: She is cachectic. She is ill appearing. She is lying in bed. Again fortunately, no pain. Pupils were reactive to light and accommodation. She could communicate. HEART: Normal. LUNGS: Normal. ABDOMEN: Soft, nontender. MUSCULOSKELETAL: She has a 4 cm sacral decubitus open wound. Some right lower extremity ulcers. She is afebrile. I reviewed her images. There is evidence of a small epidural abscess around the sacral 2 nerve. IMPRESSION: An 88-year-old female with multiple medical problems with a sacral decubitus and a small abscess. PLAN: Surgery completely contraindicated from my spinal standpoint. There are no surgical indications. Treat her with medications, antibiotics, appropriate care, but nonsurgical care.
[2019-07-27] MEDS: HEPARIN SOD 5,000 UNIT/0.5 ML VIAL SQ SCH (20:27)
[2019-07-27] MEDS: SACCHAROMYCES BOULARDII 250 MG CAP PO SCH (20:28)
[2019-07-28] MEDS ORDERED: VANCOMYCIN TROUGH ONE ×2 (01:30→15:30)
[2019-07-28] MEDS: metroNIDAZOLE 500 MG/100 ML BAG IV SCH ×3 (04:55→19:17)
[2019-07-28 07:10] LABS: BUN Creatinine Ratio 46.4 (10-20); Calcium 7.3 mg/dl (8.5-10.1); Creatinine Clr Calc Pharmacy 62.1 ml/min; Est GFR (African American) 99.5; Est GFR (Non-African American) 85.8; Potassium 4.2 mmol/L (3.5-5.1)
[2019-07-28] MEDS: HEPARIN SOD 5,000 UNIT/0.5 ML VIAL SQ SCH ×2 (10:13→20:12)
[2019-07-28] MEDS: COLLAGENASE OINT 30 GM TUBE EXT SCH (10:13)
[2019-07-28] MEDS: LISINOPRIL 20 MG TAB PO SCH (10:13)
[2019-07-28] MEDS: CEFTAROLINE FOSAMIL ACETATE 600 MG in SODIUM CHLORIDE 0.9% 250 ML IV SCH ×2 (10:15→20:11)
--- NOTE | 2019-07-28 10:57 | Family Medicine Progress Note ---
Date of Service July 28, 2019 Assessment & Plan (1) Sacral decubitus ulcer: 88-year-old female with a past medical history of hypertension, aortic stenosis, CVA, diabetes, hypertension, DVT, PE, bilateral lower extremity lymphedema, spinal stenosis presents with fatigue for the past couple days. Patient describes having a large sacral decubitus ulcer and wounds on bilateral legs. Patient is nonambulatory and bedridden status post CVA. Fatigue, leukocytosis, sacral pressure ulcer -?Sepsis -Blood Culture Gram + Cocci, sensitivities pending -Wound Culture pending -MRI Pelvis w/wo showed Osteomyelitis with multiple abscesses throughout including epidural abscess -Wound Care Consult placed. General surgery consult - Not a surgical candidate at this time. -Ortho Spine Consulted - Continue antibiotic treatment, no surgical intervention -Infectious Disease Consulted - IV ceftaroline and metronidazole -Vancomycin D/C Tylenol for fevers Left lower lobe consolidation Likely secondary to atelectasis as patient has no symptoms and a normal pulmonary exam. UTI -UA Nitrates + and WBC >30 Patient on IV Ceftaroline and Metronidazole Dehydration Resolve -IV fluids dc'd Anemia No signs of bleeding, reports poor p.o. intake -?Anemia of Chronic Disease Iron Studies - Iron 7.9, TIBC 183, Ferritin 234.5 -Hgb 8.5 07/27/19 Transaminitis History of cholelithiasis -Denies RUQ pain on clinical exam Hypertension Continue lisinopril 20 mg CODE STATUSfull code DietHeart Healthy DVT prophylaxisHeparin, holding xarelto. Dispo - Med/Surg Tele (2) Anemia: (3) Leukocytosis: (4) Stasis, venous: (5) Impaired fasting glucose: (6) Lymphedema: (7) Stenosis, cervical spine: (8) Left lower lobe pneumonia: (9) Venous stasis ulcer: (10) Aortic stenosis: (11) Dehydration: (12) History of pulmonary embolism: Supervising Physician Co-Signing Physician Notes I personally examined the patient and verified all ash points of history and exam, discussed case, and agree with decision making with Dr Wyman. Still has no complaints. No back pain no leg pain no buttock pain. Not eating very well, but seems to be starting to understand the importance of taking in well orally. Still quite insistent on going home, but more open to the idea that she at least needs significantly more help at home when the time comes. Vitals noted, in general she is awake and alert but very fatigued pleasant no distress. HEENT normal cephalic atraumatic mucous membranes are moist. Breathing is unlabored no accessory muscle use good effort. Skin shows no rashes no pallor or icterus. Infected sacral ulcerpossible sepsis POA, with osteomyelitis and epidural abscess - continue antibiotics (appreciate infectious disease input), wound care, debridement as necessary, nutritional support. No spine surgery at this time. Typically on Xarelto for clots, currently held due to potential for further need for interventions on her sacral ulceronce it's clear that further procedures are not imminent, will resume. SQ heparin for now Otherwise as above Subjective Attending on service Dr. Ibanez Patient seen at the beside this morning. Stated she was feeling good this morning and without complaints. Denied any buttocks pain, leg pain, dyspnea, chest pain, fever, or chills. Review of Systems Review of Systems: Patient notes a fairly negative ROS, however, unsure if entirely accurate. Patient denies fever, chills, nausea, vomiting, diarrhea, sob, chest pain, abdominal pain, cough, sacral pain. Patient notes weakness. Constitutional: + fatigue and + weakness; no fever and no chills Musculoskeletal: + muscle weakness Integumentary: + non-healing lesions and + wounds Physical Exam Constitutional: + ill appearing, + cachectic and + disheveled; no acute distress Eyes: PERRL, conjunctivae normal, anicteric sclerae ENMT: external ear and nose normal, oropharynx normal Neck: trachea midline, no thyromegaly Respiratory: normal respiratory effort, lungs clear to auscultation Cardiovascular: Rate/Rhythm: regular rate and regular rhythm Heart Sounds: + murmur (3/6 BRYAN L 2nd intercostal) Extremities: + edema (+2-3 B/L ); no calf tenderness Gastrointestinal (Abdomen): normal bowel sounds, soft, nontender, no hepatosplenomegaly Musculoskeletal: Head/Neck/Chest: normocephalic and head atraumatic Skin: + ulcer (Large sacral decubitus ulcer, Stage 4, 4cm) Neurologic: awake; not confused Cranial Nerves: PERRL, normal accommodation, tongue midline and normal hearing Psychiatric: Orientation: alert and oriented x 3 Eye Contact: + fair eye contact Affect: + flat affect Results & Data Vital Signs (Past 12 Hours) Vital Signs Temp Pulse Pulse Resp BP BP Pulse Ox 07/28/19 07:41 77 07/28/19 07:33 36.9 C 76 16 136/86 94 07/28/19 05:07 66 07/28/19 04:37 37.0 C 77 20 151/61 H 94 07/28/19 00:38 36.8 C 69 19 144/64 H 96 07/27/19 23:00 Pulse Ox 07/28/19 07:41 07/28/19 07:33 07/28/19 05:07 07/28/19 04:37 07/28/19 00:38 07/27/19 23:00 94 Laboratory Results Abnormal lab results 07/28/19 Range/Units 06:24 Sodium 132 L (136-145) mmol/L BUN 23 H (7-18) mg/dl Creatinine 0.50 L (0.6-1.2) mg/dl BUN/Creatinine Ratio 46.4 H (10-20) Glucose 158 H (70-99) mg/dl Calcium 7.3 L (8.5-10.1) mg/dl Medications Administered Current Inpatient Medications Acetaminophen (Tylenol) 650 mg PO Q4H PRN PRN Reason: Pain or Fever Stop: 08/24/19 23:00 Collagenase (Santyl) 1 appln EXT DAILY RUFUS Stop: 08/26/19 08:59 Last Admin: 07/28/19 10:13 Dose: 1 appln Documented by: Gadobutrol (Gadavist 65ml) 6 ml IV ONCE PRN PRN Reason: Interaction Checking Stop: 07/30/19 17:40 Last Admin: 07/26/19 17:41 Dose: 6 ml Documented by: Heparin Sodium (Porcine) (Heparin Sodium (Porcine)) 5,000 units SQ Q12 RUFUS Stop: 08/26/19 20:59 Last Admin: 07/28/19 10:13 Dose: 5,000 units Documented by: Metronidazole (Flagyl) 500 mg in 100 mls @ 100 mls/hr IV Q8H RUFUS Stop: 08/05/19 18:29 Last Infusion: 07/28/19 13:01 Dose: Infused Documented by: Ceftaroline Fosamil 600 mg/ (Sodium Chloride) 270 mls @ 250 mls/hr IV Q12 RUFUS; Protocol Stop: 09/07/19 11:59 Last Infusion: 07/28/19 11:35 Dose: Infused Documented by: Lisinopril (Zestril) 20 mg PO DAILY RUFUS Stop: 08/25/19 08:59 Last Admin: 07/28/19 10:13 Dose: 20 mg Documented by: Polyethylene Glycol (Miralax Powder Packet) 17 gm PO DAILY PRN PRN Reason: Constipation Stop: 08/24/19 23:00 Saccharomyces Boulardii (Florastor) 250 mg PO HS RUFUS Stop: 08/25/19 20:59 Last Admin: 07/27/19 20:28 Dose: 250 mg Documented by: PG Care Time/CCT Total # of Minutes Spent Total Time Spent with Patient: Total time spent is greater than 50% in coordination of care (as documented) at patient's floor/unit and/or counseling patient: Resident Activity Tracking Resident Involvement: Resident Care Provided Care Provided: Adult Hospital Medicine (1) Anemia Anemia type: unspecified type Qualified Code(s): D64.9 - Anemia, unspecified (2) Leukocytosis Leukocytosis type: unspecified Qualified Code(s): D72.829 - Elevated white blood cell count, unspecified (3) Left lower lobe pneumonia Pneumonia type: due to unspecified organism Qualified Code(s): J18.1 - Lobar pneumonia, unspecified organism (4) Venous stasis ulcer Non-pressure ulcer stage: unspecified non-pressure ulcer stage Varicose vein presence: unspecified whether present Venous stasis ulcer site: unspecified site Qualified Code(s): I83.009 - Varicose veins of unspecified lower extremity with ulcer of unspecified site; L97.909 - Non-pressure chronic ulcer of unspecified part of unspecified lower leg with unspecified severity
--- NOTE | 2019-07-28 19:58 | Infectious Disease Progress Nt ---
Date of Service July 28, 2019 Assessment & Plan (1) Acute osteomyelitis of sacrum: 88-year-old female with sacral osteomyelitis in the setting of stage IV sacral decubitus ulcer, with small abscesses seen on MRI scan as well,, wound growing staph, Proteus, Bacteroides, but was positive for alpha strep. Current antibiotics will provide adequate coverage for now. Will need prolonged IV antibiotics as no surgical intervention planned. Discussed with hospitalist. Will follow. (2) Gram-positive cocci bacteremia: (3) Decubitus ulcer of sacral region, stage 4: Subjective Patient is seen in follow-up for stage IV sacral decubitus ulcer osteomyelitis. She appears comfortable, so states she feels well, offers no new complaints. Denies any pain. No fever. Cultures growing alpha strep, and cultures growing staph aureus, Bacteroides, and Proteus. By surgery, no intervention planned. Review of Systems Review of Systems: All systems reviewed & are unremarkable except as noted in HPI & below Physical Exam Constitutional: WD/WN, vitals as above + ill appearing, + cachectic and comfortable; no acute distress Eyes: PERRL, conjunctivae normal, anicteric sclerae ENMT: external ear and nose normal, oropharynx normal Neck: trachea midline, no thyromegaly neck nontender Respiratory: normal respiratory effort, lungs clear to auscultation normal percussion; does not use accessory muscles Cardiovascular: Rate/Rhythm: regular rate and regular rhythm Heart Sounds: normal S1, normal S2 and + murmur (3 out of 6 systolic murmur); no gallop and no cardiac rub Vessels: normal peripheral pulses; no JVD Gastrointestinal (Abdomen): normal bowel sounds, soft, nontender, no hepatosplenomegaly Musculoskeletal: no cyanosis or clubbing, extremities motor strength 5/5 Spine: thoracic spine normal to inspection and lumbar spine normal to inspection; no cervical spinal tenderness Skin: normal turgor and + wound (Large sacral decubitus with some surrounding erythema, probes to bone) Neurologic: patellar DTR's 2+ bilat, sensation intact no focal motor deficits Psychiatric: A+Ox3, euthymic affect Orientation: cooperative Lymphatic: no cervical or axillary lymphadenopathy no inguinal lymphadenopathy Results & Data Vital Signs (Past 12 Hours) Vital Signs Temp Pulse Pulse Resp BP Pulse Ox 07/28/19 19:46 36.7 C 73 18 180/75 H 96 07/28/19 16:49 78 07/28/19 15:47 36.8 C 70 18 149/71 H 96 07/28/19 13:51 77 07/28/19 11:31 36.7 C 68 16 146/54 H 97 Laboratory Results [facility] 07/28/19 06:24 Sodium 132 L Potassium 4.2 Chloride 105 Carbon Dioxide 21 BUN 23 H Creatinine 0.50 L Glucose 158 H Calcium 7.3 L Diagnostic Findings Microbiology 07/26/19 11:30 Sacrum Gram Stain - Final 07/26/19 11:30 Sacrum Deep Wound Culture - Preliminary Proteus mirabilis Staphylococcus species Bacteroides caccae 07/25/19 17:46 Blood Aerobic Blood Culture - Preliminary No growth in Aerobic bottle after 48 hours. 07/25/19 17:46 Blood Anaerobic Blood Culture - Preliminary Alpha strep not S.pne/enteroco 07/25/19 16:30 Sacrum Gram Stain - Final 07/25/19 16:30 Sacrum Wound Culture - Final Staphylococcus aureus Gamma strep not enterococcus 07/25/19 16:30 Leg,Right Gram Stain - Final 07/25/19 16:30 Leg,Right Wound Culture - Final Staphylococcus aureus 07/25/19 17:46 Blood Aerobic Blood Culture - Preliminary No growth in Aerobic bottle after 48 hours. 07/25/19 17:46 Blood Anaerobic Blood Culture - Final 07/25/19 19:00 Urine,Straight Cath Urine Culture - Final More than three types of organisms present, all high counts. Repeat collection recommended. No further identifications or sensitivities to follow. PG Care Time/CCT Total # of Minutes Spent Total Time Spent with Patient: Total time spent is greater than 50% in coordination of care (as documented) at patient's floor/unit and/or counseling patient:
[2019-07-28] MEDS: SACCHAROMYCES BOULARDII 250 MG CAP PO SCH (20:12)
[2019-07-29] MEDS: metroNIDAZOLE 500 MG/100 ML BAG IV SCH ×2 (03:52→12:32)
[2019-07-29 07:44] LABS: BUN Creatinine Ratio 44.4 (10-20); Calcium 7.4 mg/dl (8.5-10.1); Creatinine Clr Calc Pharmacy 56.6 ml/min; Est GFR (African American) 101.5; Est GFR (Non-African American) 87.6; Potassium 4.3 mmol/L (3.5-5.1)
[2019-07-29] MEDS: HEPARIN SOD 5,000 UNIT/0.5 ML VIAL SQ SCH ×2 (07:58→20:55)
[2019-07-29] MEDS: LISINOPRIL 20 MG TAB PO SCH (07:58)
[2019-07-29] MEDS: COLLAGENASE OINT 30 GM TUBE EXT SCH (07:58)
[2019-07-29] MEDS: CEFTAROLINE FOSAMIL ACETATE 600 MG in SODIUM CHLORIDE 0.9% 250 ML IV SCH (07:59)
[2019-07-29 08:01] LABS: Basophils # (auto) 0.01 K/uL (0-0.2); Basophils % (auto) 0.1 %; Eosinophils # (auto) 0.14 K/uL (0-0.5); Eosinophils % (auto) 1.4 %; Hematocrit (blood only) 23.1 % (37-47); Hemoglobin 7.6 g/dL (12.0-16.0); Immature Granulocytes # (auto) 0.25 K/uL (0.00-0.02); Immature Granulocytes % (auto) 2.4 %; Lymphocytes # (auto) 1.69 K/uL (1.2-3.4); Lymphocytes % (auto) 16.5 %; Mean Corpuscular Hemoglobin 27.4 pg (25-34); Mean Corpuscular Hgb Conc 32.9 g/dL (32-36); Mean Corpuscular Volume 83.4 fL (80-100); Mean Platelet Volume 8.8 fL (7.4-10.4); Monocytes # (auto) 0.98 K/uL (0.11-0.59); Monocytes % (auto) 9.5 %; Neutrophils % (auto) 70.1 %; Platelet Count 293 K/uL (130-400); RDW Coefficient of Variation 15.5 % (11.5-14.5); RDW Standard Deviation 47.5 fL (36.4-46.3); Red Blood Count 2.77 M/uL (4.2-5.4); White Blood Count 10.27 K/uL (4.8-10.8)
--- NOTE | 2019-07-29 08:16 | Family Medicine Progress Note ---
Date of Service July 29, 2019 Assessment & Plan (1) Sacral decubitus ulcer: 88-year-old female with a past medical history of hypertension, aortic stenosis, CVA, diabetes, hypertension, DVT, PE, bilateral lower extremity lymphedema, spinal stenosis presents with fatigue for the past couple days. Patient describes having a large sacral decubitus ulcer and wounds on bilateral legs. Patient is nonambulatory and bedridden status post CVA. Fatigue, leukocytosis, sacral pressure ulcer -?Sepsis -Blood Culture showed Alpha Strep, Diphtheroids, Micromonas, gram negative bacilli -Wound Culture showed proteus mirabilis, staph species, bacteroides caccae, bacteroides thetaiotaomicron -MRI Pelvis w/wo showed Osteomyelitis with multiple abscesses throughout including epidural abscess -Wound Care Consult placed. General surgery consult - Not a surgical candidate at this time. -Ortho Spine Consulted - Continue antibiotic treatment, no surgical intervention -Infectious Disease Consulted - IV ceftaroline and metronidazole -Vancomycin D/C Tylenol for fevers Impaired Fasting Glucose -Concern for high sugars the past couple of days. -Patient not on any medication for diabetes/glucose control at home -SSI ordered to cover as needed. Left lower lobe consolidation Likely secondary to atelectasis as patient has no symptoms and a normal pulmonary exam. UTI -UA Nitrates + and WBC >30 Patient on IV Ceftaroline and Metronidazole Dehydration Resolve -IV fluids dc'd Anemia No signs of bleeding, reports poor p.o. intake -?Anemia of Chronic Disease Iron Studies - Iron 7.9, TIBC 183, Ferritin 234.5 -Hgb 7.6 07/29/19 -Patient consented for blood if needed, transfuse if <7. Transaminitis History of cholelithiasis -Denies RUQ pain on clinical exam Hypertension Continue lisinopril 20 mg CODE STATUSfull code DietHeart Healthy DVT prophylaxisHeparin, holding xarelto. Dispo - Med/Surg Tele (2) Anemia: (3) Leukocytosis: (4) Stasis, venous: (5) Impaired fasting glucose: (6) Lymphedema: (7) Stenosis, cervical spine: (8) Left lower lobe pneumonia: (9) Venous stasis ulcer: (10) Aortic stenosis: (11) Dehydration: (12) History of pulmonary embolism: Supervising Physician Co-Signing Physician Notes I personally examined the patient and verified all ash points of history and exam, discussed case, and agree with decision making with Dr Wyman. continues to have no complaints. No back pain no leg pain no buttock pain. eating better. more in tune with thinking about getting more help for home once ready Vitals noted, in general she is awake and alert but very fatigued pleasant no distress. HEENT normal cephalic atraumatic mucous membranes are moist. Breathing is unlabored no accessory muscle use good effort. Skin shows no rashes no pallor or icterus. Infected sacral ulcerpossible sepsis POA, with osteomyelitis and epidural abscess - continue antibiotics (appreciate infectious disease input), wound care, debridement as necessary, nutritional support. No spine surgery at this time. eating better, encouraged more activity. Typically on Xarelto for clots, currently held due to potential for further need for interventions on her sacral ulceronce it's clear that further procedures are not imminent, will resume. continue SQ heparin for now Otherwise as above Subjective Patient states she is doing well today. No complaints at this time. Denies pain. Review of Systems Review of Systems: Patient notes a fairly negative ROS, however, unsure if entirely accurate. Patient appears to deny most things. Patient denies fever, chills, nausea, vomiting, diarrhea, sob, chest pain, abdominal pain, cough, sacral pain. Patient notes weakness. Constitutional: + fatigue and + weakness; no fever and no chills Musculoskeletal: + muscle weakness Integumentary: + non-healing lesions and + wounds Physical Exam Constitutional: + ill appearing, + cachectic, cooperative and comfortable; no acute distress Eyes: PERRL, conjunctivae normal, anicteric sclerae ENMT: external ear and nose normal, oropharynx normal Neck: trachea midline, no thyromegaly Respiratory: normal respiratory effort, lungs clear to auscultation Cardiovascular: Rate/Rhythm: regular rate and regular rhythm Heart Sounds: + murmur (3/6 BRYAN L 2nd intercostal) Extremities: + edema (+3 B/L ); no calf tenderness Gastrointestinal (Abdomen): normal bowel sounds, soft, nontender, no hepatosplenomegaly Musculoskeletal: Head/Neck/Chest: normocephalic and head atraumatic Skin: + ulcer (Large sacral decubitus ulcer, Stage 4, 5cm ) Neurologic: awake; not confused Cranial Nerves: PERRL, normal accommodation, tongue midline and normal hearing Psychiatric: Orientation: alert and oriented x 3 Eye Contact: + fair eye contact Affect: + flat affect Results & Data Vital Signs (Past 12 Hours) Vital Signs Temp Pulse Pulse Resp BP Pulse Ox 07/29/19 08:06 37.0 C 70 18 164/70 H 96 07/29/19 04:20 36.8 C 73 20 164/66 H 96 07/29/19 00:28 66 07/28/19 23:23 37.1 C 72 18 152/67 H 95 Laboratory Results Abnormal lab results 07/28/19 07/28/19 07/29/19 Range/Units 16:16 20:10 06:56 RBC (4.2-5.4) M/uL Hgb (12.0-16.0) g/dL Hct (37-47) % RDW Std Deviation (36.4-46.3) fL RDW Coeff of Mary Kay (11.5-14.5) % Immature Gran # (Auto) (0.00-0.02) K/uL Neut # (Auto) (1.4-6.5) K/uL Cotton # (Auto) (0.11-0.59) K/uL Sodium 131 L (136-145) mmol/L BUN 21 H (7-18) mg/dl Creatinine 0.47 L (0.6-1.2) mg/dl BUN/Creatinine Ratio 44.4 H (10-20) Glucose 161 H (70-99) mg/dl POC Glucose 208 H 243 H (70-99) Calcium 7.4 L (8.5-10.1) mg/dl 07/29/19 07/29/19 07/29/19 Range/Units 06:56 07:55 12:09 RBC 2.77 L (4.2-5.4) M/uL Hgb 7.6 L (12.0-16.0) g/dL Hct 23.1 L (37-47) % RDW Std Deviation 47.5 H (36.4-46.3) fL RDW Coeff of Mary Kay 15.5 H (11.5-14.5) % Immature Gran # (Auto) 0.25 H (0.00-0.02) K/uL Neut # (Auto) 7.20 H (1.4-6.5) K/uL Cotton # (Auto) 0.98 H (0.11-0.59) K/uL Sodium (136-145) mmol/L BUN (7-18) mg/dl Creatinine (0.6-1.2) mg/dl BUN/Creatinine Ratio (10-20) Glucose (70-99) mg/dl POC Glucose 162 H 237 H (70-99) Calcium (8.5-10.1) mg/dl Medications Administered Current Inpatient Medications Acetaminophen (Tylenol) 650 mg PO Q4H PRN PRN Reason: Pain or Fever Stop: 08/24/19 23:00 Collagenase (Santyl) 1 appln EXT DAILY RUFUS Stop: 08/26/19 08:59 Last Admin: 07/29/19 07:58 Dose: 1 appln Documented by: Dextrose (Dextrose 50%) 25 - 50 ml IV UD PRN; Protocol PRN Reason: Hypoglycemia Protocol Stop: 08/28/19 12:14 Gadobutrol (Gadavist 65ml) 6 ml IV ONCE PRN PRN Reason: Interaction Checking Stop: 07/30/19 17:40 Last Admin: 07/26/19 17:41 Dose: 6 ml Documented by: Glucagon (Glucagen) 1 mg IM UD PRN; Protocol PRN Reason: Hypoglycemia Protocol Stop: 08/28/19 12:14 Glucose (Glucose 40%) 15 - 30 gm PO UD PRN; Protocol PRN Reason: Hypoglycemia Protocol Stop: 08/28/19 12:14 Glucose (Dex4 Glucose) 4 - 8 tabs PO UD PRN; Protocol PRN Reason: Hypoglycemia Protocol Stop: 08/28/19 12:14 Heparin Sodium (Porcine) (Heparin Sodium (Porcine)) 5,000 units SQ Q12 RUFUS Stop: 08/26/19 20:59 Last Admin: 07/29/19 07:58 Dose: 5,000 units Documented by: Metronidazole (Flagyl) 500 mg in 100 mls @ 100 mls/hr IV Q8H RUFUS Stop: 08/05/19 18:29 Last Infusion: 07/29/19 13:31 Dose: Infused Documented by: Ceftaroline Fosamil 600 mg/ (Sodium Chloride) 270 mls @ 250 mls/hr IV Q12 RUFUS; Protocol Stop: 09/07/19 11:59 Last Infusion: 07/29/19 09:03 Dose: Infused Documented by: Insulin Aspart (Novolog Flexpen) 0 units SC ACHS RUFUS Stop: 08/28/19 12:14 Last Admin: 07/29/19 12:39 Dose: 3 units Documented by: Lisinopril (Zestril) 20 mg PO DAILY RUFUS Stop: 08/25/19 08:59 Last Admin: 07/29/19 07:58 Dose: 20 mg Documented by: Miscellaneous (Carbohydrates For Hypoglycemia) 15 - 30 gm PO UD PRN PRN Reason: Hypoglycemia Treatment Stop: 08/28/19 12:14 Polyethylene Glycol (Miralax Powder Packet) 17 gm PO DAILY PRN PRN Reason: Constipation Stop: 08/24/19 23:00 Saccharomyces Boulardii (Florastor) 250 mg PO HS RUFUS Stop: 08/25/19 20:59 Last Admin: 07/28/19 20:12 Dose: 250 mg Documented by: PG Care Time/CCT Total # of Minutes Spent Total Time Spent with Patient: Total time spent is greater than 50% in coordination of care (as documented) at patient's floor/unit and/or counseling patient: Resident Activity Tracking Resident Involvement: Resident Care Provided Care Provided: Adult Hospital Medicine (1) Anemia Anemia type: unspecified type Qualified Code(s): D64.9 - Anemia, unspecified (2) Leukocytosis Leukocytosis type: unspecified Qualified Code(s): D72.829 - Elevated white blood cell count, unspecified (3) Left lower lobe pneumonia Pneumonia type: due to unspecified organism Qualified Code(s): J18.1 - Lobar pneumonia, unspecified organism (4) Venous stasis ulcer Non-pressure ulcer stage: unspecified non-pressure ulcer stage Varicose vein presence: unspecified whether present Venous stasis ulcer site: unspecified site Qualified Code(s): I83.009 - Varicose veins of unspecified lower extremity with ulcer of unspecified site; L97.909 - Non-pressure chronic ulcer of unspecified part of unspecified lower leg with unspecified severity
[2019-07-29 08:42] LABS: RBC Morphology Unremarkable
[2019-07-29] MEDS ORDERED: DEXTROSE 50% 50 ML SYRINGE IV PRN (12:15)
[2019-07-29] MEDS ORDERED: CARBOHYDRATES FOR HYPOGLYCEMIA PO PRN (12:15)
[2019-07-29] MEDS ORDERED: GLUCAGON FOR INJ 1 MG VIAL IM PRN (12:15)
[2019-07-29] MEDS ORDERED: GLUCOSE 40% GEL 15 GM TUBE PO PRN (12:15)
[2019-07-29] MEDS ORDERED: GLUCOSE 10 TABS/TUBE PO PRN (12:15)
[2019-07-29] MEDS: INSULIN ASPART 100 UNITS/ML 3 ML PEN SC SCH ×3 (12:39→20:55)
--- NOTE | 2019-07-29 13:50 | Wound Progress Note ---
Date of Service July 29, 2019 Assessment & Plan (1) Decubitus ulcer of sacral region, stage 4: Orthospine note reviewed. Patient is not a surgical candidate. We will place a wound VAC with white foam at 150 mmHg. This to be changed every 3 days. Continue IV antibiotics. We will see patient in the office 1 week after discharge. (2) Acute osteomyelitis of sacrum: (3) Venous stasis ulcer: No debridement was required. We will begin to bleed while cleaning it off. Using silver nitrate bleeding was stopped. Silver nitrate was also used to chemically cauterize hyper granulation tissue in the wound bed. Patient tolerated procedure well with no complications. Thank you for allowing to participate in the care of this patient. Please not hesitate to call with any questions. Subjective Patient seen laying in bed. She is without complaints. She continues to deny pain. She is receiving IV antibiotics per Dr. Finnegan. Review of Systems 2 Review of Systems: All systems reviewed & are unremarkable except as noted in HPI & below Physical Exam Skin: Sacral wound measuring 5.3 x 7.2 cm. There is significant circumferential undermining. There is purulent drainage and foul odor. Right lower lateral leg measuring 9 x 3 x 0.1 cm. There is hyper granulation tissue fibrin and slough. Wound is bleeding. Neurologic: awake; not confused Psychiatric: A+Ox3, euthymic affect Results & Data Vital Signs (Past 12 Hours) Vital Signs Temp Pulse Pulse Resp BP BP Pulse Ox 07/29/19 12:59 36.7 C 66 18 175/70 H 185/67 H 98 07/29/19 10:13 66 07/29/19 08:06 37.0 C 70 18 164/70 H 96 07/29/19 04:20 36.8 C 73 20 164/66 H 96 MRI Pelvis: 1) osteomyelitis of the sacrum. 2) small abscess around his S2 nerves. 3#questionable intraosseous abscesses in the bilateral sacral wings. 4) questionable myositis and bilateral iliac is muscles. 5) questionable epidural abscess. PG Care Time/CCT Total # of Minutes Spent Total Time Spent with Patient: Total time spent is greater than 50% in coordination of care (as documented) at patient's floor/unit and/or counseling patient: (1) Venous stasis ulcer Non-pressure ulcer stage: unspecified non-pressure ulcer stage Varicose vein presence: unspecified whether present Venous stasis ulcer site: unspecified site Qualified Code(s): I83.009 - Varicose veins of unspecified lower extremity with ulcer of unspecified site; L97.909 - Non-pressure chronic ulcer of unspecified part of unspecified lower leg with unspecified severity
[2019-07-29 15:31] LABS: Hematocrit (blood only) 26.8 % (37-47); Hemoglobin 8.7 g/dL (12.0-16.0)
--- NOTE | 2019-07-29 15:39 | Infectious Disease Progress Nt ---
Date of Service July 29, 2019 Assessment & Plan (1) Acute osteomyelitis of sacrum: 88-year-old female with sacral osteomyelitis in the setting of stage IV sacral decubitus ulcer, with small abscesses seen on MRI scan as well,, wound growing staph, Proteus, Bacteroides. Will de-escalate therapy to ertapenem alone. This will allow for easier outpatient therapy. Will follow. (2) Gram-positive cocci bacteremia: (3) Decubitus ulcer of sacral region, stage 4: Subjective Patient seen in follow-up for stage IV sacral decubitus with osteomyelitis of the sacrum. Patient states she is doing well today. No complaints at this time. Denies pain. Cultures growing methicillin sensitive staph aureus, Proteus, anaerobic gram-negative bacilli. Review of Systems Review of Systems: All systems reviewed & are unremarkable except as noted in HPI & below Physical Exam Constitutional: WD/WN, vitals as above + ill appearing, + cachectic and comfortable; no acute distress Eyes: PERRL, conjunctivae normal, anicteric sclerae ENMT: external ear and nose normal, oropharynx normal Neck: trachea midline, no thyromegaly neck nontender Respiratory: normal respiratory effort, lungs clear to auscultation normal percussion; does not use accessory muscles Cardiovascular: Rate/Rhythm: regular rate and regular rhythm Heart Sounds: normal S1, normal S2 and + murmur (3 out of 6 systolic murmur); no gallop and no cardiac rub Vessels: normal peripheral pulses; no JVD Gastrointestinal (Abdomen): normal bowel sounds, soft, nontender, no hepatosplenomegaly Musculoskeletal: no cyanosis or clubbing, extremities motor strength 5/5 Spine: thoracic spine normal to inspection and lumbar spine normal to inspection; no cervical spinal tenderness Skin: normal turgor and + wound (Large sacral decubitus with some surrounding erythema, probes to bone) Neurologic: patellar DTR's 2+ bilat, sensation intact no focal motor deficits Psychiatric: A+Ox3, euthymic affect Orientation: cooperative Lymphatic: no cervical or axillary lymphadenopathy no inguinal lymphadenopathy Results & Data Vital Signs (Past 12 Hours) Vital Signs Temp Pulse Pulse Resp BP BP Pulse Ox 07/29/19 13:59 72 07/29/19 12:59 36.7 C 66 18 175/70 H 185/67 H 98 07/29/19 10:13 66 07/29/19 08:06 37.0 C 70 18 164/70 H 96 07/29/19 04:20 36.8 C 73 20 164/66 H 96 Laboratory Results Short CBC 07/29/19 07/29/19 Range/Units 06:56 15:18 WBC 10.27 (4.8-10.8) K/uL Hgb 7.6 L 8.7 L (12.0-16.0) g/dL Hct 23.1 L 26.8 L (37-47) % Plt Count 293 (130-400) K/uL BMP 07/29/19 06:56 Sodium 131 L Potassium 4.3 Chloride 104 Carbon Dioxide 21 BUN 21 H Creatinine 0.47 L Glucose 161 H Calcium 7.4 L Diagnostic Findings Microbiology 07/26/19 11:30 Sacrum Gram Stain - Final 07/26/19 11:30 Sacrum Deep Wound Culture - Preliminary Proteus mirabilis Staphylococcus species Bacteroides caccae Bacteroides thetaiotaomicron 07/25/19 17:46 Blood Aerobic Blood Culture - Preliminary Gram positive bacilli 07/25/19 17:46 Blood Anaerobic Blood Culture - Preliminary Alpha strep not S.pne/enteroco Diptheroids Micromonas micros Anaerobic gram negative bacill 07/25/19 16:30 Sacrum Gram Stain - Final 07/25/19 16:30 Sacrum Wound Culture - Final Staphylococcus aureus Gamma strep not enterococcus 07/25/19 16:30 Leg,Right Gram Stain - Final 07/25/19 16:30 Leg,Right Wound Culture - Final Staphylococcus aureus 07/25/19 17:46 Blood Aerobic Blood Culture - Preliminary No growth in Aerobic bottle after 48 hours. 07/25/19 17:46 Blood Anaerobic Blood Culture - Final 07/25/19 19:00 Urine,Straight Cath Urine Culture - Final More than three types of organisms present, all high counts. Repeat collection recommended. No further identifications or sensitivities to follow. PG Care Time/CCT Total # of Minutes Spent Total Time Spent with Patient: Total time spent is greater than 50% in coordination of care (as documented) at patient's floor/unit and/or counseling patient:
[2019-07-29] MEDS: ERTAPENEM SODIUM 1,000 MG in SODIUM CHLORIDE 0.9% 50 ML IV SCH (16:53)
[2019-07-29] MEDS: SACCHAROMYCES BOULARDII 250 MG CAP PO SCH (20:55)
[2019-07-30 06:31] LABS: Basophils # (auto) 0.02 K/uL (0-0.2); Basophils % (auto) 0.2 %; Eosinophils # (auto) 0.15 K/uL (0-0.5); Eosinophils % (auto) 1.3 %; Hematocrit (blood only) 24.6 % (37-47); Hemoglobin 8.1 g/dL (12.0-16.0); Immature Granulocytes # (auto) 0.25 K/uL (0.00-0.02); Immature Granulocytes % (auto) 2.2 %; Lymphocytes # (auto) 2.11 K/uL (1.2-3.4); Lymphocytes % (auto) 18.3 %; Mean Corpuscular Hemoglobin 27.6 pg (25-34); Mean Corpuscular Hgb Conc 32.9 g/dL (32-36); Mean Platelet Volume 8.8 fL (7.4-10.4); Monocytes # (auto) 1.12 K/uL (0.11-0.59); Monocytes % (auto) 9.7 %; Neutrophils % (auto) 68.3 %; Platelet Count 352 K/uL (130-400); RDW Coefficient of Variation 15.5 % (11.5-14.5); RDW Standard Deviation 47.3 fL (36.4-46.3); Red Blood Count 2.93 M/uL (4.2-5.4); White Blood Count 11.55 K/uL (4.8-10.8)
[2019-07-30] MEDS: COLLAGENASE OINT 30 GM TUBE EXT SCH (07:23)
[2019-07-30] MEDS: LISINOPRIL 20 MG TAB PO SCH (07:24)
--- NOTE | 2019-07-30 07:31 | Hospitalist Progress Note ---
Date of Service July 30, 2019 Assessment & Plan (1) Sacral decubitus ulcer: 88-year-old female with a past medical history of HTN, aortic stenosis, CVA, DM2, DVT, PE, bilateral lower extremity lymphedema, spinal stenosis now for treatment of osteomyelitis and abscesses with IV antibiotics due to being a poor surgical candidate. Fatigue, leukocytosis, sacral pressure ulcer - Does not meet SIRS criteria at this time. No longer unstable and feeling well this AM. - Blood Culture showed Alpha Strep, Diphtheroids, Micromonas, gram negative bacilli. Have ordered repeat culture today and will follow. CBC tomorrow AM. - Wound Culture showed proteus mirabilis, staph species, bacteroides caccae, bacteroides thetaiotaomicron. - MRI Pelvis w/wo showed Osteomyelitis with multiple abscesses throughout including epidural abscess. - Wound Care Consult placed - wound vac with change q3days. Providing care for bilateral posterior calf wounds. General surgery consult - Not a surgical candidate at this time. - Ortho Spine Consulted - Continue antibiotic treatment, no surgical intervention. - Infectious Disease Consulted - IV ertapenem and will schedule for outpatient follow up for 1 week following discharge. Will continue IV antibiotics. Tylenol for fevers. Has been afebrile. - Had extensive conversation with patient about the need for better residential care at home if nursing facility is an absolute no by herself and her family. Pt has poor insight into her very severe sacral ulcer extending into her spinal cord. Will discuss plan and how to best move forward with patient's son Homer. Pt agrees to this phone call. Impaired Fasting Glucose - Concern for high sugars the past couple of days. - Patient not on any medication for diabetes/glucose control at home. - SSI ordered to cover as needed and added Lantus to regimen. Left lower lobe consolidation Likely secondary to atelectasis as patient has no symptoms and a normal pulmonary exam. UTI -UA Nitrates + and WBC >30. Patient on IV ertapenem. UCx negative. Dehydration Resolved. -IV fluids dc'd . PO intake encouraged. Anemia No signs of bleeding, reports poor p.o. intake - Likely anemia of Chronic Disease Iron Studies - Iron 7.9, TIBC 183, Ferritin 234.5 - Hgb 8.1 this AM. -Patient consented for blood if needed, transfuse if <7 or signs/symptomatic anemia. Transaminitis History of cholelithiasis. -Denies RUQ pain on clinical exam. Hypertension Continue lisinopril 20 mg. CODE STATUSfull code DietHeart Healthy DVT prophylaxisHeparin, holding Xarelto. Dispo - Med/Surg Tele (2) Anemia: (3) Leukocytosis: (4) Stasis, venous: (5) Impaired fasting glucose: (6) Lymphedema: (7) Stenosis, cervical spine: (8) Left lower lobe pneumonia: (9) Venous stasis ulcer: (10) Aortic stenosis: (11) Dehydration: (12) History of pulmonary embolism: Supervising Physician Co-Signing Physician Notes I personally examined the patient and verified all ash points of history and exam, discussed case, and agree with decision making with Dr Ruvalcaba. still feeling ok. no complaints. wound vac in place. still wants to go home Vitals noted, in general she is awake and alert but very fatigued pleasant no distress. HEENT normal cephalic atraumatic mucous membranes are moist. Breathing is unlabored no accessory muscle use good effort. Skin shows no rashes no pallor or icterus. Infected sacral ulcerpossible sepsis POA, with osteomyelitis and epidural abscess - continue antibiotics (appreciate infectious disease input), wound care/vac, debridement as necessary, nutritional support. No spine surgery at this time. eating better, encouraged more activity. Typically on Xarelto for clots, currently held due to potential for further need for interventions on her sacral ulcer will resume in near future. continue SQ heparin for now Otherwise as above Subjective Pt with no acute events overnight. Since note yesterday was switched to ertapenem per ID and with wound vac placed by wound care. Reports no concerns or complaints, no pain, no abdominal pain. No back or leg pain. Has been eating more and was eating breakfast during interview. No chest pain or SOB. Would like use to call her son with updates. Attending Physician on service is Dr. Gene Ibanez. Review of Systems Constitutional: no fever and no chills Respiratory: no cough, no dyspnea and no wheezing Cardiovascular: no chest pain and no palpitations Gastrointestinal: no abdominal pain, no constipation and no diarrhea/loose stools Physical Exam Constitutional: nontoxic appearing, cachectic, immobile. Sitting upright eating breakfast. Respiratory: normal respiratory effort, lungs clear to auscultation Cardiovascular: Rate/Rhythm: regular rate and regular rhythm Heart Sounds: + murmur (systolic murmur 3/6 RADHA border) Extremities: + edema (3+ pitting edema bilateral LE) Gastrointestinal (Abdomen): normal bowel sounds, soft, nontender, no hepatosplenomegaly Skin: Sacrum: 5x7cm sacral stage IV decubitus ulcer present with wound vac in place draining minimal brown fluid, no erythema outside of wound vac bandage site. No tenderness. Posterior calf wounds bilaterally: covered with bandages from wound care, no erythema outside of bandage sites. no tenderness. Psychiatric: Orientation: alert and oriented x 3 some poor insight into her condition, wants to go home regardless of condition in hospital. Genitourinary: catheter in place draining clear yellow urine. Results & Data Vital Signs (Past 12 Hours) Vital Signs Temp Pulse Pulse Resp BP BP Pulse Ox 07/30/19 04:29 36.7 C 67 18 150/70 H 94 07/29/19 23:57 36.7 C 69 18 154/65 H 97 07/29/19 23:39 72 07/29/19 20:04 36.7 C 67 18 181/72 H 97 PG Care Time/CCT Total # of Minutes Spent Total Time Spent with Patient: Total time spent is greater than 50% in coordination of care (as documented) at patient's floor/unit and/or counseling patient: Resident Activity Tracking Resident Involvement: Resident Care Provided Care Provided: Adult Hospital Medicine (1) Anemia Anemia type: unspecified type Qualified Code(s): D64.9 - Anemia, unspecified (2) Leukocytosis Leukocytosis type: unspecified Qualified Code(s): D72.829 - Elevated white blood cell count, unspecified (3) Left lower lobe pneumonia Pneumonia type: due to unspecified organism Qualified Code(s): J18.1 - Lobar pneumonia, unspecified organism (4) Venous stasis ulcer Non-pressure ulcer stage: unspecified non-pressure ulcer stage Varicose vein presence: unspecified whether present Venous stasis ulcer site: unspecified site Qualified Code(s): I83.009 - Varicose veins of unspecified lower extremity with ulcer of unspecified site; L97.909 - Non-pressure chronic ulcer of unspecified part of unspecified lower leg with unspecified severity
[2019-07-30] MEDS: INSULIN ASPART 100 UNITS/ML 3 ML PEN SC SCH ×4 (08:41→20:53)
[2019-07-30] MEDS: INSULIN GLARGINE SOLOSTAR 100 UNITS/ML 3 ML PEN SC SCH (08:41)
[2019-07-30] MEDS: HEPARIN SOD 5,000 UNIT/0.5 ML VIAL SQ SCH ×2 (08:41→20:52)
[2019-07-30] MEDS: ERTAPENEM SODIUM 1,000 MG in SODIUM CHLORIDE 0.9% 50 ML IV SCH (16:52)
[2019-07-30] MEDS: SACCHAROMYCES BOULARDII 250 MG CAP PO SCH (20:51)
[2019-07-31 06:09] LABS: Basophils # (auto) 0.01 K/uL (0-0.2); Basophils % (auto) 0.1 %; Eosinophils # (auto) 0.17 K/uL (0-0.5); Eosinophils % (auto) 1.4 %; Hematocrit (blood only) 25.1 % (37-47); Hemoglobin 8.2 g/dL (12.0-16.0); Immature Granulocytes # (auto) 0.41 K/uL (0.00-0.02); Immature Granulocytes % (auto) 3.4 %; Lymphocytes # (auto) 2.44 K/uL (1.2-3.4); Lymphocytes % (auto) 20.4 %; Mean Corpuscular Hemoglobin 27.7 pg (25-34); Mean Corpuscular Hgb Conc 32.7 g/dL (32-36); Mean Corpuscular Volume 84.8 fL (80-100); Mean Platelet Volume 8.6 fL (7.4-10.4); Monocytes # (auto) 1.04 K/uL (0.11-0.59); Monocytes % (auto) 8.7 %; Neutrophils # (auto) 7.92 K/uL (1.4-6.5); Platelet Count 401 K/uL (130-400); RDW Coefficient of Variation 16.1 % (11.5-14.5); RDW Standard Deviation 49.3 fL (36.4-46.3); Red Blood Count 2.96 M/uL (4.2-5.4); White Blood Count 11.99 K/uL (4.8-10.8)
[2019-07-31] MEDS: HEPARIN SOD 5,000 UNIT/0.5 ML VIAL SQ SCH ×2 (08:45→21:09)
[2019-07-31] MEDS: COLLAGENASE OINT 30 GM TUBE EXT SCH (08:46)
[2019-07-31] MEDS: LISINOPRIL 20 MG TAB PO SCH (08:46)
[2019-07-31] MEDS: INSULIN GLARGINE SOLOSTAR 100 UNITS/ML 3 ML PEN SC SCH (08:46)
[2019-07-31] MEDS: INSULIN ASPART 100 UNITS/ML 3 ML PEN SC SCH ×4 (08:47→21:11)
--- NOTE | 2019-07-31 09:06 | Hospitalist Progress Note ---
Date of Service July 31, 2019 Assessment & Plan (1) Sacral decubitus ulcer: 88-year-old female with a past medical history of HTN, aortic stenosis, CVA, DM2, DVT, PE, bilateral lower extremity lymphedema, spinal stenosis now for treatment of osteomyelitis and abscesses with IV antibiotics due to being a poor surgical candidate. Fatigue, leukocytosis, sacral pressure ulcer - Does not meet SIRS criteria at this time. No longer unstable and feeling well this AM. - Previous Blood Culture showed Alpha Strep, Diphtheroids, Micromonas, gram negative bacilli. BCx x2 negative but not to 48 hours at this point. Will continue to follow. CBC tomorrow AM. CBC today WBC 11.99 from 11.55 yesterday. - Wound Culture showed proteus mirabilis, staph species, bacteroides caccae, bacteroides thetaiotaomicron. - MRI Pelvis w/wo showed Osteomyelitis with multiple abscesses throughout including epidural abscess. - Wound Care Consult placed - wound vac with change q3days. Providing care for bilateral posterior calf wounds. General surgery consult - Not a surgical candidate at this time. - Ortho Spine Consulted - Continue antibiotic treatment, no surgical intervention. - Infectious Disease Consulted - IV ertapenem and will schedule for outpatient follow up for 1 week following discharge. Will continue IV antibiotics. Tylenol for fevers. Has been afebrile. - Left message for patient's son Homer yesterday but have yet to reach him to discuss goals of care. Will attempt again today. For this case I am hesitant to send this patient back to her home where she developed a stage IV sacral ulcer and where it appears her son was not getting enough help to care for her at home. Pt is vehement that she does not want to go to a nursing facility. Impaired Fasting Glucose - Concern for high sugars the past couple of days. - Patient not on any medication for diabetes/glucose control at home. - SSI ordered to cover as needed and added Lantus 10u qHS to regimen. Left lower lobe consolidation Likely secondary to atelectasis as patient has no symptoms and a normal pulmonary exam. Questionable UTI -UA Nitrates + and WBC >30. Patient on IV ertapenem. UCx negative. Dehydration Resolved. -IV fluids dc'd . PO intake encouraged. Anemia No signs of bleeding, reports poor p.o. intake. - Likely Anemia of Chronic Disease. Iron Studies - Iron 7.9, TIBC 183, Ferritin 234.5. - Hgb 8.2 this AM which is stable. - Patient consented for blood if needed, transfuse if <7 or signs/symptomatic anemia. Transaminitis History of cholelithiasis. - Denies RUQ pain on clinical exam. Hypertension - SBP 130s-150s. Continue lisinopril 20 mg. CODE STATUS: FULL CODE Diet: Heart Healthy DVT prophylaxis: Heparin, holding Xarelto. Dispo : Med/Surg (2) Anemia: (3) Leukocytosis: (4) Stasis, venous: (5) Impaired fasting glucose: (6) Lymphedema: (7) Stenosis, cervical spine: (8) Left lower lobe pneumonia: (9) Venous stasis ulcer: (10) Aortic stenosis: (11) Dehydration: (12) History of pulmonary embolism: Supervising Physician Co-Signing Physician Notes I personally examined the patient and verified all ash points of history and exam, discussed case, and agree with decision making with Dr Ruvalcaba. still feeling ok. ate ok. no new pains. reiterated importance of eating and movement Vitals noted, in general she is awake and alert but very fatigued pleasant no distress. HEENT normal cephalic atraumatic mucous membranes are moist. Breathing is unlabored no accessory muscle use good effort. Skin shows no rashes no pallor or icterus. Infected sacral ulcerpossible sepsis POA, with osteomyelitis and epidural abscess - continue antibiotics (appreciate infectious disease input), wound care/vac, debridement as necessary, nutritional support. No spine surgery at this time. continue to encourage PO intake and activity. will need home ertapenem (and then probably indefinite suppressive abx after that) home wound vac, home nursing care, etc -- will definitely want family on board with all this before working towards home, as SNF level care would also be quite appropriate given her needs Typically on Xarelto for clots, currently held due to potential for further need for interventions on her sacral ulcer can resume at discharge (may be candidate for chornic suppressive low dose therapy since for PE, given bleed risk from sacral wound/wound vac). continue SQ heparin for now Otherwise as above Subjective Pt without acute events overnight. Reports that she ate her lunch and dinner well. States that her son came last evening to see her. Denies complaints such as SOB, CP, abdominal pain, has not had a BM for several days. No nausea or vomiting. No pain in her legs at her wound sites, and no pain in her backside where her ulceration lies. Denies fevers or chills. Review of Systems Constitutional: no fever and no chills Respiratory: no cough, no dyspnea and no wheezing Cardiovascular: no chest pain, no palpitations and no edema Gastrointestinal: + constipation; no abdominal pain and no diarrhea/loose stools Genitourinary: has a catheter. Physical Exam Physical Exam: Constitutional nontoxic appearing, cachectic, immobile. Sitting upright eating breakfast Respiratory normal respiratory effort, lungs clear to auscultation Cardiovascular Rate/Rhythm: regular rate and regular rhythm Heart Sounds: + murmur (systolic murmur 3/6 RADHA border) Extremities: + edema (3+ pitting edema bilateral LE) Gastrointestinal (Abdomen) normal bowel sounds, soft, nontender, no hepatosplenomegaly Skin Sacrum: 5x7cm sacral stage IV decubitus ulcer present with wound vac in place draining minimal brown fluid, no erythema outside of wound vac bandage site. No tenderness. Posterior calf wounds bilaterally: covered with bandages from wound care, no erythema outside of bandage sites. no tenderness. Psychiatric Orientation: alert and oriented x 3 some poor insight into her condition, wants to go home regardless of condition in hospital. Genitourinary catheter in place draining clear yellow urine. Results & Data Vital Signs (Past 12 Hours) Vital Signs Temp Pulse Pulse Resp BP Pulse Ox Pulse Ox 07/31/19 07:29 36.4 C L 66 20 136/48 L 97 07/31/19 03:16 36.5 C 64 18 154/65 H 99 07/31/19 00:21 36.4 C L 67 18 153/69 H 99 07/30/19 23:51 64 07/30/19 23:05 97 Laboratory Results Laboratory Results - last 24 hr 07/30/19 07/30/19 07/30/19 11:41 16:42 20:48 WBC RBC Hgb Hct MCV MCH MCHC RDW Std Deviation RDW Coeff of [employer] Plt Count MPV Immature Gran % (Auto) Neut % (Auto) Lymph % (Auto) [place] % (Auto) Eos % (Auto) Baso % (Auto) Immature Gran # (Auto) Neut # (Auto) Lymph # (Auto) [place] # (Auto) Eos # (Auto) Baso # (Auto) POC Glucose 222 H 219 H 205 H 07/31/19 07/31/19 05:43 07:52 WBC 11.99 H RBC 2.96 L Hgb 8.2 L Hct 25.1 L MCV 84.8 MCH 27.7 MCHC 32.7 RDW Std Deviation 49.3 H RDW Coeff of [employer] 16.1 H Plt Count 401 H MPV 8.6 Immature Gran % (Auto) 3.4 Neut % (Auto) 66.0 Lymph % (Auto) 20.4 [place] % (Auto) 8.7 Eos % (Auto) 1.4 Baso % (Auto) 0.1 Immature Gran # (Auto) 0.41 H Neut # (Auto) 7.92 H Lymph # (Auto) 2.44 [place] # (Auto) 1.04 H Eos # (Auto) 0.17 Baso # (Auto) 0.01 POC Glucose 135 H Medications Administered Current Medications Acetaminophen (Tylenol) 650 mg PO Q4H PRN PRN Reason: Pain or Fever Stop: 08/24/19 23:00 Collagenase (Santyl) 1 appln EXT DAILY RUFUS Stop: 08/26/19 08:59 Last Admin: 07/31/19 08:46 Dose: 1 appln Documented by: Dextrose (Dextrose 50%) 25 - 50 ml IV UD PRN; Protocol PRN Reason: Hypoglycemia Protocol Stop: 08/28/19 12:14 Glucagon (Glucagen) 1 mg IM UD PRN; Protocol PRN Reason: Hypoglycemia Protocol Stop: 08/28/19 12:14 Glucose (Glucose 40%) 15 - 30 gm PO UD PRN; Protocol PRN Reason: Hypoglycemia Protocol Stop: 08/28/19 12:14 Glucose (Dex4 Glucose) 4 - 8 tabs PO UD PRN; Protocol PRN Reason: Hypoglycemia Protocol Stop: 08/28/19 12:14 Heparin Sodium (Porcine) (Heparin Sodium (Porcine)) 5,000 units SQ Q12 RUFUS Stop: 08/26/19 20:59 Last Admin: 07/31/19 08:45 Dose: 5,000 units Documented by: Ertapenem 1,000 mg/ Sodium (Chloride) 60 mls @ 100 mls/hr IV Q24H RUFUS; Protocol Stop: 09/09/19 15:59 Last Infusion: 07/30/19 17:31 Dose: Infused Documented by: Insulin Aspart (Novolog Flexpen) 0 units SC ACHS RUFUS Stop: 08/28/19 12:14 Last Admin: 07/31/19 08:47 Dose: 3 units Documented by: Insulin Glargine (Lantus Solostar Pen) 10 units SC DAILY RUFUS Stop: 08/29/19 08:59 Last Admin: 07/31/19 08:46 Dose: 10 units Documented by: Lisinopril (Zestril) 20 mg PO DAILY RUFUS Stop: 08/25/19 08:59 Last Admin: 07/31/19 08:46 Dose: 20 mg Documented by: Miscellaneous (Carbohydrates For Hypoglycemia) 15 - 30 gm PO UD PRN PRN Reason: Hypoglycemia Treatment Stop: 08/28/19 12:14 Polyethylene Glycol (Miralax Powder Packet) 17 gm PO DAILY PRN PRN Reason: Constipation Stop: 08/24/19 23:00 Saccharomyces Boulardii (Florastor) 250 mg PO HS RUFUS Stop: 08/25/19 20:59 Last Admin: 07/30/19 20:51 Dose: 250 mg Documented by: PG Care Time/CCT Total # of Minutes Spent Total Time Spent with Patient: Total time spent is greater than 50% in coordination of care (as documented) at patient's floor/unit and/or counseling patient: Resident Activity Tracking Resident Involvement: Resident Care Provided Care Provided: Adult Hospital Medicine (1) Anemia Anemia type: unspecified type Qualified Code(s): D64.9 - Anemia, unspecified (2) Leukocytosis Leukocytosis type: unspecified Qualified Code(s): D72.829 - Elevated white blood cell count, unspecified (3) Left lower lobe pneumonia Pneumonia type: due to unspecified organism Qualified Code(s): J18.1 - Lobar pneumonia, unspecified organism (4) Venous stasis ulcer Non-pressure ulcer stage: unspecified non-pressure ulcer stage Varicose vein presence: unspecified whether present Venous stasis ulcer site: unspecified site Qualified Code(s): I83.009 - Varicose veins of unspecified lower extremity with ulcer of unspecified site; L97.909 - Non-pressure chronic ulcer of unspecified part of unspecified lower leg with unspecified severity
[2019-07-31] MEDS: ERTAPENEM SODIUM 1,000 MG in SODIUM CHLORIDE 0.9% 50 ML IV SCH (16:19)
[2019-07-31] MEDS: SACCHAROMYCES BOULARDII 250 MG CAP PO SCH (21:09)
[2019-08-01 07:00] LABS: Basophils # (auto) 0.02 K/uL (0-0.2); Basophils % (auto) 0.2 %; Eosinophils # (auto) 0.12 K/uL (0-0.5); Eosinophils % (auto) 0.9 %; Hematocrit (blood only) 22.5 % (37-47); Hemoglobin 7.5 g/dL (12.0-16.0); Immature Granulocytes # (auto) 0.35 K/uL (0.00-0.02); Immature Granulocytes % (auto) 2.7 %; Lymphocytes # (auto) 2.29 K/uL (1.2-3.4); Lymphocytes % (auto) 17.9 %; Mean Corpuscular Hemoglobin 28.3 pg (25-34); Mean Corpuscular Hgb Conc 33.3 g/dL (32-36); Mean Corpuscular Volume 84.9 fL (80-100); Mean Platelet Volume 8.5 fL (7.4-10.4); Monocytes # (auto) 1.21 K/uL (0.11-0.59); Monocytes % (auto) 9.5 %; Neutrophils # (auto) 8.78 K/uL (1.4-6.5); Neutrophils % (auto) 68.8 %; Platelet Count 410 K/uL (130-400); RDW Coefficient of Variation 16.5 % (11.5-14.5); RDW Standard Deviation 49.6 fL (36.4-46.3); Red Blood Count 2.65 M/uL (4.2-5.4); White Blood Count 12.77 K/uL (4.8-10.8)
[2019-08-01 07:18] LABS: Spherocytes Occasional
[2019-08-01] MEDS: INSULIN GLARGINE SOLOSTAR 100 UNITS/ML 3 ML PEN SC SCH (08:56)
[2019-08-01] MEDS: INSULIN ASPART 100 UNITS/ML 3 ML PEN SC SCH ×4 (08:56→20:44)
[2019-08-01] MEDS: HEPARIN SOD 5,000 UNIT/0.5 ML VIAL SQ SCH ×2 (08:58→20:44)
[2019-08-01] MEDS: LISINOPRIL 20 MG TAB PO SCH (08:59)
[2019-08-01] MEDS: COLLAGENASE OINT 30 GM TUBE EXT SCH (09:01)
--- NOTE | 2019-08-01 09:43 | Family Medicine Progress Note ---
Date of Service August 01, 2019 Assessment & Plan (1) Sacral decubitus ulcer: 88-year-old female with a past medical history of HTN, aortic stenosis, CVA, DM2, DVT, PE, bilateral lower extremity lymphedema, spinal stenosis now for treatment of osteomyelitis and abscesses with IV antibiotics due to being a poor surgical candidate. Fatigue, leukocytosis, sacral pressure ulcer: - Does not meet SIRS criteria at this time. No longer unstable and feeling well this AM. - Previous Blood Culture showed Alpha Strep, Diphtheroids, Micromonas, gram negative bacilli. BCx x2 negative but not to 48 hours at this point. Will continue to follow. CBC tomorrow AM. CBC today WBC 12.77 from 11.99 yesterday. - Wound Culture showed proteus mirabilis, staph species, bacteroides caccae, bacteroides thetaiotaomicron. - MRI Pelvis w/wo showed Osteomyelitis with multiple abscesses throughout including epidural abscess. - Wound Care Consult placed - wound vac with change q3days. Providing care for bilateral posterior calf wounds. General surgery consult - Not a surgical candidate at this time. - Ortho Spine Consulted - Continue antibiotic treatment, no surgical intervention. - Infectious Disease Consulted - IV ertapenem and will schedule for outpatient follow up for 1 week following discharge. Will continue IV antibiotics. Tylenol for fevers. Has been afebrile. - Have yet to reach patient's sons to discuss goals of care. Will attempt again today. For this case I am hesitant to send this patient back to her home where she developed a stage IV sacral ulcer and where it appears her son was not getting enough help to care for her at home. Pt is vehement that she does not want to go to a nursing facility. Impaired Fasting Glucose: - Concern for high sugars the past couple of days. - Patient not on any medication for diabetes/glucose control at home. - SSI ordered to cover as needed and added Lantus 10u qHS to regimen. Left lower lobe consolidation: Likely secondary to atelectasis as patient has no symptoms and a normal pulmonary exam. Questionable UTI: -UA Nitrates + and WBC >30. Patient on IV ertapenem. UCx negative. Dehydration: Resolved -IV fluids dc'd . PO intake encouraged. Anemia: No signs of bleeding, reports poor p.o. intake. - Likely Anemia of Chronic Disease. Iron Studies - Iron 7.9, TIBC 183, Ferritin 234.5. - Hgb 7.5 this AM, repeating today for determination of transfusion - Patient consented for blood if needed, transfuse if <7 or signs/symptomatic anemia. Transaminitis: History of cholelithiasis. - Denies RUQ pain on clinical exam. Hypertension: - SBP 130s-150s. Continue lisinopril 20 mg. CODE STATUS: FULL CODE Diet: Heart Healthy DVT prophylaxis: Heparin, holding Xarelto. Dispo : Med/Surg (2) Anemia: (3) Leukocytosis: (4) Stasis, venous: (5) Impaired fasting glucose: (6) Lymphedema: (7) Stenosis, cervical spine: (8) Left lower lobe pneumonia: (9) Venous stasis ulcer: (10) Aortic stenosis: (11) Dehydration: (12) History of pulmonary embolism: Supervising Physician Co-Signing Physician Notes I saw the patient with the resident physician and confirmed ash portions of the history and physical exam. Upon examination, the patient is sleeping but awakens to voice. We did discuss her current diagnosis and I am not quite sure that she understands the severity of her ulceration. Fortunately she has minimal discomfort; I did offer her to show her pictures that were taken, and this may be something to do when her family is at bedside. Also discussed the case with the wound care physician in regards to the discontinuation of the wound VAC. There is question whether she would have enough care at home. The patient declines going to a [place] [facility] [place]. Unfortunately, I have doubts that this ulceration would heal even under the most ideal conditions and [place] [facility] facility. I think we are approaching more of a palliative approach, and in which keeping with this approach the patient would have her wish of being at home. I think as long as we can convey the severity of the ulceration to the patient and the family, a palliative care approach would make sense. Given the severity of the ulceration I think she would need hospice guidelines. Likewise, infectious disease also has recommendations for a palliative approach including oral antibiotics in the of extended duration IV antibiotics. We will consult palliative care services. Continue current care for the time being. Subjective Pt reports that she ate her lunch and dinner well yesterday, and that her appetite has remained good, but wants to get home. States that her son, Ez, came to visit last evening to see her, but could not stay long as all her sons are farmers and can only check on her periodically. No pain in her wound sites. Review of Systems Constitutional: no fever, no chills and no sweats Eyes: no worsening vision and no problem reported Respiratory: no cough, no dyspnea and no wheezing Cardiovascular: no chest pain, no radiating jaw, neck or arm pain and no syncope Gastrointestinal: no abdominal pain, no nausea, no vomiting and no change in bowel habits Physical Exam Constitutional: + thin and + frail appearing Eyes: PERRL, conjunctivae normal, anicteric sclerae Respiratory: normal respiratory effort, lungs clear to auscultation Cardiovascular: RRR, no murmur, no edema Skin: sacral stage IV decubitus ulcer present with wound vac in place draining minimal brown fluid, no erythema outside of wound vac bandage site. Non-tender; Posterior calf wounds bilaterally covered with bandages, no erythema outside of bandage sites. non-tender Results & Data Vital Signs (Past 12 Hours) Vital Signs Temp Pulse Pulse Resp BP BP Pulse Ox 08/01/19 07:52 36.9 C 77 18 156/92 H 92 08/01/19 07:33 36.4 C L 67 24 148/63 H 99 08/01/19 07:25 36.8 C 66 18 128/53 L 98 08/01/19 07:00 64 08/01/19 03:00 36.8 C 68 18 143/54 H 99 08/01/19 00:43 68 07/31/19 23:36 07/31/19 23:32 36.6 C 72 20 164/65 H 98 Pulse Ox 08/01/19 07:52 08/01/19 07:33 08/01/19 07:25 08/01/19 07:00 08/01/19 03:00 08/01/19 00:43 07/31/19 23:36 98 07/31/19 23:32 Laboratory Results 08/01/19 08/01/19 07/31/19 Range/Units 07:24 06:22 20:35 WBC 12.77 H (4.8-10.8) K/uL RBC 2.65 L (4.2-5.4) M/uL Hgb 7.5 L (12.0-16.0) g/dL Hct 22.5 L (37-47) % MCV 84.9 (80-100) fL MCH 28.3 (25-34) pg MCHC 33.3 (32-36) g/dL RDW Std Deviation 49.6 H (36.4-46.3) fL RDW Coeff of Mary Kay 16.5 H (11.5-14.5) % Plt Count 410 H (130-400) K/uL MPV 8.5 (7.4-10.4) fL Immature Gran % (Auto) 2.7 % Neut % (Auto) 68.8 % Lymph % (Auto) 17.9 % [place] % (Auto) 9.5 % Eos % (Auto) 0.9 % Baso % (Auto) 0.2 % Immature Gran # (Auto) 0.35 H (0.00-0.02) K/uL Neut # (Auto) 8.78 H (1.4-6.5) K/uL Lymph # (Auto) 2.29 (1.2-3.4) K/uL [place] # (Auto) 1.21 H (0.11-0.59) K/uL Eos # (Auto) 0.12 (0-0.5) K/uL Baso # (Auto) 0.02 (0-0.2) K/uL Spherocytes Occasional POC Glucose 133 H 201 H (70-99) 07/31/19 Range/Units 16:54 WBC (4.8-10.8) K/uL RBC (4.2-5.4) M/uL Hgb (12.0-16.0) g/dL Hct (37-47) % MCV (80-100) fL MCH (25-34) pg MCHC (32-36) g/dL RDW Std Deviation (36.4-46.3) fL RDW Coeff of Mary Kay (11.5-14.5) % Plt Count (130-400) K/uL MPV (7.4-10.4) fL Immature Gran % (Auto) % Neut % (Auto) % Lymph % (Auto) % [place] % (Auto) % Eos % (Auto) % Baso % (Auto) % Immature Gran # (Auto) (0.00-0.02) K/uL Neut # (Auto) (1.4-6.5) K/uL Lymph # (Auto) (1.2-3.4) K/uL [place] # (Auto) (0.11-0.59) K/uL Eos # (Auto) (0-0.5) K/uL Baso # (Auto) (0-0.2) K/uL Spherocytes POC Glucose 187 H (70-99) Medications Administered Current Inpatient Medications Acetaminophen (Tylenol) 650 mg PO Q4H PRN PRN Reason: Pain or Fever Stop: 08/24/19 23:00 Collagenase (Santyl) 1 appln EXT DAILY RUFUS Stop: 08/26/19 08:59 Last Admin: 08/01/19 09:01 Dose: 1 appln Documented by: Dextrose (Dextrose 50%) 25 - 50 ml IV UD PRN; Protocol PRN Reason: Hypoglycemia Protocol Stop: 08/28/19 12:14 Glucagon (Glucagen) 1 mg IM UD PRN; Protocol PRN Reason: Hypoglycemia Protocol Stop: 08/28/19 12:14 Glucose (Glucose 40%) 15 - 30 gm PO UD PRN; Protocol PRN Reason: Hypoglycemia Protocol Stop: 08/28/19 12:14 Glucose (Dex4 Glucose) 4 - 8 tabs PO UD PRN; Protocol PRN Reason: Hypoglycemia Protocol Stop: 08/28/19 12:14 Heparin Sodium (Porcine) (Heparin Sodium (Porcine)) 5,000 units SQ Q12 RUFUS Stop: 08/26/19 20:59 Last Admin: 08/01/19 08:58 Dose: 5,000 units Documented by: Ertapenem 1,000 mg/ Sodium (Chloride) 60 mls @ 100 mls/hr IV Q24H RUFUS; Protocol Stop: 09/09/19 15:59 Last Infusion: 07/31/19 16:59 Dose: Infused Documented by: Insulin Aspart (Novolog Flexpen) 0 units SC ACHS RUFUS Stop: 08/28/19 12:14 Last Admin: 08/01/19 08:56 Dose: Not Given Documented by: Insulin Glargine (Lantus Solostar Pen) 10 units SC DAILY RUFUS Stop: 08/29/19 08:59 Last Admin: 08/01/19 08:56 Dose: 10 units Documented by: Lisinopril (Zestril) 20 mg PO DAILY RUFUS Stop: 08/25/19 08:59 Last Admin: 08/01/19 08:59 Dose: 20 mg Documented by: Miscellaneous (Carbohydrates For Hypoglycemia) 15 - 30 gm PO UD PRN PRN Reason: Hypoglycemia Treatment Stop: 08/28/19 12:14 Polyethylene Glycol (Miralax Powder Packet) 17 gm PO DAILY PRN PRN Reason: Constipation Stop: 08/24/19 23:00 Saccharomyces Boulardii (Florastor) 250 mg PO HS RUFUS Stop: 08/25/19 20:59 Last Admin: 07/31/19 21:09 Dose: 250 mg Documented by: PG Care Time/CCT Total # of Minutes Spent Total Time Spent with Patient: Total time spent is greater than 50% in co ordination of care (as documented) at patient's floor/unit and/or counseling patient: Resident Activity Tracking Resident Involvement: Resident Care Provided Care Provided: Adult Hospital Medicine (1) Anemia Anemia type: unspecified type Qualified Code(s): D64.9 - Anemia, unspecified (2) Leukocytosis Leukocytosis type: unspecified Qualified Code(s): D72.829 - Elevated white blood cell count, unspecified (3) Left lower lobe pneumonia Pneumonia type: due to unspecified organism Qualified Code(s): J18.1 - Lobar pneumonia, unspecified organism (4) Venous stasis ulcer Non-pressure ulcer stage: unspecified non-pressure ulcer stage Varicose vein presence: unspecified whether present Venous stasis ulcer site: unspecified site Qualified Code(s): I83.009 - Varicose veins of unspecified lower extremity with ulcer of unspecified site; L97.909 - Non-pressure chronic ulcer of unspecified part of unspecified lower leg with unspecified severity
--- NOTE | 2019-08-01 13:40 | Wound Progress Note ---
Date of Service August 01, 2019 Assessment & Plan (1) Decubitus ulcer of sacral region, stage 4: Orthospine note reviewed. Patient is not a surgical candidate. Per general surgery patient is not a surgical candidate. Wound VAC was attempted over the weekend with knowledge that this was the last of which effort due to patient not being a surgical candidate. After talking to I rep today wound VAC is contraindicated due to inability to see if wound is taken off all abscess spaces or possible pockets. We will stop with wound VAC therapy. I did discuss this with Dr. Correia. Wound will be dressed with Aquacel Ag. At this point due to patient not been a surgical candidate in the extent of the wound it is unlikely this wound will ever heal. Patient has poor intake which will also slow wound healing. Patient is refusing to go to a retirement facility and would like to go back home which is where she developed the wound in the first place. Would consider palliative care consult. Continue IV antibiotics. We will see patient in the office 1 week after discharge. (2) Acute osteomyelitis of sacrum: (3) Venous stasis ulcer: No debridement was required. Thank you for allowing to participate in the care of this patient. Please not hesitate to call with any questions. Subjective Patient seen laying in bed. She has tolerated wound VAC over the weekend. She remains on IV antibiotics. She is complaining of no pain. Review of Systems Review of Systems: All systems reviewed & are unremarkable except as noted in HPI & below Physical Exam Skin: Sacral wound with exposed bone. There is significant undermining circumferentially. There is mild drainage. Neurologic: awake; not confused Psychiatric: A+Ox3, euthymic affect Results & Data Vital Signs (Past 12 Hours) Vital Signs Temp Pulse Pulse Resp BP BP Pulse Ox 08/01/19 11:33 36.5 C 82 24 153/66 H 94 08/01/19 07:52 36.9 C 77 18 156/92 H 92 08/01/19 07:33 36.4 C L 67 24 148/63 H 99 08/01/19 07:25 36.8 C 66 18 128/53 L 98 08/01/19 07:00 64 08/01/19 03:00 36.8 C 68 18 143/54 H 99 PG Care Time/CCT Total # of Minutes Spent Total Time Spent with Patient: Total time spent is greater than 50% in coordination of care (as documented) at patient's floor/unit and/or counseling patient: (1) Venous stasis ulcer Non-pressure ulcer stage: unspecified non-pressure ulcer stage Varicose vein presence: unspecified whether present Venous stasis ulcer site: unspecified site Qualified Code(s): I83.009 - Varicose veins of unspecified lower extremity with ulcer of unspecified site; L97.909 - Non-pressure chronic ulcer of unspecified part of unspecified lower leg with unspecified severity
[2019-08-01 14:12] LABS: Basophils # (auto) 0.03 K/uL (0-0.2); Basophils % (auto) 0.2 %; Eosinophils # (auto) 0.14 K/uL (0-0.5); Hematocrit (blood only) 27.6 % (37-47); Immature Granulocytes % (auto) 2.1 %; Lymphocytes # (auto) 2.17 K/uL (1.2-3.4); Lymphocytes % (auto) 15.3 %; Mean Corpuscular Hemoglobin 27.4 pg (25-34); Mean Corpuscular Hgb Conc 32.6 g/dL (32-36); Mean Corpuscular Volume 84.1 fL (80-100); Mean Platelet Volume 8.5 fL (7.4-10.4); Monocytes # (auto) 1.44 K/uL (0.11-0.59); Monocytes % (auto) 10.2 %; Neutrophils # (auto) 10.06 K/uL (1.4-6.5); Neutrophils % (auto) 71.2 %; Platelet Count 294 K/uL (130-400); RDW Coefficient of Variation 16.5 % (11.5-14.5); RDW Standard Deviation 49.5 fL (36.4-46.3); Red Blood Count 3.28 M/uL (4.2-5.4); White Blood Count 14.14 K/uL (4.8-10.8)
--- NOTE | 2019-08-01 14:15 | Infectious Disease Progress Nt ---
Date of Service August 01, 2019 Assessment & Plan (1) Acute osteomyelitis of sacrum: 88-year-old female with sacral osteomyelitis in the setting of stage IV sacral decubitus ulcer, with small abscesses seen on MRI scan as well,, wound growing staph, Proteus, Bacteroides. Patient to continue on IV ertapenem, hopefully for at least 6-week course of therapy. If however, outpatient antibiotics not feasible, will discuss transition to palliative oral antibiotics. Will follow. (2) Gram-positive cocci bacteremia: (3) Decubitus ulcer of sacral region, stage 4: Subjective Patient seen in follow-up for stage IV sacral decubitus with osteomyelitis. All consultations and their follow-up reviewed. Deemed not a surgical candidate by surgery and orthospine. Had wound VAC over the weekend, not a good candidate for long-term wound VAC use. Remains afebrile. Offering no new complaints, does not appear in pain. Review of Systems Review of Systems: All systems reviewed & are unremarkable except as noted in HPI & below Physical Exam Constitutional: WD/WN, vitals as above + ill appearing, + cachectic and comfortable; no acute distress Eyes: PERRL, conjunctivae normal, anicteric sclerae ENMT: external ear and nose normal, oropharynx normal Neck: trachea midline, no thyromegaly neck nontender Respiratory: normal respiratory effort, lungs clear to auscultation normal percussion; does not use accessory muscles Cardiovascular: Rate/Rhythm: regular rate and regular rhythm Heart Sounds: normal S1, normal S2 and + murmur (3 out of 6 systolic murmur); no gallop and no cardiac rub Vessels: normal peripheral pulses; no JVD Gastrointestinal (Abdomen): normal bowel sounds, soft, nontender, no hepatosplenomegaly Musculoskeletal: no cyanosis or clubbing, extremities motor strength 5/5 Spine: thoracic spine normal to inspection and lumbar spine normal to inspection; no cervical spinal tenderness Skin: normal turgor and + wound (Large sacral decubitus with some surrounding erythema, probes to bone) Neurologic: patellar DTR's 2+ bilat, sensation intact no focal motor deficits Psychiatric: A+Ox3, euthymic affect Orientation: cooperative Lymphatic: no cervical or axillary lymphadenopathy no inguinal lymphadenopathy Results & Data Vital Signs (Past 12 Hours) Vital Signs Temp Pulse Pulse Resp BP BP Pulse Ox 08/01/19 11:33 36.5 C 82 24 153/66 H 94 08/01/19 07:52 36.9 C 77 18 156/92 H 92 08/01/19 07:33 36.4 C L 67 24 148/63 H 99 08/01/19 07:25 36.8 C 66 18 128/53 L 98 08/01/19 07:00 64 08/01/19 03:00 36.8 C 68 18 143/54 H 99 Laboratory Results Short CBC 08/01/19 08/01/19 Range/Units 06:22 13:55 WBC 12.77 H 14.14 H (4.8-10.8) K/uL Hgb 7.5 L 9.0 L (12.0-16.0) g/dL Hct 22.5 L 27.6 L (37-47) % Plt Count 410 H 294 (130-400) K/uL Diagnostic Findings Microbiology 07/30/19 11:37 Blood Aerobic Blood Culture - Preliminary No growth in Aerobic bottle after 48 hours. 07/30/19 11:37 Blood Anaerobic Blood Culture - Preliminary No growth in Anaerobic bottle after 48 hours. 07/30/19 12:02 Blood Aerobic Blood Culture - Preliminary No growth in Aerobic bottle after 48 hours. 07/30/19 12:02 Blood Anaerobic Blood Culture - Preliminary No growth in Anaerobic bottle after 48 hours. 07/25/19 17:46 Blood Aerobic Blood Culture - Final No growth in Aerobic bottle after 5 days. 07/25/19 17:46 Blood Anaerobic Blood Culture - Final 07/25/19 17:46 Blood Aerobic Blood Culture - Final Diptheroids 07/25/19 17:46 Blood Anaerobic Blood Culture - Final Alpha strep not S.pne/enteroco Diptheroids Micromonas micros Bacteroides fragilis 07/26/19 11:30 Sacrum Gram Stain - Final 07/26/19 11:30 Sacrum Deep Wound Culture - Final Proteus mirabilis Staphylococcus aureus Bacteroides caccae Bacteroides thetaiotaomicron 07/25/19 16:30 Sacrum Gram Stain - Final 07/25/19 16:30 Sacrum Wound Culture - Final Staphylococcus aureus Gamma strep not enterococcus 07/25/19 16:30 Leg,Right Gram Stain - Final 07/25/19 16:30 Leg,Right Wound Culture - Final Staphylococcus aureus 07/25/19 19:00 Urine,Straight Cath Urine Culture - Final More than three types of organisms present, all high counts. Repeat collection recommended. No further identifications or sensitivities to follow. PG Care Time/CCT Total # of Minutes Spent Total Time Spent with Patient: Total time spent is greater than 50% in coordination of care (as documented) at patient's floor/unit and/or counseling patient:
[2019-08-01] MEDS: ERTAPENEM SODIUM 1,000 MG in SODIUM CHLORIDE 0.9% 50 ML IV SCH ×2 (18:00→18:58)
[2019-08-01] MEDS: SACCHAROMYCES BOULARDII 250 MG CAP PO SCH (20:45)
[2019-08-02 06:18] LABS: Basophils # (auto) 0.01 K/uL (0-0.2); Basophils % (auto) 0.1 %; Eosinophils # (auto) 0.19 K/uL (0-0.5); Eosinophils % (auto) 1.7 %; Hematocrit (blood only) 23.9 % (37-47); Hemoglobin 7.8 g/dL (12.0-16.0); Immature Granulocytes # (auto) 0.22 K/uL (0.00-0.02); Lymphocytes # (auto) 2.52 K/uL (1.2-3.4); Lymphocytes % (auto) 23.2 %; Mean Corpuscular Hemoglobin 27.8 pg (25-34); Mean Corpuscular Hgb Conc 32.6 g/dL (32-36); Mean Corpuscular Volume 85.1 fL (80-100); Mean Platelet Volume 8.2 fL (7.4-10.4); Monocytes # (auto) 0.87 K/uL (0.11-0.59); Neutrophils # (auto) 7.07 K/uL (1.4-6.5); Platelet Count 376 K/uL (130-400); RDW Coefficient of Variation 16.6 % (11.5-14.5); RDW Standard Deviation 50.2 fL (36.4-46.3); Red Blood Count 2.81 M/uL (4.2-5.4); White Blood Count 10.88 K/uL (4.8-10.8)
[2019-08-02 06:36] LABS: RBC Morphology Unremarkable
[2019-08-02] MEDS: INSULIN ASPART 100 UNITS/ML 3 ML PEN SC SCH ×4 (08:54→20:57)
[2019-08-02] MEDS: INSULIN GLARGINE SOLOSTAR 100 UNITS/ML 3 ML PEN SC SCH (08:58)
[2019-08-02] MEDS: HEPARIN SOD 5,000 UNIT/0.5 ML VIAL SQ SCH ×2 (08:59→20:56)
[2019-08-02] MEDS: LISINOPRIL 20 MG TAB PO SCH (09:00)
[2019-08-02] MEDS: COLLAGENASE OINT 30 GM TUBE EXT SCH (09:02)
--- NOTE | 2019-08-02 09:32 | Hospitalist Progress Note ---
Date of Service August 02, 2019 Assessment & Plan (1) Sacral decubitus ulcer: 88-year-old female with a past medical history of HTN, aortic stenosis, CVA, DM2, DVT, PE, bilateral lower extremity lymphedema, spinal stenosis now for treatment of osteomyelitis and abscesses with IV antibiotics due to being a poor surgical candidate. After extensive discussion with patient and family, regarding treatment options and outlining the difficulty of this wound healing and the likelihood that this wound will not heal given our inability to full treat it; at this time patient and family have elected to talk with palliative care and subsequently once an appropriate outpatient resources have been established have her go home under Hospice care. They would like patient to remain FULL CODE throughout these next steps. Fatigue, leukocytosis, sacral pressure ulcer: - feeling well this AM. - Previous Blood Culture showed Alpha Strep, Diphtheroids, Micromonas, gram negative bacilli. BCx x2 negative but not to 48 hours at this point. Will continue to follow. CBC tomorrow AM. CBC today WBC 12.77 from 11.99 yesterday. - Wound Culture showed proteus mirabilis, staph species, bacteroides caccae, bacteroides thetaiotaomicron. - MRI Pelvis w/wo showed Osteomyelitis with multiple abscesses throughout including epidural abscess. - Wound Care Consult placed - no longer a candidate for wound vac; wound to be dressed with aquacel General surgery consult - Not a surgical candidate at this time. - Ortho Spine Consulted - Continue antibiotic treatment, no surgical intervention. - Infectious Disease Consulted - IV ertapenem and will schedule for outpatient follow up for 1 week following discharge. Will continue IV antibiotics. Tylenol for fevers. Has been afebrile. Impaired Fasting Glucose: - Concern for high sugars the past couple of days. - Patient not on any medication for diabetes/glucose control at home. - SSI ordered to cover as needed and added Lantus 10u qHS to regimen. Left lower lobe consolidation: Likely secondary to atelectasis as patient has no symptoms and a normal pulmonary exam. Questionable UTI: -UA Nitrates + and WBC >30. Patient on IV ertapenem. UCx negative. Dehydration: Resolved -IV fluids dc'd . PO intake encouraged. Anemia: No signs of bleeding, reports poor p.o. intake. - Likely Anemia of Chronic Disease. Iron Studies - Iron 7.9, TIBC 183, Ferritin 234.5. - Hgb 7.5 this AM, repeating today for determination of transfusion - Patient consented for blood if needed, transfuse if <7 or signs/symptomatic anemia. Transaminitis: History of cholelithiasis. - Denies RUQ pain on clinical exam. Hypertension: - SBP 130s-150s. Continue lisinopril 20 mg. Severe protein calorie malnutrition: Multiple skin ulcerations in the setting of decreased oral intake We will continue to push high-protein foods and meal trays and monitor intake CODE STATUS: FULL CODE Diet: Heart Healthy DVT prophylaxis: Heparin, holding Xarelto. Dispo : Med/Surg (2) Anemia: (3) Leukocytosis: (4) Stasis, venous: (5) Impaired fasting glucose: (6) Lymphedema: (7) Stenosis, cervical spine: (8) Left lower lobe pneumonia: (9) Venous stasis ulcer: (10) Aortic stenosis: (11) Dehydration: (12) History of pulmonary embolism: Supervising Physician Co-Signing Physician Notes I saw the patient with the resident physician and confirmed ash portions of the history and physical exam. Upon examination, the patient is sleeping but awakens to voice. She has no complaints this morning. A family meeting is pending for later today. Also discussed the case with the wound care physician. Unfortunately, the thought is that the extensive decubitus ulceration while unlikely heal this patient is treated in the facility or at home. Given the severity of the ulceration I think she meets hospice guidelines and this will be presented as an option to her and her family. Will discuss with infectious disease recommendations for palliative approach including recommendation for oral antibiotics -the goal here would not be cure but rather limiting the progression of the wound. Subjective Pt has no new complaints, and generally feels fine and ready to go home at this point in time. She feels like her illness can't be that bad if she does not have much pain or discomfort at this point. Understands that team would like to speak with her and her family together to best outline the treatment options for her care going forward. Review of Systems Constitutional: no fever, no chills, no sweats and no fatigue Respiratory: no cough, no dyspnea and no wheezing Cardiovascular: no chest pain, no dyspnea, no palpitations and no edema Gastrointestinal: no abdominal pain, no nausea, no vomiting and no change in bowel habits Musculoskeletal: no back pain and no radicular pain Physical Exam Constitutional: + thin and + frail appearing Eyes: PERRL, conjunctivae normal, anicteric sclerae Respiratory: normal respiratory effort, lungs clear to auscultation Cardiovascular: RRR, no murmur, no edema Skin: sacral stage IV decubitus ulcer present with wound vac in place draining minimal brown fluid, no erythema outside of wound vac bandage site. Non-tender; Posterior calf wounds bilaterally covered with bandages, no erythema outside of bandage sites. non-tender Results & Data Vital Signs (Past 12 Hours) Vital Signs Temp Pulse Pulse Resp BP Pulse Ox 08/02/19 07:13 36 C L 53 L 14 130/62 98 08/02/19 06:55 54 L 08/02/19 04:00 36.3 C L 60 18 157/61 H 93 08/02/19 00:06 60 08/02/19 00:00 36.4 C L 64 18 156/55 H 98 Laboratory Results 08/02/19 08/02/19 08/01/19 Range/Units 06:58 06:05 20:21 WBC 10.88 H (4.8-10.8) K/uL RBC 2.81 L (4.2-5.4) M/uL Hgb 7.8 L (12.0-16.0) g/dL Hct 23.9 L (37-47) % MCV 85.1 (80-100) fL MCH 27.8 (25-34) pg MCHC 32.6 (32-36) g/dL RDW Std Deviation 50.2 H (36.4-46.3) fL RDW Coeff of Mary Kay 16.6 H (11.5-14.5) % Plt Count 376 (130-400) K/uL MPV 8.2 (7.4-10.4) fL Immature Gran % (Auto) 2.0 % Neut % (Auto) 65.0 % Lymph % (Auto) 23.2 % Dale % (Auto) 8.0 % Eos % (Auto) 1.7 % Baso % (Auto) 0.1 % Immature Gran # (Auto) 0.22 H (0.00-0.02) K/uL Neut # (Auto) 7.07 H (1.4-6.5) K/uL Lymph # (Auto) 2.52 (1.2-3.4) K/uL Dale # (Auto) 0.87 H (0.11-0.59) K/uL Eos # (Auto) 0.19 (0-0.5) K/uL Baso # (Auto) 0.01 (0-0.2) K/uL RBC Morphology Unremarkable POC Glucose 110 H 175 H (70-99) 08/01/19 08/01/19 08/01/19 Range/Units 16:10 13:55 12:11 WBC 14.14 H (4.8-10.8) K/uL RBC 3.28 L (4.2-5.4) M/uL Hgb 9.0 L (12.0-16.0) g/dL Hct 27.6 L (37-47) % MCV 84.1 (80-100) fL MCH 27.4 (25-34) pg MCHC 32.6 (32-36) g/dL RDW Std Deviation 49.5 H (36.4-46.3) fL RDW Coeff of Mary Kay 16.5 H (11.5-14.5) % Plt Count 294 (130-400) K/uL MPV 8.5 (7.4-10.4) fL Immature Gran % (Auto) 2.1 % Neut % (Auto) 71.2 % Lymph % (Auto) 15.3 % Dale % (Auto) 10.2 % Eos % (Auto) 1.0 % Baso % (Auto) 0.2 % Immature Gran # (Auto) 0.30 H (0.00-0.02) K/uL Neut # (Auto) 10.06 H (1.4-6.5) K/uL Lymph # (Auto) 2.17 (1.2-3.4) K/uL Dale # (Auto) 1.44 H (0.11-0.59) K/uL Eos # (Auto) 0.14 (0-0.5) K/uL Baso # (Auto) 0.03 (0-0.2) K/uL RBC Morphology POC Glucose 197 H 170 H (70-99) Medications Administered Current Inpatient Medications Acetaminophen (Tylenol) 650 mg PO Q4H PRN PRN Reason: Pain or Fever Stop: 08/24/19 23:00 Collagenase (Santyl) 1 appln EXT DAILY RUFUS Stop: 08/26/19 08:59 Last Admin: 08/02/19 09:02 Dose: 1 appln Documented by: Dextrose (Dextrose 50%) 25 - 50 ml IV UD PRN; Protocol PRN Reason: Hypoglycemia Protocol Stop: 08/28/19 12:14 Glucagon (Glucagen) 1 mg IM UD PRN; Protocol PRN Reason: Hypoglycemia Protocol Stop: 08/28/19 12:14 Glucose (Glucose 40%) 15 - 30 gm PO UD PRN; Protocol PRN Reason: Hypoglycemia Protocol Stop: 08/28/19 12:14 Glucose (Dex4 Glucose) 4 - 8 tabs PO UD PRN; Protocol PRN Reason: Hypoglycemia Protocol Stop: 08/28/19 12:14 Heparin Sodium (Porcine) (Heparin Sodium (Porcine)) 5,000 units SQ Q12 RUFSU Stop: 08/26/19 20:59 Last Admin: 08/02/19 08:59 Dose: 5,000 units Documented by: Ertapenem 1,000 mg/ Sodium (Chloride) 60 mls @ 100 mls/hr IV Q24H RUFUS; Protocol Stop: 09/09/19 15:59 Last Admin: 08/01/19 18:58 Dose: Not Given Documented by: Insulin Aspart (Novolog Flexpen) 0 units SC ACHS RUFUS Stop: 08/28/19 12:14 Last Admin: 08/02/19 08:54 Dose: 2 units Documented by: Insulin Glargine (Lantus Solostar Pen) 10 units SC DAILY RUFUS Stop: 08/29/19 08:59 Last Admin: 08/02/19 08:58 Dose: 10 units Documented by: Lisinopril (Zestril) 20 mg PO DAILY RUFUS Stop: 08/25/19 08:59 Last Admin: 08/02/19 09:00 Dose: 20 mg Documented by: Miscellaneous (Carbohydrates For Hypoglycemia) 15 - 30 gm PO UD PRN PRN Reason: Hypoglycemia Treatment Stop: 08/28/19 12:14 Polyethylene Glycol (Miralax Powder Packet) 17 gm PO DAILY PRN PRN Reason: Constipation Stop: 08/24/19 23:00 Saccharomyces Boulardii (Florastor) 250 mg PO HS RUFUS Stop: 08/25/19 20:59 Last Admin: 08/01/19 20:45 Dose: 250 mg Documented by: PG Care Time/CCT Total # of Minutes Spent Total Time Spent with Patient: Total time spent is greater than 50% in coordi nation of care (as documented) at patient's floor/unit and/or counseling patient: Resident Activity Tracking Resident Involvement: Resident Care Provided Care Provided: Adult Hospital Medicine (1) Anemia Anemia type: unspecified type Qualified Code(s): D64.9 - Anemia, unspecified (2) Leukocytosis Leukocytosis type: unspecified Qualified Code(s): D72.829 - Elevated white blood cell count, unspecified (3) Left lower lobe pneumonia Pneumonia type: due to unspecified organism Qualified Code(s): J18.1 - Lobar pneumonia, unspecified organism (4) Venous stasis ulcer Non-pressure ulcer stage: unspecified non-pressure ulcer stage Varicose vein presence: unspecified whether present Venous stasis ulcer site: unspecified site Qualified Code(s): I83.009 - Varicose veins of unspecified lower extremity with ulcer of unspecified site; L97.909 - Non-pressure chronic ulcer of unspecified part of unspecified lower leg with unspecified severity
--- NOTE | 2019-08-02 16:18 | Palliative Care Consultation ---
Date of Consultation August 02, 2019 Assessment & Plan (1) Goals of care, counseling/discussion: -88 year old female patient with PMH hypertension, aortic stenosis, CVA, diabetes, hypertension, DVT, PE, bilateral lower extremity lymphedema, spinal stenosis, and others presented to the hospital with fatigue and multiple ulcers on legs and sacrum. Patient found to have a stage IV sacral ulcer as well as osteomyelitis and multiple abscesses including in the epidural space and intraosseous. Surgery consulted-- no role for surgery. ID following and making recommendations on abx. Patient is severely weak and debilitated. She is bedbound mostly after her previous CVA. Patient lives with her two sons who care for her. Patient was on hospice back in November 2017 for multiple comorbidities, but was discharged due to prolonged prognosis. Patient will need several weeks of IV abx if we are going to aggressively treat this infection, but with her poor nutritional status, being bedbound, many other health issues, the likelihood of this ulcer healing and infection clearing is slim. Patient is adamant she does not want to go to SNF. Palliative care is consulted to discuss goals. -Met with patient, her son/POA Ezjackson Albarraney, and Ez's , Margarita. Patient is awake, alert and oriented. Some forgetfulness and difficult to assess her understanding of complex medical conditions and medical decision making. Limited insight, but able to answer my questions. -Patient and family had just got done discussing with Dr. Gomez about the extent of the ulcer and infection/osteomyelitis. They deny questions. -Patient and family understand the unlikelihood of this ulcer healing or getting better. Patient's nutritional status is poor with albumin 1.7, she is mostly bedridden and only able to pivot to a chair, she has multiple comorbidities including history of a stroke. -Patient does not want to go to a SNF and wants to go home. We discussed goals of care. Patient was on hospice in November 2017 but was discharged due to prolonged prognosis and improving a bit. They are agreeable to hospice again and would like to focus on comfort. -Switch to PO abx. Transition to comfort care. -Patient's son states patient lives with his two brothers Ruben and Cody. Ez and Margarita live close by. Ez has no concerns about the family's ability to care for patient. -Attempted to discuss code status. Patient initially stated she wanted to be resuscitated. We talked about what CPR entails and what it would look like, and that the outcome would not be good for patient. Patient then stated, "When it's my time to go, I just want to go." Ez then became upset and said, "She's told people a hundred times she wants to be brought back." Then patient agreed and said, "yes, bring me back." I did not continue to push as the son was getting upset. -Talked with case management. Referral to [facility]. -Family will need discharge instructions on wound care. Could also maybe benefit from waffle mattress at home to relieve pressure. -No symptom management needs at this time. Patient denies pain. -PPS 30% -Palliative will follow as needed. (2) Decubitus ulcer of sacral region, stage 4: (3) Gram-positive cocci bacteremia: (4) Acute osteomyelitis of sacrum: History of Present Illness Attending Physician: Herman Jones, DO History of Present Illness This 88 year old female patient with PMH hypertension, aortic stenosis, CVA, diabetes, hypertension, DVT, PE, bilateral lower extremity lymphedema, spinal stenosis, and others presented to the hospital with fatigue and multiple ulcers on legs and sacrum. Patient found to have a stage IV sacral ulcer as well as osteomyelitis and multiple abscesses including in the epidural space and intraosseous. Surgery consulted-- no role for surgery. ID following and making recommendations on abx. Patient is severely weak and debilitated. She is bedbound mostly after her previous CVA. Patient lives with her two sons who care for her. Patient was on hospice back in November 2017 for multiple comorbidities, but was discharged due to prolonged prognosis. Patient will need several weeks of IV abx if we are going to aggressively treat this infection, but with her poor nutritional status, being bedbound, many other health issues, the likelihood of this ulcer healing and infection clearing is slim. Patient is adamant she does not want to go to SNF. Palliative care is consulted to discuss goals. Thank you kindly for this consult. Palliative care team will follow as needed. Allergies Allergy/AdvReac Type Severity Reaction Status Date / Time amoxicillin Allergy Mild rash-on Verified 07/26/19 17:52 both Zithromax and Augmentin clavulanic acid Allergy Mild rash-on Verified 07/25/19 17:33 both Zithromax and Augmentin azithromycin Allergy rash-on Verified 07/26/19 17:54 both Zithromax and Augmentin Home Medications Home Medications Medication Instructions Recorded Confirmed Type rivaroxaban 20 mg tablet 20 mg PO DAILY #30 tab 04/08/19 07/25/19 Rx lisinopril 20 mg tablet 20 mg PO DAILY #30 tab 07/05/19 07/25/19 History Patient History Medical History Chronic anticoagulation (Acute) DVT (deep venous thrombosis) (Acute) Difficulty walking (Acute) Disc degeneration, lumbar (Acute) Edema (Acute) History of pulmonary embolism (Acute) Impaired fasting glucose (Acute) Lymphedema (Acute) Mitral regurgitation (Acute) Stasis, venous (Acute) Stenosis, cervical spine (Acute) Stroke syndrome (Acute) Hypertension (Chronic) Family History Other Family history non-contributory Social History Preferred Language: Spanish Communication Ability: Effective [employer] Required: No Beliefs That Will Affect Care: None Current Living Situation: Family Current Living Situation Comment: 3 sons Feels Safe at Home: Yes Safety Concerns: Feels Safe At This Time Smoking Status: Never smoker Hx Alcohol Use: No Hx Substance Use: No Review of Systems Constitutional: + weakness Ear, Nose, Mouth, Throat: no dysphagia Respiratory: no cough and no dyspnea Cardiovascular: no chest pain Gastrointestinal: no abdominal pain, no nausea and no vomiting Musculoskeletal: no pain Neurologic: + memory loss Physical Exam Constitutional: + ill appearing and + frail appearing ENMT: external ear and nose normal, oropharynx normal Ears: + hearing impairment Respiratory: normal respiratory effort Auscultation: lungs clear to auscultation bilaterally Cardiovascular: Rate/Rhythm: regular rate and regular rhythm Neurologic: moves all extremities and awake Psychiatric: Orientation: alert, oriented to person and oriented to place Insight: + limited insight Results & Data Vital Signs (Past 12 Hours) Vital Signs Temp Pulse Pulse Resp BP Pulse Ox 08/02/19 15:28 36.4 C L 60 18 143/65 H 99 08/02/19 11:28 36.5 C 58 L 14 120/63 98 08/02/19 07:13 36 C L 53 L 14 130/62 98 08/02/19 06:55 54 L Time Spent Midlevel 50 minutes with >50% of the time spent at bedside with patient and family discussing condition and GOC.
[2019-08-02] MEDS: ERTAPENEM SODIUM 1,000 MG in SODIUM CHLORIDE 0.9% 50 ML IV SCH (16:53)
[2019-08-02] MEDS: SACCHAROMYCES BOULARDII 250 MG CAP PO SCH (20:56)
[2019-08-03 06:58] LABS: Basophils # (auto) 0.02 K/uL (0-0.2); Basophils % (auto) 0.2 %; Eosinophils # (auto) 0.16 K/uL (0-0.5); Eosinophils % (auto) 1.7 %; Hematocrit (blood only) 23.5 % (37-47); Hemoglobin 7.8 g/dL (12.0-16.0); Immature Granulocytes # (auto) 0.14 K/uL (0.00-0.02); Immature Granulocytes % (auto) 1.5 %; Lymphocytes # (auto) 1.85 K/uL (1.2-3.4); Lymphocytes % (auto) 19.4 %; Mean Corpuscular Hemoglobin 28.4 pg (25-34); Mean Corpuscular Hgb Conc 33.2 g/dL (32-36); Mean Corpuscular Volume 85.5 fL (80-100); Mean Platelet Volume 8.3 fL (7.4-10.4); Monocytes # (auto) 0.72 K/uL (0.11-0.59); Monocytes % (auto) 7.5 %; Neutrophils # (auto) 6.67 K/uL (1.4-6.5); Neutrophils % (auto) 69.7 %; Platelet Count 396 K/uL (130-400); RDW Coefficient of Variation 17.2 % (11.5-14.5); RDW Standard Deviation 51.1 fL (36.4-46.3); Red Blood Count 2.75 M/uL (4.2-5.4); White Blood Count 9.56 K/uL (4.8-10.8)
[2019-08-03 07:18] LABS: Anisocytosis Present; Polychromasia 1+
[2019-08-03 07:32] LABS: BUN Creatinine Ratio 48.2 (10-20); Creatinine Clr Calc Pharmacy 74.6 ml/min; Est GFR (African American) 110.8; Est GFR (Non-African American) 95.6; Potassium 4.6 mmol/L (3.5-5.1)
[2019-08-03] MEDS: LISINOPRIL 20 MG TAB PO SCH (08:27)
[2019-08-03] MEDS: INSULIN ASPART 100 UNITS/ML 3 ML PEN SC SCH ×4 (08:28→20:23)
[2019-08-03] MEDS: HEPARIN SOD 5,000 UNIT/0.5 ML VIAL SQ SCH ×2 (08:28→20:22)
[2019-08-03] MEDS: COLLAGENASE OINT 30 GM TUBE EXT SCH (08:29)
[2019-08-03] MEDS: INSULIN GLARGINE SOLOSTAR 100 UNITS/ML 3 ML PEN SC SCH (08:29)
--- NOTE | 2019-08-03 12:28 | Hospitalist Progress Note ---
Date of Service August 03, 2019 Assessment & Plan (1) Sacral decubitus ulcer: 88-year-old female with a past medical history of HTN, aortic stenosis, CVA, DM2, DVT, PE, bilateral lower extremity lymphedema, spinal stenosis now for treatment of osteomyelitis and abscesses with IV antibiotics due to being a poor surgical candidate. After extensive discussion with patient and family, regarding treatment options and outlining the difficulty of this wound healing and the likelihood that this wound will not heal given our inability to full treat it; at this time patient and family have elected to talk with palliative care and subsequently once an appropriate outpatient resources have been established have her go home under Hospice care. They would like patient to remain FULL CODE throughout these next steps. Fatigue, leukocytosis, sacral pressure ulcer: - feeling well this AM. - Previous Blood Culture showed Alpha Strep, Diphtheroids, Micromonas, gram negative bacilli. BCx x2 negative but not to 48 hours at this point. Will continue to follow. CBC tomorrow AM. CBC today WBC 12.77 from 11.99 yesterday. - Wound Culture showed proteus mirabilis, staph species, bacteroides caccae, bacteroides thetaiotaomicron. - MRI Pelvis w/wo showed Osteomyelitis with multiple abscesses throughout including epidural abscess. - Wound Care Consult placed - no longer a candidate for wound vac; wound to be dressed with aquacel General surgery consult - Not a surgical candidate at this time. - Ortho Spine Consulted - Continue antibiotic treatment, no surgical intervention. - Infectious Disease Consulted - IV ertapenem and will schedule for outpatient follow up for 1 week following discharge. Will continue IV antibiotics. Tylenol for fevers. Has been afebrile. Impaired Fasting Glucose: - Concern for high sugars the past couple of days. - Patient not on any medication for diabetes/glucose control at home. - SSI ordered to cover as needed and added Lantus 10u qHS to regimen. Left lower lobe consolidation: Likely secondary to atelectasis as patient has no symptoms and a normal pulmonary exam. Questionable UTI: -UA Nitrates + and WBC >30. Patient on IV ertapenem. UCx negative. Dehydration: Resolved -IV fluids dc'd . PO intake encouraged. Anemia: No signs of bleeding, reports poor p.o. intake. - Likely Anemia of Chronic Disease. Iron Studies - Iron 7.9, TIBC 183, Ferritin 234.5. - Hgb 7.5 this AM, repeating today for determination of transfusion - Patient consented for blood if needed, transfuse if <7 or signs/symptomatic anemia. Transaminitis: History of cholelithiasis. - Denies RUQ pain on clinical exam. Hypertension: - SBP 130s-150s. Continue lisinopril 20 mg. Severe protein calorie malnutrition: Multiple ulcerations in the setting of decreased oral intake Continue to push high-protein foods and meal trays and monitor intake CODE STATUS: FULL CODE Diet: Heart Healthy DVT prophylaxis: Heparin, holding Xarelto. Dispo : Med/Surg (2) Anemia: (3) Leukocytosis: (4) Stasis, venous: (5) Impaired fasting glucose: (6) Lymphedema: (7) Stenosis, cervical spine: (8) Left lower lobe pneumonia: (9) Venous stasis ulcer: (10) Aortic stenosis: (11) Dehydration: (12) History of pulmonary embolism: Supervising Physician Co-Signing Physician Notes I saw the patient with the resident physician and confirmed ash portions of the history and physical exam. Presentation today, the patient is resting comfortably without complaints of pain. She is aware the plan to return home with hospice care. Palliative care and case management are arranging this for home -it sounds as if there is a couple DME is in need to be in place before she can be discharged. Hope this would set up in the next 24 hours; anticipate discharge tomorrow to home hospice. Subjective Pt has no new complaints, and generally feels fine and ready to go home at this point in time. She feels like her illness can't be that bad if she does not have much pain or discomfort at this point. Understands that at this time, she is being prepared to go home, but there are a few items that need to be acquired at home before she can be discharged to her family and Hospice's care. Review of Systems Constitutional: no fever, no chills, no sweats, no body aches and no fatigue Respiratory: no cough, no dyspnea and no problem reported Cardiovascular: no chest pain, no palpitations, no edema and no calf pain Gastrointestinal: no abdominal pain, no nausea and no vomiting Musculoskeletal: no back pain Physical Exam Constitutional: + thin and + frail appearing Eyes: PERRL, conjunctivae normal, anicteric sclerae Respiratory: normal respiratory effort, lungs clear to auscultation Cardiovascular: RRR, no murmur, no edema Results & Data Vital Signs (Past 12 Hours) Vital Signs Temp Pulse Resp BP BP Pulse Ox 08/03/19 11:57 36.6 C 56 L 18 139/52 L 99 08/03/19 11:35 34.7 C L 57 L 22 153/50 H 100 08/03/19 07:36 36.6 C 60 17 148/73 H 99 08/03/19 04:00 36.4 C L 63 18 154/72 H 98 Laboratory Results 08/03/19 08/03/19 08/03/19 Range/Units 11:32 07:48 06:31 WBC (4.8-10.8) K/uL RBC (4.2-5.4) M/uL Hgb (12.0-16.0) g/dL Hct (37-47) % MCV (80-100) fL MCH (25-34) pg MCHC (32-36) g/dL RDW Std Deviation (36.4-46.3) fL RDW Coeff of Mary Kay (11.5-14.5) % Plt Count (130-400) K/uL MPV (7.4-10.4) fL Immature Gran % (Auto) % Neut % (Auto) % Lymph % (Auto) % [place] % (Auto) % Eos % (Auto) % Baso % (Auto) % Immature Gran # (Auto) (0.00-0.02) K/uL Neut # (Auto) (1.4-6.5) K/uL Lymph # (Auto) (1.2-3.4) K/uL [place] # (Auto) (0.11-0.59) K/uL Eos # (Auto) (0-0.5) K/uL Baso # (Auto) (0-0.2) K/uL Polychromasia Anisocytosis Sodium 135 L (136-145) mmol/L Potassium 4.6 (3.5-5.1) mmol/L Chloride 105 (98-107) mmol/L Carbon Dioxide 24 (21-32) mmol/L Anion Gap 6.0 (3-11) BUN 17 (7-18) mg/dl Creatinine 0.36 L (0.6-1.2) mg/dl Est Cr Clr Drug Dosing 74.6 ml/min Est GFR ( Amer) 110.8 Est GFR (Non-Af Amer) 95.6 BUN/Creatinine Ratio 48.2 H (10-20) Glucose 100 H (70-99) mg/dl POC Glucose 144 H 106 H (70-99) Calcium 8.0 L (8.5-10.1) mg/dl 08/03/19 08/02/19 08/02/19 Range/Units 06:31 20:38 16:09 WBC 9.56 (4.8-10.8) K/uL RBC 2.75 L (4.2-5.4) M/uL Hgb 7.8 L (12.0-16.0) g/dL Hct 23.5 L (37-47) % MCV 85.5 (80-100) fL MCH 28.4 (25-34) pg MCHC 33.2 (32-36) g/dL RDW Std Deviation 51.1 H (36.4-46.3) fL RDW Coeff of Mary Kay 17.2 H (11.5-14.5) % Plt Count 396 (130-400) K/uL MPV 8.3 (7.4-10.4) fL Immature Gran % (Auto) 1.5 % Neut % (Auto) 69.7 % Lymph % (Auto) 19.4 % [place] % (Auto) 7.5 % Eos % (Auto) 1.7 % Baso % (Auto) 0.2 % Immature Gran # (Auto) 0.14 H (0.00-0.02) K/uL Neut # (Auto) 6.67 H (1.4-6.5) K/uL Lymph # (Auto) 1.85 (1.2-3.4) K/uL [place] # (Auto) 0.72 H (0.11-0.59) K/uL Eos # (Auto) 0.16 (0-0.5) K/uL Baso # (Auto) 0.02 (0-0.2) K/uL Polychromasia 1+ Anisocytosis Present Sodium (136-145) mmol/L Potassium (3.5-5.1) mmol/L Chloride (98-107) mmol/L Carbon Dioxide (21-32) mmol/L Anion Gap (3-11) BUN (7-18) mg/dl Creatinine (0.6-1.2) mg/dl Est Cr Clr Drug Dosing ml/min Est GFR ( Amer) Est GFR (Non-Af Amer) BUN/Creatinine Ratio (10-20) Glucose (70-99) mg/dl POC Glucose 180 H 188 H (70-99) Calcium (8.5-10.1) mg/dl 08/02/19 Range/Units 11:24 WBC (4.8-10.8) K/uL RBC (4.2-5.4) M/uL Hgb (12.0-16.0) g/dL Hct (37-47) % MCV (80-100) fL MCH (25-34) pg MCHC (32-36) g/dL RDW Std Deviation (36.4-46.3) fL RDW Coeff of Mary Kay (11.5-14.5) % Plt Count (130-400) K/uL MPV (7.4-10.4) fL Immature Gran % (Auto) % Neut % (Auto) % Lymph % (Auto) % [place] % (Auto) % Eos % (Auto) % Baso % (Auto) % Immature Gran # (Auto) (0.00-0.02) K/uL Neut # (Auto) (1.4-6.5) K/uL Lymph # (Auto) (1.2-3.4) K/uL [place] # (Auto) (0.11-0.59) K/uL Eos # (Auto) (0-0.5) K/uL Baso # (Auto) (0-0.2) K/uL Polychromasia Anisocytosis Sodium (136-145) mmol/L Potassium (3.5-5.1) mmol/L Chloride (98-107) mmol/L Carbon Dioxide (21-32) mmol/L Anion Gap (3-11) BUN (7-18) mg/dl Creatinine (0.6-1.2) mg/dl Est Cr Clr Drug Dosing ml/min Est GFR ( Amer) Est GFR (Non-Af Amer) BUN/Creatinine Ratio (10-20) Glucose (70-99) mg/dl POC Glucose 151 H (70-99) Calcium (8.5-10.1) mg/dl Medications Administered Current Inpatient Medications Acetaminophen (Tylenol) 650 mg PO Q4H PRN PRN Reason: Pain or Fever Stop: 08/24/19 23:00 Collagenase (Santyl) 1 appln EXT DAILY RUFUS Stop: 08/26/19 08:59 Last Admin: 08/03/19 08:29 Dose: 1 appln Documented by: Dextrose (Dextrose 50%) 25 - 50 ml IV UD PRN; Protocol PRN Reason: Hypoglycemia Protocol Stop: 08/28/19 12:14 Glucagon (Glucagen) 1 mg IM UD PRN; Protocol PRN Reason: Hypoglycemia Protocol Stop: 08/28/19 12:14 Glucose (Glucose 40%) 15 - 30 gm PO UD PRN; Protocol PRN Reason: Hypoglycemia Protocol Stop: 08/28/19 12:14 Glucose (Dex4 Glucose) 4 - 8 tabs PO UD PRN; Protocol PRN Reason: Hypoglycemia Protocol Stop: 08/28/19 12:14 Heparin Sodium (Porcine) (Heparin Sodium (Porcine)) 5,000 units SQ Q12 RUFUS Stop: 08/26/19 20:59 Last Admin: 08/03/19 08:28 Dose: 5,000 units Documented by: Ertapenem 1,000 mg/ Sodium (Chloride) 60 mls @ 100 mls/hr IV Q24H RUFUS; Protocol Stop: 09/09/19 15:59 Last Infusion: 08/02/19 18:33 Dose: Infused Documented by: Insulin Aspart (Novolog Flexpen) 0 units SC ACHS RUFUS Stop: 08/28/19 12:14 Last Admin: 08/03/19 08:28 Dose: Not Given Documented by: Insulin Glargine (Lantus Solostar Pen) 10 units SC DAILY RUFUS Stop: 08/29/19 08:59 Last Admin: 08/03/19 08:29 Dose: 10 units Documented by: Lisinopril (Zestril) 20 mg PO DAILY RUFUS Stop: 08/25/19 08:59 Last Admin: 08/03/19 08:27 Dose: 20 mg Documented by: Miscellaneous (Carbohydrates For Hypoglycemia) 15 - 30 gm PO UD PRN PRN Reason: Hypoglycemia Treatment Stop: 08/28/19 12:14 Polyethylene Glycol (Miralax Powder Packet) 17 gm PO DAILY PRN PRN Reason: Constipation Stop: 08/24/19 23:00 Saccharomyces Boulardii (Florastor) 250 mg PO HS [facility] Stop: 08/25/19 20:59 Last Admin: 08/02/19 20:56 Dose: 250 mg Documented by: Resident Activity Tracking Resident Involvement: Resident Care Provided Care Provided: Adult Hospital Medicine (1) Anemia Anemia type: unspecified type Qualified Code(s): D64.9 - Anemia, unspecified (2) Leukocytosis Leukocytosis type: unspecified Qualified Code(s): D72.829 - Elevated white blood cell count, unspecified (3) Left lower lobe pneumonia Pneumonia type: due to unspecified organism Qualified Code(s): J18.1 - Lobar pneumonia, unspecified organism (4) Venous stasis ulcer Non-pressure ulcer stage: unspecified non-pressure ulcer stage Varicose vein presence: unspecified whether present Venous stasis ulcer site: unspecified site Qualified Code(s): I83.009 - Varicose veins of unspecified lower extremity with ulcer of unspecified site; L97.909 - Non-pressure chronic ulcer of unspecified part of unspecified lower leg with unspecified severity
--- NOTE | 2019-08-03 14:38 | Palliative Care Progress Note ---
Date of Service August 03, 2019 Assessment & Plan (1) Goals of care, counseling/discussion: -Plan is for home with hospice. Will switch to PO abx prior to discharge. -Talked with case management. Referral to [facility]. -Family will need discharge instructions on wound care. Could also maybe benefit from waffle mattress at home to relieve pressure. -No symptom management needs at this time. Patient denies pain. -PPS 30% -Palliative will follow as needed. (2) Decubitus ulcer of sacral region, stage 4: (3) Gram-positive cocci bacteremia: (4) Acute osteomyelitis of sacrum: Subjective Patient is feeling about the same today. No new complaints. Is anxious to get home. Review of Systems Review of Systems: + weakness no dysphagia no cough and no dyspnea no chest pain no abdominal pain, no nausea and no vomiting no pain Physical Exam Constitutional: + ill appearing and + frail appearing ENMT: external ear and nose normal, oropharynx normal Ears: + hearing impairment Respiratory: normal respiratory effort Auscultation: lungs clear to auscultation bilaterally Cardiovascular: Rate/Rhythm: regular rate and regular rhythm Neurologic: moves all extremities and awake Psychiatric: Orientation: alert, oriented to person and oriented to place Insight: + limited insight Results & Data Vital Signs (Past 12 Hours) Vital Signs Temp Pulse Resp BP BP Pulse Ox 08/03/19 11:57 36.6 C 56 L 18 139/52 L 99 08/03/19 11:35 34.7 C L 57 L 22 153/50 H 100 08/03/19 07:36 36.6 C 60 17 148/73 H 99 08/03/19 04:00 36.4 C L 63 18 154/72 H 98 Time Spent Midlevel 25 minutes with >50% of the time spent at bedside with patient discussing plan of care as well as coordinating care with IDT.
[2019-08-03] MEDS: ERTAPENEM SODIUM 1,000 MG in SODIUM CHLORIDE 0.9% 50 ML IV SCH (16:40)
[2019-08-03] MEDS: SACCHAROMYCES BOULARDII 250 MG CAP PO SCH (20:22)
[2019-08-04] MEDS: LISINOPRIL 20 MG TAB PO SCH (08:11)
[2019-08-04] MEDS: COLLAGENASE OINT 30 GM TUBE EXT SCH (08:11)
[2019-08-04] MEDS: HEPARIN SOD 5,000 UNIT/0.5 ML VIAL SQ SCH ×2 (08:11→21:09)
[2019-08-04] MEDS: INSULIN GLARGINE SOLOSTAR 100 UNITS/ML 3 ML PEN SC SCH (08:11)
[2019-08-04] MEDS: INSULIN ASPART 100 UNITS/ML 3 ML PEN SC SCH ×4 (08:22→21:08)
[2019-08-04] MEDS: DOXYCYCLINE HYCLATE 100 MG CAP PO SCH ×2 (10:08→21:08)
--- NOTE | 2019-08-04 16:40 | Hospitalist Progress Note ---
Date of Service August 04, 2019 Assessment & Plan (1) Sacral decubitus ulcer: 88-year-old female with a past medical history of HTN, aortic stenosis, CVA, DM2, DVT, PE, bilateral lower extremity lymphedema, spinal stenosis now for treatment of osteomyelitis and abscesses with IV antibiotics due to being a poor surgical candidate. After extensive discussion with patient and family, regarding treatment options and outlining the difficulty of this wound healing and the likelihood that this wound will not heal given our inability to full treat it; at this time patient and family have elected to talk with palliative care and subsequently once an appropriate outpatient resources have been established have her go home under Hospice care. They would like patient to remain FULL CODE throughout these next steps. Fatigue, leukocytosis, sacral pressure ulcer: - feeling well this AM. - MRI Pelvis w/wo showed Osteomyelitis with multiple abscesses throughout including epidural abscess. - Wound Care Consult placed - no longer a candidate for wound vac; wound to be dressed with aquacel General surgery consult - Not a surgical candidate at this time. - Ortho Spine Consulted - Continue antibiotic treatment, no surgical intervention. - Infectious Disease Consulted - outpatient follow up for 1 week following discharge. - discontinued Ertapenem, and switched to PO doxycycline anticipating discharge tomorrow with hospice care Left lower lobe consolidation: Likely secondary to atelectasis as patient has no symptoms and a normal pulmonary exam. Questionable UTI: -UCx negative. Dehydration: -PO intake encouraged. Anemia: No signs of bleeding, reports poor p.o. intake. - Likely Anemia of Chronic Disease. Iron Studies - Iron 7.9, TIBC 183, Ferritin 234.5. - Hgb 7.5 this AM, repeating today for determination of transfusion - Patient consented for blood if needed, transfuse if <7 or signs/symptomatic anemia. Transaminitis: History of cholelithiasis. - Denies RUQ pain on clinical exam. Hypertension: - SBP 130s-150s. Continue lisinopril 20 mg. Severe protein calorie malnutrition: Multiple ulcerations in the setting of decreased oral intake Continue to push high-protein foods and meal trays and monitor intake CODE STATUS: FULL CODE Diet: Heart Healthy DVT prophylaxis: Heparin, holding Xarelto. Dispo : Med/Surg (2) Anemia: (3) Leukocytosis: (4) Stasis, venous: (5) Lymphedema: (6) Stenosis, cervical spine: (7) Left lower lobe pneumonia: (8) Venous stasis ulcer: (9) Aortic stenosis: (10) Dehydration: (11) History of pulmonary embolism: Supervising Physician Co-Signing Physician Notes I saw the patient with the resident physician and confirmed ash portions of the history and physical exam. Upon exam, she is without complaints. She is eager to return home. Tentative plan is discharge to home with hospice tomorrow. Subjective Pt continues to feel well, and have no acute complaints in regard to her wounds. Family is meeting with [facility] to best arrange home before bringing her home and having their supervision. Last of necessary supplies needed, supposed to be arriving later today, or into tomorrow morning. Physical Exam Constitutional: + thin and + frail appearing Eyes: PERRL, conjunctivae normal, anicteric sclerae Respiratory: normal respiratory effort, lungs clear to auscultation Cardiovascular: RRR, no murmur, no edema Results & Data Vital Signs (Past 12 Hours) Vital Signs Temp Pulse Pulse Resp BP Pulse Ox 08/04/19 15:52 79 08/04/19 15:49 36.3 C L 66 19 148/53 H 99 08/04/19 11:30 36.9 C 67 18 148/64 H 97 08/04/19 10:23 63 08/04/19 07:00 36.3 C L 62 16 135/68 96 Laboratory Results 08/04/19 08/04/19 08/03/19 Range/Units 11:51 07:39 20:11 POC Glucose 120 H 99 174 H (70-99) 08/03/19 Range/Units 16:35 POC Glucose 148 H (70-99) Medications Administered Current Inpatient Medications Acetaminophen (Tylenol) 650 mg PO Q4H PRN PRN Reason: Pain or Fever Stop: 08/24/19 23:00 Collagenase (Santyl) 1 appln EXT DAILY RUFUS Stop: 08/26/19 08:59 Last Admin: 08/04/19 08:11 Dose: 1 appln Documented by: Dextrose (Dextrose 50%) 25 - 50 ml IV UD PRN; Protocol PRN Reason: Hypoglycemia Protocol Stop: 08/28/19 12:14 Doxycycline Hyclate (Vibramycin) 100 mg PO BID RUFUS Stop: 09/15/19 09:59 Last Admin: 08/04/19 10:08 Dose: 100 mg Documented by: Glucagon (Glucagen) 1 mg IM UD PRN; Protocol PRN Reason: Hypoglycemia Protocol Stop: 08/28/19 12:14 Glucose (Glucose 40%) 15 - 30 gm PO UD PRN; Protocol PRN Reason: Hypoglycemia Protocol Stop: 08/28/19 12:14 Glucose (Dex4 Glucose) 4 - 8 tabs PO UD PRN; Protocol PRN Reason: Hypoglycemia Protocol Stop: 08/28/19 12:14 Heparin Sodium (Porcine) (Heparin Sodium (Porcine)) 5,000 units SQ Q12 RUFUS Stop: 08/26/19 20:59 Last Admin: 08/04/19 08:11 Dose: 5,000 units Documented by: Insulin Aspart (Novolog Flexpen) 0 units SC ACHS RUFUS Stop: 08/28/19 12:14 Last Admin: 08/04/19 12:44 Dose: Not Given Documented by: Insulin Glargine (Lantus Solostar Pen) 10 units SC DAILY RUFUS Stop: 08/29/19 08:59 Last Admin: 08/04/19 08:11 Dose: 10 units Documented by: Lisinopril (Zestril) 20 mg PO DAILY RUFUS Stop: 08/25/19 08:59 Last Admin: 08/04/19 08:11 Dose: 20 mg Documented by: Miscellaneous (Carbohydrates For Hypoglycemia) 15 - 30 gm PO UD PRN PRN Reason: Hypoglycemia Treatment Stop: 08/28/19 12:14 Polyethylene Glycol (Miralax Powder Packet) 17 gm PO DAILY PRN PRN Reason: Constipation Stop: 08/24/19 23:00 Saccharomyces Boulardii (Florastor) 250 mg PO HS RUFUS Stop: 08/25/19 20:59 Last Admin: 08/03/19 20:22 Dose: 250 mg Documented by: Resident Activity Tracking Resident Involvement: Resident Care Provided Care Provided: Adult Hospital Medicine (1) Anemia Anemia type: unspecified type Qualified Code(s): D64.9 - Anemia, unspecified (2) Leukocytosis Leukocytosis type: unspecified Qualified Code(s): D72.829 - Elevated white blood cell count, unspecified (3) Left lower lobe pneumonia Pneumonia type: due to unspecified organism Qualified Code(s): J18.1 - Lobar pneumonia, unspecified organism (4) Venous stasis ulcer Non-pressure ulcer stage: unspecified non-pressure ulcer stage Varicose vein presence: unspecified whether present Venous stasis ulcer site: unspecified site Qualified Code(s): I83.009 - Varicose veins of unspecified lower extremity with ulcer of unspecified site; L97.909 - Non-pressure chronic ulcer of unspecified part of unspecified lower leg with unspecified severity
[2019-08-04] MEDS: SACCHAROMYCES BOULARDII 250 MG CAP PO SCH (21:09)
[2019-08-05 06:59] LABS: Basophils # (auto) 0.02 K/uL (0-0.2); Basophils % (auto) 0.3 %; Eosinophils # (auto) 0.15 K/uL (0-0.5); Eosinophils % (auto) 2.3 %; Hematocrit (blood only) 25.9 % (37-47); Hemoglobin 8.2 g/dL (12.0-16.0); Immature Granulocytes # (auto) 0.04 K/uL (0.00-0.02); Immature Granulocytes % (auto) 0.6 %; Lymphocytes # (auto) 1.94 K/uL (1.2-3.4); Lymphocytes % (auto) 29.9 %; Mean Corpuscular Hemoglobin 27.8 pg (25-34); Mean Corpuscular Hgb Conc 31.7 g/dL (32-36); Mean Corpuscular Volume 87.8 fL (80-100); Mean Platelet Volume 8.4 fL (7.4-10.4); Monocytes % (auto) 9.2 %; Neutrophils # (auto) 3.74 K/uL (1.4-6.5); Neutrophils % (auto) 57.7 %; Platelet Count 392 K/uL (130-400); RDW Coefficient of Variation 18.3 % (11.5-14.5); RDW Standard Deviation 56.9 fL (36.4-46.3); Red Blood Count 2.95 M/uL (4.2-5.4); White Blood Count 6.49 K/uL (4.8-10.8)
[2019-08-05 07:31] LABS: BUN Creatinine Ratio 36.9 (10-20); Calcium 8.4 mg/dl (8.5-10.1); Creatinine Clr Calc Pharmacy 74.3 ml/min; Est GFR (Non-African American) 88.8; Potassium 4.3 mmol/L (3.5-5.1)
[2019-08-05] MEDS: INSULIN ASPART 100 UNITS/ML 3 ML PEN SC SCH ×2 (08:07→12:09)
[2019-08-05] MEDS: INSULIN GLARGINE SOLOSTAR 100 UNITS/ML 3 ML PEN SC SCH (08:08)
[2019-08-05] MEDS: HEPARIN SOD 5,000 UNIT/0.5 ML VIAL SQ SCH (08:08)
[2019-08-05] MEDS: DOXYCYCLINE HYCLATE 100 MG CAP PO SCH (08:08)
[2019-08-05] MEDS: LISINOPRIL 20 MG TAB PO SCH (08:08)
[2019-08-05] MEDS: COLLAGENASE OINT 30 GM TUBE EXT SCH (08:08)
--- NOTE | 2019-08-05 09:44 | Discharge Summary ---
Date of Service August 05, 2019 Admission HPI Per Admitting Provider 88-year-old female with a past medical history of hypertension, aortic stenosis, diabetes, hypertension, DVT, PE, bilateral lower extremity lymphedema, spinal stenosis presents with fatigue for the past couple days. Patient describes having a large sacral decubitus ulcer and wounds on bilateral legs. The patient is nonambulatory and bedridden following stroke. The patient wears adult diapers, denies being able to get up to use the bedside commode. She lives at home with her son who is her primary car barn laborer. She also has home health services that visit her twice per week. They noted that the ulcer on her sacrum started approximately 3 weeks ago as a small lesion and is developed into a deep approximately 4 cm lesion. Pt denies LOC, headache, fevers, chills, chest pain, shortness of breath, cough, runny nose, nausea, vomiting, abdominal pain, back pain, melena, hematochezia, urinary symptoms Principal Diagnosis Stage IV sacral decubitus ulcer Discharge Exam Constitutional + thin and + frail appearing Eyes PERRL, conjunctivae normal, anicteric sclerae Respiratory normal respiratory effort, lungs clear to auscultation Cardiovascular RRR, no murmur, no edema Discharge Data Allergies Allergy/AdvReac Type Severity Reaction Status Date / Time amoxicillin Allergy Mild rash-on Verified 07/26/19 17:52 both Zithromax and Augmentin clavulanic acid Allergy Mild rash-on Verified 07/25/19 17:33 both Zithromax and Augmentin azithromycin Allergy rash-on Verified 07/26/19 17:54 both Zithromax and Augmentin Consultations 07/25/19 16:35 Consult Wound Care Provider Stat 07/25/19 20:26 ED Decision to Admit Stat 07/25/19 23:01 Consult Case Management - Discharge Planning Routine Consult General Surgery Routine 07/26/19 18:58 Consult Infectious Diseases Routine Consult Orthopedic Surgery Routine 08/02/19 09:48 Consult Palliative Care Routine Ordered Studies 07/25/19 16:24 CT head/brain wo con Stat 07/26/19 11:35 MR pelvis wo/w con Urgent Hospital Course (1) Sacral decubitus ulcer: 88-year-old female with a past medical history of HTN, aortic stenosis, CVA, DM2, DVT, PE, bilateral lower extremity lymphedema, spinal stenosis now for treatment of osteomyelitis and abscesses with IV antibiotics due to being a poor surgical candidate. After extensive discussion with patient and family, regarding treatment options and outlining the difficulty of this wound healing and the likelihood that this wound will not heal given our inability to full treat it; at this time patient and family have elected to talk with palliative care and subsequently once an appropriate outpatient resources have been established have her go home under Hospice care. They would like patient to remain FULL CODE throughout these next steps. Fatigue, leukocytosis, sacral pressure ulcer: - MRI Pelvis w/wo showed Osteomyelitis with multiple abscesses throughout including epidural abscess. - Wound Care Consult placed - no longer a candidate for wound vac; wound to be dressed with aquacel General surgery consult - Not a surgical candidate at this time. - Ortho Spine Consulted - Continue antibiotic treatment, no surgical intervention. - Infectious Disease Consulted - outpatient follow up for 1 week following discharge. - continue palliative antibiotics with Bactrim and Metronidazole, every 12 hours daily (switched from doxy) Left lower lobe consolidation: Likely secondary to atelectasis as patient has no symptoms and a normal pulmonary exam. Questionable UTI: -UCx negative. Dehydration: -PO intake encouraged. Anemia: No signs of bleeding, reports poor p.o. intake. - Likely Anemia of Chronic Disease. Iron Studies - Iron 7.9, TIBC 183, Ferritin 234.5. - Hgb 7.5 this AM, repeating today for determination of transfusion - Patient consented for blood if needed, transfuse if <7 or signs/symptomatic anemia. Transaminitis: History of cholelithiasis. - Denies RUQ pain on clinical exam. Hypertension: - SBP 130s-150s. Continue lisinopril 20 mg. CODE STATUS: FULL CODE Diet: Heart Healthy DVT prophylaxis: Heparin, holding Xarelto. Dispo : Med/Surg (2) Anemia: (3) Leukocytosis: (4) Stasis, venous: (5) Lymphedema: (6) Stenosis, cervical spine: (7) Left lower lobe pneumonia: (8) Venous stasis ulcer: (9) Aortic stenosis: (10) Dehydration: (11) History of pulmonary embolism: Total Time Total Time Spent Total Time Spent (In Minutes): Please see attending attestation Discharge Plan Discharge Items Patient Disposition: Hospice - Home Reason For Visit: SACRAL DECUBITUS ULCER, LEUKOCYSTOSIS Discharge Diagnosis: Stage IV sacral decubitus ulcer Activity: Per Instructions section Non-emergency contact: Specialist and [employer] Supervisor Call non-emergency contact if: your symptoms worsen and your wound pain has increased Follow-up/Referrals: Carlos Almeida MD [Primary Care Provider] - Diet: Regular Addtl Attending Provider Instructions: You were admitted following the discovery of a wound on your back; this wound extends from the skin surface down to the bone and is infected. This wound is what we call a sacral decubitus ulcer, and is an infection of the tissues and subsequently the bones in that area. At this point, with the location of the wound, there is no treatment that will cure it. After our discussions with you and your family, the decision has been to work with a hospice program for your continued care. As you are going home, we are sending you home with some supplies to control your pain if it occurs prior to when you are able to be fully established with your hospice team. These medications are the same pack you will be starting off with under the supervision of [facility]. Pending Studies at Discharge: No Stand-Alone Forms: My [facility] Medications and DC Order Prescriptions: New lorazepam 1 mg Tablet 0.5 mg sublingual Q2H PRN (Reason: agitation) Qty: 7 RF: 0 oxycodone 20 mg/mL Concentrate 5 mg PO Q1H PRN (Reason: pain) Qty: 30 RF: 0 ondansetron HCl [Zofran] 4 mg tablet 4 mg PO Q8H PRN (Reason: nausea and vomiting) 2 Days Qty: 8 RF: 0 atropine 1 % drops 1 drops OP TID Qty: 2 RF: 0 acetaminophen [Tylenol 8 Hour] 650 mg tablet extended release 650 mg PO Q8H PRN (Reason: fever or pain) Qty: 10 RF: 0 sulfamethoxazole-trimethoprim [Bactrim DS] 800-160 mg tablet 1 tab PO BID Qty: 60 RF: 0 metronidazole 375 mg capsule 375 mg PO BID Qty: 60 RF: 0 Continued Xarelto 20 mg tablet 20 mg PO DAILY Qty: 30 RF: 5 lisinopril 20 mg tablet 20 mg PO DAILY Qty: 30 RF: 0 Discharge Orders: Discharge Order (Routine); Ordered 08/05/19 Ordered By: Mati Gomez Admission Data Admit Date/Time: 07/25/19 22:03 Attending Provider: Andry Corral Admit Provider: Shoaib Rios Primary Care Provider: Carlos Almeida Other Providers: Ezio Estrella ; Renetta Madera ; Carlos Maravilla ; Roxanne Garcia ; Dwayne Barry ; Misael Bryan ; Denzel Reinoso ; [facility] ; Era Mazariegos ; Eran Estes ; Saima Cerda Other Interventions: Discharge Summary Assessment (RN) Last Done: 08/05/19 15:29 Supervising Physician Co-Signing Physician Notes I saw the patient with the resident physician and confirmed ash portions of the history and physical exam. No complaints. Stable for discharge home with home hospice. Hospice medications sent to pharmacy today. I personally spent 35 minutes discharge planning. Resident Activity Tracking Resident Involvement: Resident Care Provided Care Provided: Adult Hospital Medicine
--- NOTE | 2019-08-05 14:35 | Infectious Disease Progress Nt ---
Date of Service August 05, 2019 Assessment & Plan (1) Acute osteomyelitis of sacrum: 88-year-old female with sacral osteomyelitis in the setting of stage IV sacral decubitus ulcer, with small abscesses seen on MRI scan as well,, wound growing staph, Proteus, Bacteroides. Given we are dealing with palliative care, would recommend combination of Bactrim and metronidazole to cover pathogens identified. Will discuss. (2) Decubitus ulcer of sacral region, stage 4: Subjective Patient seen in follow-up for stage IV sacral decubitus ulcer with underlying osteomyelitis. No surgery plan, wound VAC unable to be placed. To continue with Aquacel and dressings. Review of Systems Review of Systems: All systems reviewed & are unremarkable except as noted in HPI & below Physical Exam Constitutional: WD/WN, vitals as above + ill appearing, + cachectic and comfortable; no acute distress Eyes: PERRL, conjunctivae normal, anicteric sclerae ENMT: external ear and nose normal, oropharynx normal Neck: trachea midline, no thyromegaly neck nontender Respiratory: normal respiratory effort, lungs clear to auscultation normal percussion; does not use accessory muscles Cardiovascular: Rate/Rhythm: regular rate and regular rhythm Heart Sounds: normal S1, normal S2 and + murmur (3 out of 6 systolic murmur); no gallop and no cardiac rub Vessels: normal peripheral pulses; no JVD Gastrointestinal (Abdomen): normal bowel sounds, soft, nontender, no hepatosplenomegaly Musculoskeletal: no cyanosis or clubbing, extremities motor strength 5/5 Spine: thoracic spine normal to inspection and lumbar spine normal to inspection; no cervical spinal tenderness Skin: normal turgor and + wound (Large sacral decubitus with some surrounding erythema, probes to bone) Neurologic: patellar DTR's 2+ bilat, sensation intact no focal motor deficits Psychiatric: A+Ox3, euthymic affect Orientation: cooperative Lymphatic: no cervical or axillary lymphadenopathy no inguinal lymphadenopathy Results & Data Vital Signs (Past 12 Hours) Vital Signs Temp Pulse Pulse Resp BP BP Pulse Ox 08/05/19 11:51 36.3 C L 58 L 20 116/46 L 96 08/05/19 08:25 57 L 08/05/19 07:17 36.8 C 60 18 137/53 L 97 08/05/19 03:16 36.3 C L 60 19 108/40 L 94 Laboratory Results Short CBC 08/05/19 Range/Units 06:25 WBC 6.49 (4.8-10.8) K/uL Hgb 8.2 L (12.0-16.0) g/dL Hct 25.9 L (37-47) % Plt Count 392 (130-400) K/uL BMP 08/05/19 06:25 Sodium 141 Potassium 4.3 Chloride 110 H Carbon Dioxide 26 BUN 17 Creatinine 0.45 L Glucose 77 Calcium 8.4 L Diagnostic Findings Exam wound infection Procedure Result Verified Site Gram Stain Final 07/26/19-142 Gram Stain Result Many WBCs Seen Many Gram Positive Cocci Rare Gram Positive Bacilli Deep Wound Culture Final 07/30/19-812 Organism 1 Proteus mirabilis Quantity Moderate Sens Sensitivities to Follow +MixWound Plus Low Counts of Probable Skin Harper Organism 2 Staphylococcus aureus Quantity Few Sens Sensitivities to Follow Organism 3 Bacteroides caccae Quantity Moderate Sens No Sensitivities to Follow Organism 4 Bacteroides thetaiotaomicron Quantity Many Sens No Sensitivities to Follow P mirabili S aureus RX M.I.C. RX M.I.C. --- --------- --- --------- Amikacin I 32 Ampicillin S <=8 Amp/Sul S <=8/4 Cefazolin S <=8 Cefepime S <=4 Cefotaxime S <=2 Cefoxitin S <=8 Ceftriaxone S <=1 Cefuroxime S <=4 Ciprofloxacin S <=1 Clindamycin R 1 Daptomycin S <=0.5 Ertapenem S <=1 Erythromycin R >4 Gentamicin S <=4 Levofloxacin S <=2 Oxacillin S <=0.25 Tetracycline S <=4 Tobramycin S <=4 Trimeth/Sulfa S <=2/38 S <=0.5/9.5 Pip/Tazo S <=16 Vancomycin S 1 S = SENSITIVE I = INTERMEDIATE R = RESISTANT Name: HUSAMSHUBHAM : 1930 PAGE 1 Printed: 08/05/19 9308 PG Care Time/CCT Total # of Minutes Spent Total Time Spent with Patient: Total time spent is greater than 50% in coordination of care (as documented) at patient's floor/unit and/or counseling patient:
[2019-08-05] MEDS ORDERED: OXYCODONE HCL SOLN 5 MG/5 ML UDC PO PRN (15:01)
[2019-08-05] MEDS ORDERED: LORazepam 1 MG TAB SL PRN (15:01)
[2019-08-05 15:06] VITALS: BP 131/61; PULSE 55; TEMP 98.2; O2SAT 94
== END 2019-08-05 17:04 | disposition hospice, home (50) | DRG 871 ==
LOC: ED 15:49 → SUATTDRO 22:03 → 2N 22:03